=== PATIENT | female | born 1965 | race Caucasian/White ===

== ENCOUNTER 2016-12-10 11:29 | Inpatient (IN) | payer MEDICAID, MEDICARE ==
[~2016-12-10] VITALS: Ht 162.6 cm; Wt 55.3 kg
[~2016-12-10 11:29] MED LIST: BENT20TA PO; CHOL4 PO; MAGN500T4 PO; METO25 PO; POTA20IN3 PO
[2016-12-10 11:31] VITALS: BP 154/100; PULSE 112; RESP 24; TEMP 99.2; O2SAT 96
[2016-12-10] MEDS ORDERED: SODIUM CHLOR 0.9% 1000 ML INJ 1,000 ML IV ONE (11:44)
[2016-12-10] MEDS ORDERED: SODIUM CHLOR 0.9% 1000 ML INJ 800 ML IV ONE (11:44)
[2016-12-10] MEDS ORDERED: ONDANSETRON HCL 4 MG/2 ML VIAL IV ONE (11:45)
[2016-12-10] MEDS ORDERED: HYDROmorphone HCL PF 0.5 MG/0.5 ML SYRINGE IV PUSH ONE (11:45)
[2016-12-10 12:03] LABS: AUTOMATED NEUTROPHIL # 9.7 TH/MM3 (1.8-7.7); BASOPHIL # 0.1 TH/MM3 (0-0.2); BASOPHIL % 0.4 % (0.0-2.0); EOSINOPHIL % 0.3 % (0.0-4.0); HEMATOCRIT 41.5 % (35.0-46.0); HEMO FLAGS DIFF FINAL; LYMPH % 24.3 % (9.0-44.0); LYMPHOCYTE # 3.4 TH/MM3 (1.0-4.8); MEAN CELL VOLUME 99.2 FL (80.0-100.0); MEAN CORPUSCULAR HEMOGLOBIN 34.1 PG (27.0-34.0); MEAN CORPUSCULAR HGB CONC 34.4 % (32.0-36.0); MONO % 6.5 % (0.0-8.0); NEUT % 68.5 % (16.0-70.0); PLATELET COUNT 254 TH/MM3 (150-450); RED BLOOD COUNT 4.18 MIL/MM3 (4.00-5.30); RED CELL DISTRIBUTION WIDTH 15.2 % (11.6-17.2); WHITE BLOOD COUNT 14.2 TH/MM3 (4.0-11.0)
[2016-12-10 12:04] LABS: BLOOD, URINE NEG (NEG); GLUCOSE,URINE NEG (NEG); KETONE, URINE NEG (NEG); MUCUS URINE FEW /lpf (OCC); NITRITE,URINE NEG (NEG); PH, URINE 6.5 (5.0-8.5); URINE COLOR YELLOW (YELLW/STRAW)
[2016-12-10 12:05] LABS: COMMENT (UR) CATH-CULT NOT IND; CULTURE IF INDICATED CATH CULTURE NOT IND
--- NOTE | 2016-12-10 12:10 | PD ---
HPI Chief Complaint: GI Complaint Time Seen by Provider: 11:44 Travel History International Travel<30 days: No Contact w/Intl Traveler<30days: No Traveled to known affect area: No History of Present Illness HPI Patient is a 51-year-old female presenting to the emergency room evaluation of nausea, vomiting, abdominal pain. Patient symptoms have been ongoing for 5 days. She states she is unable to keep down her medications. Patient is a history of chronic diarrhea as well as bowel obstructions. Patient is on TPN due to malabsorption. Patient states she was told by her primary doctor to come into the emergency department because her potassium level was 2.6. Patient reports subjective fever and chills, she states her bowel movements have been mucousy. Patient states her abdominal pain is 9 out of 10 and reports as aching and cramping diffusely, however the left lower quadrant is tender than the rest of her abdomen. Patient's past medical history significant for hypertension, anxiety and depression, chronic diarrhea, fibromyalgia, small bowel obstruction. Patient reports taking Lortab 6 times a day for her chronic pain. PFSH Past Medical History Asthma: No Blood Disorders: No Anxiety: Yes Depression: Yes Heart Rhythm Problems: No Cancer: No Cardiovascular Problems: Yes High Cholesterol: No Chemotherapy: No Chest Pain: No Congestive Heart Failure: No COPD: No Diabetes: No Diminished Hearing: No Endocrine: No Fibromyalgia: Yes Gastrointestinal Disorders: Yes (malabsorption, small bowel obstruction, chronic diarrhea) Genitourinary: Yes Hypertension: Yes Immune Disorder: No Implanted Vascular Access Dvce: Yes (CHEST PORT, RIGHT X2 POWER PORT) Kidney Stones: Yes Musculoskeletal: No Neurologic: No Psychiatric: No Reproductive: No Respiratory: No Immunizations Current: Yes Radiation Therapy: No Seizures: No Sleep Apnea: No Thyroid Disease: No PNEUMOCCOCAL Vaccine (Year): 2 ?: Not Past Surgical History Abdominal Surgery: Yes (BOWEL RESECTION X 2 2003,AORTIC MESENTERIC BYPASS) Appendectomy: Yes Body Medical Devices: POWER PORT Cardiac Surgery: No Cholecystectomy: Yes Endocrine Surgery: No Eye Surgery: No Genitourinary Surgery: No Gynecologic Surgery: Yes (HYSTERECTOMY 2002) Hysterectomy: Yes Thoracic Surgery: No Tonsillectomy: Yes Other Surgery: Yes (MULTIPLE ABDOMINAL SURGERIES) Social History Alcohol Use: No Tobacco Use: Yes (1 ppd) Substance Use: No Allergies-Medications (Allergen,Severity, Reaction): Coded Allergies: morphine (Verified Allergy, Severe, Rash, 12/10/16) Reported Meds & Prescriptions Reported Meds & Active Scripts Active Reported [tpn ] Prozac (Fluoxetine HCl) 10 Mg Cap 10 Mg PO DAILY [place] (Hydrocodone-Acetaminophen) 10-325 Mg Tab 1 Tab PO Q4H PRN Norvasc (Amlodipine Besylate) 5 Mg Tab 5 Mg PO DAILY Phenergan (Promethazine HCl) 25 Mg Tablet 25 Mg PO ONCE Review of Systems Except as stated in HPI: all other systems reviewed are Neg General / Constitutional: Positive: Fever, Chills HENT: No: Headaches Cardiovascular: No: Chest Pain or Discomfort Respiratory: No: Shortness of Breath Gastrointestinal: Positive: Nausea, Vomiting, Diarrhea, Abdominal Pain Genitourinary: No: Dysuria Neurologic: Positive: Weakness, No: Dizziness, Syncope, Focal Abnormalities Physical Exam Narrative GENERAL: Thin, well-developed, alert female. Resting comfortably in no acute distress. SKIN: Warm and dry. HEAD: Atraumatic. Normocephalic. EYES: Pupils equal and round. No scleral icterus. No injection or drainage. ENT: No nasal bleeding or discharge. Mucous membranes pink and moist. NECK: Trachea midline. No JVD. CARDIOVASCULAR: Regular rate and rhythm. RESPIRATORY: No accessory muscle use. Clear to auscultation. Breath sounds equal bilaterally. GASTROINTESTINAL: Abdomen soft, tender to palpation diffusely, more so over the left lower quadrant, nondistended. Hepatic and splenic margins not palpable. No rebound, no guarding. Positive bowel sounds. MUSCULOSKELETAL: Extremities without clubbing, cyanosis, or edema. No obvious deformities. NEUROLOGICAL: Awake and alert. No obvious cranial nerve deficits. Motor grossly within normal limits. Five out of 5 muscle strength in the arms and legs. Normal speech. PSYCHIATRIC: Appropriate mood and affect; insight and judgment normal. Data Data Last Documented VS Vital Signs Date Time Temp Pulse Resp B/P (MAP) Pulse Ox O2 Delivery O2 Flow Rate FiO2 12/10/16 15:11 86 12 136/67 (90) 96 Room Air 12/10/16 11:31 99.2 Orders Orders Electrocardiogram (12/10/16 11:44) Complete Blood Count With Diff (12/10/16 11:44) Comprehensive Metabolic Panel (12/10/16 11:44) Prothrombin Time / Inr (Pt) (12/10/16 11:44) Act Partial Throm Time (Ptt) (12/10/16 11:44) Lactic Acid Sepsis Protocol (12/10/16 11:44) Lipase (12/10/16 11:44) Urinalysis - C+S If Indicated (12/10/16 11:44) Blood Glucose (12/10/16 11:44) Ecg Monitoring (12/10/16 11:44) Iv Access Insert/Monitor (12/10/16 11:44) Oximetry (12/10/16 11:44) Ondansetron Inj (Zofran Inj) (12/10/16 11:45) Ct Abd/Pel W Iv Contrast(Rout) (12/10/16 11:44) Sodium Chlor 0.9% 1000 Ml Inj (Ns 1000 M (12/10/16 11:44) Sodium Chlor 0.9% 1000 Ml Inj (Ns 1000 M (12/10/16 11:44) Hydromorphone Pf Inj (Dilaudid Pf Inj) (12/10/16 11:45) Hydromorphone Pf Inj (Dilaudid Pf Inj) (12/10/16 12:15) Potassium Chlor 40 Meq Premix (Kcl 40 Me (12/10/16 13:00) Magnesium (Mg) (12/10/16 12:55) Magnesium Sulfate 1 Gm Premix (Magnesium (12/10/16 14:15) Iohexol 350 Inj (Omnipaque 350 Inj) (12/10/16 14:45) Admit Order (Ed Use Only) (12/10/16 15:14) Place In Observation (12/10/16 ) Vital Signs (Adult) Q4H (12/10/16 15:13) Activity Oob With Assistance (12/10/16 15:13) Family And Divorce Legal Assistant / Telemetry .CONTINUOUS (12/10/16 15:13) Diet Npo (12/10/16 Dinner) Sodium Chloride 0.9% Flush (Ns Flush) (12/10/16 15:15) Sodium Chloride 0.9% Flush (Ns Flush) (12/10/16 21:00) Acetaminophen (Tylenol) (12/10/16 15:15) Ondansetron Inj (Zofran Inj) (12/10/16 15:15) Basic Metabolic Panel (Bmp) (12/11/16 06:00) Complete Blood Count With Diff (12/11/16 06:00) Resp Oxygen Marquis C Titrat 1-4 L (12/10/16 ) Scd Bilateral/Knee High BART.BID (12/10/16 15:13) Naloxone Inj (Narcan Inj) (12/10/16 15:15) Docusate Sodium-Senna (Laura-Colace) (12/10/16 21:00) Magnesium Hydroxide Liq (Milk Of Magnesi (12/10/16 15:15) Sennosides (Senokot) (12/10/16 15:15) Bisacodyl Supp (Dulcolax Supp) (12/10/16 15:15) Lactulose Liq (Lactulose Liq) (12/10/16 15:15) Magnesium (Mg) (12/11/16 06:00) Magnesium Sulfate 1 Gm Premix (Magnesium (12/10/16 15:15) Magnesium Sulfate 1 Gm Premix (Magnesium (12/10/16 20:00) Labs Laboratory Tests Test 12/10/16 11:50 White Blood Count 14.2 TH/MM3 Red Blood Count 4.18 MIL/MM3 Hemoglobin 14.3 GM/DL Hematocrit 41.5 % Mean Corpuscular Volume 99.2 FL Mean Corpuscular Hemoglobin 34.1 PG Mean Corpuscular Hemoglobin Concent 34.4 % Red Cell Distribution Width 15.2 % Platelet Count 254 TH/MM3 Mean Platelet Volume 8.2 FL Neutrophils (%) (Auto) 68.5 % Lymphocytes (%) (Auto) 24.3 % Monocytes (%) (Auto) 6.5 % Eosinophils (%) (Auto) 0.3 % Basophils (%) (Auto) 0.4 % Neutrophils # (Auto) 9.7 TH/MM3 Lymphocytes # (Auto) 3.4 TH/MM3 Monocytes # (Auto) 0.9 TH/MM3 Eosinophils # (Auto) 0.0 TH/MM3 Basophils # (Auto) 0.1 TH/MM3 CBC Comment DIFF FINAL Differential Comment Prothrombin Time 10.7 SEC Prothromb Time International Ratio 1.0 RATIO Activated Partial Thromboplast Time 25.3 SEC Urine Color YELLOW Urine Turbidity CLEAR Urine pH 6.5 Urine Specific [place] 1.012 Urine Protein 30 mg/dL Urine Glucose (UA) NEG mg/dL Urine Ketones NEG mg/dL Urine Occult Blood NEG Urine Nitrite NEG Urine Bilirubin NEG Urine Urobilinogen LESS THAN 2.0 MG/DL Urine Leukocyte Esterase NEG Urine RBC LESS THAN 1 /hpf Urine WBC 2 /hpf Urine Mucus FEW /lpf Microscopic Urinalysis Comment CATH-CULT NOT IND Blood Urea Nitrogen 14 MG/DL Creatinine 1.00 MG/DL Random Glucose 86 MG/DL Total Protein 8.0 GM/DL Albumin 4.0 GM/DL Calcium Level 8.6 MG/DL Alkaline Phosphatase 80 U/L Aspartate Amino Transf (AST/SGOT) 15 U/L Alanine Aminotransferase (ALT/SGPT) 24 U/L Total Bilirubin 0.3 MG/DL Sodium Level 139 MEQ/L Potassium Level 2.4 MEQ/L Chloride Level 109 MEQ/L Carbon Dioxide Level 20.2 MEQ/L Anion Gap 10 MEQ/L Estimat Glomerular Filtration Rate 59 ML/MIN Lactic Acid Level 2.0 mmol/L Magnesium Level 0.8 MG/DL Lipase 228 U/L [facility] Medical Decision Making Medical Screen Exam Complete: Yes Emergency Medical Condition: Yes Medical Record Reviewed: Yes Interpretation(s) Vital Signs Date Time Temp Pulse Resp B/P (MAP) Pulse Ox O2 Delivery O2 Flow Rate FiO2 12/10/16 11:56 (118) Room Air 12/10/16 11:37 18 12/10/16 11:31 99.2 112 24 154/100 (118) 96 Room Air Differential Diagnosis Bowel obstruction vs metabolic abnormality vs sepsis vs uti vs other Narrative Course Pt presented with 5 days of nausea, vomiting and abdominal pain. She reports diarrhea however this is chronic in nature. Pt is tachycardic on arrival EKG shows sinus tachycardia with a rate of 106. Labs and imaging ordered and pending. Pt has an implanted right chest port that she uses for TPN. CMP with K+ of 2.4, IV replacement ordered through the port. CBC with WBC of 14.2 likely reactive, no left shift Lactic acid 2.0, 2L IVF ordered UA unremarkable Pt medicated for pain. CT scan abdomen and pelvis shows no acute abnormality. Mild hepatomegaly, mild degenerative changes and scoliosis of the lumbar spine. Patient will be admitted under observation to replace electrolytes due to hypokalemia, hypomagnesemia, intractable nausea or vomiting. Discussed with Dr. Parish who agreed to admission. Admit orders placed. Diagnosis Primary Impression: Nausea and vomiting Qualified Codes: R11.2 - Nausea with vomiting, unspecified Additional Impressions: Hypokalemia Hypomagnesemia Abdominal pain Qualified Codes: R10.9 - Unspecified abdominal pain Admitting Information Admitting Physician Requests: Observation Condition: Stable Uyen Fountain Dec 10, 2016 12:10
[2016-12-10 12:12] LABS: APTT (PATIENT) 25.3 SEC (24.3-30.1); PROTHROMBIN TIME - PATIENT 10.7 SEC (9.8-11.6)
[2016-12-10] MEDS ORDERED: HYDROmorphone HCL PF 1 MG/ML VIAL IV PUSH ONE (12:15)
[2016-12-10 12:41] LABS: ALKALINE PHOSPHATASE 80 U/L (45-117); ALT (GPT) 24 U/L (10-53); ANION GAP 10 MEQ/L (5-15); AST (GOT) 15 U/L (15-37); BICARBONATE 20.2 MEQ/L (21.0-32.0); BLOOD UREA NITROGEN 14 MG/DL (7-18); CHLORIDE 109 MEQ/L (98-107); GLOMERULAR FILTRATION RATE 59 ML/MIN (>89); SODIUM (NA) 139 MEQ/L (136-145); TOTAL BILIRUBIN ADULT 0.3 MG/DL (0.2-1.0)
[2016-12-10 12:52] LABS: POTASSIUM 2.4 MEQ/L (3.5-5.1)
[2016-12-10] MEDS ORDERED: PROM25TA10 PO (13:10)
[2016-12-10] MEDS ORDERED: tpn (13:10)
[2016-12-10] MEDS ORDERED: HYDR-3366 PO (13:10)
[2016-12-10] MEDS ORDERED: AMLO5 PO (13:10)
[2016-12-10] MEDS ORDERED: FLUO-1 PO (13:10)
[2016-12-10] MEDS: POTASSIUM CHLOR 40 MEQ PREMIX 100 ML IV SCH ×2 (13:28→18:44)
[2016-12-10] MEDS ORDERED: MAGNESIUM SULFATE 1 GM PREMIX 100 ML IV ONE (14:15)
[2016-12-10] MEDS ORDERED: IOHEXOL 350 MG/ML 10 ML VIAL (for RAD DIAG) IVCONTRAST ONE (14:45)
--- NOTE | 2016-12-10 14:58 | RADRPT ---
EXAM DATE/TIME: 12/10/2016 14:39 [place] COMPARISON: CT ABDOMEN & PELVIS W CONTRAST, October 11, 2013, 15:34. INDICATIONS : Abdominal pain with nausea and vomiting. IV CONTRAST: 96 cc Omnipaque 350 (iohexol) IV ORAL CONTRAST: No oral contrast ingested. RADIATION DOSE: 4.78 CTDIvol (mGy) MEDICAL HISTORY : Hypertension. Renal calculi. SURGICAL HISTORY : Appendectomy. Cholecystectomy.Hysterectomy. ENCOUNTER: Initial ACUITY: 1 day PAIN SCALE: 5/10 LOCATION: Left abdomen TECHNIQUE: Volumetric scanning of the abdomen and pelvis was performed. Using automated exposure control and ad justment of the mA and/or kV according to patient size, radiation dose was kept as low as reasonably achievable to obtain optimal diagnostic quality images. DICOM format image data is available electro nically for review and comparison. FINDINGS: LOWER LUNGS: There is a stable calcified granuloma within the right lower lobe posterior medially. LIVER: Mild hepatomegaly is noted. Homogeneous density without lesion. There is no dilation of the biliary tree. Status post cholecystectomy. SPLEEN: Normal size without lesion. PANCREAS: Within normal limits. KIDNEYS: Normal in size and shape. There is no mass, stone or hydronephrosis. ADRENAL GLANDS: Within normal limits. VASCULAR: There is no aortic aneurysm. BOWEL/MESENTERY: The stomach, small bowel, and colon demonstrate no acute abnormality. There is no free intraperitone al air or fluid. The patient is status post extensive previous bowel surgery. ABDOMINAL WALL: Within normal limits. Ventral abdominal wall hernia repair is noted and is stable. No recurrent herni a is noted. RETROPERITONEUM: There is no lymphadenopathy. BLADDER: No wall thickening or mass. REPRODUCTIVE: Within normal limits. INGUINAL: There is no lymphadenopathy or hernia. MUSCULOSKELETAL: Mild degenerative changes and scoliosis of the lumbar spine are noted. CONCLUSION: 1. Mild hepatomegaly. 2. No acute intra-abdominal process. 3. Mild degenerative changes and scoliosis of the lumbar spine. Dung Arias MD on December 10, 2016 at 14:49 Board Certified Radiologist. This report was verified electronically.
[2016-12-10 15:11] VITALS: BP 136/67; PULSE 86; RESP 12; O2SAT 96
[2016-12-10] MEDS ORDERED: NALOXONE HCL 0.4 MG/ML AMP IV PUSH PRN (15:15)
[2016-12-10] MEDS ORDERED: LACTULOSE SYRUP 20 GM/30 ML CUP PO PRN (15:15)
[2016-12-10] MEDS ORDERED: BISACODYL 10 MG SUPP RECTAL PRN (15:15)
[2016-12-10] MEDS ORDERED: MAGNESIUM HYDROXIDE SUSP 30 ML CUP PO PRN (15:15)
[2016-12-10] MEDS ORDERED: SENNOSIDES 8.6 MG TAB PO PRN (15:15)
[2016-12-10] MEDS ORDERED: ONDANSETRON HCL 4 MG/2 ML VIAL IV PUSH ONE (15:30)
[2016-12-10] MEDS ORDERED: DICYCLOMINE HCL 20 MG/2 ML VIAL IM ONE (15:30)
[2016-12-10] MEDS: MAGNESIUM SULFATE 1 GM PREMIX 100 ML IV SCH ×4 (16:15→21:24)
--- NOTE | 2016-12-10 16:26 | HHI.PR ---
Addendum to Inpatient Note Addendum Reason: Additional Documentation Additional Information I spoke today with Dr. Baez (notes Dr. Miranda is covering in hospital for him for GI today) and to Dr. Christine regarding her ongoing issues. No great answer to her situation. You can consult them if needed. Need to make sure she doesn't have recurrant bowel obstruction. I have been trying to get her in with short gut GI specialist at [facility] but she hasn't heard from [facility]'s yet either. Trying to get that set. Ana Banuelos MD Dec 10, 2016 16:26
--- NOTE | 2016-12-10 16:50 | HHI.HP ---
HPI Service [facility] Primary Care Physician Ana Gillespie MD Admission Diagnosis hypokalemia, hypomagnesemia, nausea and vomiting Diagnoses: Chief Complaint: Worsenign nausea, vomiting, abdominal pain. Travel History International Travel<30 Days: No Contact w/Intl Traveler <30 Da: No Traveled to Known Affected Are: No Sepsis Criteria SIRS Criteria (2 or more): Heart rate over 90, RR > 20 or PaCO2 < 32, WBC > 23452, < 4000 or > 10% bands Sepsis Criteria (SIRS+source): Infect source susp/known Criteria Outcome: Meets SIRS criteria, Meets sepsis criteria History of Present Illness Ms. Mensah is a pleasant 51-year-old female with a history of multiple bowel obstructions and multiple bowel surgeries who presents to the emergency department due to nausea vomiting and abdominal pain. Although she has chronic abdominal pain, her symptoms have been mostly pronounced in the last 1 week. She reports nausea vomiting with any oral intake. She also reports crampy abdominal pain especially in the lower quadrants. She has subjective fever and chills. She also has chronic diarrhea but feels that her diarrhea has been worsening in the last few days. She is currently on TPN due to malabsorption. She was advised by her primary care physician to come to the hospital due to hypokalemia with potassium 2.6. At the time of this interview patient denies any chest pain, cough. She does report overall weakness and muscle aches. She denies any blood in the vomitus or diarrhea. Upon arrival temperature 99.2F, pulse 112, respiration 24, blood pressure 154/100. WBC 14.2 , hemoglobin 14.3, platelets 254. Sodium 139, potassium 2.4, chloride 109, CO2 20.2, anion gap 10, BUN 14, creatinine 1.0, glucose 86, lactic acid 2.0 and magnesium 0.8. Lipase 228. CT abdomen pelvis reveals mild hepatomegaly but no acute intra-abdominal process. Review of Systems Except as stated in HPI: all other systems reviewed are Neg Past Family Social History Past Medical History Bowel obstruction hypertension Depression Past Surgical History Multiple surgeries due to bowel obstruction, hysterectomy Reported Medications Prozac (Fluoxetine HCl) 10 Mg Cap 10 Mg PO DAILY [place] (Hydrocodone-Acetaminophen) 10-325 Mg Tab 1 Tab PO Q4H PRN Norvasc (Amlodipine Besylate) 5 Mg Tab 5 Mg PO DAILY Phenergan (Promethazine HCl) 25 Mg Tablet 25 Mg PO ONCE Allergies: Coded Allergies: morphine (Verified Allergy, Severe, Rash, 12/10/16) Family History No family history of Alzheimer's or Parkinson's. No family history of heart disease. Social History Patient smokes 1 pack a day, denies using alcohol or illicit drugs. Physical Exam Vital Signs Vital Signs Date Time Temp Pulse Resp B/P (MAP) Pulse Ox O2 Delivery O2 Flow Rate FiO2 12/10/16 15:11 86 12 136/67 (90) 96 Room Air 12/10/16 11:56 (118) Room Air 12/10/16 11:37 18 12/10/16 11:31 99.2 112 24 154/100 (118) 96 Room Air Physical Exam GENERAL: This is a well-nourished, well-developed patient, in no apparent distress. SKIN: No rashes, ecchymoses or lesions. Warm and dry. HEAD: Atraumatic. Normocephalic. No temporal or scalp tenderness. EYES: Pupils equal round and reactive. No injection or drainage. ENT: Nose without bleeding, purulent drainage or septal hematoma. Airway patent. NECK: Trachea midline. No lymphadenopathy. Supple, nontender, no meningeal signs. CARDIOVASCULAR: Regular rate and rhythm without murmurs, gallops, or rubs. No JVD. RESPIRATORY: Clear to auscultation. Breath sounds equal bilaterally. No wheezes , rales, or rhonchi. GASTROINTESTINAL: Abdomen soft, non-tender, nondistended. No guarding. MUSCULOSKELETAL: Extremities without clubbing, cyanosis, or edema. NEUROLOGICAL: Awake and alert. Cranial nerves II through XII intact. No focal neurological deficits. Normal speech. Laboratory Laboratory Tests Test 12/10/16 11:50 White Blood Count 14.2 Red Blood Count 4.18 Hemoglobin 14.3 Hematocrit 41.5 Mean Corpuscular Volume 99.2 Mean Corpuscular Hemoglobin 34.1 Mean Corpuscular Hemoglobin Concent 34.4 Red Cell Distribution Width 15.2 Platelet Count 254 Mean Platelet Volume 8.2 Neutrophils (%) (Auto) 68.5 Lymphocytes (%) (Auto) 24.3 Monocytes (%) (Auto) 6.5 Eosinophils (%) (Auto) 0.3 Basophils (%) (Auto) 0.4 Neutrophils # (Auto) 9.7 Lymphocytes # (Auto) 3.4 Monocytes # (Auto) 0.9 Eosinophils # (Auto) 0.0 Basophils # (Auto) 0.1 CBC Comment DIFF FINAL Differential Comment Prothrombin Time 10.7 Prothromb Time International Ratio 1.0 Activated Partial Thromboplast Time 25.3 Urine Color YELLOW Urine Turbidity CLEAR Urine pH 6.5 Urine Specific [place] 1.012 Urine Protein 30 Urine Glucose (UA) NEG Urine Ketones NEG Urine Occult Blood NEG Urine Nitrite NEG Urine Bilirubin NEG Urine Urobilinogen LESS THAN 2.0 Urine Leukocyte Esterase NEG Urine RBC LESS THAN 1 Urine WBC 2 Urine Mucus FEW Microscopic Urinalysis Comment CATH-CULT NOT IND Blood Urea Nitrogen 14 Creatinine 1.00 Random Glucose 86 Total Protein 8.0 Albumin 4.0 Calcium Level 8.6 Alkaline Phosphatase 80 Aspartate Amino Transf (AST/SGOT) 15 Alanine Aminotransferase (ALT/SGPT) 24 Total Bilirubin 0.3 Sodium Level 139 Potassium Level 2.4 Chloride Level 109 Carbon Dioxide Level 20.2 Anion Gap 10 Estimat Glomerular Filtration Rate 59 Lactic Acid Level 2.0 Magnesium Level 0.8 Lipase 228 Result Diagram: 12/10/16 1150 12/10/16 1150 Imaging Last Impressions Abdomen/Pelvis CT 12/10/16 1144 Signed Impressions: Service Date/Time: November 14:39 - CONCLUSION: 1. Mild hepatomegaly. 2. No acute intra-abdominal process. 3. Mild degenerative changes and scoliosis of the lumbar spine. Dung Arias MD Caprini VTE Risk Assessment Caprini VTE Risk Assessment: Mod/High Risk (score >= 2) Caprini Risk Assessment Model Point Value = 1 Point Value = 2 Point Value = 3 Point Value = 5 Age 41-60 Minor surgery BMI > 25 kg/m2 Swollen legs Varicose veins or History of unexplained or recurrent spontaneous Oral contraceptives or hormone replacement Sepsis (< 1 month) Serious lung disease, including pneumonia (< 1 month) Abnormal pulmonary function Acute myocardial infarction Congestive heart failure (< 1 month) History of inflammatory bowel disease Medical patient at bed rest Age 61-74 Arthroscopic surgery Major open surgery (> 45 min) Laparoscopic surgery (> 45 min) Malignancy Confined to bed (> 72 hours) Immobilizing plaster cast Central venous access Age >= 75 History of VTE Family history of VTE Factor V Leiden Prothrombin [id number] Lupus anticoagulant Anticardiolipin antibodies Elevated serum homocysteine Heparin-induced thrombocytopenia Other congenital or acquired thrombophilia Stroke (< 1 month) Elective arthroplasty Hip, pelvis, or leg fracture Acute spinal cord injury (< 1 month) Prophylaxis Regimen Total Risk Factor Score Risk Level Prophylaxis Regimen 0-1 Low Early ambulation 2 Moderate Order ONE of the following: *Sequential Compression Device (SCD) *Heparin 5000 units SQ BID 3-4 Higher Order ONE of the following medications: *Heparin 5000 units SQ TID *Enoxaparin/Lovenox 40 mg SQ daily (WT < 150 kg, CrCl > 30 mL/min) *Enoxaparin/Lovenox 30 mg SQ daily (WT < 150 kg, CrCl > 10-29 mL/min) *Enoxaparin/Lovenox 30 mg SQ BID (WT < 150 kg, CrCl > 30 mL/min) AND/OR *Sequential Compression Device (SCD) 5 or more Highest Order ONE of the following medications: *Heparin 5000 units SQ TID (Preferred with Epidurals) *Enoxaparin/Lovenox 40 mg SQ daily (WT < 150 kg, CrCl > 30 mL/min) *Enoxaparin/Lovenox 30 mg SQ daily (WT < 150 kg, CrCl > 10-29 mL/min) *Enoxaparin/Lovenox 30 mg SQ BID (WT < 150 kg, CrCl > 30 mL/min) AND *Sequential Compression Device (SCD) Assessment and Plan Problem List: (1) Hypomagnesemia ICD Code: E83.42 - Hypomagnesemia Status: Acute (2) Hypokalemia ICD Code: E87.6 - Hypokalemia Status: Acute (3) Abdominal pain ICD Code: R10.9 - Abdominal pain Status: Acute (4) Nausea and vomiting ICD Code: R11.2 - Nausea and vomiting Status: Acute Assessment and Plan Ms. Mensah is a pleasant 51-year-old female with a history of bowel obstruction and multiple surgeries who presents to the emergency department today due to hypokalemia as well as abdominal pain, nausea vomiting. - Hypomagnesemia - Hypokalemia - Likely due to nausea and vomiting. - Potassium 2.4 and magnesium 0.8 on admission. - We'll replace potassium with IV KCl and magnesium with IV magnesium sulfate. She will need multiple infusions. - Nausea/vomiting - Abdominal pain - Diarrhea - We'll check C. difficile PCR - Start Cipro and Flagyl IV. - Zofran for nausea vomiting and Dilaudid 1 mg every 4 hours when necessary for abdominal pain. - Hypertension - continue amlodipine 5 mg daily - Depression - continue fluoxetine 10 mg daily Full code. SCDs for now. If prolonged hospitalization is expected we'll start patient on pharmacological prophylaxis. Physician Certification 2 Midnight Certification Type: Admission for Inpatient Services Order for Inpatient Services The services are ordered in accordance with Medicare regulations or non- Medicare payer requirements, as applicable. In the case of services not specified as inpatient-only, they are appropriately provided as inpatient services in accordance with the 2-midnight benchmark. Estimated LOS (days): 2 days is the estimated time the patient will need to remain in the hospital, assuming treatment plan goals are met and no additional complications. Post-Hospital Plan: Home Problem Qualifiers (1) Abdominal pain: Qualified Codes: R10.9 - Unspecified abdominal pain (2) Nausea and vomiting: Qualified Codes: R11.2 - Nausea with vomiting, unspecified Sharmin Parish DO Dec 10, 2016 4:50 pm
[2016-12-10 17:30] VITALS: BP 112/69; PULSE 96; RESP 18; TEMP 97.9; O2SAT 96
[2016-12-10] MEDS: metroNIDAZOLE 500 MG INJ 100 ML IV SCH (18:44)
[2016-12-10] MEDS: HYDROmorphone HCL PF 1 MG/ML VIAL IV PUSH PRN ×2 (18:44→22:22)
[2016-12-10 20:31] VITALS: BP 107/58; PULSE 80; RESP 16; TEMP 97.5; O2SAT 94
[2016-12-10] MEDS: SODIUM CHLORIDE 0.9% FLUSH 10 ML FLUSH IV FLUSH SCH (21:00)
[2016-12-10] MEDS: DOCUSATE SODIUM 50 MG/SENNA 8.6 MG TAB PO SCH (21:14)
[2016-12-10] MEDS: CIPROFLOXACIN 400 MG PREMIX 200 ML IV SCH (21:14)
[2016-12-10] MEDS: ONDANSETRON HCL 4 MG/2 ML VIAL IVP PRN (21:14)
[2016-12-11] VITALS (9 sets, daily range): BP systolic 88–152; BP diastolic 50–71; PULSE 73–77; RESP 16–18; TEMP 96.8–98.3; O2SAT 93–97
[2016-12-11] MEDS: ONDANSETRON HCL 4 MG/2 ML VIAL IVP PRN ×3 (02:17→18:44)
[2016-12-11] MEDS: HYDROmorphone HCL PF 1 MG/ML VIAL IV PUSH PRN ×7 (02:17→22:34)
[2016-12-11] MEDS: metroNIDAZOLE 500 MG INJ 100 ML IV SCH ×3 (02:17→17:19)
[2016-12-11] MEDS: CIPROFLOXACIN 400 MG PREMIX 200 ML IV SCH ×2 (06:05→20:52)
[2016-12-11 07:31] LABS: AUTOMATED NEUTROPHIL # 4.9 TH/MM3 (1.8-7.7); BASOPHIL % 0.1 % (0.0-2.0); EOSINOPHIL # 0.1 TH/MM3 (0-0.4); EOSINOPHIL % 1.5 % (0.0-4.0); HEMATOCRIT 32.4 % (35.0-46.0); HEMO FLAGS DIFF FINAL; LYMPH % 25.1 % (9.0-44.0); LYMPHOCYTE # 1.9 TH/MM3 (1.0-4.8); MEAN CELL VOLUME 101.4 FL (80.0-100.0); MEAN CORPUSCULAR HEMOGLOBIN 33.4 PG (27.0-34.0); MEAN CORPUSCULAR HGB CONC 32.9 % (32.0-36.0); MONO % 6.9 % (0.0-8.0); NEUT % 66.4 % (16.0-70.0); PLATELET COUNT 165 TH/MM3 (150-450); RED CELL DISTRIBUTION WIDTH 15.2 % (11.6-17.2); WHITE BLOOD COUNT 7.4 TH/MM3 (4.0-11.0)
[2016-12-11 07:52] LABS: BICARBONATE 19.7 MEQ/L (21.0-32.0); MAGNESIUM 1.9 MG/DL (1.5-2.5)
[2016-12-11 08:16] LABS: POTASSIUM 2.5 MEQ/L (3.5-5.1)
[2016-12-11] MEDS: FLUoxetine HCL 10 MG CAP PO SCH (08:34)
[2016-12-11] MEDS: DOCUSATE SODIUM 50 MG/SENNA 8.6 MG TAB PO SCH ×2 (08:38→20:57)
[2016-12-11] MEDS: amLODIPine BESYLATE 5 MG TAB PO SCH (08:38)
[2016-12-11] MEDS: SODIUM CHLORIDE 0.9% FLUSH 10 ML FLUSH IV FLUSH SCH ×2 (09:00→20:57)
[2016-12-11] MEDS ORDERED: POTASSIUM CHLOR 20 MEQ PREMIX 100 ML IV SCH ×2 (09:45→14:00)
--- NOTE | 2016-12-11 09:49 | HHI.PR ---
Subjective Remarks Follow-up for hypokalemia, hypomagnesemia, nausea and vomiting. Patient is currently doing well. Denies chest pain, shortness of breath, fever or chills. She reports some nausea and vomiting earlier today. Her diarrhea is improving. Objective Vitals Vital Signs Date Time Temp Pulse Resp B/P (MAP) Pulse Ox O2 Delivery O2 Flow Rate FiO2 12/11/16 08:00 97.6 75 18 88/51 (63) 94 12/11/16 05:36 74 12/11/16 04:36 93 12/11/16 04:29 96.8 73 16 91/50 (64) 94 12/11/16 00:27 97.0 76 16 106/62 (77) 94 12/10/16 20:31 97.5 80 16 107/58 (74) 94 12/10/16 17:30 97.9 96 18 112/69 (83) 96 12/10/16 17:16 12/10/16 15:11 86 12 136/67 (90) 96 Room Air 12/10/16 11:56 (118) Room Air 12/10/16 11:37 18 12/10/16 11:31 99.2 112 24 154/100 (118) 96 Room Air I/O 12/10/16 12/10/16 12/10/16 12/11/16 12/11/16 12/11/16 07:00 15:00 23:00 07:00 15:00 23:00 Intake Total 1000 ml 700 ml 100 ml Balance 1000 ml 700 ml 100 ml Intake Oral 0 ml 0 ml IV Total 1000 ml 700 ml 100 ml # Voids 1 4 # Bowel Movements 2 4 Result Diagram: 12/11/16 0707 12/11/16 0707 Imaging Last Impressions Abdomen/Pelvis CT 12/10/16 1144 Signed Impressions: Service Date/Time: November 14:39 - CONCLUSION: 1. Mild hepatomegaly. 2. No acute intra-abdominal process. 3. Mild degenerative changes and scoliosis of the lumbar spine. Dung Arias MD Objective Remarks GENERAL: Alert, oriented 3, NAD. SKIN: Warm and dry. HEAD: Normocephalic. EYES: No scleral icterus. No injection or drainage. NECK: Supple, trachea midline. No JVD or lymphadenopathy. CARDIOVASCULAR: Regular rate and rhythm without murmurs, gallops, or rubs. RESPIRATORY: Breath sounds equal bilaterally. No accessory muscle use. GASTROINTESTINAL: Abdomen soft, non-tender, nondistended. MUSCULOSKELETAL: No cyanosis, or edema. BACK: Nontender without obvious deformity. No CVA tenderness. Procedures None A/P Problem List: (1) Hypomagnesemia ICD Code: E83.42 - Hypomagnesemia Status: Acute (2) Hypokalemia ICD Code: E87.6 - Hypokalemia Status: Acute (3) Abdominal pain ICD Code: R10.9 - Abdominal pain Status: Acute (4) Nausea and vomiting ICD Code: R11.2 - Nausea and vomiting Status: Acute Assessment and Plan Ms. Mensah is a pleasant 51-year-old female with a history of bowel obstruction and multiple surgeries who presents to the emergency department today due to hypokalemia as well as abdominal pain, nausea vomiting. - Hypomagnesemia - Hypokalemia - Likely due to nausea and vomiting. - Potassium 2.4 --> 2.5. and magnesium 0.8 --> 1.9 - Infuse 1 g of Mag sulfate today and will infuse total of 80meQ of KCL IV. - Repeat BMP in the afternoon. - Nausea/vomiting - Abdominal pain - Diarrhea - C. difficile PCR pending. If negative, we will use anti-diarrheal meds. - Cipro and Flagyl IV. - Zofran for nausea vomiting and Dilaudid 1 mg every 4 hours when necessary for abdominal pain. - Hypertension - continue amlodipine 5 mg daily - Depression - continue fluoxetine 10 mg daily Full code. Will start Lovenox for DVT prophylaxis. Problem Qualifiers (1) Abdominal pain: Qualified Codes: R10.9 - Unspecified abdominal pain (2) Nausea and vomiting: Qualified Codes: R11.2 - Nausea with vomiting, unspecified Sharmin Parish DO Dec 11, 2016 9:49 am
--- NOTE | 2016-12-11 11:33 | EKG ---
Date Performed: 12/10/2016 Time Performed: 11:45:42 PTAGE: 51 years EKG: SINUS TACHYCARDIA POSSIBLE RIGHT ATRIAL ENLARGEMENT ST DEVIATION AND MODERATE T-WAVE ABNORM ALITY, CONSIDER LATERAL ISCHEMIA ST DEVIATION AND MODERATE T-WAVE ABNORMALITY, CONSIDER INFERIOR ISCH EMIA ABNORMAL ECG NO PREVIOUS TRACING DOCTOR: Jose Monge Interpretating Date/Time 12/11/2016 11:30:08
[2016-12-11] MEDS: POTASSIUM CHLOR 40 MEQ PREMIX 100 ML IV SCH ×2 (11:41→14:03)
[2016-12-11] MEDS ORDERED: MAGNESIUM SULFATE 1 GM PREMIX 100 ML IV ONE (16:00)
[2016-12-11 19:42] LABS: C. DIFF EPI 027 PRESUMPTIVE NEGATIVE (NEGATIVE)
[2016-12-11] MEDS: ENOXAPARIN SODIUM 40 MG/0.4 ML SYRINGE SQ SCH (20:52)
[2016-12-12] VITALS (7 sets, daily range): BP systolic 99–133; BP diastolic 59–74; PULSE 65–76; RESP 16–18; TEMP 96.7–98.2; O2SAT 95–99
[2016-12-12] MEDS ORDERED: POTASSIUM CHLORIDE 20 MEQ CONTROLLED RELEASE TAB PO ONE (01:00)
[2016-12-12] MEDS: metroNIDAZOLE 500 MG INJ 100 ML IV SCH ×4 (01:24→18:47)
[2016-12-12] MEDS: ONDANSETRON HCL 4 MG/2 ML VIAL IVP PRN ×4 (01:32→21:54)
[2016-12-12] MEDS: HYDROmorphone HCL PF 1 MG/ML VIAL IV PUSH PRN ×7 (01:34→21:55)
[2016-12-12] MEDS: CIPROFLOXACIN 400 MG PREMIX 200 ML IV SCH ×3 (07:04→20:05)
[2016-12-12] MEDS ORDERED: POTASSIUM CHLOR 40 MEQ PREMIX 100 ML IV ONE (08:00)
[2016-12-12] MEDS: FLUoxetine HCL 10 MG CAP PO SCH (08:02)
[2016-12-12] MEDS: SODIUM CHLORIDE 0.9% FLUSH 10 ML FLUSH IV FLUSH SCH ×2 (08:02→20:06)
[2016-12-12] MEDS: amLODIPine BESYLATE 5 MG TAB PO SCH (08:03)
[2016-12-12] MEDS: DOCUSATE SODIUM 50 MG/SENNA 8.6 MG TAB PO SCH ×2 (08:03→20:06)
--- NOTE | 2016-12-12 08:54 | HHI.PR ---
Subjective Remarks Follow-up for hypokalemia, hypomagnesemia, nausea and vomiting. Patient is doing well. However, she complains of persistent diarrhea. No fever, chills. Objective Vitals Vital Signs Date Time Temp Pulse Resp B/P (MAP) Pulse Ox O2 Delivery O2 Flow Rate FiO2 12/12/16 03:25 97.9 74 16 103/60 (74) 96 12/12/16 00:30 96.7 74 16 99/59 (72) 97 12/11/16 20:00 98.3 77 16 152/71 (98) 97 12/11/16 16:00 97.9 75 18 107/66 (80) 95 12/11/16 12:00 98.1 73 18 105/68 (80) 96 12/11/16 09:57 95 21 I/O 12/11/16 12/11/16 12/11/16 12/12/16 12/12/16 12/12/16 06:59 14:59 22:59 06:59 14:59 22:59 Intake Total 100 ml 480 ml 720 ml 600 ml Output Total 500 ml Balance 100 ml 480 ml 720 ml 100 ml Intake Oral 0 ml 480 ml 720 ml 600 ml IV Total 100 ml Output Urine Total 500 ml # Voids 4 4 2 3 # Bowel Movements 4 4 0 Result Diagram: 12/11/16 0707 12/11/16 1900 Objective Remarks GENERAL: Alert, oriented 3, NAD. SKIN: Warm and dry. HEAD: Normocephalic. EYES: No scleral icterus. No injection or drainage. NECK: Supple, trachea midline. No JVD or lymphadenopathy. CARDIOVASCULAR: Regular rate and rhythm without murmurs, gallops, or rubs. RESPIRATORY: Breath sounds equal bilaterally. No accessory muscle use. GASTROINTESTINAL: Abdomen soft, non-tender, nondistended. MUSCULOSKELETAL: No cyanosis, or edema. BACK: Nontender without obvious deformity. No CVA tenderness. Procedures None A/P Problem List: (1) Hypomagnesemia ICD Code: E83.42 - Hypomagnesemia Status: Acute (2) Hypokalemia ICD Code: E87.6 - Hypokalemia Status: Acute (3) Abdominal pain ICD Code: R10.9 - Abdominal pain Status: Acute (4) Nausea and vomiting ICD Code: R11.2 - Nausea and vomiting Status: Acute Assessment and Plan Ms. Mensah is a pleasant 51-year-old female with a history of bowel obstruction and multiple surgeries who presents to the emergency department today due to hypokalemia as well as abdominal pain, nausea vomiting. - Hypomagnesemia - Hypokalemia - Likely due to nausea and vomiting. - Potassium 2.4 --> 2.5s --> 3.0 --> 2.9. and magnesium 0.8 --> 1.9 -- 1.6 - Will provide IV magnesium sulfate and IV KCL. - Repeat BMP in the AM. - Nausea/vomiting - Abdominal pain - Diarrhea - C. difficile PCR negative, we will start anti-diarrheal meds. - Cipro and Flagyl IV. - Zofran for nausea vomiting and Dilaudid 1 mg every 4 hours when necessary for abdominal pain. - Hypertension - continue amlodipine 5 mg daily - Depression - continue fluoxetine 10 mg daily Full code. Lovenox for DVT prophylaxis. Problem Qualifiers (1) Abdominal pain: Qualified Codes: R10.9 - Unspecified abdominal pain (2) Nausea and vomiting: Qualified Codes: R11.2 - Nausea with vomiting, unspecified Sharmin Parish DO Dec 12, 2016 08:54
[2016-12-12 09:07] LABS: BICARBONATE 19.3 MEQ/L (21.0-32.0); MAGNESIUM 1.6 MG/DL (1.5-2.5)
[2016-12-12 10:40] LABS: POTASSIUM 2.9 MEQ/L (3.5-5.1)
[2016-12-12] MEDS ORDERED: POTASSIUM CHLOR 40 MEQ PREMIX 100 ML IV SCH (11:30)
[2016-12-12] MEDS: SODIUM CHLORIDE 0.9% FLUSH 10 ML FLUSH IV FLUSH PRN ×3 (11:44→18:46)
[2016-12-12] MEDS: DICYCLOMINE HCL 20 MG TAB PO SCH ×2 (13:04→17:42)
[2016-12-12] MEDS: MAGNESIUM SULFATE 1 GM PREMIX 100 ML IV SCH ×9 (14:19→20:09)
[2016-12-12] MEDS: POTASSIUM CHLOR 20 MEQ PREMIX 100 ML IV SCH ×4 (17:39→20:08)
[2016-12-12] MEDS: ENOXAPARIN SODIUM 40 MG/0.4 ML SYRINGE SQ SCH (20:06)
[2016-12-13] VITALS (7 sets, daily range): BP systolic 94–133; BP diastolic 50–79; PULSE 61–72; RESP 17–18; TEMP 96.7–98.3; O2SAT 97–100
[2016-12-13] MEDS: HYDROmorphone HCL PF 1 MG/ML VIAL IV PUSH PRN ×8 (00:35→21:19)
[2016-12-13] MEDS: metroNIDAZOLE 500 MG INJ 100 ML IV SCH ×3 (02:18→17:20)
[2016-12-13] MEDS: ONDANSETRON HCL 4 MG/2 ML VIAL IVP PRN ×4 (03:33→21:19)
[2016-12-13] MEDS: CIPROFLOXACIN 400 MG PREMIX 200 ML IV SCH ×2 (06:22→17:20)
[2016-12-13] MEDS: SODIUM CHLORIDE 0.9% FLUSH 10 ML FLUSH IV FLUSH SCH ×2 (09:08→21:19)
[2016-12-13] MEDS: DICYCLOMINE HCL 20 MG TAB PO SCH ×3 (09:10→17:20)
[2016-12-13] MEDS: DOCUSATE SODIUM 50 MG/SENNA 8.6 MG TAB PO SCH ×2 (09:10→21:00)
[2016-12-13] MEDS: amLODIPine BESYLATE 5 MG TAB PO SCH (09:10)
[2016-12-13] MEDS: FLUoxetine HCL 10 MG CAP PO SCH (09:10)
[2016-12-13 10:31] LABS: BICARBONATE 17.1 MEQ/L (21.0-32.0); POTASSIUM 3.5 MEQ/L (3.5-5.1)
[2016-12-13] MEDS ORDERED: MAGNESIUM SULFATE 1 GM PREMIX 100 ML IV ONE (11:30)
[2016-12-13] MEDS: SODIUM CHLORIDE 0.9% FLUSH 10 ML FLUSH IV FLUSH PRN ×3 (12:20→18:39)
--- NOTE | 2016-12-13 14:57 | HHI.PR ---
Subjective Remarks Follow-up for hypokalemia, hypomagnesemia, nausea and vomiting. Patient is complaining of a lot of lower abdominal crampy pain, diarrhea. Occasional nausea , vomiting too. No fever, chills. Objective Vitals Vital Signs Date Time Temp Pulse Resp B/P (MAP) Pulse Ox O2 Delivery O2 Flow Rate FiO2 12/13/16 11:49 97.7 68 17 101/65 (77) 97 12/13/16 08:00 97.2 67 17 107/63 (78) 98 12/13/16 05:22 68 12/13/16 04:00 96.7 65 18 133/62 (85) 99 12/13/16 00:09 97.1 72 17 94/50 (65) 97 12/12/16 20:30 98.0 76 18 133/70 (91) 99 12/12/16 18:04 98 21 12/12/16 16:00 97.9 65 18 127/74 (91) 98 I/O 12/12/16 12/12/16 12/12/16 12/13/16 12/13/16 12/13/16 07:00 15:00 23:00 07:00 15:00 23:00 Intake Total 600 ml 1360 ml 740 ml 340 ml 200 ml Output Total 500 ml Balance 100 ml 1360 ml 740 ml 340 ml 200 ml Intake Oral 600 ml 960 ml 240 ml 240 ml IV Total 400 ml 500 ml 100 ml 200 ml Output Urine Total 500 ml # Voids 3 6 4 10 # Bowel Movements 0 6 4 10 Result Diagram: 12/11/16 0707 12/13/16 0857 Imaging Last Impressions Abdomen/Pelvis CT 12/10/16 1144 Signed Impressions: Service Date/Time: November 14:39 - CONCLUSION: 1. Mild hepatomegaly. 2. No acute intra-abdominal process. 3. Mild degenerative changes and scoliosis of the lumbar spine. Dung Arias MD Objective Remarks GENERAL: Alert, oriented 3, NAD. SKIN: Warm and dry. HEAD: Normocephalic. EYES: No scleral icterus. No injection or drainage. NECK: Supple, trachea midline. No JVD or lymphadenopathy. CARDIOVASCULAR: Regular rate and rhythm without murmurs, gallops, or rubs. RESPIRATORY: Breath sounds equal bilaterally. No accessory muscle use. GASTROINTESTINAL: Abdomen soft, tender to palpation over the lower quadrants of the abdomen, nondistended. MUSCULOSKELETAL: No cyanosis, or edema. BACK: Nontender without obvious deformity. No CVA tenderness. Procedures None A/P Problem List: (1) Hypomagnesemia ICD Code: E83.42 - Hypomagnesemia Status: Acute (2) Hypokalemia ICD Code: E87.6 - Hypokalemia Status: Acute (3) Abdominal pain ICD Code: R10.9 - Abdominal pain Status: Acute (4) Nausea and vomiting ICD Code: R11.2 - Nausea and vomiting Status: Acute Assessment and Plan Ms. Mensah is a pleasant 51-year-old female with a history of bowel obstruction and multiple surgeries who presents to the emergency department today due to hypokalemia as well as abdominal pain, nausea vomiting. - Hypomagnesemia - Hypokalemia - Likely due to nausea and vomiting. - Potassium 2.4 --> 2.5s --> 3.0 --> 2.9. and magnesium 0.8 --> 1.9 -- 1.6 -- > 2.0. - Patient received multiple doses of IV magnesium sulfate and IV KCL. - Nausea/vomiting - Abdominal pain - Diarrhea - C. difficile PCR negative, Will continue anti-diarrheal meds. - Cipro and Flagyl IV. - Zofran for nausea vomiting and Dilaudid 1 mg every 4 hours when necessary for abdominal pain. - We started Bentyl as well. Abdominal pain seems to be persistent. - Will consult Gastroenterology. She used to see Dr. Baez's partner and now she was going to see Dr. Baez. - Hypertension - continue amlodipine 5 mg daily - Depression - continue fluoxetine 10 mg daily Full code. Lovenox. Problem Qualifiers (1) Abdominal pain: Qualified Codes: R10.9 - Unspecified abdominal pain (2) Nausea and vomiting: Qualified Codes: R11.2 - Nausea with vomiting, unspecified Sharmin Parish DO Dec 13, 2016 2:57 pm
[2016-12-13] MEDS: ENOXAPARIN SODIUM 40 MG/0.4 ML SYRINGE SQ SCH (20:00)
[2016-12-13] MEDS: DIPHENOXYLATE/ATROPINE 2.5 MG/0.025 MG TAB PO PRN (21:19)
[2016-12-14] VITALS (8 sets, daily range): BP systolic 116–154; BP diastolic 63–83; PULSE 59–74; RESP 16–18; TEMP 97.7–98.4; O2SAT 96–100
[2016-12-14] MEDS: HYDROmorphone HCL PF 1 MG/ML VIAL IV PUSH PRN ×8 (00:03→21:23)
[2016-12-14] MEDS: metroNIDAZOLE 500 MG INJ 100 ML IV SCH ×3 (00:04→17:10)
[2016-12-14] MEDS: ONDANSETRON HCL 4 MG/2 ML VIAL IVP PRN ×4 (02:55→21:22)
[2016-12-14] MEDS: CIPROFLOXACIN 400 MG PREMIX 200 ML IV SCH ×2 (05:52→18:02)
[2016-12-14] MEDS: DICYCLOMINE HCL 20 MG TAB PO SCH ×3 (08:54→18:02)
[2016-12-14] MEDS: FLUoxetine HCL 10 MG CAP PO SCH (08:54)
[2016-12-14] MEDS: DOCUSATE SODIUM 50 MG/SENNA 8.6 MG TAB PO SCH ×2 (09:00→21:00)
[2016-12-14] MEDS: amLODIPine BESYLATE 5 MG TAB PO SCH (09:00)
[2016-12-14] MEDS: SODIUM CHLORIDE 0.9% FLUSH 10 ML FLUSH IV FLUSH SCH ×2 (09:02→21:23)
--- NOTE | 2016-12-14 12:08 | PD.CONS ---
GI Consult GI Consult Thank you for the consultation, full consult dictated ASSESSMENT/PLAN: 1. Suspect intermittent partial SBO due to adhesions 2. Diarrhea. 3. Malabsorption due to short gut syndrome 4. Nutrition - was on TPN at home for the last 3-4 wks. 5. Electrolytes abnormalities - improving PLAN: 1. May benefit from Surgical consult and recs. 2. Limit Po intake for now. 3. If persistent N/v then place NGT 4. Will start TPN for nutrition. It was a pleasure seeing Kelly Mensah . Thank you for this consult. Entered by: Jolie Mera MD Dec 14, 2016 11:30
--- NOTE | 2016-12-14 14:08 | HHI.PR ---
Subjective Remarks Follow-up for hypokalemia, hypomagnesemia, nausea and vomiting. Patient continues to have lower abd pain, jyoti left lower quadrant as well as N/V. She is not able to tolerate much food. GI evaluated patent and recommended a surgical consult. No fever, chills. Objective Vitals Vital Signs Date Time Temp Pulse Resp B/P (MAP) Pulse Ox O2 Delivery O2 Flow Rate FiO2 12/14/16 12:00 98.4 74 18 145/73 (97) 97 12/14/16 08:00 97.8 61 18 127/69 (88) 97 12/14/16 04:58 98.0 67 16 116/67 (83) 96 12/14/16 00:17 65 12/14/16 00:00 97.7 62 16 119/63 (81) 96 12/13/16 20:00 98.3 67 17 129/71 (90) 100 12/13/16 16:00 98.0 61 17 122/79 (93) 99 I/O 12/13/16 12/13/16 12/13/16 12/14/16 12/14/16 12/14/16 07:00 15:00 23:00 07:00 15:00 23:00 Intake Total 340 ml 920 ml 3922 ml 780 ml Balance 340 ml 920 ml 3922 ml 780 ml Intake Oral 240 ml 720 ml 480 ml 480 ml IV Total 100 ml 200 ml 3442 ml 300 ml # Voids 10 2 8 6 # Bowel Movements 10 0 8 6 Result Diagram: 12/11/16 0707 12/13/16 0857 Imaging Last Impressions Abdomen/Pelvis CT 12/10/16 1144 Signed Impressions: Service Date/Time: November 14:39 - CONCLUSION: 1. Mild hepatomegaly. 2. No acute intra-abdominal process. 3. Mild degenerative changes and scoliosis of the lumbar spine. Dung Arias MD Objective Remarks GENERAL: Alert, oriented 3, NAD. SKIN: Warm and dry. HEAD: Normocephalic. EYES: No scleral icterus. No injection or drainage. NECK: Supple, trachea midline. No JVD or lymphadenopathy. CARDIOVASCULAR: Regular rate and rhythm without murmurs, gallops, or rubs. RESPIRATORY: Breath sounds equal bilaterally. No accessory muscle use. GASTROINTESTINAL: Abdomen soft, tender to palpation over the lower quadrants of the abdomen, nondistended. MUSCULOSKELETAL: No cyanosis, or edema. BACK: Nontender without obvious deformity. No CVA tenderness. Procedures None A/P Problem List: (1) Hypomagnesemia ICD Code: E83.42 - Hypomagnesemia Status: Acute (2) Hypokalemia ICD Code: E87.6 - Hypokalemia Status: Acute (3) Abdominal pain ICD Code: R10.9 - Abdominal pain Status: Acute (4) Nausea and vomiting ICD Code: R11.2 - Nausea and vomiting Status: Acute Assessment and Plan Ms. Mensah is a pleasant 51-year-old female with a history of bowel obstruction and multiple surgeries who presents to the emergency department today due to hypokalemia as well as abdominal pain, nausea vomiting. - Hypomagnesemia - Hypokalemia - Likely due to nausea and vomiting. - Potassium 2.4 --> 2.5s --> 3.0 --> 2.9. and magnesium 0.8 --> 1.9 -- 1.6 -- > 2.0. - Patient received multiple doses of IV magnesium sulfate and IV KCL. - Will check BMP, Mg today again. - Nausea/vomiting - Abdominal pain - Diarrhea - C. difficile PCR negative, Will continue anti-diarrheal meds. - Cipro and Flagyl IV. - Zofran for nausea vomiting and Dilaudid 1 mg every 4 hours when necessary for abdominal pain. - We started Bentyl as well. Abdominal pain seems to be persistent. - Dr. Miranda (GI) evaluated patient. Started TPN and recommended General surgical consult. - Discussed with Dr. Gilbert who will evaluate patient today. - Hypertension - continue amlodipine 5 mg daily - Depression - continue fluoxetine 10 mg daily Full code. Lovenox. Problem Qualifiers (1) Abdominal pain: Qualified Codes: R10.9 - Unspecified abdominal pain (2) Nausea and vomiting: Qualified Codes: R11.2 - Nausea with vomiting, unspecified Sharmin Parish DO Dec 14, 2016 2:08 pm
[2016-12-14 18:00] LABS: BICARBONATE 18.7 MEQ/L (21.0-32.0); MAGNESIUM 1.5 MG/DL (1.5-2.5); POTASSIUM 3.1 MEQ/L (3.5-5.1)
[2016-12-14] MEDS: ENOXAPARIN SODIUM 40 MG/0.4 ML SYRINGE SQ SCH (20:00)
[2016-12-14] MEDS: CLINIMIX E 4.25/25 1000 mL- </= 42 mls/hr IV-CENTRAL SCH ×3 (20:00)
[2016-12-14] MEDS: FAT EMULSION 20% INJ 250 ML (Twice weekly over 8 hours) IV-CENTRAL SCH (20:00)
--- NOTE | 2016-12-14 22:53 | MB ---
cc: ROMINA KWONG DATE OF CONSULTATION 12/14/2016 DATE OF 1965 SERVICE GI. ATTENDING PHYSICIAN Dr. Romina Kwong PRIMARY PLUMBER'S ASSISTANT Dr. Luis Baez. REASON FOR CONSULTATION Abdominal pain. HISTORY OF THE PRESENT ILLNESS This is a 51-year-old female with history of multiple bowel obstructions in the past as well as multiple small bowel surgery and resection eventually leading to possible short gut syndrome. She has had issues with abdominal pain on and off multiple years. About a month ago following up with her primary care physician due to persistent diarrhea after eating and malnutrition she was started on TPN. She came into the hospital complaining of abdominal pain. She has chronic pain but it had been more pronounced over the last one week, associated with occasional nausea, vomiting with oral intake and then cramping type abdominal pain as well as sharp, shooting pain. She was brought into the hospital also for management of severe hypokalemia, hypomagnesemia. In the ER she underwent CT scan of the abdomen and pelvis which was significant for mild cardiomegaly as well as evidence of multiple abdominal surgeries and otherwise no acute abdominal process was clearly identified. PAST MEDICAL HISTORY 1. Hypertension. 2. History of depression. 3. History of bowel obstruction. PAST SURGICAL HISTORY 1. Multiple abdominal surgeries. 2. Small bowel resection. 3. Ileocolonic anastomosis. 4. History of hysterectomy. ALLERGIES MORPHINE. MEDICATIONS Home medications include: 1. Duloxetine. 2. [place]. 3. Norvasc. 4. Promethazine. FAMILY HISTORY No GI malignancies. SOCIAL HISTORY The patient smokes a pack a day. Denies any illicit drug use or any alcohol use. REVIEW OF SYSTEMS A 12 point review of systems was obtained by me shown to be negative or noncontributory except for the above-mentioned in The history of present illness. PHYSICAL EXAMINATION VITAL SIGNS: Temperature 98.0, heart rate 66, respiration 18, blood pressure was 136/72, 93% on room air. GENERAL: Alert and oriented. No acute distress. HEENT: Eyes equal, round, reactive to light. Pupils equal. No scleral icterus. Normocephalic, atraumatic. NECK: Supple, nontender. No carotid bruits noted. No JVD. CARDIOVASCULAR: Regular rate and rhythm. No murmur heard. LUNGS: Clear to auscultation bilaterally. No wheezing. Nonlabored respirations. ABDOMEN: The abdomen soft, mildly tender to palpation diffusely. No rebound appreciated. Multiple abdominal scars noted. Well-healed mild tenderness. Mild rebound. Mild fullness with mild hypoactive bowel sounds. No hepatosplenomegaly appreciated on current examination but unable to do a detailed examination due to some mild abdominal pain. No CVA angle tenderness noted. No lymphadenopathy noted. MUSCULOSKELETAL: Equal strength upper and lower extremities. NEUROLOGIC: Alert, oriented. No focal deficits. PSYCHIATRIC: Cooperative. Appropriate mood and affect. LABORATORY DATA WBC 7.4, hemoglobin 10.1, MCV 101, platelet count of 165. Sodium 142, potassium 3,5, chloride 116, BUN 3, creatinine 0.68, calcium 8.3. IMPRESSION 1. Abdominal pain, intermittent suspected secondary to intermittent partial small-bowel obstruction maybe related to adhesions given the extensive abdominal surgeries she has had. Diarrhea may be secondary to short gut syndrome, possibility of noninfectious gastroenteritis. 2. Malabsorption may be secondary to short gut syndrome. The patient was on TPN for the past one month outpatient. 3. Nutrition. Able to tolerate oral intake but she states that she gets diarrhea after eating . 4. Electrolyte abnormalities improving after appropriate replacement. RECOMMENDATIONS 1. I had a long discussion with the patient and I am not convinced that I can offer her any GI related care in regards to her symptoms. Given the possibility of intermittent partial small obstruction surgical consultation and recommendation. 2. The patient is having apparently diarrhea after eating therefore I will limit her p.o. intake for now. 3. If the patient has persistent nausea and vomiting then may consider placing an NG tube to suction. 4. We will have the patient on TPN for adequate nutrition in order to see if bowel rest might improve her overall symptoms as well as improve her nutritional status. 5. We had a long and thorough discussion in regards to further workup and treatment. It appears she has had significant care years ago at a tertiary care unit in [place]. At this time I do not believe having her undergo endoscopic procedure is necessary or would be beneficial. Thank you for allowing clinic to participate in the care of this patient. We will follow along with you and make recommendations as the patient's clinical course. MD DIVYA Carvajal/KK /5:13 PM /10:27 PM MTDD
[2016-12-15] VITALS (8 sets, daily range): BP systolic 118–155; BP diastolic 64–83; PULSE 61–90; RESP 16–18; TEMP 97.3–98.4; O2SAT 95–99
[2016-12-15] MEDS: HYDROmorphone HCL PF 1 MG/ML VIAL IV PUSH PRN ×4 (00:27→09:32)
[2016-12-15] MEDS: metroNIDAZOLE 500 MG INJ 100 ML IV SCH ×3 (02:00→18:38)
[2016-12-15] MEDS: ONDANSETRON HCL 4 MG/2 ML VIAL IVP PRN ×3 (03:17→18:40)
[2016-12-15] MEDS: CIPROFLOXACIN 400 MG PREMIX 200 ML IV SCH ×2 (07:23→18:38)
[2016-12-15] MEDS: SODIUM CHLORIDE 0.9% FLUSH 10 ML FLUSH IV FLUSH SCH ×2 (09:00→21:09)
[2016-12-15] MEDS: POTASSIUM CHLOR 40 MEQ PREMIX 100 ML IV SCH ×2 (09:38→12:35)
[2016-12-15] MEDS: DICYCLOMINE HCL 20 MG TAB PO SCH ×3 (09:44→18:39)
[2016-12-15] MEDS: amLODIPine BESYLATE 5 MG TAB PO SCH (09:44)
[2016-12-15] MEDS: MAGNESIUM SULFATE 1 GM PREMIX 100 ML IV SCH ×4 (09:44→16:00)
[2016-12-15] MEDS: DOCUSATE SODIUM 50 MG/SENNA 8.6 MG TAB PO SCH ×2 (09:44→21:00)
[2016-12-15] MEDS: FLUoxetine HCL 10 MG CAP PO SCH (09:45)
--- NOTE | 2016-12-15 12:32 | HHI.GIFU ---
GI Follow-up Note Consult Follow-up Subjective: Patient laying in bed comfortably, had diarrhea last night. slightly better using lomotil. Declined TPN yesterday Objective: PHYSICAL EXAMINATION: Vitals signs stable No fever HEENT: Pupils round and reactive to light; normocephalic; atraumatic; no jaundice. Throat is clear. NECK: Neck is supple, no JVD, no lymphadenopathy. CHEST: Chest is clear to auscultation and percussion. CARDIAC: Regular rate and rhythm with no murmur gallop or rubs. ABDOMEN: Soft, mild distended, mild tender; no hepatosplenomegaly; bowel sounds are present in all four quadrants. EXTREMITIES: No clubbing, cyanosis, or edema. SKIN: Normal; no rash; no jaundice. TOURIST GUIDE: No focal deficits; alert and oriented times three. Available Data (labs, X- Rays, Procedures) : reviewed ASSESSMENT/PLAN: 1. Abdo pain 2. suspect intermittent bowel obs 3. diarrhea 4. Short gut syndrome 5. Nutrition PLAN: 1. Discussed again TPN, she is agreeable to starting while in hospita 2. Seen by surgery work up in progress 3. Lomotil tid 4. No urgent GI procedures planned. It was a pleasure seeing Kelly Mensah. Thank you for this consult. Entered by: Jolie Mera MD Dec 15, 2016 12:32
[2016-12-15] MEDS: PROMETHAZINE INJ 25 MG/ML VIAL IM PRN ×2 (15:27→21:09)
[2016-12-15] MEDS: HYDROmorphone HCL PF 2 MG/ML VIAL IV PUSH PRN ×3 (15:28→21:07)
--- NOTE | 2016-12-15 16:49 | MB ---
cc: CLOVER ALVAREZ DATE OF CONSULTATION: 12/15/2016 REASON FOR CONSULTATION: Questionable small bowel obstruction. Chronic abdominal pain. HISTORY OF PRESENT ILLNESS: The history is an unfortunate lady who is 51 years old, who has had multiple bowel surgeries, most recently about 6-[address] Hay Scott[address] She had lysis of adhesions, repair of incisional hernia, cholecystectomy. She has been doing fairly well but has been placed on TPN for apparent long-term malabsorption syndrome from her previous surgery she had done up [place]. 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 She had an ileostomy at one point. Most recent surgery [address] Scott. She had lysis of adhesions, repair of hernia. She complains of some low abdominal pain, mainly on the left side with profuse diarrhea. She has hard time keeping things down. When she does it goes straight through her. She is on TPN at night. Surgery was consulted for an opinion. PAST MEDICAL HISTORY: Significant for this malabsorption syndrome and chronic diarrhea. She has had a couple of bowel resections, aortic mesenteric bypass in 2013, again had appendectomy, cholecystectomy, hysterectomy. OUTPATIENT MEDICATIONS: 1. Norvasc 2. Prozac. 3. [place]. 4. Phenergan. 5. TPN at night. PHYSICAL EXAMINATION: She is a pleasant lady who smiles when examined. She is a little uncomfortable moving. NECK: Supple. CHEST: Clear. HEART: Regular rate. ABDOMEN: Multiple surgical scars mainly in the midline in the right lower quadrant. She has had ileostomy. She is tender in the left flank, left lower quadrant, close to incision. I do not feel a hernia. She had some pinpoint tenderness near the pubic area, mainly on the left side. There is no rebound or guarding. I do not feel an incisional hernia. She has hyperactive bowel sounds. EXTREMITIES: She moves all extremities. No clubbing, cyanosis or edema. NEUROLOGIC: She is alert, oriented, appears to be frustrated with a medical condition. LABORATORY DATA She had a white count of 7, H&H of 10 and 32. Chemistry showed potassium 2.9, 3.0 the past few days, it got up to 3.1. Her magnesium is low at 1.5. Coags are normal. Urinalysis was clear. Imaging studies show a CT scan done when she first got admitted with no oral contrast which showed no acute process. She has had a consultation with GI which is reviewed. ASSESSMENT A 51 year-old female who has had chronic abdominal discomfort and is on TPN at night for short bowel syndrome. At this time her potassium and magnesium need to be corrected. She is having a fair amount of profuse diarrhea, 20 times a couple of days ago, 14 in 24 hours, and 11, slowly going down after starting Lomotil. This, I think excludes small bowel obstruction, even intermittent at that point. She may be having pain in her abdomen for bacterial overgrowth which apparently she has a history of. I do not feel a hernia that would be causing her any discomfort. Her pain is just off the left midline. I don't feel an incisional hernia in this area where she describes her pain. Her potassium and magnesium need to be treated which apparently they are giving her on a frequent basis. PLAN At this time, I have no surgical intervention to offer at this time. Reviewing her CT scan, I don't see any evidence of obstruction. I don't see any evidence of incisional hernia. She is tender in the left lower quadrant. I do not see any anatomical reason for the tenderness. She may be having some tenderness from bacterial overgrowth. If there is still question about the anatomy, possibly a small bowel follow-through series may be beneficial but I think it would be low yield. We will be following along during her admission and treatment. MD YURI Laurent/ANA /3:54 PM /4:23 PM
[2016-12-15] MEDS: ENOXAPARIN SODIUM 40 MG/0.4 ML SYRINGE SQ SCH (20:00)
--- NOTE | 2016-12-15 22:29 | HHI.PR ---
Subjective Remarks Follow-up for hypokalemia, hypomagnesemia, nausea and vomiting. Patient was seen in the morning. She has persistent left lower quadrant abdominal pain. No fever, chills. Not able to tolerate much food. Objective Vitals Vital Signs Date Time Temp Pulse Resp B/P (MAP) Pulse Ox O2 Delivery O2 Flow Rate FiO2 12/15/16 18:49 Room Air 12/15/16 16:46 68 12/15/16 15:38 97.9 62 18 140/83 (102) 98 12/15/16 11:47 97.3 85 18 135/80 (98) 98 12/15/16 08:00 97.6 68 18 130/76 (94) 95 12/15/16 04:28 97.6 61 16 139/64 (89) 96 12/15/16 00:41 97.3 62 16 131/64 (86) 99 I/O 12/14/16 12/14/16 12/14/16 12/15/16 12/15/16 12/15/16 07:00 15:00 23:00 07:00 15:00 23:00 Intake Total 780 ml 360 ml 480 ml 540 ml 720 ml 480 ml Balance 780 ml 360 ml 480 ml 540 ml 720 ml 480 ml Intake Oral 480 ml 360 ml 480 ml 240 ml 720 ml 480 ml IV Total 300 ml 300 ml # Voids 6 5 3 5 3 3 # Bowel Movements 6 3 3 5 3 3 Result Diagram: 12/11/16 0707 12/14/16 1718 Imaging Last Impressions Abdomen/Pelvis CT 12/10/16 1144 Signed Impressions: Service Date/Time: November 14:39 - CONCLUSION: 1. Mild hepatomegaly. 2. No acute intra-abdominal process. 3. Mild degenerative changes and scoliosis of the lumbar spine. Dung Arias MD Objective Remarks GENERAL: Alert, oriented 3, NAD. SKIN: Warm and dry. HEAD: Normocephalic. EYES: No scleral icterus. No injection or drainage. NECK: Supple, trachea midline. No JVD or lymphadenopathy. CARDIOVASCULAR: Regular rate and rhythm without murmurs, gallops, or rubs. RESPIRATORY: Breath sounds equal bilaterally. No accessory muscle use. GASTROINTESTINAL: Abdomen soft, tender to palpation over the lower quadrants of the abdomen, nondistended. MUSCULOSKELETAL: No cyanosis, or edema. BACK: Nontender without obvious deformity. No CVA tenderness. Procedures None A/P Problem List: (1) Hypomagnesemia ICD Code: E83.42 - Hypomagnesemia Status: Acute (2) Hypokalemia ICD Code: E87.6 - Hypokalemia Status: Acute (3) Abdominal pain ICD Code: R10.9 - Abdominal pain Status: Acute (4) Nausea and vomiting ICD Code: R11.2 - Nausea and vomiting Status: Acute Assessment and Plan Ms. Mensah is a pleasant 51-year-old female with a history of bowel obstruction and multiple surgeries who presents to the emergency department today due to hypokalemia as well as abdominal pain, nausea vomiting. - Hypomagnesemia - Hypokalemia - Likely due to nausea and vomiting. - Potassium 2.4 --> 2.5s --> 3.0 --> 2.9. and magnesium 0.8 --> 1.9 -- 1.6 -- > 2.0. - Patient received multiple doses of IV magnesium sulfate and IV KCL. - Potassium and Mg dropped again. We replaced with IV KCL and IV mag sulfate on 12/15/2016. - Nausea/vomiting - Abdominal pain - Diarrhea - C. difficile PCR negative, Will continue anti-diarrheal meds. - Cipro and Flagyl IV. - Zofran for nausea vomiting and Dilaudid 1 mg every 4 hours when necessary for abdominal pain. - We started Bentyl as well. Abdominal pain seems to be persistent. - Dr. Miranda (GI) evaluated patient. Started TPN and recommended General surgical consult. - Gen surgery evaluated patient - cannot find any anatomical reason for this patient's pain. - Will consider small bowel follow through if pain continues. - Hypertension - continue amlodipine 5 mg daily - Depression - continue fluoxetine 10 mg daily Full code. Lovenox. Problem Qualifiers (1) Abdominal pain: Qualified Codes: R10.9 - Unspecified abdominal pain (2) Nausea and vomiting: Qualified Codes: R11.2 - Nausea with vomiting, unspecified Sharmin Parish DO Dec 15, 2016 22:29
[2016-12-15] MEDS: CLINIMIX E 4.25/25 1000 mL- </= 42 mls/hr IV-CENTRAL SCH ×3 (22:49)
[2016-12-16] MEDS: ONDANSETRON HCL 4 MG/2 ML VIAL IVP PRN ×4 (00:14→23:27)
[2016-12-16] MEDS: HYDROmorphone HCL PF 2 MG/ML VIAL IV PUSH PRN ×8 (00:15→23:27)
[2016-12-16] MEDS: SODIUM CHLORIDE 0.9% FLUSH 10 ML FLUSH IV FLUSH PRN ×2 (00:25→20:08)
[2016-12-16] MEDS: metroNIDAZOLE 500 MG INJ 100 ML IV SCH (03:18)
[2016-12-16] MEDS: DIPHENOXYLATE/ATROPINE 2.5 MG/0.025 MG TAB PO PRN (03:19)
[2016-12-16] MEDS: PROMETHAZINE INJ 25 MG/ML VIAL IM PRN (03:19)
[2016-12-16 04:20] VITALS: BP 132/79; PULSE 73; RESP 16; TEMP 97.4; O2SAT 99
[2016-12-16] MEDS: CIPROFLOXACIN 400 MG PREMIX 200 ML IV SCH (05:00)
[2016-12-16 08:00] VITALS: BP 135/79; PULSE 64; RESP 18; TEMP 97.5; O2SAT 97
[2016-12-16 08:45] LABS: BICARBONATE 19.8 MEQ/L (21.0-32.0); MAGNESIUM 1.9 MG/DL (1.5-2.5); POTASSIUM 3.2 MEQ/L (3.5-5.1)
[2016-12-16] MEDS: DICYCLOMINE HCL 20 MG TAB PO SCH ×3 (08:49→17:11)
[2016-12-16] MEDS: amLODIPine BESYLATE 5 MG TAB PO SCH (08:49)
[2016-12-16] MEDS: SODIUM CHLORIDE 0.9% FLUSH 10 ML FLUSH IV FLUSH SCH ×2 (08:49→19:57)
[2016-12-16] MEDS: FLUoxetine HCL 10 MG CAP PO SCH (08:49)
[2016-12-16] MEDS: DOCUSATE SODIUM 50 MG/SENNA 8.6 MG TAB PO SCH ×2 (08:50→19:58)
--- NOTE | 2016-12-16 09:12 | HHI.GIFU ---
GI Follow-up Note Consult Follow-up Subjective: Patient laying in bed comfortably, no new complaints except persistent focal left lower quadrant pain. Nausea persists. Diarrhea is better with lomotil. Objective: PHYSICAL EXAMINATION: Vitals signs stable No fever HEENT:EOMI CHEST: Chest is clear to auscultation CARDIAC: Regular rate and rhythm with no murmur gallop or rubs. ABDOMEN: Multiple scars; decent bowel sounds. Moderate/marked localized LLQ tenderness, just lateral to the midline incision. GAS APPLIANCE ADJUSTER: alert and oriented times three. Available Data (labs, X- Rays, Procedues) : Labs reviewed; potassium is better. I reviewed the most recent CT scan with Dr. Kody Mendoza. There appears to be quite a bit of small intestine and colon, pointing away from classic short bowel syndrome; she could have functional short bowel syndrome. Fluid filled bowel loops are noted; she likely has a component of SIBO. She has noticed some improvement with oral antibiotics, but symptom resolution doesn't las long. We'll change IV cipro and metronidazole to po neomycin. (Alinia and Xifaxan had caused emesis, but so had other oral medications.) She did not see improvement with a course of Creon. We'll check stool for fat and we'll check a cortisol level. The focal pain/tenderness are again likely due to adhesions. ASSESSMENT/PLAN: As above. It was a pleasure seeing Kelly Mensah. Entered by: Eamon Zambrano MD Dec 16, 2016 09:12
--- NOTE | 2016-12-16 09:14 | HHI.GIFU ---
GI Follow-up Note Consult Follow-up Subjective: Patient laying in bed comfortably, no new complaints except Objective: PHYSICAL EXAMINATION: Vitals signs stable No fever HEENT: Pupils round and reactive to light; normocephalic; atraumatic; no jaundice. Throat is clear. NECK: Neck is supple, no JVD, no lymphadenopathy. CHEST: Chest is clear to auscultation and percussion. CARDIAC: Regular rate and rhythm with no murmur gallop or rubs. ABDOMEN: Soft, nondistended, nontender; no hepatosplenomegaly; bowel sounds are present in all four quadrants. EXTREMITIES: No clubbing, cyanosis, or edema. SKIN: Normal; no rash; no jaundice. INSTRUMENT TECHNICIAN: No focal deficits; alert and oriented times three. Available Data (labs, X- Rays, Procedues) : ASSESSMENT/PLAN: Addendum: with respect to possible functional short bowel syndrome, especially since she has required IVF and TPN, we may consider Gattex. It was a pleasure seeing Kelly Mensah. Entered by: Eamon Zambrano MD Dec 16, 2016 09:14
[2016-12-16] MEDS: POTASSIUM CHLOR 40 MEQ PREMIX 100 ML IV SCH ×2 (11:34→15:35)
[2016-12-16 12:00] VITALS: BP 134/69; PULSE 65; RESP 18; TEMP 97.6; O2SAT 99
--- NOTE | 2016-12-16 12:47 | HHI.PR ---
Subjective Remarks Follow-up for hypokalemia, hypomagnesemia, nausea and vomiting. Patient reports slight improvements of her diarrhea. Has persistent left lower quadrant abdominal pain. No fever, chills. Objective Vitals Vital Signs Date Time Temp Pulse Resp B/P (MAP) Pulse Ox O2 Delivery O2 Flow Rate FiO2 12/16/16 08:00 97.5 64 18 135/79 (97) 97 12/16/16 04:20 97.4 73 16 132/79 (96) 99 12/15/16 23:15 97.8 63 16 118/75 (89) 98 12/15/16 20:40 98.4 90 16 155/74 (101) 98 12/15/16 18:49 Room Air 12/15/16 16:46 68 12/15/16 15:38 97.9 62 18 140/83 (102) 98 I/O 12/15/16 12/15/16 12/15/16 12/16/16 12/16/16 12/16/16 07:00 15:00 23:00 07:00 15:00 23:00 Intake Total 540 ml 720 ml 880 ml 928 ml Balance 540 ml 720 ml 880 ml 928 ml Intake Oral 240 ml 720 ml 480 ml 440 ml IV Total 300 ml 400 ml 488 ml # Voids 5 3 3 2 # Bowel Movements 5 3 3 2 Result Diagram: 12/16/16 0725 Imaging Last Impressions Abdomen/Pelvis CT 12/10/16 1144 Signed Impressions: Service Date/Time: November 14:39 - CONCLUSION: 1. Mild hepatomegaly. 2. No acute intra-abdominal process. 3. Mild degenerative changes and scoliosis of the lumbar spine. Dung Arias MD Objective Remarks GENERAL: Alert, oriented 3, NAD. SKIN: Warm and dry. HEAD: Normocephalic. EYES: No scleral icterus. No injection or drainage. NECK: Supple, trachea midline. No JVD or lymphadenopathy. CARDIOVASCULAR: Regular rate and rhythm without murmurs, gallops, or rubs. RESPIRATORY: Breath sounds equal bilaterally. No accessory muscle use. GASTROINTESTINAL: Abdomen soft, tender to palpation over the lower quadrants of the abdomen, nondistended. MUSCULOSKELETAL: No cyanosis, or edema. BACK: Nontender without obvious deformity. No CVA tenderness. Procedures None A/P Problem List: (1) Hypomagnesemia ICD Code: E83.42 - Hypomagnesemia Status: Acute (2) Hypokalemia ICD Code: E87.6 - Hypokalemia Status: Acute (3) Abdominal pain ICD Code: R10.9 - Abdominal pain Status: Acute (4) Nausea and vomiting ICD Code: R11.2 - Nausea and vomiting Status: Acute Assessment and Plan Ms. Mensah is a pleasant 51-year-old female with a history of bowel obstruction and multiple surgeries who presents to the emergency department today due to hypokalemia as well as abdominal pain, nausea vomiting. - Hypomagnesemia - Hypokalemia - Likely due to nausea and vomiting. - Potassium 2.4 ==> 3.2 and magnesium 0.8 ==> 1.9. - Patient received multiple doses of IV magnesium sulfate and IV KCL. - Potassium and Mg dropped again. We replaced with IV KCL and IV mag sulfate on 12/15/2016. - Will replace potassium with IV KCL. - Nausea/vomiting - Abdominal pain - Diarrhea - C. difficile PCR negative, Will continue anti-diarrheal meds. - Cipro and Flagyl IV discontinued by GI. GI also ordered Fecal fat test. - Zofran for nausea vomiting and Dilaudid 1.5 mg every 4 hours when necessary for abdominal pain. - We started Bentyl as well. Abdominal pain seems to be persistent. - Dr. Miranda (GI) evaluated patient. Started TPN and recommended General surgical consult. - Gen surgery evaluated patient - cannot find any anatomical reason for this patient's pain. - Will consider small bowel follow through if pain continues. - Hypertension - continue amlodipine 5 mg daily - Depression - continue fluoxetine 10 mg daily Full code. Lovenox. Problem Qualifiers (1) Abdominal pain: Qualified Codes: R10.9 - Unspecified abdominal pain (2) Nausea and vomiting: Qualified Codes: R11.2 - Nausea with vomiting, unspecified Sharmin Parish DO Dec 16, 2016 12:47 pm
[2016-12-16] MEDS: PROMETHAZINE INJ 25 MG/ML VIAL IV-CENTRAL PRN ×2 (13:54→19:58)
[2016-12-16 15:58] VITALS: BP 121/70; PULSE 69; RESP 16; TEMP 98.5; O2SAT 100
--- NOTE | 2016-12-16 16:03 | HHI.PR ---
cc: Clover Alvarez MD Subjective Subjective Notes DAILY PROGRESS NOTE FOR SURGICAL ATTENDING, DR. CLOVER ALVAREZ Diarrhea better Low potassium today Still having some mild left lower quadrant abdominal discomfort Objective Vitals/I&O Vital Signs Date Time Temp Pulse Resp B/P (MAP) Pulse Ox O2 Delivery O2 Flow Rate FiO2 12/16/16 12:00 97.6 65 18 134/69 (90) 99 12/15/16 18:49 Room Air 12/12/16 18:04 21 Labs Laboratory Tests Test 12/10/16 11:50 12/11/16 07:07 12/11/16 16:00 12/16/16 07:25 Prothrombin Time 10.7 SEC Prothromb Time International Ratio 1.0 RATIO Activated Partial Thromboplast Time 25.3 SEC Urine Color YELLOW Urine Turbidity CLEAR Urine pH 6.5 Urine Specific [place] 1.012 Urine Protein 30 mg/dL Urine Glucose (UA) NEG mg/dL Urine Ketones NEG mg/dL Urine Occult Blood NEG Urine Nitrite NEG Urine Bilirubin NEG Urine Urobilinogen LESS THAN 2.0 MG/DL Urine Leukocyte Esterase NEG Urine RBC LESS THAN 1 /hpf Urine WBC 2 /hpf Urine Mucus FEW /lpf Microscopic Urinalysis Comment CATH-CULT NOT IND Lactic Acid Level 2.0 mmol/L Blood Urea Nitrogen 14 MG/DL 8 MG/DL 2 MG/DL Creatinine 1.00 MG/DL 0.71 MG/DL 0.85 MG/DL Random Glucose 86 MG/DL 104 MG/DL 95 MG/DL Total Protein 8.0 GM/DL 5.8 GM/DL Albumin 4.0 GM/DL Calcium Level 8.6 MG/DL 7.3 MG/DL 8.5 MG/DL Alkaline Phosphatase 80 U/L Aspartate Amino Transf (AST/SGOT) 15 U/L Alanine Aminotransferase (ALT/SGPT) 24 U/L Total Bilirubin 0.3 MG/DL Sodium Level 139 MEQ/L 142 MEQ/L 142 MEQ/L Potassium Level 2.4 MEQ/L 2.5 MEQ/L 3.2 MEQ/L Chloride Level 109 MEQ/L 114 MEQ/L 114 MEQ/L Carbon Dioxide Level 20.2 MEQ/L 19.7 MEQ/L 19.8 MEQ/L Lipase 228 U/L White Blood Count 7.4 TH/MM3 Red Blood Count 3.20 MIL/MM3 Hemoglobin 10.7 GM/DL Hematocrit 32.4 % Mean Corpuscular Volume 101.4 FL Mean Corpuscular Hemoglobin 33.4 PG Mean Corpuscular Hemoglobin Concent 32.9 % Red Cell Distribution Width 15.2 % Platelet Count 165 TH/MM3 Mean Platelet Volume 7.6 FL Neutrophils (%) (Auto) 66.4 % Lymphocytes (%) (Auto) 25.1 % Monocytes (%) (Auto) 6.9 % Eosinophils (%) (Auto) 1.5 % Basophils (%) (Auto) 0.1 % Neutrophils # (Auto) 4.9 TH/MM3 Lymphocytes # (Auto) 1.9 TH/MM3 Monocytes # (Auto) 0.5 TH/MM3 Eosinophils # (Auto) 0.1 TH/MM3 Basophils # (Auto) 0.0 TH/MM3 CBC Comment DIFF FINAL Differential Comment Protein Corrected Calcium 8.0 MG/DL Magnesium Level 1.9 MG/DL 1.9 MG/DL Stool C. difficile Toxin (PCR) NEGATIVE Stl C. difficile Toxin Epiderm 027 PRESUMPTIVE NEGATIVE Anion Gap 8 MEQ/L Estimat Glomerular Filtration Rate 71 ML/MIN Test 12/16/16 10:00 12/16/16 10:31 Random Cortisol 9.1 MCG/DL Radiology Last Impressions Abdomen/Pelvis CT 12/10/16 1144 Signed Impressions: Service Date/Time: , December 10, 2016 14:39 - CONCLUSION: 1. Mild hepatomegaly. 2. No acute intra-abdominal process. 3. Mild degenerative changes and scoliosis of the lumbar spine. Dung Arias MD Cardiovascular: Regular Lungs: Clear Abdomen: Non-distended, Other (pain llq chronic) A/P Problem List: (1) Anemia ICD Codes: D64.9 - Anemia, unspecified Status: Acute (2) Diarrhea in adult patient ICD Codes: K52.9 - Diarrhea in adult patient Status: Acute (3) Fibromyalgia ICD Codes: M79.7 - Fibromyalgia Status: Chronic (4) Anxiety and depression ICD Codes: F41.8 - Anxiety and depression Status: Chronic (5) Hypokalemia ICD Codes: E87.6 - Hypokalemia Status: Chronic (6) Hypomagnesemia ICD Codes: E83.42 - Hypomagnesemia Status: Chronic (7) Abdominal pain ICD Codes: R10.9 - Abdominal pain Status: Chronic (8) Malabsorption syndrome ICD Codes: K90.9 - Intestinal malabsorption, unspecified Status: Chronic Assessment and Plan 51-year-old female who has malabsorption syndrome on TPN questionable small gut may be functional. No anatomical reason for her pain. Discussed with Dr. Quintanilla about bacterial overgrowth. Treatment for functional short gut syndrome with medication, may consider Gattex. Reviewed this with the patient as well Treat hypo-magnesium and low potassium Noted low H&H may be from hydration recheck cbc in am Attending Statement NOTE FOR SURGICAL ATTENDING, DR. CLOVER ALVAREZ I attest that I had a [id number] encounter with the patient on the same day, and personally performed and documented my assessment and findings in the medical record. The following services were provided during this hospital visit: Chart data review, vital sign assessments/reviewing monitor data Review of consultations notes if present. Medication orders/review and/or management Ordering and/or reviewing lab tests Ordering and/or interpreting/reviewing x-rays and/or diagnostic studies Care of the patient and discussion of the patient with the care team Documentation time To help prompt me to consider important information that might be impacting today's encounter and assessment, information from prior notes written by myself or my colleagues may have been "brought forward/copy and pasted" into today's note. Problem Qualifiers (1) Anemia: (2) Abdominal pain: Qualified Codes: R10.32 - Left lower quadrant pain (3) Malabsorption syndrome: Qualified Codes: K90.89 - Other intestinal malabsorption Clover Alvarez MD Dec 16, 2016 16:03
[2016-12-16 19:42] VITALS: BP 130/71; PULSE 69; RESP 16; TEMP 98.7; O2SAT 97
[2016-12-16] MEDS: ENOXAPARIN SODIUM 40 MG/0.4 ML SYRINGE SQ SCH (19:56)
[2016-12-16] MEDS: NEOMYCIN SULFATE 500 MG TAB PO SCH (19:57)
[2016-12-16] MEDS: FAT EMULSION 20% INJ 250 ML (Twice weekly over 8 hours) IV-CENTRAL SCH (22:06)
[2016-12-16] MEDS: CLINIMIX E 4.25/25 1000 mL- </= 42 mls/hr IV-CENTRAL SCH ×3 (22:06)
[2016-12-16] MEDS ORDERED: DEXAMETHASONE 0.75 MG PO ONE (23:00)
[2016-12-16 23:25] VITALS: BP 134/82; PULSE 75; RESP 16; TEMP 97; O2SAT 96
[2016-12-17] MEDS: HYDROmorphone HCL PF 2 MG/ML VIAL IV PUSH PRN ×7 (02:25→21:09)
[2016-12-17] MEDS: PROMETHAZINE INJ 25 MG/ML VIAL IV-CENTRAL PRN ×4 (02:25→21:09)
[2016-12-17 04:10] VITALS: BP 101/70; PULSE 69; RESP 16; TEMP 97.7; O2SAT 100
[2016-12-17] MEDS: ONDANSETRON HCL 4 MG/2 ML VIAL IVP PRN ×3 (05:25→18:13)
--- NOTE | 2016-12-17 07:18 | HHI.GIFU ---
GI Follow-up Note Consult Follow-up Subjective: Patient laying in bed comfortably, no new complaints except the focal abdominal pain has kept her awake most of the night. She's received only one dose of the neomycin. The diarrhea persists with six movements overnight. Objective: PHYSICAL EXAMINATION: Vitals signs stable No fever HEENT: EOMI ABDOMEN: Soft, nondistended, still with moderate focal tenderness left of midline/LLQ. . ROLL SCALE MAN: alert and oriented times three. Available Data (labs, X- Rays, Procedues) : Cortisol level of 9.1, even though it's in the normal reference range, may be inappropriately low given this patient's overall medical condition. I discussed this with Dr. Parish yesterday ; he'll perform a corticotropin stimulation test. The stool fecal fat results are still pending. I'll have my office contact the company that produces Gattex to see if/how we can get this medication approved. She needs to ambulate a bit more. I'll speak with Dr. Scott about the focal pain and the consideration for another laparoscopy with lysis of adhesions. ASSESSMENT/PLAN:As above. It was a pleasure seeing Kelly Mensah. Entered by: Eamon Zambrano MD Dec 17, 2016 07:18
[2016-12-17 08:00] VITALS: BP 98/59; PULSE 63; RESP 18; TEMP 96.8; O2SAT 96
[2016-12-17] MEDS: DOCUSATE SODIUM 50 MG/SENNA 8.6 MG TAB PO SCH ×2 (09:00→21:00)
[2016-12-17] MEDS: amLODIPine BESYLATE 5 MG TAB PO SCH (09:09)
[2016-12-17] MEDS: NEOMYCIN SULFATE 500 MG TAB PO SCH ×2 (09:09→21:10)
[2016-12-17] MEDS: DICYCLOMINE HCL 20 MG TAB PO SCH ×3 (09:09→18:12)
[2016-12-17] MEDS: FLUoxetine HCL 10 MG CAP PO SCH (09:09)
[2016-12-17] MEDS: SODIUM CHLORIDE 0.9% FLUSH 10 ML FLUSH IV FLUSH SCH ×2 (09:11→21:10)
[2016-12-17 09:33] LABS: HEMATOCRIT 37.3 % (35.0-46.0); MEAN CELL VOLUME 100.7 FL (80.0-100.0); MEAN CORPUSCULAR HEMOGLOBIN 33.7 PG (27.0-34.0); MEAN CORPUSCULAR HGB CONC 33.5 % (32.0-36.0); PLATELET COUNT 154 TH/MM3 (150-450); RED CELL DISTRIBUTION WIDTH 14.1 % (11.6-17.2); REVIEW FLAG FINAL
--- NOTE | 2016-12-17 11:06 | HHI.PR ---
Subjective Remarks Follow-up for hypokalemia, hypomagnesemia, nausea and vomiting. Patient is currently up on the floor, has persistent abdominal pain, nausea, diarrhea. No fever, chills. Objective Vitals Vital Signs Date Time Temp Pulse Resp B/P (MAP) Pulse Ox O2 Delivery O2 Flow Rate FiO2 12/17/16 08:00 96.8 63 18 98/59 (72) 96 12/17/16 04:10 97.7 69 16 101/70 (80) 100 12/16/16 23:25 97.0 75 16 134/82 (99) 96 12/16/16 19:42 98.7 69 16 130/71 (90) 97 12/16/16 15:58 98.5 69 16 121/70 (87) 100 12/16/16 12:00 97.6 65 18 134/69 (90) 99 I/O 12/16/16 12/16/16 12/16/16 12/17/16 12/17/16 12/17/16 07:00 15:00 23:00 07:00 15:00 23:00 Intake Total 928 ml 600 ml 976 ml 440 ml Balance 928 ml 600 ml 976 ml 440 ml Intake Oral 440 ml 600 ml 440 ml 440 ml IV Total 488 ml 200 ml TPN/PPN 336 ml # Voids 2 4 6 4 # Bowel Movements 2 3 6 0 Result Diagram: 12/17/16 0915 12/16/16 0725 Imaging Last Impressions Abdomen/Pelvis CT 12/10/16 1144 Signed Impressions: Service Date/Time: November 14:39 - CONCLUSION: 1. Mild hepatomegaly. 2. No acute intra-abdominal process. 3. Mild degenerative changes and scoliosis of the lumbar spine. Dung Arias MD Objective Remarks GENERAL: Alert, oriented 3, NAD. SKIN: Warm and dry. HEAD: Normocephalic. EYES: No scleral icterus. No injection or drainage. NECK: Supple, trachea midline. No JVD or lymphadenopathy. CARDIOVASCULAR: Regular rate and rhythm without murmurs, gallops, or rubs. RESPIRATORY: Breath sounds equal bilaterally. No accessory muscle use. GASTROINTESTINAL: Abdomen soft, tender to palpation over the lower quadrants of the abdomen, nondistended. MUSCULOSKELETAL: No cyanosis, or edema. BACK: Nontender without obvious deformity. No CVA tenderness. Procedures None A/P Problem List: (1) Hypomagnesemia ICD Code: E83.42 - Hypomagnesemia Status: Chronic (2) Hypokalemia ICD Code: E87.6 - Hypokalemia Status: Chronic (3) Abdominal pain ICD Code: R10.9 - Abdominal pain Status: Chronic (4) Nausea and vomiting ICD Code: R11.2 - Nausea and vomiting Status: Acute Assessment and Plan Ms. Mensah is a pleasant 51-year-old female with a history of bowel obstruction and multiple surgeries who presents to the emergency department today due to hypokalemia as well as abdominal pain, nausea vomiting. - Hypomagnesemia - Hypokalemia - Likely due to nausea and vomiting. - Potassium 2.4 ==> 3.2 and magnesium 0.8 ==> 1.9. - Patient received multiple doses of IV magnesium sulfate and IV KCL. - Will check BMP, Mg in the AM. - Suspected adrenal insufficiency - Random cortisol yesterday was around 9. - Repeat AM cortisol on 12/17/2016 is around 18. This is appropriate level of cortisol. - We will get a cosyntropin stim test. We will give 0.25mg Cosyntropin IV and then 45-60 minutes later draw blood to check Cortisol, ACTH levels. - Discussed with RN regarding importance of timing administration of Cosyntropin and checking Cortisol, ACTH - Given AM cortisol level being 18, adrenal insufficiency is not a high possibility. 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 - C. difficile PCR negative, Will continue anti-diarrheal meds. - Cipro and Flagyl IV discontinued by GI. GI also ordered Fecal fat test. - Zofran for nausea vomiting and Dilaudid 1.5 mg every 4 hours when necessary for abdominal pain. - We started Bentyl as well. Abdominal pain seems to be persistent. - Dr. Miranda (GI) evaluated patient. Started TPN and recommended General surgical consult. - Gen surgery evaluated patient - cannot find any anatomical reason for this patient's pain. - GI is considering Gattex - Hypertension - continue amlodipine 5 mg daily - Depression - continue fluoxetine 10 mg daily Full code. Lovenox. Problem Qualifiers (1) Abdominal pain: Qualified Codes: R10.32 - Left lower quadrant pain (2) Nausea and vomiting: Qualified Codes: R11.2 - Nausea with vomiting, unspecified Sharmin Parish DO Dec 17, 2016 10:24
[2016-12-17 12:00] VITALS: BP 90/59; PULSE 76; RESP 18; TEMP 97.8; O2SAT 96
[2016-12-17 12:36] LABS: FECAL FAT % FAT 23 % fat (< 20)
[2016-12-17] MEDS ORDERED: COSYNTROPIN 0.25 MG VIAL IV PUSH ONE (13:00)
[2016-12-17 16:00] VITALS: BP 102/61; PULSE 70; RESP 18; TEMP 97.5; O2SAT 97
[2016-12-17 20:00] VITALS: BP 97/64; PULSE 76; RESP 16; TEMP 97.6; O2SAT 98
[2016-12-17] MEDS: ENOXAPARIN SODIUM 40 MG/0.4 ML SYRINGE SQ SCH (20:00)
[2016-12-17] MEDS: CLINIMIX E 4.25/25 1000 mL- </= 42 mls/hr IV-CENTRAL SCH ×3 (22:11)
[2016-12-18] VITALS: BP 110/66; PULSE 67; RESP 18; TEMP 97; O2SAT 97
[2016-12-18] MEDS: ONDANSETRON HCL 4 MG/2 ML VIAL IVP PRN ×4 (00:05→18:38)
[2016-12-18] MEDS: HYDROmorphone HCL PF 2 MG/ML VIAL IV PUSH PRN ×8 (00:05→21:25)
[2016-12-18] MEDS: PROMETHAZINE INJ 25 MG/ML VIAL IV-CENTRAL PRN ×4 (03:29→21:25)
[2016-12-18 04:00] VITALS: BP 118/67; PULSE 69; RESP 16; TEMP 96.6; O2SAT 96
[2016-12-18 08:00] VITALS: BP 106/65; PULSE 68; RESP 18; TEMP 97.1; O2SAT 98
[2016-12-18] MEDS: NEOMYCIN SULFATE 500 MG TAB PO SCH ×2 (09:00→21:26)
[2016-12-18] MEDS: FLUoxetine HCL 10 MG CAP PO SCH (09:00)
[2016-12-18] MEDS: DICYCLOMINE HCL 20 MG TAB PO SCH ×3 (09:00→18:38)
[2016-12-18] MEDS: DOCUSATE SODIUM 50 MG/SENNA 8.6 MG TAB PO SCH ×2 (09:00→21:00)
[2016-12-18] MEDS: SODIUM CHLORIDE 0.9% FLUSH 10 ML FLUSH IV FLUSH SCH ×2 (09:00→21:26)
[2016-12-18] MEDS: amLODIPine BESYLATE 5 MG TAB PO SCH (09:00)
--- NOTE | 2016-12-18 09:05 | HHI.PR ---
Subjective Remarks Follow-up for hypokalemia, hypomagnesemia, nausea and vomiting. Ms. Mensah reports less number of diarrheal episodes. However, she continues to have left upper quadrant abdominal pain. No fever, chills. Objective Vitals Vital Signs Date Time Temp Pulse Resp B/P (MAP) Pulse Ox O2 Delivery O2 Flow Rate FiO2 12/18/16 08:00 97.1 68 18 106/65 (79) 98 12/18/16 04:00 96.6 69 16 118/67 (84) 96 12/18/16 00:00 97.0 67 18 110/66 (81) 97 12/17/16 20:00 97.6 76 16 97/64 (75) 98 12/17/16 16:00 97.5 70 18 102/61 (75) 97 12/17/16 12:00 97.8 76 18 90/59 (69) 96 I/O 12/17/16 12/17/16 12/17/16 12/18/16 12/18/16 12/18/16 07:00 15:00 23:00 07:00 15:00 23:00 Intake Total 480 ml 1280 ml 277 ml Balance 480 ml 1280 ml 277 ml Intake Oral 480 ml 480 ml 0 ml IV Total 800 ml 277 ml # Voids 8 2 1 # Bowel Movements 3 5 Result Diagram: 12/17/16 0915 12/16/16 0725 Imaging Last Impressions Abdomen/Pelvis CT 12/10/16 1144 Signed Impressions: Service Date/Time: November 14:39 - CONCLUSION: 1. Mild hepatomegaly. 2. No acute intra-abdominal process. 3. Mild degenerative changes and scoliosis of the lumbar spine. Dung Arias MD Objective Remarks GENERAL: Alert, oriented 3, NAD. SKIN: Warm and dry. HEAD: Normocephalic. EYES: No scleral icterus. No injection or drainage. NECK: Supple, trachea midline. No JVD or lymphadenopathy. CARDIOVASCULAR: Regular rate and rhythm without murmurs, gallops, or rubs. RESPIRATORY: Breath sounds equal bilaterally. No accessory muscle use. GASTROINTESTINAL: Abdomen soft, tender to palpation over the lower quadrants of the abdomen, nondistended. MUSCULOSKELETAL: No cyanosis, or edema. BACK: Nontender without obvious deformity. No CVA tenderness. Procedures None A/P Problem List: (1) Hypomagnesemia ICD Code: E83.42 - Hypomagnesemia Status: Chronic (2) Hypokalemia ICD Code: E87.6 - Hypokalemia Status: Chronic (3) Abdominal pain ICD Code: R10.9 - Abdominal pain Status: Chronic (4) Nausea and vomiting ICD Code: R11.2 - Nausea and vomiting Status: Acute Assessment and Plan Ms. Mensah is a pleasant 51-year-old female with a history of bowel obstruction and multiple surgeries who presents to the emergency department today due to hypokalemia as well as abdominal pain, nausea vomiting. - Hypomagnesemia - Hypokalemia - Likely due to nausea and vomiting. - Potassium 2.4 ==> 3.2 and magnesium 0.8 ==> 1.9. - Patient received multiple doses of IV magnesium sulfate and IV KCL. - Will check BMP, Mg in the AM on 12/19/2016. - Suspected adrenal insufficiency - Random cortisol yesterday was around 9. - Repeat AM cortisol on 12/17/2016 is around 18. This is appropriate level of cortisol. 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 - C. difficile PCR negative, Will continue anti-diarrheal meds. - Cipro and Flagyl IV discontinued by GI. GI also ordered Fecal fat test. - Zofran for nausea vomiting and Dilaudid 1.5 mg every 4 hours when necessary for abdominal pain. - We started Bentyl as well. Abdominal pain seems to be persistent. - Dr. Miranda (GI) evaluated patient. Started TPN and recommended General surgical consult. - Gen surgery evaluated patient - cannot find any anatomical reason for this patient's pain. - GI is considering Gattex - Hypertension - continue amlodipine 5 mg daily - Depression - continue fluoxetine 10 mg daily Full code. Lovenox. Problem Qualifiers (1) Abdominal pain: Qualified Codes: R10.32 - Left lower quadrant pain (2) Nausea and vomiting: Qualified Codes: R11.2 - Nausea with vomiting, unspecified Sharmin Parish DO Dec 18, 2016 9:05 am
[2016-12-18] MEDS ORDERED: DO NOT ADM ANY ANTICOAGULANT DRUGS PRN (11:24)
--- NOTE | 2016-12-18 11:27 | GIPROC ---
[facility] [address] [facility]. [facility] [place], [address] EGD PROCEDURE REPORT EXAM DATE: 12/18/2016 PATIENT NAME: Kelly Mensah MR #: [id number] BIRTHDATE: 1965 ATTENDING: Eamon Quintanilla MD ORDER #: [id number] SENIOR CARE MANAGER: Burke Matt and Akil Myers STATUS: inpatient INDICATIONS: The patient is a 51 yr old female here for an EGD due to chronic diarrhea with steatorrhea; she's required/requiring TPN and IVF's. She's had electrolyte imbalances and may have a degree of adrenal insufficiency. The diarrhea has improve a little over the past 2 days, since strating neomycin to treat suspected SIBO. She had no improvement in symptoms with a trial of Creon. PROCEDURE PERFORMED: Enteroscopy with biopsies MEDICATIONS: Per Anesthesia. TOPICAL ANESTHETIC: none CONSENT: The patient understands the risks and benefits of the procedure and understands that these risks include, but are not limited to: sedation, allergic reaction, infection, perforation and/or bleeding. Alternative means of evaluation and treatment include, among others: physical exam, x-rays, and/or surgical intervention. The patient elects to proceed with this endoscopic procedure. medical equipment was checked for proper function. Hand hygiene and appropriate measures for infection prevention was taken. After the risks, benefits and alternatives of the procedure were thoroughly explained, Informed consent was verified, confirmed and timeout was successfully executed by the treatment team. The patient was anesthetized with topical anesthesia and the Pentax [id number] endoscope was introduced through the mouth and advanced to approximately 20cm beyond the ligament of Treitz. Retroflexed views revealed no abnormalities The gastroscope was then slowly withdrawn and removed. ESOPHAGUS: There was a 1cm segment of suspected Odonnell's esophagus found in the distal esophagus. Multiple biopsies were performed using cold forceps. STOMACH: The mucosa of the stomach appeared normal. DUODENUM: The duodenal mucosa appeared normal in the entire duodenum. Cold forcep biopsies were taken in the second portion. JEJUNUM: The exam showed no abnormalities in the jejunum. Multiple biopsies were performed using cold forceps. Sample sent for histology. ADVERSE EVENTS: There were no complications. IMPRESSIONS: 1. 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 The mucosa of the stomach appeared normal 3. Normal duodenal mucosa in the entire duodenum 4. The exam showed no abnormalities in the jejunum; multiple biopsies were performed 5. Retroflexed views revealed no abnormalities RECOMMENDATIONS: Await biopsy results. Biopsy results will not be ready for 7-10 days. If you don't hear from us in two weeks, call our office for biopsy results. Continue the neomycin. If the biopsies reveal a specific diagnosis, we'll treat appropriately. If normal, we'll begin Gattex. She should adhere to the anti-reflux regimen. If esophageal biopsies confirm Odonnell's esophagus, we'll discuss this in detail. PATIENT CONDITION: stable DISPOSITION: Inpatient REPEAT EXAM: Depending on the esophageal biopsy results. Eamon Quintanilla MD eSigned: Eamon Quintanilla MD 12/18/2016 11:26 AM cc: Ana Harden M.D. PATIENT NAME: Kelly Mensah MR#: [id number]
[2016-12-18] MEDS ORDERED: METOPROLOL TARTRATE 25 MG TAB PO PRN (11:45)
[2016-12-18] MEDS ORDERED: CHLORHEXIDINE GLUCONATE 2 % 1 PACK (2 CLOTHS) TOPICAL PRN (11:45)
[2016-12-18] MEDS ORDERED: INSULIN HUMAN REGULAR 1,000 UNITS/10 ML VIAL SQ PRN (11:45)
[2016-12-18] MEDS ORDERED: POVIDONE IODINE 5% (ANTISEPSIS KIT) 4 APPLICATIONS EACH NARE PRN (11:45)
[2016-12-18] MEDS ORDERED: SODIUM CHLORID 0.9% 500 ML IV PRN (11:45)
[2016-12-18] MEDS ORDERED: LACTATED RINGER'S 1000 ML IV PRN (11:45)
[2016-12-18] MEDS ORDERED: PROPOFOL 200 MG/20 ML AMP IV ONE (12:00)
[2016-12-18] MEDS ORDERED: MIDAZOLAM HCL 2 MG/2 ML VIAL IV ONE (12:00)
[2016-12-18] MEDS ORDERED: LIDOCAINE HCL 1% PF 5 ML AMPULE OTHER ONE (12:00)
[2016-12-18] MEDS: SODIUM CHLORIDE 0.9% FLUSH 10 ML FLUSH IV FLUSH PRN (12:30)
[2016-12-18 16:00] VITALS: BP 128/75; PULSE 89; RESP 18; TEMP 97.8; O2SAT 97
[2016-12-18 20:00] VITALS: BP 121/82; PULSE 78; PULSE 87; RESP 18; TEMP 98.9; O2SAT 96
[2016-12-18] MEDS: ENOXAPARIN SODIUM 40 MG/0.4 ML SYRINGE SQ SCH (20:00)
[2016-12-18] MEDS: CLINIMIX E 4.25/25 1000 mL- </= 42 mls/hr IV-CENTRAL SCH ×3 (21:26)
[2016-12-19] VITALS (7 sets, daily range): BP systolic 100–124; BP diastolic 58–80; PULSE 74–83; RESP 16–18; TEMP 96.7–98.1; O2SAT 95–99
[2016-12-19] MEDS: ONDANSETRON HCL 4 MG/2 ML VIAL IVP PRN ×4 (00:11→18:21)
[2016-12-19] MEDS: HYDROmorphone HCL PF 2 MG/ML VIAL IV PUSH PRN ×8 (00:11→21:47)
[2016-12-19] MEDS: PROMETHAZINE INJ 25 MG/ML VIAL IV-CENTRAL PRN ×4 (03:07→21:46)
[2016-12-19 07:16] LABS: BICARBONATE 22.7 MEQ/L (21.0-32.0); POTASSIUM 3.3 MEQ/L (3.5-5.1)
--- NOTE | 2016-12-19 07:37 | HHI.PR ---
Subjective Remarks Follow-up for hypokalemia, hypomagnesemia, nausea and vomiting. Ms. Mensah reports no improvement. She is having a lot of right sided abdominal pain and reports lower abdominal distension as well. No fever, chills. Still having nausea. Diarrhea has not subsided much. Objective Vitals Vital Signs Date Time Temp Pulse Resp B/P (MAP) Pulse Ox O2 Delivery O2 Flow Rate FiO2 12/19/16 04:00 97.0 79 16 124/74 (91) 95 12/19/16 00:00 98.1 74 16 124/68 (86) 97 12/18/16 20:00 98.9 87 18 121/82 (95) 96 12/18/16 16:00 97.8 89 18 128/75 (92) 97 12/18/16 11:42 72 16 102/62 (75) 97 12/18/16 11:27 97.8 71 18 93/57 (69) 96 12/18/16 08:00 97.1 68 18 106/65 (79) 98 I/O 12/18/16 12/18/16 12/18/16 12/19/16 12/19/16 12/19/16 07:00 15:00 23:00 07:00 15:00 23:00 Intake Total 277 ml 950 ml 960 ml 500 ml Balance 277 ml 950 ml 960 ml 500 ml Intake Oral 0 ml 600 ml 960 ml 500 ml IV Total 277 ml 350 ml # Voids 1 3 4 2 # Bowel Movements 3 6 1 Result Diagram: 12/17/16 0915 12/19/16 0601 Imaging Last Impressions Abdomen/Pelvis CT 12/10/16 1144 Signed Impressions: Service Date/Time: November 14:39 - CONCLUSION: 1. Mild hepatomegaly. 2. No acute intra-abdominal process. 3. Mild degenerative changes and scoliosis of the lumbar spine. Dung Arias MD Objective Remarks GENERAL: Alert, oriented 3, NAD. SKIN: Warm and dry. HEAD: Normocephalic. EYES: No scleral icterus. No injection or drainage. NECK: Supple, trachea midline. No JVD or lymphadenopathy. CARDIOVASCULAR: Regular rate and rhythm without murmurs, gallops, or rubs. RESPIRATORY: Breath sounds equal bilaterally. No accessory muscle use. GASTROINTESTINAL: Abdomen soft, tender to palpation over the lower quadrants of the abdomen, nondistended. MUSCULOSKELETAL: No cyanosis, or edema. BACK: Nontender without obvious deformity. No CVA tenderness. Procedures None A/P Problem List: (1) Hypomagnesemia ICD Code: E83.42 - Hypomagnesemia Status: Chronic (2) Hypokalemia ICD Code: E87.6 - Hypokalemia Status: Chronic (3) Abdominal pain ICD Code: R10.9 - Abdominal pain Status: Chronic (4) Nausea and vomiting ICD Code: R11.2 - Nausea and vomiting Status: Acute Assessment and Plan Ms. Mensah is a pleasant 51-year-old female with a history of bowel obstruction and multiple surgeries who presents to the emergency department today due to hypokalemia as well as abdominal pain, nausea vomiting. - Possible obstruction - Patient's abdominal feels somewhat more firm, distended today. Tender to palpation. - Will obtain abdominal KUB this morning. - Hypomagnesemia - Hypokalemia - Likely due to nausea and vomiting. - Potassium 2.4 ==> 3.3 and magnesium 0.8 ==> 1.5. - Patient received multiple doses of IV magnesium sulfate and IV KCL. - Will replace with IV KCL and IV Mag sulfate again. - Suspected adrenal insufficiency - Repeat AM cortisol on 12/17/2016 is around 18. This is appropriate level of cortisol. 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 - C. difficile PCR negative, Will continue anti-diarrheal meds. - Cipro and Flagyl IV discontinued by GI. GI also ordered Fecal fat test. - Zofran for nausea vomiting and Dilaudid 1.5 mg every 4 hours when necessary for abdominal pain. - We started Bentyl as well. Abdominal pain seems to be persistent. - On TPN. GI performed endoscopies studies with biopsy on 12/18/2016 - Gen surgery evaluated patient - cannot find any anatomical reason for this patient's pain. - GI is considering Gattex - Hypertension - continue amlodipine 5 mg daily - Depression - continue fluoxetine 10 mg daily Full code. Lovenox. Problem Qualifiers (1) Abdominal pain: Qualified Codes: R10.32 - Left lower quadrant pain (2) Nausea and vomiting: Qualified Codes: R11.2 - Nausea with vomiting, unspecified Sharmin Parish DO Dec 19, 2016 7:37 am
[2016-12-19] MEDS ORDERED: POTASSIUM CHLOR 40 MEQ PREMIX 100 ML IV ONE (08:00)
[2016-12-19] MEDS: amLODIPine BESYLATE 5 MG TAB PO SCH (09:00)
[2016-12-19] MEDS: DOCUSATE SODIUM 50 MG/SENNA 8.6 MG TAB PO SCH ×2 (09:00→20:17)
--- NOTE | 2016-12-19 09:15 | RADRPT ---
EXAM DATE/TIME: 12/19/2016 08:02 [facility] COMPARISON: CT ABDOMEN & PELVIS W CONTRAST, December 10, 2016, 14:39. INDICATIONS : Abdominal distension, left lower abdominal pain MEDICAL HISTORY : Hypertension. Renal calculi. SURGICAL HISTORY : Appendectomy. Cholecystectomy.Hysterectomy ENCOUNTER: Subsequent ACUITY: 1 week PAIN SCORE: 5/10 LOCATION: Left lower quadrant FINDINGS: Single frontal supine view of the abdomen demonstrates air within small and large bowel in a nonobstr uctive pattern. No abnormal calcifications are seen. No abnormal mass effect is appreciated. The visu alized bones demonstrates no abnormality. Clips overlie the abdomen related to prior hernia repair. T here also clips overlying the left upper quadrant near the GE junction. CONCLUSION: No acute abdominal abnormality is identified. Hong Valerio MD on December 19, 2016 at 9:12 Board Certified Radiologist. This report was verified electronically.
[2016-12-19] MEDS: NEOMYCIN SULFATE 500 MG TAB PO SCH ×2 (09:39→20:18)
[2016-12-19] MEDS: DICYCLOMINE HCL 20 MG TAB PO SCH ×3 (09:39→18:22)
[2016-12-19] MEDS: FLUoxetine HCL 10 MG CAP PO SCH (09:39)
[2016-12-19] MEDS: SODIUM CHLORIDE 0.9% FLUSH 10 ML FLUSH IV FLUSH SCH ×2 (09:39→20:18)
[2016-12-19] MEDS: POTASSIUM CHLOR 20 MEQ PREMIX 100 ML IV SCH ×2 (09:40→12:25)
[2016-12-19] MEDS: MAGNESIUM SULFATE 1 GM PREMIX 100 ML IV SCH ×3 (09:40→23:20)
[2016-12-19] MEDS: LORazepam 2 MG/ML VIAL IV PUSH PRN ×2 (09:55→23:24)
--- NOTE | 2016-12-19 10:09 | HHI.GIFU ---
GI Follow-up Note Consult Follow-up Subjective: Patient lying in bed uncomfortably; increased abdominal pain and distention which began overnight; she's still passing watery diarrheal stool. Objective: PHYSICAL EXAMINATION: Vitals signs stable No fever HEENT: EOMI ABDOMEN: Distended, mildly tympanitic; fair bowel sounds/no high-pitched bowel sounds; diffusely moderately tender with no rebound. The worse tenderness is still focally in the left lower quadrant, near the midline incision. ASSOCIATE LOAN OFFICER: alert and oriented times three. Available Data (labs, X- Rays, Procedues) : Reviewed. Path report pending. ASSESSMENT/PLAN; Diarrhea with steatorrhea and need for IVF and TPN; jejunal biopsy results are pending. Increased abdominal pain and tenderness with diffuse tenderness and persistent more severe pain/tenderness in the left lower quadrant; x-ray shows a non- specific, non-0bstructed bowel gas pattern. If there is a partial obstruction, this may be tough to detect with a plain x-ray in the patient with fluid-filled loops of intestine. I'll review the images with the radiologist and we'll consider CT scanning and discussion with Dr. Saldana. It was a pleasure seeing Kelly Mensah. Entered by: Eamon Zambrano MD Dec 19, 2016 10:09
[2016-12-19] MEDS: SODIUM CHLORIDE 0.9% FLUSH 10 ML FLUSH IV FLUSH PRN (18:22)
[2016-12-19] MEDS: ENOXAPARIN SODIUM 40 MG/0.4 ML SYRINGE SQ SCH (20:00)
[2016-12-19] MEDS: CLINIMIX E 4.25/25 1000 mL- </= 42 mls/hr IV-CENTRAL SCH ×3 (20:20)
--- NOTE | 2016-12-19 21:44 | HHI.PR ---
cc: Clover Saldana MD Subjective Subjective Notes NOTE FOR SURGICAL ATTENDING, DR. CLOVER SALDANA more pain in llq after egd I have adhesion pain pain keeps her up all night Objective Vitals/I&O Vital Signs Date Time Temp Pulse Resp B/P (MAP) Pulse Ox O2 Delivery O2 Flow Rate FiO2 12/19/16 19:23 96.7 82 18 112/75 (87) 97 12/15/16 18:49 Room Air Labs Laboratory Tests Test 12/19/16 06:01 Blood Urea Nitrogen 13 Creatinine 0.79 Random Glucose 107 Calcium Level 8.5 Sodium Level 140 Potassium Level 3.3 Chloride Level 110 Carbon Dioxide Level 22.7 Anion Gap 7 Estimat Glomerular Filtration Rate 77 Radiology Last Impressions Abdomen X-Ray 12/19/16 0000 Signed Impressions: Service Date/Time: Monday, December 19, 2016 08:02 - CONCLUSION: No acute abdominal abnormality is identified. Hong Valerio MD Abdomen/Pelvis CT 12/10/16 1144 Signed Impressions: Service Date/Time: November 14:39 - CONCLUSION: 1. Mild hepatomegaly. 2. No acute intra-abdominal process. 3. Mild degenerative changes and scoliosis of the lumbar spine. Dung Arais MD Cardiovascular: Regular Lungs: Clear Abdomen: Other Extremities: Perfused Narrative Exam severe tenderness llq slightly more distended positive flatus A/P Problem List: (1) Abdominal pain ICD Codes: R10.9 - Abdominal pain Status: Chronic (2) Anemia ICD Codes: D64.9 - Anemia, unspecified Status: Acute (3) Diarrhea in adult patient ICD Codes: K52.9 - Diarrhea in adult patient Status: Acute (4) Fibromyalgia ICD Codes: M79.7 - Fibromyalgia Status: Chronic (5) Anxiety and depression ICD Codes: F41.8 - Anxiety and depression Status: Chronic (6) Hypokalemia ICD Codes: E87.6 - Hypokalemia Status: Chronic (7) Hypomagnesemia ICD Codes: E83.42 - Hypomagnesemia Status: Chronic (8) Malabsorption syndrome ICD Codes: K90.9 - Intestinal malabsorption, unspecified Status: Chronic Assessment and Plan 51-year-old female who has malabsorption syndrome on TPN questionable small gut may be functional. No anatomical reason for her pain see on ct scan Discussed with Dr. Quintanilla about recent EGD showing no villia in the small bowel . Treatment for functional short gut syndrome with medication, may consider Gattex. Reviewed this with the patient as well she it at a point where she feels the risk of complication are worth it because the amount of pain she is experiencing. discussed surgery and the risks will see when time is available high risk for postoperative complications including fistula problems or increasing pain i reviewed recent operative note at [facility] for lysis of adhesions last year Attending Statement NOTE FOR SURGICAL ATTENDING, DR. CLOVER SALDANA I attest that I had a [id number] encounter with the patient on the same day, and personally performed and documented my assessment and findings in the medical record. The following services were provided during this hospital visit: Chart data review, vital sign assessments/reviewing monitor data Review of consultations notes if present. Medication orders/review and/or management Ordering and/or reviewing lab tests Ordering and/or interpreting/reviewing x-rays and/or diagnostic studies Care of the patient and discussion of the patient with the care team Documentation time To help prompt me to consider important information that might be impacting today's encounter and assessment, information from prior notes written by myself or my colleagues may have been "brought forward/copy and pasted" into today's note. Problem Qualifiers (1) Abdominal pain: Qualified Codes: R10.32 - Left lower quadrant pain (2) Anemia: (3) Malabsorption syndrome: Qualified Codes: K90.89 - Other intestinal malabsorption Clover Saldana MD Dec 19, 2016 21:44
[2016-12-19] MEDS ORDERED: POTASSIUM PHOSPHATE INJ 30 MMOL in SODIUM CHLOR 0.9% 250 ML INJ 250 ML IV ONE (22:00)
[2016-12-20] MEDS: MAGNESIUM SULFATE 1 GM PREMIX 100 ML IV SCH (00:09)
[2016-12-20] MEDS: HYDROmorphone HCL PF 2 MG/ML VIAL IV PUSH PRN ×7 (01:42→23:11)
[2016-12-20] MEDS: ONDANSETRON HCL 4 MG/2 ML VIAL IVP PRN ×4 (01:43→23:10)
[2016-12-20 03:05] VITALS: BP 114/69; PULSE 80; RESP 18; TEMP 97.8; O2SAT 98
[2016-12-20] MEDS: PROMETHAZINE INJ 25 MG/ML VIAL IV-CENTRAL PRN ×3 (04:49→18:21)
[2016-12-20 08:00] VITALS: BP 118/69; PULSE 68; PULSE 76; RESP 16; TEMP 97.4; O2SAT 96
[2016-12-20] MEDS: DOCUSATE SODIUM 50 MG/SENNA 8.6 MG TAB PO SCH ×2 (08:01→20:06)
[2016-12-20] MEDS: FLUoxetine HCL 10 MG CAP PO SCH (08:01)
[2016-12-20] MEDS: NEOMYCIN SULFATE 500 MG TAB PO SCH ×2 (08:01→20:05)
[2016-12-20] MEDS: amLODIPine BESYLATE 5 MG TAB PO SCH (08:01)
[2016-12-20] MEDS: DICYCLOMINE HCL 20 MG TAB PO SCH ×3 (08:01→18:22)
[2016-12-20] MEDS: SODIUM CHLORIDE 0.9% FLUSH 10 ML FLUSH IV FLUSH SCH ×2 (08:02→20:05)
[2016-12-20] MEDS: LORazepam 2 MG/ML VIAL IV PUSH PRN ×2 (08:08→18:22)
--- NOTE | 2016-12-20 09:06 | HHI.GIFU ---
GI Follow-up Note Consult Follow-up Subjective: Patient lying in bed uncomfortably, more pain and abdominal distention with emesis of bile and decreased stool passage: only one watery stool so far. Objective: PHYSICAL EXAMINATION: Vitals signs stable No fever HEENT: EOMI ABDOMEN: More distended than yesterday; high-pitched bowel sounds, tympanitic, more tender, diffusely now. CHARTER SCHOOL EXECUTIVE DIRECTOR: alert and oriented times three. Available Data (labs, X- Rays, Procedues) : No labs today; yesterday's flat plate of the abdomen revealed a nos-specific bowel gas pattern. ASSESSMENT/PLAN: 1. Worsening abdominal pain with increased distention, emesis , high-pitched bowel sounds. I suspect adhesions are now causing near-complete obstruction. Will order an upright abdominal film; she may well need surgery. 2. Diarrhea/steatorrhea; jejunal biopsy results may be available tomorrow. TPN continues. It was a pleasure seeing Kelly Mensah. Entered by: Eamon Zambrano MD Dec 20, 2016 09:06
--- NOTE | 2016-12-20 10:37 | HHI.PR ---
Subjective Remarks Follow-up for hypokalemia, hypomagnesemia, nausea and vomiting. Patient complains of persistent abdominal pain, nausea. No fever, chills. Objective Vitals Vital Signs Date Time Temp Pulse Resp B/P (MAP) Pulse Ox O2 Delivery O2 Flow Rate FiO2 12/20/16 08:00 97.4 76 16 118/69 (85) 96 12/20/16 05:20 16 12/20/16 03:05 97.8 80 18 114/69 (84) 98 12/20/16 02:26 Room Air 12/19/16 23:52 96.9 83 18 100/58 (72) 97 12/19/16 19:23 96.7 82 18 112/75 (87) 97 12/19/16 16:00 96.9 83 17 114/69 (84) 95 12/19/16 11:44 97.1 79 17 121/80 (94) 95 I/O 12/19/16 12/19/16 12/19/16 12/20/16 12/20/16 12/20/16 07:00 15:00 23:00 07:00 15:00 23:00 Intake Total 500 ml 297 ml 679 ml 920 ml 260 ml Balance 500 ml 297 ml 679 ml 920 ml 260 ml Intake Oral 500 ml 480 ml 720 ml IV Total 297 ml 199 ml 200 ml 260 ml # Voids 2 4 4 # Bowel Movements 1 4 2 Result Diagram: 12/17/16 0915 12/19/16 0601 Imaging Last Impressions Abdomen X-Ray 12/19/16 0000 Signed Impressions: Service Date/Time: Monday, December 19, 2016 08:02 - CONCLUSION: No acute abdominal abnormality is identified. Hong Valerio MD Abdomen/Pelvis CT 12/10/16 1144 Signed Impressions: Service Date/Time: November 14:39 - CONCLUSION: 1. Mild hepatomegaly. 2. No acute intra-abdominal process. 3. Mild degenerative changes and scoliosis of the lumbar spine. Dung Arias MD Objective Remarks GENERAL: Alert, oriented 3, NAD. SKIN: Warm and dry. HEAD: Normocephalic. EYES: No scleral icterus. No injection or drainage. NECK: Supple, trachea midline. No JVD or lymphadenopathy. CARDIOVASCULAR: Regular rate and rhythm without murmurs, gallops, or rubs. RESPIRATORY: Breath sounds equal bilaterally. No accessory muscle use. GASTROINTESTINAL: Abdomen soft, tender to palpation over the lower quadrants of the abdomen, nondistended. MUSCULOSKELETAL: No cyanosis, or edema. BACK: Nontender without obvious deformity. No CVA tenderness. Procedures None A/P Problem List: (1) Hypomagnesemia ICD Code: E83.42 - Hypomagnesemia Status: Chronic (2) Hypokalemia ICD Code: E87.6 - Hypokalemia Status: Chronic (3) Abdominal pain ICD Code: R10.9 - Abdominal pain Status: Chronic (4) Nausea and vomiting ICD Code: R11.2 - Nausea and vomiting Status: Acute Assessment and Plan Ms. Mensah is a pleasant 51-year-old female with a history of bowel obstruction and multiple surgeries who presents to the emergency department today due to hypokalemia as well as abdominal pain, nausea vomiting. - Possible obstruction - Patient's abdominal feels somewhat more firm, distended. Tender to palpation. - Hypomagnesemia - Hypokalemia - Likely due to nausea and vomiting. - Potassium 2.4 ==> 3.3 and magnesium 0.8 ==> 1.5. - Patient received multiple doses of IV magnesium sulfate and IV KCL. - Suspected adrenal insufficiency - Repeat AM cortisol on 12/17/2016 is around 18. This is appropriate level of cortisol. 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 - C. difficile PCR negative, Will continue anti-diarrheal meds. - Cipro and Flagyl IV discontinued by GI. GI also ordered Fecal fat test. - Zofran for nausea vomiting and Dilaudid 1.5 mg every 4 hours when necessary for abdominal pain. - We started Bentyl as well. Abdominal pain seems to be persistent. - On TPN. GI performed endoscopies studies with biopsy on 12/18/2016 - Gen surgery evaluated patient - cannot find any anatomical reason for this patient's pain. - GI is considering Gattex - Hypertension - continue amlodipine 5 mg daily - Depression - continue fluoxetine 10 mg daily Full code. Lovenox. Problem Qualifiers (1) Abdominal pain: Qualified Codes: R10.32 - Left lower quadrant pain (2) Nausea and vomiting: Qualified Codes: R11.2 - Nausea with vomiting, unspecified Sharmin Parish DO Dec 20, 2016 10:37 am
[2016-12-20 12:00] VITALS: BP 114/68; PULSE 66; RESP 16; TEMP 97.1; O2SAT 99
[2016-12-20] MEDS ORDERED: ceFAZolin 2 GM PREMIX 50 ML IV SCH (12:00)
--- NOTE | 2016-12-20 12:01 | HHI.PR ---
Subjective Subjective Notes More distended today; states she is much more uncomfortable today Objective Vitals/I&O Vital Signs Date Time Temp Pulse Resp B/P (MAP) Pulse Ox O2 Delivery O2 Flow Rate FiO2 12/20/16 08:00 97.4 76 16 118/69 (85) 96 12/20/16 02:26 Room Air Radiology Last Impressions Abdomen X-Ray 12/19/16 0000 Signed Impressions: Service Date/Time: Monday, December 19, 2016 08:02 - CONCLUSION: No acute abdominal abnormality is identified. Hong Valerio MD Abdomen/Pelvis CT 12/10/16 1144 Signed Impressions: Service Date/Time: November 14:39 - CONCLUSION: 1. Mild hepatomegaly. 2. No acute intra-abdominal process. 3. Mild degenerative changes and scoliosis of the lumbar spine. Dung Arias MD Lungs: Clear Abdomen: Other (Distended and moderately tender) A/P Problem List: (1) Abdominal pain ICD Codes: R10.9 - Abdominal pain Status: Chronic (2) Anemia ICD Codes: D64.9 - Anemia, unspecified Status: Acute (3) Diarrhea in adult patient ICD Codes: K52.9 - Diarrhea in adult patient Status: Acute (4) Fibromyalgia ICD Codes: M79.7 - Fibromyalgia Status: Chronic (5) Anxiety and depression ICD Codes: F41.8 - Anxiety and depression Status: Chronic (6) Hypokalemia ICD Codes: E87.6 - Hypokalemia Status: Chronic (7) Hypomagnesemia ICD Codes: E83.42 - Hypomagnesemia Status: Chronic (8) Malabsorption syndrome ICD Codes: K90.9 - Intestinal malabsorption, unspecified Status: Chronic Assessment and Plan Plan A/P Problem List: (1) Abdominal pain ICD Codes: R10.9 - Abdominal pain Status: Chronic (2) Anemia ICD Codes: D64.9 - Anemia, unspecified Status: Acute (3) Diarrhea in adult patient ICD Codes: K52.9 - Diarrhea in adult patient Status: Acute (4) Fibromyalgia ICD Codes: M79.7 - Fibromyalgia Status: Chronic (5) Anxiety and depression ICD Codes: F41.8 - Anxiety and depression Status: Chronic (6) Hypokalemia ICD Codes: E87.6 - Hypokalemia Status: Chronic (7) Hypomagnesemia ICD Codes: E83.42 - Hypomagnesemia Status: Chronic (8) Malabsorption syndrome ICD Codes: K90.9 - Intestinal malabsorption, unspecified Status: Chronic Assessment and Plan 51-year-old female who has malabsorption syndrome on TPN questionable small gut may be functional. No anatomical reason for her pain see on ct scan Treatment for functional short gut syndrome with medication, may consider Gattex. she is at a point where she feels the risk of complications are worth it because of the amount of pain she is experiencing. high risk for postoperative complications including fistula problems or increasing pain, recurrence of adhesions Inpatient MDM Attending Statement I attest that I had a [id number] encounter with the patient on the same day, and personally performed and documented my assessment and findings in the medical record. The following services were provided during this hospital visit: Chart data review, vital sign assessments/reviewing monitor data Review of consultations notes if present. Medication orders/review and/or management Ordering and/or reviewing lab tests Ordering and/or interpreting/reviewing x-rays and/or diagnostic studies Care of the patient and discussion of the patient with the care team Documentation time To help prompt me to consider important information that might be impacting today's encounter and assessment, information from prior notes written by myself or my colleagues may have been "brought forward/copy and pasted" into today's note. Problem Qualifiers (1) Abdominal pain: Qualified Codes: R10.32 - Left lower quadrant pain (2) Anemia: (3) Malabsorption syndrome: Qualified Codes: K90.89 - Other intestinal malabsorption Ajay Thompson MD Dec 20, 2016 12:01
--- NOTE | 2016-12-20 13:19 | RADRPT ---
EXAM DATE/TIME: 12/20/2016 11:53 [facility] COMPARISON: CT ABDOMEN & PELVIS W CONTRAST, December 10, 2016, 14:39. ABDOMEN KUB ONLY, December 19, 2016, 8:0 2. ABDOMEN UPRIGHT ONLY, October 10, 2013, 23:31. INDICATIONS : Abdominal distension, left lower abdominal pain. MEDICAL HISTORY : Hypertension. Renal calculi. SURGICAL HISTORY : Appendectomy. Cholecystectomy.Hysterectomy ENCOUNTER: [facility]ela ACUITY: 1 week PAIN SCORE: 7/10 LOCATION: Left abdomen FINDINGS: Single upright view of the abdomen demonstrates air within bowel centrally without findings to sugges t obstruction. There is a single air-fluid level in the central abdomen. This could be small bowel or colon but I believe it is most likely the transverse colon. There is no free intraperitoneal air. Cl ips overlie the abdomen. There is no organomegaly. Lung bases are clear. No acute osseous abnormaliti es seen. CONCLUSION: There are no imaging findings to indicate obstruction. There is a single air-fluid level in the centr al abdomen, most likely within the transverse colon. Hong Valerio MD on December 20, 2016 at 13:10 Board Certified Radiologist. This report was verified electronically.
[2016-12-20] MEDS: CLINIMIX E 4.25/25 1000 mL- </= 42 mls/hr IV-CENTRAL SCH ×3 (20:05)
[2016-12-20] MEDS: FAT EMULSION 20% INJ 250 ML (Twice weekly over 8 hours) IV-CENTRAL SCH (20:05)
[2016-12-20 20:11] VITALS: BP 123/72; PULSE 65; RESP 17; TEMP 97.9; O2SAT 100
[2016-12-20 20:28] VITALS: PULSE 85
[2016-12-20] MEDS ORDERED: LACTATED RINGER'S 1000 ML IV PRN (22:30)
[2016-12-20] MEDS ORDERED: INSULIN HUMAN REGULAR 1,000 UNITS/10 ML VIAL SQ PRN (22:30)
[2016-12-20] MEDS ORDERED: POVIDONE IODINE 5% (ANTISEPSIS KIT) 4 APPLICATIONS EACH NARE PRN (22:30)
[2016-12-20] MEDS ORDERED: SODIUM CHLORID 0.9% 500 ML IV PRN (22:30)
[2016-12-20] MEDS ORDERED: METOPROLOL TARTRATE 25 MG TAB PO PRN (22:30)
[2016-12-20] MEDS ORDERED: CHLORHEXIDINE GLUCONATE 2 % 1 PACK (2 CLOTHS) TOPICAL PRN (22:30)
[2016-12-20 23:15] VITALS: BP 149/84; PULSE 87; RESP 17; TEMP 97.9; O2SAT 99
[2016-12-21] MEDS: LORazepam 2 MG/ML VIAL IV PUSH PRN ×2 (00:23→17:49)
[2016-12-21] MEDS: HYDROmorphone HCL PF 2 MG/ML VIAL IV PUSH PRN ×4 (02:31→23:07)
[2016-12-21] MEDS: PROMETHAZINE INJ 25 MG/ML VIAL IV-CENTRAL PRN ×3 (02:31→23:07)
[2016-12-21 03:52] VITALS: BP 149/80; PULSE 69; RESP 18; TEMP 96.7; O2SAT 98
[2016-12-21] MEDS: ONDANSETRON HCL 4 MG/2 ML VIAL IVP PRN ×2 (05:44→16:08)
[2016-12-21 07:34] VITALS: BP 120/73; PULSE 79; RESP 16; TEMP 98; O2SAT 98
[2016-12-21 08:59] LABS: AUTOMATED NEUTROPHIL # 4.3 TH/MM3 (1.8-7.7); BASOPHIL % 0.2 % (0.0-2.0); EOSINOPHIL # 0.1 TH/MM3 (0-0.4); EOSINOPHIL % 1.1 % (0.0-4.0); HEMATOCRIT 38.5 % (35.0-46.0); HEMO FLAGS DIFF FINAL; LYMPHOCYTE # 2.2 TH/MM3 (1.0-4.8); MEAN CELL VOLUME 102.5 FL (80.0-100.0); MEAN CORPUSCULAR HEMOGLOBIN 34.1 PG (27.0-34.0); MEAN CORPUSCULAR HGB CONC 33.3 % (32.0-36.0); MONO % 10.4 % (0.0-8.0); NEUT % 58.3 % (16.0-70.0); PLATELET COUNT 113 TH/MM3 (150-450); RED BLOOD COUNT 3.76 MIL/MM3 (4.00-5.30); RED CELL DISTRIBUTION WIDTH 13.7 % (11.6-17.2); WHITE BLOOD COUNT 7.4 TH/MM3 (4.0-11.0)
[2016-12-21] MEDS: DOCUSATE SODIUM 50 MG/SENNA 8.6 MG TAB PO SCH ×2 (09:00→19:46)
[2016-12-21] MEDS: FLUoxetine HCL 10 MG CAP PO SCH (09:00)
[2016-12-21] MEDS: NEOMYCIN SULFATE 500 MG TAB PO SCH ×2 (09:00→19:46)
[2016-12-21] MEDS: DICYCLOMINE HCL 20 MG TAB PO SCH ×3 (09:00→17:49)
[2016-12-21] MEDS: amLODIPine BESYLATE 5 MG TAB PO SCH (09:00)
[2016-12-21 09:07] LABS: BICARBONATE 21.6 MEQ/L (21.0-32.0)
[2016-12-21 09:09] LABS: MAGNESIUM 1.8 MG/DL (1.5-2.5); POTASSIUM 3.9 MEQ/L (3.5-5.1)
[2016-12-21] MEDS: SODIUM CHLORIDE 0.9% FLUSH 10 ML FLUSH IV FLUSH SCH ×2 (09:53→19:46)
[2016-12-21] MEDS ORDERED: BUPIVACAINE/EPINEPHRINE 0.25% 50 ML VIAL ONE (09:57)
[2016-12-21] MEDS ORDERED: SUGAMMADEX SODIUM 200 MG/2 ML VIAL IV PUSH ONE ×2 (10:07)
[2016-12-21] MEDS ORDERED: PHENYLEPH/NS 1000 MCG/10 ML SYR ONE (10:13)
[2016-12-21] MEDS ORDERED: SUCCINYLCHOLINE CHLORIDE 100 MG/5 ML SYRINGE ONE (10:28)
[2016-12-21] MEDS ORDERED: ONDANSETRON HCL 4 MG/2 ML VIAL IV PUSH ONE (12:00)
[2016-12-21] MEDS ORDERED: DEXAMETHASONE SOD PHOS 4 MG/ML VIAL IV ONE (12:00)
[2016-12-21] MEDS ORDERED: MIDAZOLAM HCL 2 MG/2 ML VIAL IV ONE (12:00)
[2016-12-21] MEDS ORDERED: SUCCINYLCHOLINE CHLORIDE 100 MG/5 ML SYRINGE IV PUSH ONE (12:00)
[2016-12-21] MEDS ORDERED: ROCURONIUM INJ 50 MG/5 ML SYRINGE IV PUSH ONE ×2 (12:00→12:03)
[2016-12-21] MEDS ORDERED: LACTATED RINGER'S 1000 ML INJ 2,000 ML IV ONE (12:00)
[2016-12-21] MEDS ORDERED: NALOXONE HCL 4 MG/10 ML MDV ONE (12:05)
--- NOTE | 2016-12-21 13:37 | HHI.PR ---
cc: Wally Saldana MD Immediate Post Op Note Procedure Date: Dec 21, 2016 Pre Op Diagnosis: (1) Malabsorption syndrome (2) Abdominal pain (3) Intractable left lower quadrant abdominal pain Post Op Diagnosis: Surgeon: Wally Saldana Brake Tester(s): Ajay Thompson M.D. Procedure: Exploratory laparotomy lysis of massive adhesions greater than 2 hours Repair of enterotomy Findings: Massive adhesions fused abdomen Specimen(s) removed: None Anesthesia: General Drains: None IVF Patient Condition: Good Implant/Devices: SEE IMPLANT LOG (if applicable) Date/Time of Procedure: SEE SURGICAL CARE RECORD Wally Saldana MD Dec 21, 2016 13:37
--- NOTE | 2016-12-21 13:56 | MP ---
cc: CLOVER SALDANA M.D. DATE OF SURGERY: 12/21/2016 PREOPERATIVE DIAGNOSIS Adhesions with adhesion pain from multiple intra-abdominal surgeries. POSTOPERATIVE DIAGNOSIS Massive adhesions with fusion off all bowel to each other and to the left lower quadrant abdominal fascia. PROCEDURE Exploratory laparotomy, lysis of massive adhesions greater than 2 hours. repair of enterotomies x2 ANESTHESIA General. SURGEON Dr. Saldana. OXYGEN THERAPIST Dr. Ajay Thompson. INDICATION This is a pleasant unfortunate 51-year-old female who has had numerous abdominal surgeries. She has been seen by the medical team and seen by Dr. Quintanilla. The patient had persistent pain in the left lower quadrant that was keeping her up at night constantly, felt secondary to adhesion pain. At one time she was having a lot of bowel movements. But her abdomen has become more distended and more uncomfortable. Plans were made for above. We marked the patient where she was most tender and I told her I would concentrate on that area for the lysis of adhesions. When looking at operative notes done here and another institution, it is noted she has had previous difficult intraoperative dissection because of amount of adhesions. This was all discussed with the patient. PROCEDURE The patient was taken to the operating room and placed in the supine position. After anesthesia her abdomen is prepped with Betadine. We do a time-out, make an elliptical incision, removed the skin scar tissue from the umbilicus down to the pubis. The fascia is then carefully incised where we get plane in the midline low down the pelvis. With careful meticulous dissection we were able to identify some of the bowel that is completely fused to the other bowel and other structures. We get a plane posteriorly under the fascia on the left lower quadrant. We are able to get behind that slightly. The bowel is simply fused to the anterior abdominal wall and for this reason I elect to cut the fascia off other thickened tissue where she had previous biologic mesh placed. This is then dissected all the way to the pubic bone inferiorly and laterally to where all her pain was localized. We are able to get into the intra-abdominal cavity in this area and lyse some adhesions as well but a majority of the fascia is simply fused to the intestines and cannot be . We did try to separate some but made a serosal tear that was apparent and this was repaired with silk pop-offs. During the dissection an enterotomy was made to identify the anatomical structures and this enterotomy is closed with silk pop-off sutures as well. We then dissect on the right side to free up the fascia from the anterior abdominal wall. There is tethering effect in the right lower quadrant and this was freed up. There was some dilated bowel more proximal to this but it is difficult to tell because of the essentially massive adhesions of the bowel to surrounding structures and to other bowel. Once we freed up along the anterior abdominal wall on the right side and the left side and freeing up all the area where she was most tender, we then irrigate copiously and recheck the dissection site of the bowel that we had dissected. It is noted that she just simply has massive adhesions throughout the abdomen. I simply concentrated on the area that was causing the most discomfort and hopefully this will assist in her pain management. When this was done we then close the fascia and reapproximate what appears to be some of the biologic mesh back to the midline with a #1 PDS looped stitch. Skin is reapproximated with the skin stapling device. Sterile bandage was applied. The patient tolerated the procedure well and had no immediate postop complication. a Sung was placed during the procedure to decompress her bladder to visualize structures. MD YURI Laurent/MYAH /1:27 PM /1:35 PM GISSELLE
[2016-12-21] MEDS: PCA - TOTAL MG DILAUDID DELIVERED PER SHIFT OTHER SCH ×2 (14:00→19:46)
[2016-12-21] MEDS ORDERED: DO NOT ADM ANY ANTICOAGULANT DRUGS PRN (14:15)
[2016-12-21] MEDS ORDERED: *LABETALOL HCL 100 MG/20 ML VIAL PERIprocedural Use ONLY ONE (14:15)
[2016-12-21] MEDS: LACTATED RINGER'S 1000 ML INJ 1,000 ML IV SCH (14:25)
[2016-12-21] MEDS: HYDROmorphone HCL PCA 6 MG/30 ML IV SCH ×2 (14:25→18:15)
[2016-12-21] MEDS ORDERED: *HYDROmorphone PF 1 MG VIAL PERIprocedural Use ONLY ONE (14:39)
[2016-12-21 15:55] VITALS: BP 143/81; PULSE 101; RESP 16; TEMP 96.6; O2SAT 97
[2016-12-21 17:55] VITALS: O2SAT 97
[2016-12-21 20:40] VITALS: BP 93/59; PULSE 100; RESP 17; TEMP 99.3; O2SAT 98
[2016-12-21] MEDS: CLINIMIX E 4.25/25 1000 mL- </= 42 mls/hr IV-CENTRAL SCH ×3 (20:56)
[2016-12-21 21:53] VITALS: PULSE 89
[2016-12-22] VITALS (8 sets, daily range): BP systolic 98–136; BP diastolic 51–64; PULSE 76–100; RESP 16–18; TEMP 98.6–99.7; O2SAT 95–98
[2016-12-22] MEDS: HYDROmorphone HCL PF 2 MG/ML VIAL IV PUSH PRN ×7 (02:35→21:33)
[2016-12-22] MEDS: PCA - TOTAL MG DILAUDID DELIVERED PER SHIFT OTHER SCH ×3 (05:32→22:00)
[2016-12-22] MEDS: HYDROmorphone HCL PCA 6 MG/30 ML IV SCH ×4 (05:35→22:00)
[2016-12-22] MEDS: PROMETHAZINE INJ 25 MG/ML VIAL IV-CENTRAL PRN ×5 (06:07→21:35)
[2016-12-22] MEDS: amLODIPine BESYLATE 5 MG TAB PO SCH (07:55)
[2016-12-22] MEDS: FLUoxetine HCL 10 MG CAP PO SCH (07:55)
[2016-12-22] MEDS: NEOMYCIN SULFATE 500 MG TAB PO SCH ×2 (07:56→22:39)
[2016-12-22] MEDS: DICYCLOMINE HCL 20 MG TAB PO SCH ×3 (07:56→18:46)
[2016-12-22] MEDS: LORazepam 2 MG/ML VIAL IV PUSH PRN (08:01)
[2016-12-22] MEDS: DOCUSATE SODIUM 50 MG/SENNA 8.6 MG TAB PO SCH ×2 (09:00→21:00)
[2016-12-22] MEDS: SODIUM CHLORIDE 0.9% FLUSH 10 ML FLUSH IV FLUSH SCH ×2 (09:07→21:00)
--- NOTE | 2016-12-22 11:43 | HHI.PR ---
Subjective Remarks Follow-up for hypokalemia, hypomagnesemia, nausea and vomiting. Patient underwent surgical intervention yesterday. Currently doing well. Denies any chest pain, shortness of breath, fever or chills. She still has abdominal pain but she states it could be from the surgical incisions. Objective Vitals Vital Signs Date Time Temp Pulse Resp B/P (MAP) Pulse Ox O2 Delivery O2 Flow Rate FiO2 12/22/16 10:06 16 12/22/16 08:00 98.8 93 18 125/64 (84) 95 12/22/16 05:35 15 12/22/16 05:32 15 12/22/16 04:25 99.5 89 18 98/57 (71) 95 12/22/16 00:15 98.9 99 17 104/56 (72) 96 12/21/16 21:53 89 12/21/16 20:40 99.3 100 17 93/59 (70) 98 12/21/16 19:46 15 12/21/16 18:15 17 12/21/16 17:55 97 Nasal Cannula 2.00 12/21/16 15:55 96.6 101 16 143/81 (101) 97 12/21/16 15:15 95 15 148/87 (107) 97 Nasal Cannula 2 12/21/16 15:00 98.5 94 15 146/82 (103) 97 Nasal Cannula 2 12/21/16 14:55 15 12/21/16 14:45 93 15 152/89 (110) 96 Nasal Cannula 2 12/21/16 14:30 93 15 168/92 (117) 95 Nasal Cannula 2 12/21/16 14:25 15 12/21/16 14:15 93 15 181/97 (125) 95 Nasal Cannula 2 12/21/16 14:00 94 14 179/95 (123) 99 Nasal Cannula 3 12/21/16 13:45 95 13 171/89 (116) 98 Nasal Cannula 3 12/21/16 13:42 98.8 96 12 168/80 (109) 100 Nasal Cannula 4 I/O 12/21/16 12/21/16 12/21/16 12/22/16 12/22/16 12/22/16 07:00 15:00 23:00 07:00 15:00 23:00 Intake Total 0 ml 2200 ml 90 ml 0 ml Output Total 550 ml 675 ml 650 ml Balance 0 ml 1650 ml -585 ml -650 ml Intake Oral 0 ml 0 ml 0 ml 0 ml IV Total 2200 ml 90 ml Output Urine Total 450 ml 675 ml 650 ml Estimated Blood Loss 100 ml # Voids 5 2 # Bowel Movements 4 2 0 0 Result Diagram: 12/21/16 0743 12/21/16 0743 Imaging Last Impressions Abdomen X-Ray 12/20/16 0000 Signed Impressions: Service Date/Time: Tuesday, December 20, 2016 11:53 - CONCLUSION: There are no imaging findings to indicate obstruction. There is a single air-fluid level in the central abdomen, most likely within the transverse colon. Hong Valerio MD Abdomen/Pelvis CT 12/10/16 1144 Signed Impressions: Service Date/Time: November 14:39 - CONCLUSION: 1. Mild hepatomegaly. 2. No acute intra-abdominal process. 3. Mild degenerative changes and scoliosis of the lumbar spine. Dung Arias MD Objective Remarks GENERAL: Alert, oriented 3, NAD. SKIN: Warm and dry. HEAD: Normocephalic. EYES: No scleral icterus. No injection or drainage. NECK: Supple, trachea midline. No JVD or lymphadenopathy. CARDIOVASCULAR: Regular rate and rhythm without murmurs, gallops, or rubs. RESPIRATORY: Breath sounds equal bilaterally. No accessory muscle use. GASTROINTESTINAL: Abdomen soft, non-distended, s/p surgery, abdominal binder in place. MUSCULOSKELETAL: No cyanosis, or edema. BACK: Nontender without obvious deformity. No CVA tenderness. Procedures 12/21/2016 Exploratory laparotomy, lysis of massive adhesions greater than 2 hours. repair of enterotomies x2 12/18/2016 Enteroscopy with biopsies 1. 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 The mucosa of the stomach appeared normal 3. Normal duodenal mucosa in the entire duodenum 4. The exam showed no abnormalities in the jejunum; multiple biopsies were performed 5. Retroflexed views revealed no abnormalities A/P Problem List: (1) Hypomagnesemia ICD Code: E83.42 - Hypomagnesemia Status: Chronic (2) Hypokalemia ICD Code: E87.6 - Hypokalemia Status: Chronic (3) Abdominal pain ICD Code: R10.9 - Abdominal pain Status: Chronic (4) Nausea and vomiting ICD Code: R11.2 - Nausea and vomiting Status: Acute Assessment and Plan Ms. Mensah is a pleasant 51-year-old female with a history of bowel obstruction and multiple surgeries who presents to the emergency department today due to hypokalemia as well as abdominal pain, nausea vomiting. - Intra-abdominal adhesions - Patient underwent surgical intervention on 12/21/2016. 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 Will change PRN IV dilaudid to Dilaudid IV for breakthrough. - Hypomagnesemia - Hypokalemia - Likely due to nausea and vomiting. - Potassium 3.9, magnesium 1.6 on 12/22/2016. - Received multiple doses of IV Mag sulfate and IV KCL -We'll provide 2 g of IV magnesium sulfate. - Suspected adrenal insufficiency - Repeat AM cortisol on 12/17/2016 is around 18. This is appropriate level of cortisol. 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 - C. difficile PCR negative, Will continue anti-diarrheal meds. - Cipro and Flagyl IV discontinued by GI. GI also ordered Fecal fat test. - Zofran, Phenergan for nausea vomiting and Dilaudid 2 mg every 4 hours when necessary for abdominal pain. - On TPN. GI performed endoscopies studies with biopsy on 12/18/2016 - Patient underwent surgical intervention on 12/21/2016. - Hypertension - continue amlodipine 5 mg daily - Depression - continue fluoxetine 10 mg daily Full code. Lovenox (currently on hold). Problem Qualifiers (1) Abdominal pain: Qualified Codes: R10.32 - Left lower quadrant pain (2) Nausea and vomiting: Qualified Codes: R11.2 - Nausea with vomiting, unspecified Sharmin Parish DO Dec 22, 2016 11:43
[2016-12-22 12:15] LABS: HEMATOCRIT 31.1 % (35.0-46.0); MEAN CELL VOLUME 100.2 FL (80.0-100.0); MEAN CORPUSCULAR HEMOGLOBIN 33.8 PG (27.0-34.0); MEAN CORPUSCULAR HGB CONC 33.7 % (32.0-36.0); PLATELET COUNT 110 TH/MM3 (150-450); RED BLOOD COUNT 3.11 MIL/MM3 (4.00-5.30); RED CELL DISTRIBUTION WIDTH 13.2 % (11.6-17.2); WHITE BLOOD COUNT 16.6 TH/MM3 (4.0-11.0)
--- NOTE | 2016-12-22 12:46 | HHI.PR ---
Subjective Subjective Notes DAILY PROGRESS NOTE FOR SURGICAL ATTENDING, DR. CLOVER SALDANA doing ok post surgical pain feels like chronic pain better Objective Vitals/I&O Vital Signs Date Time Temp Pulse Resp B/P (MAP) Pulse Ox O2 Delivery O2 Flow Rate FiO2 12/22/16 10:06 16 12/22/16 08:00 98.8 93 125/64 (84) 95 12/21/16 17:55 Nasal Cannula 2.00 Labs Laboratory Tests Test 12/22/16 11:40 Radiology Last Impressions Abdomen X-Ray 12/19/16 0000 Signed Impressions: Service Date/Time: Monday, December 19, 2016 08:02 - CONCLUSION: No acute abdominal abnormality is identified. Hong Valerio MD Abdomen/Pelvis CT 12/10/16 1144 Signed Impressions: Service Date/Time: November 14:39 - CONCLUSION: 1. Mild hepatomegaly. 2. No acute intra-abdominal process. 3. Mild degenerative changes and scoliosis of the lumbar spine. Dung Arias MD Cardiovascular: Regular Abdomen: Post-op tenderness Extremities: SCD's on Wound Wound : Wound Location: Abdomen (anaya in place) Appearance: Clean & Dry Drainage: Clear Dressing: Dry A/P Problem List: (1) Intra-abdominal adhesions ICD Codes: K66.0 - Peritoneal adhesions (postprocedural) (postinfection) (2) Adhesion of intestine ICD Codes: K66.0 - Peritoneal adhesions (postprocedural) (postinfection) (3) Adhesion of abdominal wall ICD Codes: K66.0 - Peritoneal adhesions (postprocedural) (postinfection) (4) Adhesion of omentum ICD Codes: K66.0 - Peritoneal adhesions (postprocedural) (postinfection) (5) Lower abdominal adhesions ICD Codes: K66.0 - Peritoneal adhesions (postprocedural) (postinfection) (6) Abdominal pain ICD Codes: R10.9 - Abdominal pain Status: Chronic (7) Anemia ICD Codes: D64.9 - Anemia, unspecified Status: Acute (8) Diarrhea in adult patient ICD Codes: K52.9 - Diarrhea in adult patient Status: Chronic (9) Fibromyalgia ICD Codes: M79.7 - Fibromyalgia Status: Chronic (10) Anxiety and depression ICD Codes: F41.8 - Anxiety and depression Status: Chronic (11) Hypokalemia ICD Codes: E87.6 - Hypokalemia Status: Chronic (12) Hypomagnesemia ICD Codes: E83.42 - Hypomagnesemia Status: Chronic (13) Malabsorption syndrome ICD Codes: K90.9 - Intestinal malabsorption, unspecified Status: Chronic Assessment and Plan 51-year-old female who has malabsorption syndrome on TPN questionable small gut may be functional. Status post extensive lysis of adhesions most gone on the left lower quadrant area where she was mostly symptomatic Doing fairly well Postop pain Wound clean and dry Plan DC Anaya She would like to double up on the Phenergan for nausea Start some by mouth Ambulate incentive spirometer Pathology reviewed from recent EGD Attending Statement NOTE FOR SURGICAL ATTENDING, DR. CLOVER SALDANA I attest that I had a [id number] encounter with the patient on the same day, and personally performed and documented my assessment and findings in the medical record. The following services were provided during this hospital visit: Chart data review, vital sign assessments/reviewing monitor data Review of consultations notes if present. Medication orders/review and/or management Ordering and/or reviewing lab tests Ordering and/or interpreting/reviewing x-rays and/or diagnostic studies Care of the patient and discussion of the patient with the care team Documentation time To help prompt me to consider important information that might be impacting today's encounter and assessment, information from prior notes written by myself or my colleagues may have been "brought forward/copy and pasted" into today's note. Problem Qualifiers (1) Abdominal pain: Qualified Codes: R10.32 - Left lower quadrant pain (2) Anemia: (3) Malabsorption syndrome: Qualified Codes: K90.89 - Other intestinal malabsorption Clover Saldana MD Dec 22, 2016 12:46
[2016-12-22 12:50] LABS: BICARBONATE 25.7 MEQ/L (21.0-32.0); MAGNESIUM 1.6 MG/DL (1.5-2.5); POTASSIUM 3.9 MEQ/L (3.5-5.1)
[2016-12-22 12:52] LABS: REVIEW FLAG FINAL
--- NOTE | 2016-12-22 13:12 | HHI.GIFU ---
GI Follow-up Note Consult Follow-up Subjective: Patient lying in bed comfortably, no new complaints. There may be less abdominal pain post-op; I spoke with Dr. Saldana: lots of adhesions. No bowel movements yet. 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 Available Data (labs, X- Rays, Procedues) : Jejunal biopsies: normal. ASSESSMENT/PLAN:Diarrhea/steatorrhea. No benefit with pancreatic enzymes and no jejunal/duodenal pathology histologically. I suspect we're dealing with a degree of SIBO and functional short bowel syndrome: she has required TPN and IV fluids intermittently for quite some time. My office is still trying to approve Gattex with the patient's insurance company. She's to contact the office when she's ready to be discharged. Will see PRN. It was a pleasure seeing Kelly Mensah. Entered by: Eamon Zambrano MD Dec 22, 2016 13:12
--- NOTE | 2016-12-22 13:14 | HHI.PR ---
Subjective Remarks Late entry for 12/21/2016 Follow up for hypokalemia, hypomagnesemia, nausea and vomiting. Patient reports persistent abdominal pain. No fever, chills. Going for surgery today. Objective Vitals Vital Signs Date Time Temp Pulse Resp B/P (MAP) Pulse Ox O2 Delivery O2 Flow Rate FiO2 12/22/16 12:00 99.7 100 18 115/58 (77) 96 12/22/16 10:06 16 12/22/16 08:00 98.8 93 18 125/64 (84) 95 12/22/16 05:35 15 12/22/16 05:32 15 12/22/16 04:25 99.5 89 18 98/57 (71) 95 12/22/16 00:15 98.9 99 17 104/56 (72) 96 12/21/16 21:53 89 12/21/16 20:40 99.3 100 17 93/59 (70) 98 12/21/16 19:46 15 12/21/16 18:15 17 12/21/16 17:55 97 Nasal Cannula 2.00 12/21/16 15:55 96.6 101 16 143/81 (101) 97 12/21/16 15:15 95 15 148/87 (107) 97 Nasal Cannula 2 12/21/16 15:00 98.5 94 15 146/82 (103) 97 Nasal Cannula 2 12/21/16 14:55 15 12/21/16 14:45 93 15 152/89 (110) 96 Nasal Cannula 2 12/21/16 14:30 93 15 168/92 (117) 95 Nasal Cannula 2 12/21/16 14:25 15 12/21/16 14:15 93 15 181/97 (125) 95 Nasal Cannula 2 12/21/16 14:00 94 14 179/95 (123) 99 Nasal Cannula 3 12/21/16 13:45 95 13 171/89 (116) 98 Nasal Cannula 3 12/21/16 13:42 98.8 96 12 168/80 (109) 100 Nasal Cannula 4 I/O 12/21/16 12/21/16 12/21/16 12/22/16 12/22/16 12/22/16 07:00 15:00 23:00 07:00 15:00 23:00 Intake Total 0 ml 2200 ml 90 ml 0 ml Output Total 550 ml 675 ml 650 ml Balance 0 ml 1650 ml -585 ml -650 ml Intake Oral 0 ml 0 ml 0 ml 0 ml IV Total 2200 ml 90 ml Output Urine Total 450 ml 675 ml 650 ml Estimated Blood Loss 100 ml # Voids 5 2 # Bowel Movements 4 2 0 0 Result Diagram: 12/22/16 1140 12/22/16 1140 Objective Remarks GENERAL: Alert, oriented 3, NAD. SKIN: Warm and dry. HEAD: Normocephalic. EYES: No scleral icterus. No injection or drainage. NECK: Supple, trachea midline. No JVD or lymphadenopathy. CARDIOVASCULAR: Regular rate and rhythm without murmurs, gallops, or rubs. RESPIRATORY: Breath sounds equal bilaterally. No accessory muscle use. GASTROINTESTINAL: Abdomen soft, tender to palpation over the lower quadrants of the abdomen, nondistended. MUSCULOSKELETAL: No cyanosis, or edema. BACK: Nontender without obvious deformity. No CVA tenderness. Procedures None A/P Problem List: (1) Hypomagnesemia ICD Code: E83.42 - Hypomagnesemia Status: Chronic (2) Hypokalemia ICD Code: E87.6 - Hypokalemia Status: Chronic (3) Abdominal pain ICD Code: R10.9 - Abdominal pain Status: Chronic (4) Nausea and vomiting ICD Code: R11.2 - Nausea and vomiting Status: Acute Assessment and Plan Ms. Mensah is a pleasant 51-year-old female with a history of bowel obstruction and multiple surgeries who presents to the emergency department today due to hypokalemia as well as abdominal pain, nausea vomiting. - Possible obstruction - Patient's abdominal feels somewhat more firm, distended. Tender to palpation. - Surgery today 12/21/2016. - Hypomagnesemia - Hypokalemia - Likely due to nausea and vomiting. - Potassium 2.4 ==> 3.3 and magnesium 0.8 ==> 1.5. - Patient received multiple doses of IV magnesium sulfate and IV KCL. - Suspected adrenal insufficiency - Repeat AM cortisol on 12/17/2016 is around 18. This is appropriate level of cortisol. 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 - C. difficile PCR negative, Will continue anti-diarrheal meds. - Cipro and Flagyl IV discontinued by GI. GI also ordered Fecal fat test. - Zofran for nausea vomiting and Dilaudid 1.5 mg every 4 hours when necessary for abdominal pain. - We started Bentyl as well. Abdominal pain seems to be persistent. - On TPN. GI performed endoscopies studies with biopsy on 12/18/2016 - Gen surgery following. Surgery today 12/21/2016. - GI is considering Gattex - Hypertension - continue amlodipine 5 mg daily - Depression - continue fluoxetine 10 mg daily Full code. Lovenox. Problem Qualifiers (1) Abdominal pain: Qualified Codes: R10.32 - Left lower quadrant pain (2) Nausea and vomiting: Qualified Codes: R11.2 - Nausea with vomiting, unspecified Sharmin Parish DO Dec 22, 2016 13:14
[2016-12-22] MEDS ORDERED: ALTEPLASE RECOMBINANT 2 MG VIAL INTRACATH ONE (15:15)
[2016-12-22] MEDS: MAGNESIUM SULFATE 1 GM PREMIX 100 ML IV SCH ×2 (17:10→18:21)
[2016-12-22] MEDS: LACTATED RINGER'S 1000 ML INJ 1,000 ML IV SCH ×2 (21:38→22:40)
[2016-12-22] MEDS: CLINIMIX E 4.25/25 1000 mL- </= 42 mls/hr IV-CENTRAL SCH ×3 (21:38)
[2016-12-23] VITALS (8 sets, daily range): BP systolic 103–175; BP diastolic 60–92; PULSE 79–108; RESP 16–18; TEMP 99.4–100.6; O2SAT 94–97
[2016-12-23] MEDS: PROMETHAZINE INJ 25 MG/ML VIAL IV-CENTRAL PRN ×7 (00:40→21:27)
[2016-12-23] MEDS: HYDROmorphone HCL PF 2 MG/ML VIAL IV PUSH PRN ×7 (00:40→21:28)
[2016-12-23] MEDS: LORazepam 2 MG/ML VIAL IV PUSH PRN ×4 (01:23→21:32)
[2016-12-23] MEDS: PCA - TOTAL MG DILAUDID DELIVERED PER SHIFT OTHER SCH ×3 (06:00→22:00)
[2016-12-23] MEDS: SODIUM CHLORIDE 0.9% FLUSH 10 ML FLUSH IV FLUSH SCH ×2 (08:24→20:17)
[2016-12-23] MEDS: LACTATED RINGER'S 1000 ML INJ 1,000 ML IV SCH ×2 (08:30→16:30)
[2016-12-23] MEDS: DOCUSATE SODIUM 50 MG/SENNA 8.6 MG TAB PO SCH ×2 (09:00→20:17)
[2016-12-23] MEDS: FLUoxetine HCL 10 MG CAP PO SCH (09:08)
[2016-12-23] MEDS: amLODIPine BESYLATE 5 MG TAB PO SCH (09:08)
[2016-12-23] MEDS: NEOMYCIN SULFATE 500 MG TAB PO SCH ×2 (09:08→20:17)
[2016-12-23] MEDS: DICYCLOMINE HCL 20 MG TAB PO SCH ×3 (09:08→18:31)
--- NOTE | 2016-12-23 10:36 | HHI.PR ---
Subjective Remarks Follow-up for surgery, pain, intractable emesis Patient was very sleepy during the interview. She is on a TELEGRAPH OFFICE ROUTE AIDE pump. She stated that she feels the same. Abdominal pain is the same and nausea/ vomiting is also the same. Dealt with patient's nurse who had no concerns and asked to change in the TELEGRAPH OFFICE ROUTE AIDE pump. She also asked for consult for physical therapist. Temperature elevated than her norm but no fevers. Objective Vitals Vital Signs Date Time Temp Pulse Resp B/P (MAP) Pulse Ox O2 Delivery O2 Flow Rate FiO2 12/23/16 09:07 100.0 100 18 124/67 (86) 96 12/23/16 06:00 16 12/23/16 02:42 97 12/23/16 00:00 99.7 101 17 142/68 (92) 97 12/22/16 22:00 18 12/22/16 22:00 16 12/22/16 20:00 98.9 76 18 132/64 (86) 98 12/22/16 17:35 96 21 12/22/16 17:17 18 12/22/16 17:16 18 12/22/16 16:00 99.4 94 16 104/51 (68) 95 12/22/16 13:51 98.6 97 16 136/63 (87) 95 12/22/16 12:00 99.7 100 18 115/58 (77) 96 I/O 12/22/16 12/22/16 12/22/16 12/23/16 12/23/16 12/23/16 07:00 15:00 23:00 07:00 15:00 23:00 Intake Total 0 ml 3700 ml Output Total 650 ml 1200 ml 1400 ml Balance -650 ml -1200 ml -1400 ml 3700 ml Intake Oral 0 ml IV Total 3700 ml Output Urine Total 650 ml 1200 ml 1400 ml # Bowel Movements 0 0 Result Diagram: 12/22/16 1140 12/22/16 1140 Objective Remarks GENERAL: In NAD but looks sleepy CARDIOVASCULAR: Regular rate and rhythm without murmurs, gallops, or rubs. RESPIRATORY: Breath sounds equal bilaterally. No accessory muscle use. GASTROINTESTINAL: Abdomen soft and nondistended. Abdominal wound dressing in place. Positive tenderness to palpation diffusely more in the left lower quadrant. Negative peritoneal signs. MUSCULOSKELETAL: No cyanosis, or edema. BACK: Nontender without obvious deformity. No CVA tenderness. Procedures 12/21/2016 Exploratory laparotomy, lysis of massive adhesions greater than 2 hours. repair of enterotomies x2 12/18/2016 Enteroscopy with biopsies 1. 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 The mucosa of the stomach appeared normal 3. Normal duodenal mucosa in the entire duodenum 4. The exam showed no abnormalities in the jejunum; multiple biopsies were performed 5. Retroflexed views revealed no abnormalities Medications and IVs Current Medications Ondansetron HCl (Zofran Inj) 4 mg ONCE ONCE IV Last administered on 12/10/16 12:05; Start 12/10/16 at 11:45; Stop 12/10/16 at 11:47; Status DC Sodium Chloride 1,000 ml @ 1,000 mls/hr Q1H ONCE IV Last administered on 12:05; Start 12/10/16 at 11:44; Stop 12/10/16 at 12:43; Status DC Sodium Chloride 800 ml @ 1,000 mls/hr Q48M ONCE IV Last administered on 12:05; Start 12/10/16 at 11:44; Stop 12/10/16 at 12:31; Status DC Hydromorphone HCl (Dilaudid Pf Inj) 0.5 mg ONCE ONCE IV PUSH ; Start 12/10/16 at 11:45; Stop 12/10/16 at 12:11; Status DC Hydromorphone HCl (Dilaudid Pf Inj) 0.5 mg ONCE ONCE IV PUSH Last administered on 12/10/16 12:23; Start 12/10/16 at 12:15; Stop 12/10/16 at 12:16 ; Status DC Potassium Chloride 100 ml @ 25 mls/hr Q4H IV Last administered on 12/10/16 18 :44; Start 12/10/16 at 13:00; Stop 12/10/16 at 20:59; Status DC Magnesium Sulfate/ Dextrose 100 ml @ 100 mls/hr ONCE ONCE IV Last administered on 12/10/16 15:11; Start 12/10/16 at 14:15; Stop 12/10/16 at 15:14 ; Status DC Iohexol (Omnipaque 350 Inj) 96 ml STK-MED ONCE IVCONTRAST Last administered on 12/10/16 14:45; Start 12/10/16 at 14:45; Stop 12/10/16 at 14:46; Status DC Sodium Chloride (NS Flush) 2 ml UNSCH PRN IV FLUSH FLUSH AFTER USING IV ACCESS Last administered on 12/19/16 18:22; Start 12/10/16 at 15:15 Sodium Chloride (NS Flush) 2 ml BID IV FLUSH Last administered on 12/22/16 09: 07; Start 12/10/16 at 21:00 Acetaminophen (Tylenol) 650 mg Q4H PRN PO Headache, fever, pain 1-4; Start at 15:15 Ondansetron HCl (Zofran Inj) 4 mg Q6H PRN IVP NAUSEA OR VOMITING Last administered on 12/21/16 16:08; Start 12/10/16 at 15:15 Naloxone HCl (Narcan Inj) 0.4 mg UNSCH PRN IV PUSH SEE LABEL COMMENTS; Start at 15:15 Senna/Docusate Sodium (Laura-Colace) 1 tab BID PO Last administered on 19:46; Start 12/10/16 at 21:00 Magnesium Hydroxide (Milk Of Magnesia Liq) 30 ml Q12H PRN PO MILD - MODERATE CONSTIPATION; Start 12/10/16 at 15:15 Sennosides (Senokot) 17.2 mg Q12H PRN PO MODERATE - SEVERE CONSTIPATION; Start 12/10/16 at 15:15 Bisacodyl (Dulcolax Supp) 10 mg DAILY PRN RECTAL SEVERE CONSITIPATION; Start at 15:15 Lactulose (Lactulose Liq) 30 ml DAILY PRN PO SEVERE CONSITIPATION; Start at 15:15 Magnesium Sulfate/ Dextrose 100 ml @ 100 mls/hr Q1H IV Last administered on 17:15; Start 12/10/16 at 15:15; Stop 12/10/16 at 17:14; Status DC Magnesium Sulfate/ Dextrose 100 ml @ 100 mls/hr Q1H IV Last administered on 21:24; Start 12/10/16 at 20:00; Stop 12/10/16 at 21:59; Status DC Dicyclomine HCl (Bentyl Inj) 20 mg ONCE ONCE IM ; Start 12/10/16 at 15:30; Stop 12/10/16 at 15:31; Status DC Ondansetron HCl (Zofran Inj) 4 mg ONCE ONCE IV PUSH Last administered on 17:15; Start 12/10/16 at 15:30; Stop 12/10/16 at 15:31; Status DC Ciprofloxacin/ Dextrose 200 ml @ 200 mls/hr Q12H IV Last administered on 05:00; Start 12/10/16 at 18:00; Stop 12/16/16 at 09:05; Status DC Metronidazole 100 ml @ 100 mls/hr Q8H IV Last administered on 12/16/16 03:18 ; Start 12/10/16 at 18:00; Stop 12/16/16 at 09:05; Status DC Hydromorphone HCl (Dilaudid Pf Inj) 1 mg Q4H PRN IV PUSH PAIN SCALE 5 TO 10 Last administered on 12/11/16 09:37; Start 12/10/16 at 16:00; Stop 12/11/16 at 09:49; Status DC Amlodipine Besylate (Norvasc) 5 mg DAILY PO Last administered on 12/23/16 09: 08; Start 12/11/16 at 09:00 Fluoxetine HCl (PROzac) 10 mg DAILY PO Last administered on 12/23/16 09:08; Start 12/11/16 at 09:00 Potassium Chloride 100 ml @ 50 mls/hr Q2H IV ; Start 12/11/16 at 09:45; Stop at 09:46; Status DC Potassium Chloride 100 ml @ 50 mls/hr Q2H IV ; Start 12/11/16 at 14:00; Stop at 14:00; Status DC Hydromorphone HCl (Dilaudid Pf Inj) 1 mg Q3H PRN IV PUSH PAIN SCALE 5 TO 10 Last administered on 12/15/16 09:32; Start 12/11/16 at 10:00; Stop 12/15/16 at 12:58; Status DC Potassium Chloride 100 ml @ 25 mls/hr Q4H IV Last administered on 12/11/16 14 :03; Start 12/11/16 at 12:00; Stop 12/11/16 at 19:59; Status DC Magnesium Sulfate/ Dextrose 100 ml @ 100 mls/hr ONCE ONCE IV Last administered on 12/11/16 17:18; Start 12/11/16 at 16:00; Stop 12/11/16 at 16:59 ; Status DC Enoxaparin Sodium (Lovenox Inj) 40 mg Q24H SQ Last administered on 12/12/16 20 :06; Start 12/11/16 at 20:00; Status Future hold Potassium Chloride 100 ml @ 25 mls/hr BOLUS ONCE IV Last administered on 12/12 08:01; Start 12/12/16 at 08:00; Stop 12/12/16 at 11:59; Status DC Potassium Chloride (KCl) 20 meq ONCE ONCE PO Last administered on 12/12/16 01 :24; Start 12/12/16 at 01:00; Stop 12/12/16 at 01:01; Status DC Potassium Chloride 100 ml @ 25 mls/hr Q4H IV ; Start 12/12/16 at 11:30; Stop at 11:37; Status DC Magnesium Sulfate/ Dextrose 100 ml @ 100 mls/hr Q1H IV Last administered on 20:09; Start 12/12/16 at 11:30; Stop 12/12/16 at 18:40; Status DC Magnesium Sulfate/ Dextrose 100 ml @ 100 mls/hr Q1H IV Last administered on 17:00; Start 12/12/16 at 16:00; Stop 12/12/16 at 17:59; Status DC Dicyclomine HCl (Bentyl) 20 mg TID PO Last administered on 12/23/16 09:08; Start 12/12/16 at 13:00 Diphenoxylate HCl/ Atropine (Lomotil Tab) 1 tab Q6H PRN PO DIARRHEA Last administered on 12/16/16 03:19; Start 12/12/16 at 11:30; Stop 12/20/16 at 11:22 ; Status DC Potassium Chloride 100 ml @ 50 mls/hr Q2H IV Last administered on 12/12/16 20 :08; Start 12/12/16 at 11:45; Stop 12/12/16 at 19:44; Status DC Magnesium Sulfate/ Dextrose 100 ml @ 100 mls/hr ONCE ONCE IV Last administered on 12/13/16 11:11; Start 12/13/16 at 11:30; Stop 12/13/16 at 12:29 ; Status DC Multivitamins 10 ml/Folic Acid 1 mg/Amino Acids/ Electrolytes/ Dextrose 1,010.2 ml @ 42 mls/hr Q24H IV-CENTRAL Last administered on 12/22/16 21:38; Start at 20:00 Fat Emulsion Intravenous 250 ml @ 31.25 mls/ hr SuWe@20 IV-CENTRAL Last administered on 12/20/16 20:05; Start 12/14/16 at 20:00 Potassium Chloride 100 ml @ 25 mls/hr Q4H IV Last administered on 12/15/16 12 :35; Start 12/15/16 at 07:30; Stop 12/15/16 at 15:29; Status DC Magnesium Sulfate/ Dextrose 100 ml @ 100 mls/hr Q1H IV Last administered on 09:45; Start 12/15/16 at 07:30; Stop 12/15/16 at 09:29; Status DC Magnesium Sulfate/ Dextrose 100 ml @ 100 mls/hr Q1H IV Last administered on 16:00; Start 12/15/16 at 15:00; Stop 12/15/16 at 16:59; Status DC Hydromorphone HCl (Dilaudid Pf Inj) 1.5 mg Q3H PRN IV PUSH PAIN SCALE 5 TO 10 Last administered on 12/20/16 08:00; Start 12/15/16 at 13:00; Stop 12/20/16 at 09:31; Status DC Promethazine HCl (Phenergan Inj) 12.5 mg Q6H PRN IM NAUSEA OR VOMITING Last administered on 12/16/16 03:19; Start 12/15/16 at 13:00; Stop 12/16/16 at 08:59 ; Status DC Promethazine HCl (Phenergan Inj) 12.5 mg Q6H PRN IV-CENTRAL NAUSEA OR VOMITING Last administered on 12/22/16 11:49; Start 12/16/16 at 13:00; Stop 12/22/16 at 12:38; Status DC Potassium Chloride 100 ml @ 25 mls/hr Q4H IV Last administered on 12/16/16 15 :35; Start 12/16/16 at 11:00; Stop 12/16/16 at 18:59; Status DC Neomycin Sulfate (Mycifradin) 500 mg Q12HR PO Last administered on 12/23/16 09 :08; Start 12/16/16 at 11:00 Dexamethasone (Decadron) 1 mg ONCE ONCE PO ; Start 12/16/16 at 23:00; Stop at 23:00; Status DC Cosyntropin (Cortrosyn Inj) 0.25 mg ONCE ONCE IV PUSH Last administered on 13:36; Start 12/17/16 at 13:00; Stop 12/17/16 at 13:01; Status DC Lactated Ringer's 1,000 ml @ 30 mls/hr Q24H PRN IV SEE LABEL COMMENTS; Start at 11:45; Stop 12/20/16 at 22:22; Status DC Sodium Chloride 500 ml @ 30 mls/hr [id number] PRN IV SEE LABEL COMMENTS; Start at 11:45; Stop 12/20/16 at 22:22; Status DC Metoprolol Tartrate (Lopressor) 25 mg OUTSIDE [employer] PRN PO SEE LABEL COMMENTS; Start 12/18/16 at 11:45; Stop 12/20/16 at 22:22; Status DC Povidone Iodine (Betadine 5% Antisepsis Kit) 1 applic OUTSIDE [employer] PRN EACH NARE SEE LABEL COMMENTS; Start 12/18/16 at 11:45; Stop 12/20/16 at 22:22; Status DC Chlorhexidine Gluconate (Chlorhexidine 2% Cloth) 3 pack OUTSIDE [employer] PRN TOPICAL SEE LABEL COMMENTS; Start 12/18/16 at 11:45; Stop 12/20/16 at 22:22; Status DC Insulin Human Regular (NovoLIN R INJ) See Protocol Table ... [employer] PRN SQ SEE PROTOCOL TABLE; Start 12/18/16 at 11:45; Stop 12/20/16 at 22:22; Status DC Miscellaneous Information ALL NURSING DEPARTME... UNSCH PRN .XX SEE LABEL COMMENTS; Start 12/18/16 at 11:24; Stop 12/19/16 at 11:23; Status DC Lorazepam (Ativan Inj) 1 mg Q6H PRN IV PUSH ANXIETY Last administered on 07:32; Start 12/19/16 at 08:00 Magnesium Sulfate/ Dextrose 100 ml @ 100 mls/hr Q1H IV Last administered on 18:22; Start 12/19/16 at 08:00; Stop 12/19/16 at 09:59; Status DC Potassium Chloride 100 ml @ 25 mls/hr BOLUS ONCE IV ; Start 12/19/16 at 08:00 ; Stop 12/19/16 at 11:59; Status UNV Potassium Chloride 100 ml @ 50 mls/hr Q2H IV Last administered on 12/19/16 12 :25; Start 12/19/16 at 09:00; Stop 12/19/16 at 12:59; Status DC Magnesium Sulfate/ Dextrose 100 ml @ 100 mls/hr Q1H IV Last administered on 00:09; Start 12/19/16 at 22:15; Stop 12/20/16 at 00:14; Status DC Potassium Phosphate 30 mmol/ Sodium Chloride 260 ml @ 43.333 mls/ hr ONCE ONCE IV Last administered on 12/20/16 01:38; Start 12/19/16 at 22:00; Stop at 03:59; Status DC Hydromorphone HCl (Dilaudid Pf Inj) 2 mg Q3H PRN IV PUSH BREAKTHROUGH PAIN Last administered on 12/23/16 09:18; Start 12/20/16 at 09:45 Cefazolin Sodium/ Dextrose 50 ml @ 100 mls/hr OUTSIDE [employer] IV Last administered on 12/21/16 10:32; Start 12/20/16 at 12:00; Stop 12/24/16 at 11:59 Lactated Ringer's 1,000 ml @ 30 mls/hr Q24H PRN IV SEE LABEL COMMENTS Last administered on 12/22/16 10:03; Start 12/20/16 at 22:30; Stop 12/23/16 at 22:29 Sodium Chloride 500 ml @ 30 mls/hr [id number] PRN IV SEE LABEL COMMENTS; Start at 22:30; Stop 12/23/16 at 22:29 Metoprolol Tartrate (Lopressor) 25 mg OUTSIDE [employer] PRN PO SEE LABEL COMMENTS; Start 12/20/16 at 22:30; Stop 12/23/16 at 22:29 Povidone Iodine (Betadine 5% Antisepsis Kit) 1 applic OUTSIDE [employer] PRN EACH NARE SEE LABEL COMMENTS; Start 12/20/16 at 22:30; Stop 12/23/16 at 22:29 Chlorhexidine Gluconate (Chlorhexidine 2% Cloth) 3 pack OUTSIDE [employer] PRN TOPICAL SEE LABEL COMMENTS; Start 12/20/16 at 22:30; Stop 12/23/16 at 22:29 Insulin Human Regular (NovoLIN R INJ) See Protocol Table ... [employer] PRN SQ SEE PROTOCOL TABLE; Start 12/20/16 at 22:30; Stop 12/23/16 at 22:29 Bupivacaine HCl/ Epinephrine Bitart (Sensorcaine-Epinephrine 0.25% Inj) 50 ml STK-MED ONCE .ROUTE ; Start 12/21/16 at 09:57; Stop 12/21/16 at 09:58; Status DC Sugammadex Sodium (Bridion Inj) 200 mg STK-MED ONCE IV PUSH ; Start 12/21/16 at 10:07; Stop 12/21/16 at 10:08; Status DC Phenylephrine HCl (Neosynephrine/ NS 1000 Mcg/10ml Syr) 1,000 mcg STK-MED ONCE .ROUTE ; Start 12/21/16 at 10:13; Stop 12/21/16 at 10:14; Status DC Succinylcholine Chloride (Quelicin Inj) 100 mg STK-MED ONCE .ROUTE ; Start 12/21 at 10:28; Stop 12/21/16 at 10:29; Status DC Rocuronium [place]well (Zemuron Inj) 50 mg STK-MED ONCE IV PUSH ; Start 12/21/16 at 12:03; Stop 12/21/16 at 12:04; Status DC Naloxone HCl (Narcan Inj) 4 mg STK-MED ONCE .ROUTE ; Start 12/21/16 at 12:05; Stop 12/21/16 at 12:06; Status DC Hydromorphone HCl (Dilaudid TELEGRAPH OFFICE ROUTE AIDE Inj) 6 mg UNSCH IV Last administered on t 22:00; Start 12/21/16 at 13:45 TELEGRAPH OFFICE ROUTE AIDE Dosage Infused (Pha) 1 Q8HR OTHER Last administered on 12/23/16 06:00; Start 12/21/16 at 14:00 Miscellaneous Information ALL NURSING DEPARTME... UNSCH PRN .XX SEE LABEL COMMENTS; Start 12/21/16 at 14:15; Stop 12/22/16 at 14:14; Status DC Labetalol HCl (*TRANDATE INJ PERIprocedural Use ONLY) 100 mg STK-MED ONCE .ROUTE Last administered on 12/21/16 14:15; Start 12/21/16 at 14:15; Stop at 14:16; Status DC Lactated Ringer's 1,000 ml @ 100 mls/hr Q10H IV Last administered on 08:30; Start 12/21/16 at 14:30 Hydromorphone HCl (*DILAUDID PF INJ PERIprocedural ONLY) 1 mg STK-MED ONCE .ROUTE Last administered on 12/21/16 14:39; Start 12/21/16 at 14:39; Stop at 14:40; Status DC Lidocaine HCl (Xylocaine-Mpf 1% Inj) 10 ml STK-MED ONCE OTHER ; Start 12/18/16 at 12:00; Stop 12/21/16 at 15:56; Status DC Midazolam HCl (Versed Inj) 2 mg STK-MED ONCE IV ; Start 12/18/16 at 12:00; Stop 12/21/16 at 15:56; Status DC Fentanyl Citrate (fentaNYL INJ) 100 mcg STK-MED ONCE IV ; Start 12/18/16 at 12: 00; Stop 12/21/16 at 15:56; Status DC Propofol (Diprivan 200 Mg/20 ml Inj) 400 mg STK-MED ONCE IV ; Start 12/18/16 at 12:00; Stop 12/21/16 at 15:56; Status DC Promethazine HCl (Phenergan Inj) 25 mg Q3HR PRN IV-CENTRAL NAUSEA OR VOMITING Last administered on 12/23/16 09:17; Start 12/22/16 at 15:00 Alteplase, Recombinant (Cathflo Activase Inj) 2 mg ONCE ONCE INTRACATH Last administered on 12/22/16 15:12; Start 12/22/16 at 15:15; Stop 12/22/16 at 15:16 ; Status DC Magnesium Sulfate/ Dextrose 100 ml @ 100 mls/hr Q1H IV Last administered on t 18:21; Start 12/22/16 at 16:00; Stop 12/22/16 at 17:59; Status DC A/P Problem List: (1) Hypomagnesemia ICD Code: E83.42 - Hypomagnesemia Status: Chronic (2) Hypokalemia ICD Code: E87.6 - Hypokalemia Status: Chronic (3) Abdominal pain ICD Code: R10.9 - Abdominal pain Status: Chronic (4) Nausea and vomiting ICD Code: R11.2 - Nausea and vomiting Status: Acute Assessment and Plan Ms. Mensah is a pleasant 51-year-old female with a history of bowel obstruction and multiple surgeries who presents to the emergency department today due to hypokalemia as well as abdominal pain, nausea vomiting. Small bowel obstruction secondary to adhesions -Status post exploratory laparotomy, lysis of massive adhesions greater than 2 hours on 12/22. Diagnosis showed massive adhesions with fusion of all bowels to each other into the left lower quadrant abdominal fascia. -Patient on TPN. -Per GI performed endoscopies studies with biopsy on 12/18/2016. GI is considering Gattex but having difficulty getting approved by her insurance company. -Pain management per general surgeon in regards to the TELEGRAPH OFFICE ROUTE AIDE pump. Dealt with patient's nurse. Hypomagnesemia/hypokalemia -Due to emesis. -Replenish as other. Hypertension - continue amlodipine 5 mg daily Depression - continue fluoxetine 10 mg daily Full code. Lovenox. Problem Qualifiers (1) Abdominal pain: Qualified Codes: R10.32 - Left lower quadrant pain (2) Nausea and vomiting: Qualified Codes: R11.2 - Nausea with vomiting, unspecified Mackenzie Alexander MD Dec 23, 2016 10:36
[2016-12-23] MEDS: HYDROmorphone HCL PCA 6 MG/30 ML IV SCH (12:24)
[2016-12-23] MEDS: ACETAMINOPHEN 325 MG TAB PO PRN (12:25)
--- NOTE | 2016-12-23 15:28 | HHI.PR ---
Subjective Subjective Notes DAILY PROGRESS NOTE FOR SURGICAL ATTENDING, DR. WALLY SALDANA Pain improved Inability halls No flatus yet A little sleepy after Danilo Says she slept very well hasn't done that in a long time Objective Vitals/I&O Vital Signs Date Time Temp Pulse Resp B/P (MAP) Pulse Ox O2 Delivery O2 Flow Rate FiO2 12/23/16 12:26 18 12/23/16 12:00 100.6 108 144/74 (97) 96 12/22/16 17:35 21 12/21/16 17:55 Nasal Cannula 2.00 Labs Allergies Coded Allergies Type Severity Reaction Last Updated Verified morphine Allergy Severe Rash 12/10/16 Yes 9/25/17 9/25/17 9/26/17 9/26/17 9/27/17 9/27/17 06:00 18:00 06:00 18:00 06:00 18:00 Intake Total 1000 ml 2290 ml 0 ml 0 ml 3700 ml Output Total 675 ml 550 ml 1850 ml 1400 ml Balance 1000 ml 1615 ml -550 ml -1850 ml -1400 ml 3700 ml Intake Oral 0 ml 0 ml 0 ml 0 ml IV Total 1000 ml 2290 ml 3700 ml Output Urine Total 575 ml 550 ml 1850 ml 1400 ml Estimated Blood Loss 100 ml # Voids 9 2 # Bowel Movements 8 2 0 0 Laboratory Tests Test 12/21/16 07:43 12/22/16 11:40 White Blood Count 7.4 TH/MM3 16.6 TH/MM3 Red Blood Count 3.76 MIL/MM3 3.11 MIL/MM3 Hemoglobin 12.8 GM/DL 10.5 GM/DL Hematocrit 38.5 % 31.1 % Mean Corpuscular Volume 102.5 FL 100.2 FL Mean Corpuscular Hemoglobin 34.1 PG 33.8 PG Mean Corpuscular Hemoglobin Concent 33.3 % 33.7 % Red Cell Distribution Width 13.7 % 13.2 % Platelet Count 113 TH/MM3 110 TH/MM3 Mean Platelet Volume 9.3 FL 9.6 FL Neutrophils (%) (Auto) 58.3 % Lymphocytes (%) (Auto) 30.0 % Monocytes (%) (Auto) 10.4 % Eosinophils (%) (Auto) 1.1 % Basophils (%) (Auto) 0.2 % Neutrophils # (Auto) 4.3 TH/MM3 Lymphocytes # (Auto) 2.2 TH/MM3 Monocytes # (Auto) 0.8 TH/MM3 Eosinophils # (Auto) 0.1 TH/MM3 Basophils # (Auto) 0.0 TH/MM3 CBC Comment DIFF FINAL Differential Comment Blood Urea Nitrogen 7 MG/DL 10 MG/DL Creatinine 0.74 MG/DL 0.60 MG/DL Random Glucose 74 MG/DL 104 MG/DL Calcium Level 8.5 MG/DL 8.4 MG/DL Magnesium Level 1.8 MG/DL 1.6 MG/DL Sodium Level 140 MEQ/L 137 MEQ/L Potassium Level 3.9 MEQ/L 3.9 MEQ/L Chloride Level 110 MEQ/L 105 MEQ/L Carbon Dioxide Level 21.6 MEQ/L 25.7 MEQ/L Anion Gap 8 MEQ/L 6 MEQ/L Estimat Glomerular Filtration Rate 83 ML/MIN 106 ML/MIN Hematology Comments Orders Procedure Category Date Status Time Scd / Steven / Foot Pump BART 12/20/16 In Process 22:02 ^ Iv Setup For Or BART 12/20/16 In Process 22:02 ^ Iv Piggyback For Or BART 12/20/16 In Process 22:02 Lactated Ringer's MED 12/20/16 In Process 1000 Ml Inj (Lr 1000 M 22:30 Sodium Chlorid 0.9% MED 12/20/16 In Process 500 Ml Inj (Ns 500 M 22:30 Metoprolol Tartrate MED 12/20/16 In Process (Lopressor) 22:30 Povidone Iod 5% MED 12/20/16 In Process Antisepsis Kit 22:30 Chlorhexidine 2% MED 12/20/16 In Process Cloth (Chlorhexidine 22:30 Insulin Human Regular MED 12/20/16 In Process Inj (Novolin R Inj 22:30 Bupivacaine-Epineph MED 12/21/16 Complete 0.25% Inj (Sensorcai 09:57 Sugammadex Inj MED 12/21/16 Complete (Bridion Inj) 10:07 Phenyleph/Ns 1000 MED 12/21/16 Complete Mcg/10ml Syr (Neosynep 10:13 Succinylcholine Inj MED 12/21/16 Complete (Quelicin Inj) 10:28 Rocuronium Inj MED 12/21/16 Complete (Zemuron Inj) 12:03 Naloxone Inj (Narcan MED 12/21/16 Complete Inj) 12:05 Urinary Catheter BART 12/21/16 Complete Management 12:40 ^ Binder BART 12/21/16 In Process 13:37 ^ Monitor BART 12/21/16 In Process 13:[address]: Other BART 12/21/16 In Process 13:[address]: Blood BART 12/21/16 In Process Pressure 13:[address]: BART 12/21/16 In Process Respiratory Rate 13:37 Hydromorphone Ordnance [employer]ic Inj MED 12/21/16 In Process (Dilaudid Ordnance Mechanic Inj) 13:45 Ordnance Mechanic Total Dose - MED 12/21/16 In Process Dilaudid 14:00 [facility] MED 12/21/16 Complete Information 14:15 *Labetalol Inj MED 12/21/16 Complete (*Trandate Inj 14:15 Lactated Ringer's MED 12/21/16 In Process 1000 Ml Inj (Lr 1000 M 14:30 *Hydromorphone Pf Inj MED 12/21/16 Complete (*Dilaudid Pf Inj 14:39 Class Iv Pacu Ea 30 [facility] 12/21/16 Complete MIN General/Pacu [facility] 12/21/16 Complete Post Anesthesia Oxygen [facility] 12/21/16 Complete Lidocaine Pf 1% Inj MED 12/18/16 Complete (Xylocaine-Mpf 1% In 12:00 Midazolam Inj (Versed MED 12/18/16 Complete Inj) 12:00 Fentanyl Inj MED 12/18/16 Complete (Fentanyl Inj) 12:00 Propofol 200 Mg/20 Ml MED 12/18/16 Complete Inj (Diprivan 200 12:00 Document BART 12/21/16 In Process Anticoagulant Alert BART 12/21/16 In Process ^ Sling BART 12/21/16 In Process Resp Oxygen Marquis C RSP 12/21/16 Complete Titrat 1-4 L Vascular Access Team BART 12/21/16 Complete Consult/P 20:40 Vascular Poc IMGUS 12/21/16 Taken Ultrasound Sling Cradle Arm ORTHO 12/22/16 Complete Cbc No Diff, Includes LAB 12/22/16 Complete Plts 08:36 Basic Metabolic Panel LAB 12/22/16 Complete (Bmp) 08:36 Magnesium (Mg) LAB 12/22/16 Complete 08:36 Remove Urinary BART 12/22/16 In Process Catheter 12:35 Promethazine Inj MED 12/22/16 Complete (Phenergan Inj) 15:00 Diet Liquid DIET 12/22/16 Transmitted Lunch Cathflo Activase Inj MED 12/22/16 Complete (Cathflo Activase I 15:15 ^ Other Nursing Orders BART 12/22/16 In Process 14:08 Magnesium Sulfate 1 MED 12/22/16 Complete Gm Premix (Magnesium 16:00 Physician Name Changes ADMITTING 12/22/16 Transmitted Cbc No Diff, Includes LAB 12/24/16 Verified Plts 06:00 Basic Metabolic Panel LAB 12/24/16 Verified (Bmp) 06:00 Consult Pt Eval & PT 12/23/16 Complete Treat 10:42 Promethazine Inj MED 12/23/16 In Process (Phenergan Inj) 13:00 Vital Signs Date Time Temp Pulse Resp B/P (MAP) Pulse Ox O2 Delivery O2 Flow Rate FiO2 12/23/16 12:26 18 12/23/16 12:24 16 12/23/16 12:00 100.6 108 18 144/74 (97) 96 12/23/16 09:07 100.0 100 18 124/67 (86) 96 12/23/16 08:12 99 12/23/16 06:00 16 12/23/16 02:42 97 12/23/16 00:00 99.7 101 17 142/68 (92) 97 12/22/16 22:00 18 12/22/16 22:00 16 12/22/16 20:00 98.9 76 18 132/64 (86) 98 12/22/16 17:35 96 21 12/22/16 17:17 18 12/22/16 17:16 18 12/22/16 16:00 99.4 94 16 104/51 (68) 95 12/22/16 13:51 98.6 97 16 136/63 (87) 95 12/22/16 12:00 99.7 100 18 115/58 (77) 96 12/22/16 10:06 16 12/22/16 08:00 98.8 93 18 125/64 (84) 95 12/22/16 05:35 15 12/22/16 05:32 15 12/22/16 04:25 99.5 89 18 98/57 (71) 95 12/22/16 00:15 98.9 99 17 104/56 (72) 96 12/21/16 21:53 89 12/21/16 20:40 99.3 100 17 93/59 (70) 98 12/21/16 19:46 15 12/21/16 18:15 17 12/21/16 17:55 97 Nasal Cannula 2.00 12/21/16 15:55 96.6 101 16 143/81 (101) 97 12/21/16 15:15 95 15 148/87 (107) 97 Nasal Cannula 2 12/21/16 15:00 98.5 94 15 146/82 (103) 97 Nasal Cannula 2 12/21/16 14:55 15 12/21/16 14:45 93 15 152/89 (110) 96 Nasal Cannula 2 12/21/16 14:30 93 15 168/92 (117) 95 Nasal Cannula 2 12/21/16 14:25 15 12/21/16 14:15 93 15 181/97 (125) 95 Nasal Cannula 2 12/21/16 14:00 94 14 179/95 (123) 99 Nasal Cannula 3 12/21/16 13:45 95 13 171/89 (116) 98 Nasal Cannula 3 12/21/16 13:42 98.8 96 12 168/80 (109) 100 Nasal Cannula 4 12/21/16 07:34 98.0 79 16 120/73 (89) 98 12/21/16 06:21 18 12/21/16 03:52 96.7 69 18 149/80 (103) 98 12/21/16 00:43 Room Air 12/20/16 23:15 97.9 87 17 149/84 (105) 99 12/20/16 20:28 85 12/20/16 20:11 97.9 65 17 123/72 (89) 100 Radiology Last Impressions Abdomen X-Ray 12/20/16 0000 Signed Impressions: Service Date/Time: Tuesday, December 20, 2016 11:53 - CONCLUSION: There are no imaging findings to indicate obstruction. There is a single air-fluid level in the central abdomen, most likely within the transverse colon. Hong Valerio MD Abdomen/Pelvis CT 12/10/16 1144 Signed Impressions: Service Date/Time: November 14:39 - CONCLUSION: 1. Mild hepatomegaly. 2. No acute intra-abdominal process. 3. Mild degenerative changes and scoliosis of the lumbar spine. Dung Arias MD Cardiovascular: Regular Lungs: Clear Abdomen: Post-op tenderness Wound Wound : Wound Location: Abdomen Appearance: Clean & Dry Drainage: Clear Dressing: Dry A/P Problem List: (1) Intra-abdominal adhesions ICD Codes: K66.0 - Peritoneal adhesions (postprocedural) (postinfection) (2) Adhesion of intestine ICD Codes: K66.0 - Peritoneal adhesions (postprocedural) (postinfection) (3) Adhesion of abdominal wall ICD Codes: K66.0 - Peritoneal adhesions (postprocedural) (postinfection) (4) Adhesion of omentum ICD Codes: K66.0 - Peritoneal adhesions (postprocedural) (postinfection) (5) Lower abdominal adhesions ICD Codes: K66.0 - Peritoneal adhesions (postprocedural) (postinfection) (6) Abdominal pain ICD Codes: R10.9 - Abdominal pain Status: Chronic (7) Anemia ICD Codes: D64.9 - Anemia, unspecified Status: Acute (8) Diarrhea in adult patient ICD Codes: K52.9 - Diarrhea in adult patient Status: Chronic (9) Fibromyalgia ICD Codes: M79.7 - Fibromyalgia Status: Chronic (10) Anxiety and depression ICD Codes: F41.8 - Anxiety and depression Status: Chronic (11) Hypokalemia ICD Codes: E87.6 - Hypokalemia Status: Chronic (12) Hypomagnesemia ICD Codes: E83.42 - Hypomagnesemia Status: Chronic (13) Malabsorption syndrome ICD Codes: K90.9 - Intestinal malabsorption, unspecified Status: Chronic Assessment and Plan 51-year-old female who has malabsorption syndrome on TPN questionable small gut may be functional. Status post extensive lysis of adhesions most gone on the left lower quadrant area where she was mostly symptomatic Doing fairly well Postop pain Wound clean and dry Ambulate incentive spirometer Pathology reviewed from recent EGD Tolerating some by mouth Does not report any nausea Overall slow steady progress Attending Statement NOTE FOR SURGICAL ATTENDING, DR. WALLY SALDANA I attest that I had a [id number] encounter with the patient on the same day, and personally performed and documented my assessment and findings in the medical record. The following services were provided during this hospital visit: Chart data review, vital sign assessments/reviewing monitor data Review of consultations notes if present. Medication orders/review and/or management Ordering and/or reviewing lab tests Ordering and/or interpreting/reviewing x-rays and/or diagnostic studies Care of the patient and discussion of the patient with the care team Documentation time To help prompt me to consider important information that might be impacting today's encounter and assessment, information from prior notes written by myself or my colleagues may have been "brought forward/copy and pasted" into today's note. Problem Qualifiers (1) Abdominal pain: Qualified Codes: R10.32 - Left lower quadrant pain (2) Anemia: (3) Malabsorption syndrome: Qualified Codes: K90.89 - Other intestinal malabsorption Wally Saldana MD Dec 23, 2016 15:28
[2016-12-23] MEDS: ENOXAPARIN SODIUM 40 MG/0.4 ML SYRINGE SQ SCH (18:31)
[2016-12-23] MEDS: FAT EMULSION 20% INJ 250 ML (Twice weekly over 8 hours) IV-CENTRAL SCH (20:18)
[2016-12-23] MEDS: CLINIMIX E 4.25/25 1000 mL- </= 42 mls/hr IV-CENTRAL SCH ×3 (20:18)
[2016-12-24] VITALS (8 sets, daily range): BP systolic 116–130; BP diastolic 65–76; PULSE 92–115; RESP 18–20; TEMP 98.6–100; O2SAT 95–99
[2016-12-24] MEDS: HYDROmorphone HCL PCA 6 MG/30 ML IV SCH ×3 (00:06→20:21)
[2016-12-24] MEDS: PROMETHAZINE INJ 25 MG/ML VIAL IV-CENTRAL PRN ×8 (00:33→21:43)
[2016-12-24] MEDS: HYDROmorphone HCL PF 2 MG/ML VIAL IV PUSH PRN ×8 (00:34→21:44)
[2016-12-24] MEDS: LORazepam 2 MG/ML VIAL IV PUSH PRN ×3 (03:25→18:01)
[2016-12-24] MEDS: LACTATED RINGER'S 1000 ML INJ 1,000 ML IV SCH ×3 (03:29→22:30)
[2016-12-24] MEDS: PCA - TOTAL MG DILAUDID DELIVERED PER SHIFT OTHER SCH ×3 (06:00→23:45)
[2016-12-24 06:25] LABS: HEMATOCRIT 28.8 % (35.0-46.0); MEAN CELL VOLUME 100.4 FL (80.0-100.0); MEAN CORPUSCULAR HEMOGLOBIN 33.6 PG (27.0-34.0); MEAN CORPUSCULAR HGB CONC 33.5 % (32.0-36.0); PLATELET COUNT 120 TH/MM3 (150-450); RED BLOOD COUNT 2.87 MIL/MM3 (4.00-5.30); REVIEW FLAG FINAL; WHITE BLOOD COUNT 10.1 TH/MM3 (4.0-11.0)
[2016-12-24 06:47] LABS: BICARBONATE 29.2 MEQ/L (21.0-32.0); POTASSIUM 3.5 MEQ/L (3.5-5.1)
[2016-12-24] MEDS: amLODIPine BESYLATE 5 MG TAB PO SCH (08:36)
[2016-12-24] MEDS: DICYCLOMINE HCL 20 MG TAB PO SCH ×3 (08:36→16:10)
[2016-12-24] MEDS: SODIUM CHLORIDE 0.9% FLUSH 10 ML FLUSH IV FLUSH SCH ×2 (08:37→21:41)
[2016-12-24] MEDS: DOCUSATE SODIUM 50 MG/SENNA 8.6 MG TAB PO SCH ×2 (08:37→21:41)
[2016-12-24] MEDS: NEOMYCIN SULFATE 500 MG TAB PO SCH ×2 (08:37→21:40)
[2016-12-24] MEDS: FLUoxetine HCL 10 MG CAP PO SCH (08:37)
[2016-12-24] MEDS: ACETAMINOPHEN 325 MG TAB PO PRN (09:40)
--- NOTE | 2016-12-24 10:37 | HHI.PR ---
Subjective Remarks Follow-up for abdominal surgery Patient stated that she feels better but her abdomen. She stated that it has not worsened. Denied any nausea or vomiting. She had no other complaints. Objective Vitals Vital Signs Date Time Temp Pulse Resp B/P (MAP) Pulse Ox O2 Delivery O2 Flow Rate FiO2 12/24/16 08:00 100.0 103 19 116/66 (83) 97 12/24/16 04:06 102 12/24/16 04:00 99.5 92 18 120/65 (83) 95 12/24/16 00:30 100.0 104 130/76 (94) 96 12/24/16 00:06 16 12/23/16 22:00 16 12/23/16 20:00 99.4 108 18 175/92 (119) 96 12/23/16 20:00 96 12/23/16 17:29 79 12/23/16 16:00 99.6 94 16 103/60 (74) 94 12/23/16 12:26 18 12/23/16 12:24 16 12/23/16 12:00 100.6 108 18 144/74 (97) 96 I/O 12/23/16 12/23/16 12/23/16 12/24/16 12/24/16 12/24/16 07:00 15:00 23:00 07:00 15:00 23:00 Intake Total 3700 ml 240 ml Balance 3700 ml 240 ml Intake Oral 240 ml IV Total 3700 ml # Voids 4 1 Result Diagram: 12/24/16 0600 12/24/16 0600 Objective Remarks GENERAL: In NAD but looks sleepy CARDIOVASCULAR: Regular rate and rhythm without murmurs, gallops, or rubs. RESPIRATORY: Breath sounds equal bilaterally. No accessory muscle use. GASTROINTESTINAL: Abdomen soft and nondistended. Abdominal wound dressing in place. Positive tenderness to palpation diffusely more in the left lower quadrant. Negative peritoneal signs. MUSCULOSKELETAL: No cyanosis, or edema. BACK: Nontender without obvious deformity. No CVA tenderness. Procedures 12/21/2016 Exploratory laparotomy, lysis of massive adhesions greater than 2 hours. repair of enterotomies x2 12/18/2016 Enteroscopy with biopsies 1. 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 The mucosa of the stomach appeared normal 3. Normal duodenal mucosa in the entire duodenum 4. The exam showed no abnormalities in the jejunum; multiple biopsies were performed 5. Retroflexed views revealed no abnormalities Medications and IVs Current Medications Ondansetron HCl (Zofran Inj) 4 mg ONCE ONCE IV Last administered on 12/10/16 12:05; Start 12/10/16 at 11:45; Stop 12/10/16 at 11:47; Status DC Sodium Chloride 1,000 ml @ 1,000 mls/hr Q1H ONCE IV Last administered on 12:05; Start 12/10/16 at 11:44; Stop 12/10/16 at 12:43; Status DC Sodium Chloride 800 ml @ 1,000 mls/hr Q48M ONCE IV Last administered on 12:05; Start 12/10/16 at 11:44; Stop 12/10/16 at 12:31; Status DC Hydromorphone HCl (Dilaudid Pf Inj) 0.5 mg ONCE ONCE IV PUSH ; Start 12/10/16 at 11:45; Stop 12/10/16 at 12:11; Status DC Hydromorphone HCl (Dilaudid Pf Inj) 0.5 mg ONCE ONCE IV PUSH Last administered on 12/10/16 12:23; Start 12/10/16 at 12:15; Stop 12/10/16 at 12:16 ; Status DC Potassium Chloride 100 ml @ 25 mls/hr Q4H IV Last administered on 12/10/16 18 :44; Start 12/10/16 at 13:00; Stop 12/10/16 at 20:59; Status DC Magnesium Sulfate/ Dextrose 100 ml @ 100 mls/hr ONCE ONCE IV Last administered on 12/10/16 15:11; Start 12/10/16 at 14:15; Stop 12/10/16 at 15:14 ; Status DC Iohexol (Omnipaque 350 Inj) 96 ml STK-MED ONCE IVCONTRAST Last administered on 12/10/16 14:45; Start 12/10/16 at 14:45; Stop 12/10/16 at 14:46; Status DC Sodium Chloride (NS Flush) 2 ml UNSCH PRN IV FLUSH FLUSH AFTER USING IV ACCESS Last administered on 12/19/16 18:22; Start 12/10/16 at 15:15 Sodium Chloride (NS Flush) 2 ml BID IV FLUSH Last administered on 12/22/16 09: 07; Start 12/10/16 at 21:00 Acetaminophen (Tylenol) 650 mg Q4H PRN PO Headache, fever, pain 1-4 Last administered on 12/24/16 09:40; Start 12/10/16 at 15:15 Ondansetron HCl (Zofran Inj) 4 mg Q6H PRN IVP NAUSEA OR VOMITING Last administered on 12/21/16 16:08; Start 12/10/16 at 15:15 Naloxone HCl (Narcan Inj) 0.4 mg UNSCH PRN IV PUSH SEE LABEL COMMENTS; Start at 15:15 Senna/Docusate Sodium (Laura-Colace) 1 tab BID PO Last administered on 19:46; Start 12/10/16 at 21:00 Magnesium Hydroxide (Milk Of Magnesia Liq) 30 ml Q12H PRN PO MILD - MODERATE CONSTIPATION; Start 12/10/16 at 15:15 Sennosides (Senokot) 17.2 mg Q12H PRN PO MODERATE - SEVERE CONSTIPATION; Start 12/10/16 at 15:15 Bisacodyl (Dulcolax Supp) 10 mg DAILY PRN RECTAL SEVERE CONSITIPATION; Start at 15:15 Lactulose (Lactulose Liq) 30 ml DAILY PRN PO SEVERE CONSITIPATION; Start at 15:15 Magnesium Sulfate/ Dextrose 100 ml @ 100 mls/hr Q1H IV Last administered on 17:15; Start 12/10/16 at 15:15; Stop 12/10/16 at 17:14; Status DC Magnesium Sulfate/ Dextrose 100 ml @ 100 mls/hr Q1H IV Last administered on 21:24; Start 12/10/16 at 20:00; Stop 12/10/16 at 21:59; Status DC Dicyclomine HCl (Bentyl Inj) 20 mg ONCE ONCE IM ; Start 12/10/16 at 15:30; Stop 12/10/16 at 15:31; Status DC Ondansetron HCl (Zofran Inj) 4 mg ONCE ONCE IV PUSH Last administered on 17:15; Start 12/10/16 at 15:30; Stop 12/10/16 at 15:31; Status DC Ciprofloxacin/ Dextrose 200 ml @ 200 mls/hr Q12H IV Last administered on 05:00; Start 12/10/16 at 18:00; Stop 12/16/16 at 09:05; Status DC Metronidazole 100 ml @ 100 mls/hr Q8H IV Last administered on 12/16/16 03:18 ; Start 12/10/16 at 18:00; Stop 12/16/16 at 09:05; Status DC Hydromorphone HCl (Dilaudid Pf Inj) 1 mg Q4H PRN IV PUSH PAIN SCALE 5 TO 10 Last administered on 12/11/16 09:37; Start 12/10/16 at 16:00; Stop 12/11/16 at 09:49; Status DC Amlodipine Besylate (Norvasc) 5 mg DAILY PO Last administered on 12/24/16 08: 36; Start 12/11/16 at 09:00 Fluoxetine HCl (PROzac) 10 mg DAILY PO Last administered on 12/24/16 08:37; Start 12/11/16 at 09:00 Potassium Chloride 100 ml @ 50 mls/hr Q2H IV ; Start 12/11/16 at 09:45; Stop at 09:46; Status DC Potassium Chloride 100 ml @ 50 mls/hr Q2H IV ; Start 12/11/16 at 14:00; Stop at 14:00; Status DC Hydromorphone HCl (Dilaudid Pf Inj) 1 mg Q3H PRN IV PUSH PAIN SCALE 5 TO 10 Last administered on 12/15/16 09:32; Start 12/11/16 at 10:00; Stop 12/15/16 at 12:58; Status DC Potassium Chloride 100 ml @ 25 mls/hr Q4H IV Last administered on 12/11/16 14 :03; Start 12/11/16 at 12:00; Stop 12/11/16 at 19:59; Status DC Magnesium Sulfate/ Dextrose 100 ml @ 100 mls/hr ONCE ONCE IV Last administered on 12/11/16 17:18; Start 12/11/16 at 16:00; Stop 12/11/16 at 16:59 ; Status DC Enoxaparin Sodium (Lovenox Inj) 40 mg Q24H SQ Last administered on 12/12/16 20 :06; Start 12/11/16 at 20:00; Status Future hold Potassium Chloride 100 ml @ 25 mls/hr BOLUS ONCE IV Last administered on 12/12 08:01; Start 12/12/16 at 08:00; Stop 12/12/16 at 11:59; Status DC Potassium Chloride (KCl) 20 meq ONCE ONCE PO Last administered on 12/12/16 01 :24; Start 12/12/16 at 01:00; Stop 12/12/16 at 01:01; Status DC Potassium Chloride 100 ml @ 25 mls/hr Q4H IV ; Start 12/12/16 at 11:30; Stop at 11:37; Status DC Magnesium Sulfate/ Dextrose 100 ml @ 100 mls/hr Q1H IV Last administered on 20:09; Start 12/12/16 at 11:30; Stop 12/12/16 at 18:40; Status DC Magnesium Sulfate/ Dextrose 100 ml @ 100 mls/hr Q1H IV Last administered on 17:00; Start 12/12/16 at 16:00; Stop 12/12/16 at 17:59; Status DC Dicyclomine HCl (Bentyl) 20 mg TID PO Last administered on 12/24/16 08:36; Start 12/12/16 at 13:00 Diphenoxylate HCl/ Atropine (Lomotil Tab) 1 tab Q6H PRN PO DIARRHEA Last administered on 12/16/16 03:19; Start 12/12/16 at 11:30; Stop 12/20/16 at 11:22 ; Status DC Potassium Chloride 100 ml @ 50 mls/hr Q2H IV Last administered on 12/12/16 20 :08; Start 12/12/16 at 11:45; Stop 12/12/16 at 19:44; Status DC Magnesium Sulfate/ Dextrose 100 ml @ 100 mls/hr ONCE ONCE IV Last administered on 12/13/16 11:11; Start 12/13/16 at 11:30; Stop 12/13/16 at 12:29 ; Status DC Multivitamins 10 ml/Folic Acid 1 mg/Amino Acids/ Electrolytes/ Dextrose 1,010.2 ml @ 42 mls/hr Q24H IV-CENTRAL Last administered on 12/23/16 20:18; Start at 20:00 Fat Emulsion Intravenous 250 ml @ 31.25 mls/ hr SuWe@20 IV-CENTRAL Last administered on 12/23/16 20:18; Start 12/14/16 at 20:00 Potassium Chloride 100 ml @ 25 mls/hr Q4H IV Last administered on 12/15/16 12 :35; Start 12/15/16 at 07:30; Stop 12/15/16 at 15:29; Status DC Magnesium Sulfate/ Dextrose 100 ml @ 100 mls/hr Q1H IV Last administered on 09:45; Start 12/15/16 at 07:30; Stop 12/15/16 at 09:29; Status DC Magnesium Sulfate/ Dextrose 100 ml @ 100 mls/hr Q1H IV Last administered on 16:00; Start 12/15/16 at 15:00; Stop 12/15/16 at 16:59; Status DC Hydromorphone HCl (Dilaudid Pf Inj) 1.5 mg Q3H PRN IV PUSH PAIN SCALE 5 TO 10 Last administered on 12/20/16 08:00; Start 12/15/16 at 13:00; Stop 12/20/16 at 09:31; Status DC Promethazine HCl (Phenergan Inj) 12.5 mg Q6H PRN IM NAUSEA OR VOMITING Last administered on 12/16/16 03:19; Start 12/15/16 at 13:00; Stop 12/16/16 at 08:59 ; Status DC Promethazine HCl (Phenergan Inj) 12.5 mg Q6H PRN IV-CENTRAL NAUSEA OR VOMITING Last administered on 12/22/16 11:49; Start 12/16/16 at 13:00; Stop 12/22/16 at 12:38; Status DC Potassium Chloride 100 ml @ 25 mls/hr Q4H IV Last administered on 12/16/16 15 :35; Start 12/16/16 at 11:00; Stop 12/16/16 at 18:59; Status DC Neomycin Sulfate (Mycifradin) 500 mg Q12HR PO Last administered on 12/24/16 08 :37; Start 12/16/16 at 11:00 Dexamethasone (Decadron) 1 mg ONCE ONCE PO ; Start 12/16/16 at 23:00; Stop at 23:00; Status DC Cosyntropin (Cortrosyn Inj) 0.25 mg ONCE ONCE IV PUSH Last administered on 13:36; Start 12/17/16 at 13:00; Stop 12/17/16 at 13:01; Status DC Lactated Ringer's 1,000 ml @ 30 mls/hr Q24H PRN IV SEE LABEL COMMENTS; Start at 11:45; Stop 12/20/16 at 22:22; Status DC Sodium Chloride 500 ml @ 30 mls/hr [id number] PRN IV SEE LABEL COMMENTS; Start at 11:45; Stop 12/20/16 at 22:22; Status DC Metoprolol Tartrate (Lopressor) 25 mg SCARF AND ANNEAL OPERATOR PRN PO SEE LABEL COMMENTS; Start 12/18/16 at 11:45; Stop 12/20/16 at 22:22; Status DC Povidone Iodine (Betadine 5% Antisepsis Kit) 1 applic SCARF AND ANNEAL OPERATOR PRN EACH NARE SEE LABEL COMMENTS; Start 12/18/16 at 11:45; Stop 12/20/16 at 22:22; Status DC Chlorhexidine Gluconate (Chlorhexidine 2% Cloth) 3 pack SCARF AND ANNEAL OPERATOR PRN TOPICAL SEE LABEL COMMENTS; Start 12/18/16 at 11:45; Stop 12/20/16 at 22:22; Status DC Insulin Human Regular (NovoLIN R INJ) See Protocol Table ... SCARF AND ANNEAL OPERATOR PRN SQ SEE PROTOCOL TABLE; Start 12/18/16 at 11:45; Stop 12/20/16 at 22:22; Status DC Miscellaneous Information ALL NURSING DEPARTME... UNSCH PRN .XX SEE LABEL COMMENTS; Start 12/18/16 at 11:24; Stop 12/19/16 at 11:23; Status DC Lorazepam (Ativan Inj) 1 mg Q6H PRN IV PUSH ANXIETY Last administered on 03:25; Start 12/19/16 at 08:00 Magnesium Sulfate/ Dextrose 100 ml @ 100 mls/hr Q1H IV Last administered on 18:22; Start 12/19/16 at 08:00; Stop 12/19/16 at 09:59; Status DC Potassium Chloride 100 ml @ 25 mls/hr BOLUS ONCE IV ; Start 12/19/16 at 08:00 ; Stop 12/19/16 at 11:59; Status UNV Potassium Chloride 100 ml @ 50 mls/hr Q2H IV Last administered on 12/19/16 12 :25; Start 12/19/16 at 09:00; Stop 12/19/16 at 12:59; Status DC Magnesium Sulfate/ Dextrose 100 ml @ 100 mls/hr Q1H IV Last administered on 00:09; Start 12/19/16 at 22:15; Stop 12/20/16 at 00:14; Status DC Potassium Phosphate 30 mmol/ Sodium Chloride 260 ml @ 43.333 mls/ hr ONCE ONCE IV Last administered on 12/20/16 01:38; Start 12/19/16 at 22:00; Stop at 03:59; Status DC Hydromorphone HCl (Dilaudid Pf Inj) 2 mg Q3H PRN IV PUSH BREAKTHROUGH PAIN Last administered on 12/24/16 08:36; Start 12/20/16 at 09:45 Cefazolin Sodium/ Dextrose 50 ml @ 100 mls/hr SCARF AND ANNEAL OPERATOR IV Last administered on 12/21/16 10:32; Start 12/20/16 at 12:00; Stop 12/24/16 at 11:59 Lactated Ringer's 1,000 ml @ 30 mls/hr Q24H PRN IV SEE LABEL COMMENTS Last administered on 12/22/16 10:03; Start 12/20/16 at 22:30; Stop 12/23/16 at 22:29 ; Status DC Sodium Chloride 500 ml @ 30 mls/hr [id number] PRN IV SEE LABEL COMMENTS; Start at 22:30; Stop 12/23/16 at 22:29; Status DC Metoprolol Tartrate (Lopressor) 25 mg SCARF AND ANNEAL OPERATOR PRN PO SEE LABEL COMMENTS; Start 12/20/16 at 22:30; Stop 12/23/16 at 22:29; Status DC Povidone Iodine (Betadine 5% Antisepsis Kit) 1 applic SCARF AND ANNEAL OPERATOR PRN EACH NARE SEE LABEL COMMENTS; Start 12/20/16 at 22:30; Stop 12/23/16 at 22:29; Status DC Chlorhexidine Gluconate (Chlorhexidine 2% Cloth) 3 pack SCARF AND ANNEAL OPERATOR PRN TOPICAL SEE LABEL COMMENTS; Start 12/20/16 at 22:30; Stop 12/23/16 at 22:29; Status DC Insulin Human Regular (NovoLIN R INJ) See Protocol Table ... SCARF AND ANNEAL OPERATOR PRN SQ SEE PROTOCOL TABLE; Start 12/20/16 at 22:30; Stop 12/23/16 at 22:29; Status DC Bupivacaine HCl/ Epinephrine Bitart (Sensorcaine-Epinephrine 0.25% Inj) 50 ml STK-MED ONCE .ROUTE ; Start 12/21/16 at 09:57; Stop 12/21/16 at 09:58; Status DC Sugammadex Sodium (Bridion Inj) 200 mg STK-MED ONCE IV PUSH ; Start 12/21/16 at 10:07; Stop 12/21/16 at 10:08; Status DC Phenylephrine HCl (Neosynephrine/ NS 1000 Mcg/10ml Syr) 1,000 mcg STK-MED ONCE .ROUTE ; Start 12/21/16 at 10:13; Stop 12/21/16 at 10:14; Status DC Succinylcholine Chloride (Quelicin Inj) 100 mg STK-MED ONCE .ROUTE ; Start 12/21 at 10:28; Stop 12/21/16 at 10:29; Status DC Rocuronium Edgar (Zemuron Inj) 50 mg STK-MED ONCE IV PUSH ; Start 12/21/16 at 12:03; Stop 12/21/16 at 12:04; Status DC Naloxone HCl (Narcan Inj) 4 mg STK-MED ONCE .ROUTE ; Start 12/21/16 at 12:05; Stop 12/21/16 at 12:06; Status DC Hydromorphone HCl (Dilaudid MACHINERY REPAIR MAINTENANCE SUPERVISOR Inj) 6 mg UNSCH IV Last administered on 00:06; Start 12/21/16 at 13:45 MACHINERY REPAIR MAINTENANCE SUPERVISOR Dosage Infused (Pha) 1 Q8HR OTHER Last administered on 12/23/16t 22:00; Start 12/21/16 at 14:00 Miscellaneous Information ALL NURSING DEPARTME... UNSCH PRN .XX SEE LABEL COMMENTS; Start 12/21/16 at 14:15; Stop 12/22/16 at 14:14; Status DC Labetalol HCl (*TRANDATE INJ PERIprocedural Use ONLY) 100 mg STK-MED ONCE .ROUTE Last administered on 12/21/16 14:15; Start 12/21/16 at 14:15; Stop at 14:16; Status DC Lactated Ringer's 1,000 ml @ 100 mls/hr Q10H IV Last administered on 03:29; Start 12/21/16 at 14:30 Hydromorphone HCl (*DILAUDID PF INJ PERIprocedural ONLY) 1 mg STK-MED ONCE .ROUTE Last administered on 12/21/16 14:39; Start 12/21/16 at 14:39; Stop at 14:40; Status DC Lidocaine HCl (Xylocaine-Mpf 1% Inj) 10 ml STK-MED ONCE OTHER ; Start 12/18/16 at 12:00; Stop 12/21/16 at 15:56; Status DC Midazolam HCl (Versed Inj) 2 mg STK-MED ONCE IV ; Start 12/18/16 at 12:00; Stop 12/21/16 at 15:56; Status DC Fentanyl Citrate (fentaNYL INJ) 100 mcg STK-MED ONCE IV ; Start 12/18/16 at 12: 00; Stop 12/21/16 at 15:56; Status DC Propofol (Diprivan 200 Mg/20 ml Inj) 400 mg STK-MED ONCE IV ; Start 12/18/16 at 12:00; Stop 12/21/16 at 15:56; Status DC Promethazine HCl (Phenergan Inj) 25 mg Q3HR PRN IV-CENTRAL NAUSEA OR VOMITING Last administered on 12/23/16 12:12; Start 12/22/16 at 15:00; Stop 12/23/16 at 12:55; Status DC Alteplase, Recombinant (Cathflo Activase Inj) 2 mg ONCE ONCE INTRACATH Last administered on 12/22/16 15:12; Start 12/22/16 at 15:15; Stop 12/22/16 at 15:16 ; Status DC Magnesium Sulfate/ Dextrose 100 ml @ 100 mls/hr Q1H IV Last administered on 18:21; Start 12/22/16 at 16:00; Stop 12/22/16 at 17:59; Status DC Promethazine HCl (Phenergan Inj) 12.5 mg Q3HR PRN IV-CENTRAL NAUSEA OR VOMITING Last administered on 12/24/16 08:36; Start 12/23/16 at 13:00 A/P Problem List: (1) Hypomagnesemia ICD Code: E83.42 - Hypomagnesemia Status: Chronic (2) Hypokalemia ICD Code: E87.6 - Hypokalemia Status: Chronic (3) Abdominal pain ICD Code: R10.9 - Abdominal pain Status: Chronic (4) Nausea and vomiting ICD Code: R11.2 - Nausea and vomiting Status: Acute Assessment and Plan Ms. Mensah is a pleasant 51-year-old female with a history of bowel obstruction and multiple surgeries who presents to the emergency department today due to hypokalemia as well as abdominal pain, nausea vomiting. Small bowel obstruction secondary to adhesions -Status post exploratory laparotomy, lysis of massive adhesions greater than 2 hours on 12/22. Diagnosis showed massive adhesions with fusion of all bowels to each other into the left lower quadrant abdominal fascia. -Patient on TPN. -Per GI performed endoscopies studies with biopsy on 12/18/2016. GI is considering Gattex but having difficulty getting approved by her insurance company. -Pain management per general surgeon. -Per general surgeon expecting slow recovery due to the extent of surgery. Hypomagnesemia/hypokalemia -Due to emesis. -Replenish as other. Hypertension - continue amlodipine 5 mg daily Depression - continue fluoxetine 10 mg daily Full code. Lovenox. Problem Qualifiers (1) Abdominal pain: Qualified Codes: R10.32 - Left lower quadrant pain (2) Nausea and vomiting: Qualified Codes: R11.2 - Nausea with vomiting, unspecified Mackenzie Alexander MD Dec 24, 2016 10:37
--- NOTE | 2016-12-24 14:28 | HHI.PR ---
Subjective Subjective Notes Walking the halls No flatus A little less tenderness Objective Vitals/I&O Vital Signs Date Time Temp Pulse Resp B/P (MAP) Pulse Ox O2 Delivery O2 Flow Rate FiO2 12/24/16 13:15 14 12/24/16 12:21 98.6 96 116/67 (83) 96 12/22/16 17:35 21 12/21/16 17:55 Nasal Cannula 2.00 Labs Laboratory Tests Test 12/24/16 06:00 White Blood Count 10.1 Red Blood Count 2.87 Hemoglobin 9.7 Hematocrit 28.8 Mean Corpuscular Volume 100.4 Mean Corpuscular Hemoglobin 33.6 Mean Corpuscular Hemoglobin Concent 33.5 Red Cell Distribution Width 13.0 Platelet Count 120 Mean Platelet Volume 8.7 Blood Urea Nitrogen 4 Creatinine 0.60 Random Glucose 116 Calcium Level 8.6 Sodium Level 138 Potassium Level 3.5 Chloride Level 102 Carbon Dioxide Level 29.2 Anion Gap 7 Estimat Glomerular Filtration Rate 106 Radiology Last Impressions Abdomen X-Ray 12/20/16 0000 Signed Impressions: Service Date/Time: Tuesday, December 20, 2016 11:53 - CONCLUSION: There are no imaging findings to indicate obstruction. There is a single air-fluid level in the central abdomen, most likely within the transverse colon. Hong Valerio MD Abdomen/Pelvis CT 12/10/16 1144 Signed Impressions: Service Date/Time: November 14:39 - CONCLUSION: 1. Mild hepatomegaly. 2. No acute intra-abdominal process. 3. Mild degenerative changes and scoliosis of the lumbar spine. Dung Arias MD Cardiovascular: Regular Lungs: Other Abdomen: Other (bandage change wound clean and dry), Post-op tenderness Extremities: No edema, Perfused A/P Problem List: (1) Intra-abdominal adhesions ICD Codes: K66.0 - Peritoneal adhesions (postprocedural) (postinfection) (2) Adhesion of intestine ICD Codes: K66.0 - Peritoneal adhesions (postprocedural) (postinfection) (3) Adhesion of abdominal wall ICD Codes: K66.0 - Peritoneal adhesions (postprocedural) (postinfection) (4) Adhesion of omentum ICD Codes: K66.0 - Peritoneal adhesions (postprocedural) (postinfection) (5) Lower abdominal adhesions ICD Codes: K66.0 - Peritoneal adhesions (postprocedural) (postinfection) (6) Abdominal pain ICD Codes: R10.9 - Abdominal pain Status: Chronic (7) Anemia ICD Codes: D64.9 - Anemia, unspecified Status: Acute (8) Diarrhea in adult patient ICD Codes: K52.9 - Diarrhea in adult patient Status: Chronic (9) Fibromyalgia ICD Codes: M79.7 - Fibromyalgia Status: Chronic (10) Anxiety and depression ICD Codes: F41.8 - Anxiety and depression Status: Chronic (11) Hypokalemia ICD Codes: E87.6 - Hypokalemia Status: Chronic (12) Hypomagnesemia ICD Codes: E83.42 - Hypomagnesemia Status: Chronic (13) Malabsorption syndrome ICD Codes: K90.9 - Intestinal malabsorption, unspecified Status: Chronic Assessment and Plan 51-year-old female who has malabsorption syndrome on TPN questionable small gut may be functional. Status post extensive lysis of adhesions most gone on the left lower quadrant area where she was mostly symptomatic Doing fairly well Postop pain Wound clean and dry Ambulate incentive spirometer Tolerating some by mouth Does not report any nausea Overall slow steady progress Check electrolytes Problem Qualifiers (1) Abdominal pain: Qualified Codes: R10.32 - Left lower quadrant pain (2) Anemia: (3) Malabsorption syndrome: Qualified Codes: K90.89 - Other intestinal malabsorption Wally Saldana MD Dec 24, 2016 14:28
[2016-12-24] MEDS: CLINIMIX E 4.25/25 1000 mL- </= 42 mls/hr IV-CENTRAL SCH ×3 (21:40)
[2016-12-24] MEDS: ENOXAPARIN SODIUM 40 MG/0.4 ML SYRINGE SQ SCH (21:41)
[2016-12-25] VITALS (8 sets, daily range): BP systolic 108–134; BP diastolic 60–69; PULSE 91–102; RESP 16–20; TEMP 97–99.2; O2SAT 94–99
[2016-12-25] MEDS: LORazepam 2 MG/ML VIAL IV PUSH PRN ×4 (00:56→22:00)
[2016-12-25] MEDS: HYDROmorphone HCL PF 2 MG/ML VIAL IV PUSH PRN ×7 (00:58→22:00)
[2016-12-25] MEDS: PROMETHAZINE INJ 25 MG/ML VIAL IV-CENTRAL PRN ×7 (00:59→22:00)
[2016-12-25] MEDS: PCA - TOTAL MG DILAUDID DELIVERED PER SHIFT OTHER SCH ×3 (06:15→23:52)
[2016-12-25] MEDS: SODIUM CHLORIDE 0.9% FLUSH 10 ML FLUSH IV FLUSH SCH ×2 (07:55→22:00)
--- NOTE | 2016-12-25 09:10 | HHI.PR ---
Subjective Subjective Notes DAILY PROGRESS NOTE FOR SURGICAL ATTENDING, DR. WALLY SALDANA Patient had little bowel movement Walking [place] Still has pain but she says is improving Objective Vitals/I&O Allergies Coded Allergies Type Severity Reaction Last Updated Verified morphine Allergy Severe Rash 12/10/16 Yes 12/23/16 12/23/16 12/24/16 12/24/16 12/25/16 12/25/16 06:00 18:00 06:00 18:00 06:00 18:00 Intake Total 3940 ml 960 ml 420 ml Output Total 1400 ml 400 ml Balance -1400 ml 3940 ml 960 ml 20 ml Intake Oral 240 ml 960 ml 420 ml IV Total 3700 ml Output Urine Total 1400 ml 400 ml # Voids 4 1 2 # Bowel Movements 6 0 Laboratory Tests Test 12/22/16 11:40 12/24/16 06:00 White Blood Count 16.6 TH/MM3 10.1 TH/MM3 Red Blood Count 3.11 MIL/MM3 2.87 MIL/MM3 Hemoglobin 10.5 GM/DL 9.7 GM/DL Hematocrit 31.1 % 28.8 % Mean Corpuscular Volume 100.2 FL 100.4 FL Mean Corpuscular Hemoglobin 33.8 PG 33.6 PG Mean Corpuscular Hemoglobin Concent 33.7 % 33.5 % Red Cell Distribution Width 13.2 % 13.0 % Platelet Count 110 TH/MM3 120 TH/MM3 Mean Platelet Volume 9.6 FL 8.7 FL Hematology Comments Blood Urea Nitrogen 10 MG/DL 4 MG/DL Creatinine 0.60 MG/DL 0.60 MG/DL Random Glucose 104 MG/DL 116 MG/DL Calcium Level 8.4 MG/DL 8.6 MG/DL Magnesium Level 1.6 MG/DL Sodium Level 137 MEQ/L 138 MEQ/L Potassium Level 3.9 MEQ/L 3.5 MEQ/L Chloride Level 105 MEQ/L 102 MEQ/L Carbon Dioxide Level 25.7 MEQ/L 29.2 MEQ/L Anion Gap 6 MEQ/L 7 MEQ/L Estimat Glomerular Filtration Rate 106 ML/MIN 106 ML/MIN Orders Procedure Category Date Status Time Remove Urinary BART 12/22/16 In Process Catheter 12:35 Promethazine Inj MED 12/22/16 Complete (Phenergan Inj) 15:00 Diet Liquid DIET 12/22/16 Transmitted Lunch Cathflo Activase Inj MED 12/22/16 Complete (Cathflo Activase I 15:15 ^ Other Nursing Orders BART 12/22/16 In Process 14:08 Magnesium Sulfate 1 MED 12/22/16 Complete Gm Premix (Magnesium 16:00 Physician Name Changes ADMITTING 12/22/16 Transmitted Cbc No Diff, Includes LAB 12/24/16 Complete Plts 06:00 Basic Metabolic Panel LAB 12/24/16 Complete (Bmp) 06:00 Consult Pt Eval & PT 12/23/16 Complete Treat 10:42 Promethazine Inj MED 12/23/16 In Process (Phenergan Inj) 13:00 Resp Incentive RSP 12/24/16 Complete Spirometry Cbc No Diff, Includes LAB 12/25/16 In Process Plts 08:33 Basic Metabolic Panel LAB 12/25/16 In Process (Bmp) 08:33 Magnesium (Mg) LAB 12/25/16 Transmitted 09:07 Vital Signs Date Time Temp Pulse Resp B/P (MAP) Pulse Ox O2 Delivery O2 Flow Rate FiO2 12/25/16 06:15 18 12/25/16 04:00 94 12/25/16 04:00 97.0 95 20 118/61 (80) 94 12/25/16 00:00 98.8 91 20 108/60 (76) 94 12/25/16 00:00 91 12/24/16 23:45 16 12/24/16 20:21 17 12/24/16 20:00 115 12/24/16 20:00 98.9 93 20 130/70 (90) 95 12/24/16 16:53 99.4 95 19 122/76 (91) 99 12/24/16 15:02 100 12/24/16 13:15 14 12/24/16 12:21 98.6 96 19 116/67 (83) 96 12/24/16 11:10 16 12/24/16 08:00 100.0 103 19 116/66 (83) 97 12/24/16 08:00 100 12/24/16 04:06 102 12/24/16 04:00 99.5 92 18 120/65 (83) 95 12/24/16 00:30 100.0 104 130/76 (94) 96 12/24/16 00:06 16 12/23/16 22:00 16 12/23/16 20:00 99.4 108 18 175/92 (119) 96 12/23/16 20:00 96 12/23/16 17:29 79 12/23/16 16:00 99.6 94 16 103/60 (74) 94 12/23/16 12:26 18 12/23/16 12:24 16 12/23/16 12:00 100.6 108 18 144/74 (97) 96 12/23/16 09:07 100.0 100 18 124/67 (86) 96 12/23/16 08:12 99 12/23/16 06:00 16 12/23/16 02:42 97 12/23/16 00:00 99.7 101 17 142/68 (92) 97 12/22/16 22:00 18 12/22/16 22:00 16 12/22/16 20:00 98.9 76 18 132/64 (86) 98 12/22/16 17:35 96 21 12/22/16 17:17 18 12/22/16 17:16 18 12/22/16 16:00 99.4 94 16 104/51 (68) 95 12/22/16 13:51 98.6 97 16 136/63 (87) 95 12/22/16 12:00 99.7 100 18 115/58 (77) 96 12/22/16 10:06 16 Vital Signs Date Time Temp Pulse Resp B/P (MAP) Pulse Ox O2 Delivery O2 Flow Rate FiO2 12/25/16 06:15 18 12/25/16 04:00 94 12/25/16 04:00 97.0 118/61 (80) 94 12/22/16 17:35 21 12/21/16 17:55 Nasal Cannula 2.00 Labs Pending Radiology Last Impressions Abdomen X-Ray 12/20/16 0000 Signed Impressions: Service Date/Time: Tuesday, December 20, 2016 11:53 - CONCLUSION: There are no imaging findings to indicate obstruction. There is a single air-fluid level in the central abdomen, most likely within the transverse colon. Hong Valerio MD Abdomen/Pelvis CT 12/10/16 1144 Signed Impressions: Service Date/Time: November 14:39 - CONCLUSION: 1. Mild hepatomegaly. 2. No acute intra-abdominal process. 3. Mild degenerative changes and scoliosis of the lumbar spine. Dung Arias MD Cardiovascular: Regular Lungs: Clear Abdomen: Other (a little softer but still distended), Post-op tenderness Wound Wound : Wound Location: Abdomen Appearance: Clean & Dry Drainage: Clear Dressing: Dry A/P Problem List: (1) Intra-abdominal adhesions ICD Codes: K66.0 - Peritoneal adhesions (postprocedural) (postinfection) (2) Adhesion of intestine ICD Codes: K66.0 - Peritoneal adhesions (postprocedural) (postinfection) (3) Adhesion of abdominal wall ICD Codes: K66.0 - Peritoneal adhesions (postprocedural) (postinfection) (4) Adhesion of omentum ICD Codes: K66.0 - Peritoneal adhesions (postprocedural) (postinfection) (5) Lower abdominal adhesions ICD Codes: K66.0 - Peritoneal adhesions (postprocedural) (postinfection) (6) Abdominal pain ICD Codes: R10.9 - Abdominal pain Status: Chronic (7) Anemia ICD Codes: D64.9 - Anemia, unspecified Status: Acute (8) Diarrhea in adult patient ICD Codes: K52.9 - Diarrhea in adult patient Status: Chronic (9) Fibromyalgia ICD Codes: M79.7 - Fibromyalgia Status: Chronic (10) Anxiety and depression ICD Codes: F41.8 - Anxiety and depression Status: Chronic (11) Hypokalemia ICD Codes: E87.6 - Hypokalemia Status: Chronic (12) Hypomagnesemia ICD Codes: E83.42 - Hypomagnesemia Status: Chronic (13) Malabsorption syndrome ICD Codes: K90.9 - Intestinal malabsorption, unspecified Status: Chronic Assessment and Plan 51-year-old female who has malabsorption syndrome on TPN questionable small gut may be functional. Status post extensive lysis of adhesions most gone on the left lower quadrant area where she was mostly symptomatic Doing fairly well Postop pain Wound clean and dry Ambulate incentive spirometer Tolerating some by mouth Does not report any nausea Overall slow steady progress Check electrolytes today Attending Statement NOTE FOR SURGICAL ATTENDING, DR. WALLY SALDANA I attest that I had a [id number] encounter with the patient on the same day, and personally performed and documented my assessment and findings in the medical record. The following services were provided during this hospital visit: Chart data review, vital sign assessments/reviewing monitor data Review of consultations notes if present. Medication orders/review and/or management Ordering and/or reviewing lab tests Ordering and/or interpreting/reviewing x-rays and/or diagnostic studies Care of the patient and discussion of the patient with the care team Documentation time To help prompt me to consider important information that might be impacting today's encounter and assessment, information from prior notes written by myself or my colleagues may have been "brought forward/copy and pasted" into today's note. Problem Qualifiers (1) Abdominal pain: Qualified Codes: R10.32 - Left lower quadrant pain (2) Anemia: (3) Malabsorption syndrome: Qualified Codes: K90.89 - Other intestinal malabsorption Wally Saldana MD Dec 25, 2016 09:10
[2016-12-25] MEDS: FLUoxetine HCL 10 MG CAP PO SCH (09:24)
[2016-12-25] MEDS: amLODIPine BESYLATE 5 MG TAB PO SCH (09:24)
[2016-12-25] MEDS: DICYCLOMINE HCL 20 MG TAB PO SCH ×3 (09:24→17:36)
[2016-12-25] MEDS: DOCUSATE SODIUM 50 MG/SENNA 8.6 MG TAB PO SCH ×2 (09:24→21:59)
[2016-12-25] MEDS: LACTATED RINGER'S 1000 ML INJ 1,000 ML IV SCH ×2 (09:26→18:35)
[2016-12-25] MEDS: NEOMYCIN SULFATE 500 MG TAB PO SCH ×2 (09:48→22:01)
--- NOTE | 2016-12-25 10:27 | HHI.PR ---
Subjective Remarks Follow-up for abdominal surgery Patient stated that she has a same abdominal pain but with mild improvement. Mildly nauseous but that has been improving. Deny any emesis. She remains afebrile. Patient stated that she has been walking down the hallway. Objective Vitals Vital Signs Date Time Temp Pulse Resp B/P (MAP) Pulse Ox O2 Delivery O2 Flow Rate FiO2 12/25/16 09:50 16 12/25/16 08:00 99.2 96 16 131/66 (87) 98 12/25/16 06:15 18 12/25/16 04:00 94 12/25/16 04:00 97.0 95 20 118/61 (80) 94 12/25/16 00:00 98.8 91 20 108/60 (76) 94 12/25/16 00:00 91 12/24/16 23:45 16 12/24/16 20:21 17 12/24/16 20:00 115 12/24/16 20:00 98.9 93 20 130/70 (90) 95 12/24/16 16:53 99.4 95 19 122/76 (91) 99 12/24/16 15:02 100 12/24/16 13:15 14 12/24/16 12:21 98.6 96 19 116/67 (83) 96 12/24/16 11:10 16 I/O 12/24/16 12/24/16 12/24/16 12/25/16 12/25/16 12/25/16 07:00 15:00 23:00 07:00 15:00 23:00 Intake Total 960 ml 420 ml 1000 ml Output Total 400 ml Balance 960 ml 20 ml 1000 ml Intake Oral 960 ml 420 ml IV Total 1000 ml Output Urine Total 400 ml # Voids 1 2 # Bowel Movements 6 0 Result Diagram: 12/24/16 0600 12/24/16 0600 Objective Remarks GENERAL: In NAD but looks sleepy CARDIOVASCULAR: Regular rate and rhythm without murmurs, gallops, or rubs. RESPIRATORY: Breath sounds equal bilaterally. No accessory muscle use. GASTROINTESTINAL: Abdomen soft and nondistended. Abdominal wound dressing in place. Positive tenderness to palpation diffusely more in the left lower quadrant. Negative peritoneal signs. MUSCULOSKELETAL: No cyanosis, or edema. BACK: Nontender without obvious deformity. No CVA tenderness. Procedures 12/21/2016 Exploratory laparotomy, lysis of massive adhesions greater than 2 hours. repair of enterotomies x2 12/18/2016 Enteroscopy with biopsies 1. 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 The mucosa of the stomach appeared normal 3. Normal duodenal mucosa in the entire duodenum 4. The exam showed no abnormalities in the jejunum; multiple biopsies were performed 5. Retroflexed views revealed no abnormalities Medications and IVs Current Medications Ondansetron HCl (Zofran Inj) 4 mg ONCE ONCE IV Last administered on 12/10/16 12:05; Start 12/10/16 at 11:45; Stop 12/10/16 at 11:47; Status DC Sodium Chloride 1,000 ml @ 1,000 mls/hr Q1H ONCE IV Last administered on 12:05; Start 12/10/16 at 11:44; Stop 12/10/16 at 12:43; Status DC Sodium Chloride 800 ml @ 1,000 mls/hr Q48M ONCE IV Last administered on 12:05; Start 12/10/16 at 11:44; Stop 12/10/16 at 12:31; Status DC Hydromorphone HCl (Dilaudid Pf Inj) 0.5 mg ONCE ONCE IV PUSH ; Start 12/10/16 at 11:45; Stop 12/10/16 at 12:11; Status DC Hydromorphone HCl (Dilaudid Pf Inj) 0.5 mg ONCE ONCE IV PUSH Last administered on 12/10/16 12:23; Start 12/10/16 at 12:15; Stop 12/10/16 at 12:16 ; Status DC Potassium Chloride 100 ml @ 25 mls/hr Q4H IV Last administered on 12/10/16 18 :44; Start 12/10/16 at 13:00; Stop 12/10/16 at 20:59; Status DC Magnesium Sulfate/ Dextrose 100 ml @ 100 mls/hr ONCE ONCE IV Last administered on 12/10/16 15:11; Start 12/10/16 at 14:15; Stop 12/10/16 at 15:14 ; Status DC Iohexol (Omnipaque 350 Inj) 96 ml STK-MED ONCE IVCONTRAST Last administered on 12/10/16 14:45; Start 12/10/16 at 14:45; Stop 12/10/16 at 14:46; Status DC Sodium Chloride (NS Flush) 2 ml UNSCH PRN IV FLUSH FLUSH AFTER USING IV ACCESS Last administered on 12/19/16 18:22; Start 12/10/16 at 15:15 Sodium Chloride (NS Flush) 2 ml BID IV FLUSH Last administered on 12/22/16 09: 07; Start 12/10/16 at 21:00 Acetaminophen (Tylenol) 650 mg Q4H PRN PO Headache, fever, pain 1-4 Last administered on 12/24/16 09:40; Start 12/10/16 at 15:15 Ondansetron HCl (Zofran Inj) 4 mg Q6H PRN IVP NAUSEA OR VOMITING Last administered on 12/21/16 16:08; Start 12/10/16 at 15:15 Naloxone HCl (Narcan Inj) 0.4 mg UNSCH PRN IV PUSH SEE LABEL COMMENTS; Start at 15:15 Senna/Docusate Sodium (Laura-Colace) 1 tab BID PO Last administered on 19:46; Start 12/10/16 at 21:00 Magnesium Hydroxide (Milk Of Magnesia Liq) 30 ml Q12H PRN PO MILD - MODERATE CONSTIPATION; Start 12/10/16 at 15:15 Sennosides (Senokot) 17.2 mg Q12H PRN PO MODERATE - SEVERE CONSTIPATION; Start 12/10/16 at 15:15 Bisacodyl (Dulcolax Supp) 10 mg DAILY PRN RECTAL SEVERE CONSITIPATION; Start at 15:15 Lactulose (Lactulose Liq) 30 ml DAILY PRN PO SEVERE CONSITIPATION; Start at 15:15 Magnesium Sulfate/ Dextrose 100 ml @ 100 mls/hr Q1H IV Last administered on 17:15; Start 12/10/16 at 15:15; Stop 12/10/16 at 17:14; Status DC Magnesium Sulfate/ Dextrose 100 ml @ 100 mls/hr Q1H IV Last administered on 21:24; Start 12/10/16 at 20:00; Stop 12/10/16 at 21:59; Status DC Dicyclomine HCl (Bentyl Inj) 20 mg ONCE ONCE IM ; Start 12/10/16 at 15:30; Stop 12/10/16 at 15:31; Status DC Ondansetron HCl (Zofran Inj) 4 mg ONCE ONCE IV PUSH Last administered on 17:15; Start 12/10/16 at 15:30; Stop 12/10/16 at 15:31; Status DC Ciprofloxacin/ Dextrose 200 ml @ 200 mls/hr Q12H IV Last administered on 05:00; Start 12/10/16 at 18:00; Stop 12/16/16 at 09:05; Status DC Metronidazole 100 ml @ 100 mls/hr Q8H IV Last administered on 12/16/16 03:18 ; Start 12/10/16 at 18:00; Stop 12/16/16 at 09:05; Status DC Hydromorphone HCl (Dilaudid Pf Inj) 1 mg Q4H PRN IV PUSH PAIN SCALE 5 TO 10 Last administered on 12/11/16 09:37; Start 12/10/16 at 16:00; Stop 12/11/16 at 09:49; Status DC Amlodipine Besylate (Norvasc) 5 mg DAILY PO Last administered on 12/24/16 08: 36; Start 12/11/16 at 09:00 Fluoxetine HCl (PROzac) 10 mg DAILY PO Last administered on 12/25/16 09:24; Start 12/11/16 at 09:00 Potassium Chloride 100 ml @ 50 mls/hr Q2H IV ; Start 12/11/16 at 09:45; Stop at 09:46; Status DC Potassium Chloride 100 ml @ 50 mls/hr Q2H IV ; Start 12/11/16 at 14:00; Stop at 14:00; Status DC Hydromorphone HCl (Dilaudid Pf Inj) 1 mg Q3H PRN IV PUSH PAIN SCALE 5 TO 10 Last administered on 12/15/16 09:32; Start 12/11/16 at 10:00; Stop 12/15/16 at 12:58; Status DC Potassium Chloride 100 ml @ 25 mls/hr Q4H IV Last administered on 12/11/16 14 :03; Start 12/11/16 at 12:00; Stop 12/11/16 at 19:59; Status DC Magnesium Sulfate/ Dextrose 100 ml @ 100 mls/hr ONCE ONCE IV Last administered on 12/11/16 17:18; Start 12/11/16 at 16:00; Stop 12/11/16 at 16:59 ; Status DC Enoxaparin Sodium (Lovenox Inj) 40 mg Q24H SQ Last administered on 12/12/16 20 :06; Start 12/11/16 at 20:00; Status Future hold Potassium Chloride 100 ml @ 25 mls/hr BOLUS ONCE IV Last administered on 12/12 08:01; Start 12/12/16 at 08:00; Stop 12/12/16 at 11:59; Status DC Potassium Chloride (KCl) 20 meq ONCE ONCE PO Last administered on 12/12/16 01 :24; Start 12/12/16 at 01:00; Stop 12/12/16 at 01:01; Status DC Potassium Chloride 100 ml @ 25 mls/hr Q4H IV ; Start 12/12/16 at 11:30; Stop at 11:37; Status DC Magnesium Sulfate/ Dextrose 100 ml @ 100 mls/hr Q1H IV Last administered on 20:09; Start 12/12/16 at 11:30; Stop 12/12/16 at 18:40; Status DC Magnesium Sulfate/ Dextrose 100 ml @ 100 mls/hr Q1H IV Last administered on 17:00; Start 12/12/16 at 16:00; Stop 12/12/16 at 17:59; Status DC Dicyclomine HCl (Bentyl) 20 mg TID PO Last administered on 12/25/16 09:24; Start 12/12/16 at 13:00 Diphenoxylate HCl/ Atropine (Lomotil Tab) 1 tab Q6H PRN PO DIARRHEA Last administered on 12/16/16 03:19; Start 12/12/16 at 11:30; Stop 12/20/16 at 11:22 ; Status DC Potassium Chloride 100 ml @ 50 mls/hr Q2H IV Last administered on 12/12/16 20 :08; Start 12/12/16 at 11:45; Stop 12/12/16 at 19:44; Status DC Magnesium Sulfate/ Dextrose 100 ml @ 100 mls/hr ONCE ONCE IV Last administered on 12/13/16 11:11; Start 12/13/16 at 11:30; Stop 12/13/16 at 12:29 ; Status DC Multivitamins 10 ml/Folic Acid 1 mg/Amino Acids/ Electrolytes/ Dextrose 1,010.2 ml @ 42 mls/hr Q24H IV-CENTRAL Last administered on 12/24/16 21:40; Start at 20:00 Fat Emulsion Intravenous 250 ml @ 31.25 mls/ hr SuWe@20 IV-CENTRAL Last administered on 12/23/16 20:18; Start 12/14/16 at 20:00 Potassium Chloride 100 ml @ 25 mls/hr Q4H IV Last administered on 12/15/16 12 :35; Start 12/15/16 at 07:30; Stop 12/15/16 at 15:29; Status DC Magnesium Sulfate/ Dextrose 100 ml @ 100 mls/hr Q1H IV Last administered on 09:45; Start 12/15/16 at 07:30; Stop 12/15/16 at 09:29; Status DC Magnesium Sulfate/ Dextrose 100 ml @ 100 mls/hr Q1H IV Last administered on 16:00; Start 12/15/16 at 15:00; Stop 12/15/16 at 16:59; Status DC Hydromorphone HCl (Dilaudid Pf Inj) 1.5 mg Q3H PRN IV PUSH PAIN SCALE 5 TO 10 Last administered on 12/20/16 08:00; Start 12/15/16 at 13:00; Stop 12/20/16 at 09:31; Status DC Promethazine HCl (Phenergan Inj) 12.5 mg Q6H PRN IM NAUSEA OR VOMITING Last administered on 12/16/16 03:19; Start 12/15/16 at 13:00; Stop 12/16/16 at 08:59 ; Status DC Promethazine HCl (Phenergan Inj) 12.5 mg Q6H PRN IV-CENTRAL NAUSEA OR VOMITING Last administered on 12/22/16 11:49; Start 12/16/16 at 13:00; Stop 12/22/16 at 12:38; Status DC Potassium Chloride 100 ml @ 25 mls/hr Q4H IV Last administered on 12/16/16 15 :35; Start 12/16/16 at 11:00; Stop 12/16/16 at 18:59; Status DC Neomycin Sulfate (Mycifradin) 500 mg Q12HR PO Last administered on 12/25/16 09 :48; Start 12/16/16 at 11:00 Dexamethasone (Decadron) 1 mg ONCE ONCE PO ; Start 12/16/16 at 23:00; Stop at 23:00; Status DC Cosyntropin (Cortrosyn Inj) 0.25 mg ONCE ONCE IV PUSH Last administered on 13:36; Start 12/17/16 at 13:00; Stop 12/17/16 at 13:01; Status DC Lactated Ringer's 1,000 ml @ 30 mls/hr Q24H PRN IV SEE LABEL COMMENTS; Start at 11:45; Stop 12/20/16 at 22:22; Status DC Sodium Chloride 500 ml @ 30 mls/hr [id number] PRN IV SEE LABEL COMMENTS; Start at 11:45; Stop 12/20/16 at 22:22; Status DC Metoprolol Tartrate (Lopressor) 25 mg ANIMAL PHYSIOLOGIST PRN PO SEE LABEL COMMENTS; Start 12/18/16 at 11:45; Stop 12/20/16 at 22:22; Status DC Povidone Iodine (Betadine 5% Antisepsis Kit) 1 applic ANIMAL PHYSIOLOGIST PRN EACH NARE SEE LABEL COMMENTS; Start 12/18/16 at 11:45; Stop 12/20/16 at 22:22; Status DC Chlorhexidine Gluconate (Chlorhexidine 2% Cloth) 3 pack ANIMAL PHYSIOLOGIST PRN TOPICAL SEE LABEL COMMENTS; Start 12/18/16 at 11:45; Stop 12/20/16 at 22:22; Status DC Insulin Human Regular (NovoLIN R INJ) See Protocol Table ... ANIMAL PHYSIOLOGIST PRN SQ SEE PROTOCOL TABLE; Start 12/18/16 at 11:45; Stop 12/20/16 at 22:22; Status DC Miscellaneous Information ALL NURSING DEPARTME... UNSCH PRN .XX SEE LABEL COMMENTS; Start 12/18/16 at 11:24; Stop 12/19/16 at 11:23; Status DC Lorazepam (Ativan Inj) 1 mg Q6H PRN IV PUSH ANXIETY Last administered on 09:25; Start 12/19/16 at 08:00 Magnesium Sulfate/ Dextrose 100 ml @ 100 mls/hr Q1H IV Last administered on 18:22; Start 12/19/16 at 08:00; Stop 12/19/16 at 09:59; Status DC Potassium Chloride 100 ml @ 25 mls/hr BOLUS ONCE IV ; Start 12/19/16 at 08:00 ; Stop 12/19/16 at 11:59; Status UNV Potassium Chloride 100 ml @ 50 mls/hr Q2H IV Last administered on 12/19/16 12 :25; Start 12/19/16 at 09:00; Stop 12/19/16 at 12:59; Status DC Magnesium Sulfate/ Dextrose 100 ml @ 100 mls/hr Q1H IV Last administered on 00:09; Start 12/19/16 at 22:15; Stop 12/20/16 at 00:14; Status DC Potassium Phosphate 30 mmol/ Sodium Chloride 260 ml @ 43.333 mls/ hr ONCE ONCE IV Last administered on 12/20/16 01:38; Start 12/19/16 at 22:00; Stop at 03:59; Status DC Hydromorphone HCl (Dilaudid Pf Inj) 2 mg Q3H PRN IV PUSH BREAKTHROUGH PAIN Last administered on 12/25/16 09:25; Start 12/20/16 at 09:45 Cefazolin Sodium/ Dextrose 50 ml @ 100 mls/hr ANIMAL PHYSIOLOGIST IV Last administered on 12/21/16 10:32; Start 12/20/16 at 12:00; Stop 12/24/16 at 11:59; Status DC Lactated Ringer's 1,000 ml @ 30 mls/hr Q24H PRN IV SEE LABEL COMMENTS Last administered on 12/22/16 10:03; Start 12/20/16 at 22:30; Stop 12/23/16 at 22:29 ; Status DC Sodium Chloride 500 ml @ 30 mls/hr [id number] PRN IV SEE LABEL COMMENTS; Start at 22:30; Stop 12/23/16 at 22:29; Status DC Metoprolol Tartrate (Lopressor) 25 mg ANIMAL PHYSIOLOGIST PRN PO SEE LABEL COMMENTS; Start 12/20/16 at 22:30; Stop 12/23/16 at 22:29; Status DC Povidone Iodine (Betadine 5% Antisepsis Kit) 1 applic ANIMAL PHYSIOLOGIST PRN EACH NARE SEE LABEL COMMENTS; Start 12/20/16 at 22:30; Stop 12/23/16 at 22:29; Status DC Chlorhexidine Gluconate (Chlorhexidine 2% Cloth) 3 pack ANIMAL PHYSIOLOGIST PRN TOPICAL SEE LABEL COMMENTS; Start 12/20/16 at 22:30; Stop 12/23/16 at 22:29; Status DC Insulin Human Regular (NovoLIN R INJ) See Protocol Table ... ANIMAL PHYSIOLOGIST PRN SQ SEE PROTOCOL TABLE; Start 12/20/16 at 22:30; Stop 12/23/16 at 22:29; Status DC Bupivacaine HCl/ Epinephrine Bitart (Sensorcaine-Epinephrine 0.25% Inj) 50 ml STK-MED ONCE .ROUTE ; Start 12/21/16 at 09:57; Stop 12/21/16 at 09:58; Status DC Sugammadex Sodium (Bridion Inj) 200 mg STK-MED ONCE IV PUSH ; Start 12/21/16 at 10:07; Stop 12/21/16 at 10:08; Status DC Phenylephrine HCl (Neosynephrine/ NS 1000 Mcg/10ml Syr) 1,000 mcg STK-MED ONCE .ROUTE ; Start 12/21/16 at 10:13; Stop 12/21/16 at 10:14; Status DC Succinylcholine Chloride (Quelicin Inj) 100 mg STK-MED ONCE .ROUTE ; Start 12/21 at 10:28; Stop 12/21/16 at 10:29; Status DC Rocuronium [place] (Zemuron Inj) 50 mg STK-MED ONCE IV PUSH ; Start 12/21/16 at 12:03; Stop 12/21/16 at 12:04; Status DC Naloxone HCl (Narcan Inj) 4 mg STK-MED ONCE .ROUTE ; Start 12/21/16 at 12:05; Stop 12/21/16 at 12:06; Status DC Hydromorphone HCl (Dilaudid DIRECTOR OF OUTSIDE SALES Inj) 6 mg UNSCH IV Last administered on 20:21; Start 12/21/16 at 13:45 DIRECTOR OF OUTSIDE SALES Dosage Infused (Pha) 1 Q8HR OTHER Last administered on 12/25/16 06:15; Start 12/21/16 at 14:00 Miscellaneous Information ALL NURSING DEPARTME... UNSCH PRN .XX SEE LABEL COMMENTS; Start 12/21/16 at 14:15; Stop 12/22/16 at 14:14; Status DC Labetalol HCl (*TRANDATE INJ PERIprocedural Use ONLY) 100 mg STK-MED ONCE .ROUTE Last administered on 12/21/16 14:15; Start 12/21/16 at 14:15; Stop at 14:16; Status DC Lactated Ringer's 1,000 ml @ 100 mls/hr Q10H IV Last administered on 09:26; Start 12/21/16 at 14:30 Hydromorphone HCl (*DILAUDID PF INJ PERIprocedural ONLY) 1 mg STK-MED ONCE .ROUTE Last administered on 12/21/16 14:39; Start 12/21/16 at 14:39; Stop at 14:40; Status DC Lidocaine HCl (Xylocaine-Mpf 1% Inj) 10 ml STK-MED ONCE OTHER ; Start 12/18/16 at 12:00; Stop 12/21/16 at 15:56; Status DC Midazolam HCl (Versed Inj) 2 mg STK-MED ONCE IV ; Start 12/18/16 at 12:00; Stop 12/21/16 at 15:56; Status DC Fentanyl Citrate (fentaNYL INJ) 100 mcg STK-MED ONCE IV ; Start 12/18/16 at 12: 00; Stop 12/21/16 at 15:56; Status DC Propofol (Diprivan 200 Mg/20 ml Inj) 400 mg STK-MED ONCE IV ; Start 12/18/16 at 12:00; Stop 12/21/16 at 15:56; Status DC Promethazine HCl (Phenergan Inj) 25 mg Q3HR PRN IV-CENTRAL NAUSEA OR VOMITING Last administered on 12/23/16 12:12; Start 12/22/16 at 15:00; Stop 12/23/16 at 12:55; Status DC Alteplase, Recombinant (Cathflo Activase Inj) 2 mg ONCE ONCE INTRACATH Last administered on 12/22/16 15:12; Start 12/22/16 at 15:15; Stop 12/22/16 at 15:16 ; Status DC Magnesium Sulfate/ Dextrose 100 ml @ 100 mls/hr Q1H IV Last administered on 18:21; Start 12/22/16 at 16:00; Stop 12/22/16 at 17:59; Status DC Promethazine HCl (Phenergan Inj) 12.5 mg Q3HR PRN IV-CENTRAL NAUSEA OR VOMITING Last administered on 12/25/16 09:25; Start 12/23/16 at 13:00 A/P Problem List: (1) Hypomagnesemia ICD Code: E83.42 - Hypomagnesemia Status: Chronic (2) Hypokalemia ICD Code: E87.6 - Hypokalemia Status: Chronic (3) Abdominal pain ICD Code: R10.9 - Abdominal pain Status: Chronic (4) Nausea and vomiting ICD Code: R11.2 - Nausea and vomiting Status: Acute Assessment and Plan Ms. Mensah is a pleasant 51-year-old female with a history of bowel obstruction and multiple surgeries who presents to the emergency department today due to hypokalemia as well as abdominal pain, nausea vomiting. Small bowel obstruction secondary to adhesions -Status post exploratory laparotomy, lysis of massive adhesions greater than 2 hours on 12/22. Diagnosis showed massive adhesions with fusion of all bowels to each other into the left lower quadrant abdominal fascia. -Patient on TPN. -Per GI performed endoscopies studies with biopsy on 12/18/2016. GI is considering Gattex but having difficulty getting approved by her insurance company. -Pain management per general surgeon. -Per general surgeon expecting slow recovery due to the extent of surgery. -Continue to encourage ambulation. Hypomagnesemia/hypokalemia -Due to emesis. -Replenish as other. Hypertension - continue amlodipine 5 mg daily Depression - continue fluoxetine 10 mg daily Full code. Lovenox. Problem Qualifiers (1) Abdominal pain: Qualified Codes: R10.32 - Left lower quadrant pain (2) Nausea and vomiting: Qualified Codes: R11.2 - Nausea with vomiting, unspecified Mackenzie Alexander MD Dec 25, 2016 10:27
[2016-12-25] MEDS: HYDROmorphone HCL PCA 6 MG/30 ML IV SCH ×2 (11:17→19:53)
[2016-12-25 14:02] LABS: HEMATOCRIT 25.7 % (35.0-46.0); MEAN CELL VOLUME 100.3 FL (80.0-100.0); MEAN CORPUSCULAR HEMOGLOBIN 34.5 PG (27.0-34.0); MEAN CORPUSCULAR HGB CONC 34.4 % (32.0-36.0); PLATELET COUNT 142 TH/MM3 (150-450); RED BLOOD COUNT 2.56 MIL/MM3 (4.00-5.30); RED CELL DISTRIBUTION WIDTH 12.8 % (11.6-17.2); REVIEW FLAG FINAL; WHITE BLOOD COUNT 6.5 TH/MM3 (4.0-11.0)
[2016-12-25 14:28] LABS: POTASSIUM 3.3 MEQ/L (3.5-5.1)
[2016-12-25] MEDS: MAGNESIUM SULFATE 1 GM PREMIX 100 ML IV SCH ×2 (17:36→18:35)
[2016-12-25] MEDS ORDERED: POTASSIUM PHOSPHATE INJ 30 MMOL in SODIUM CHLOR 0.9% 250 ML INJ 250 ML IV ONE (18:00)
[2016-12-25] MEDS: ENOXAPARIN SODIUM 40 MG/0.4 ML SYRINGE SQ SCH (21:59)
[2016-12-25] MEDS: CLINIMIX E 4.25/25 1000 mL- </= 42 mls/hr IV-CENTRAL SCH ×3 (22:00)
[2016-12-26] VITALS (10 sets, daily range): BP systolic 107–154; BP diastolic 71–89; PULSE 87–105; RESP 18–21; TEMP 96.8–100.4; O2SAT 96–99
[2016-12-26] MEDS: PROMETHAZINE INJ 25 MG/ML VIAL IV-CENTRAL PRN ×5 (01:02→22:06)
[2016-12-26] MEDS: HYDROmorphone HCL PF 2 MG/ML VIAL IV PUSH PRN ×5 (01:02→22:06)
[2016-12-26] MEDS: HYDROmorphone HCL PCA 6 MG/30 ML IV SCH ×2 (03:39→13:39)
[2016-12-26] MEDS: LORazepam 2 MG/ML VIAL IV PUSH PRN ×3 (04:14→23:42)
[2016-12-26] MEDS: PCA - TOTAL MG DILAUDID DELIVERED PER SHIFT OTHER SCH ×3 (06:10→22:09)
[2016-12-26] MEDS: LACTATED RINGER'S 1000 ML INJ 1,000 ML IV SCH ×3 (06:10→23:44)
--- NOTE | 2016-12-26 08:37 | HHI.PR ---
Subjective Subjective Notes took in 2 L of po yesterday feels bloated and vomited once, no flatus Objective Vitals/I&O Vital Signs Date Time Temp Pulse Resp B/P (MAP) Pulse Ox O2 Delivery O2 Flow Rate FiO2 12/26/16 08:03 98 12/26/16 06:10 18 12/26/16 04:00 96.8 127/84 (98) 99 12/22/16 17:35 21 Labs Laboratory Tests Test 12/25/16 13:16 White Blood Count 6.5 Red Blood Count 2.56 Hemoglobin 8.9 Hematocrit 25.7 Mean Corpuscular Volume 100.3 Mean Corpuscular Hemoglobin 34.5 Mean Corpuscular Hemoglobin Concent 34.4 Red Cell Distribution Width 12.8 Platelet Count 142 Mean Platelet Volume 9.0 Blood Urea Nitrogen 5 Creatinine 0.55 Random Glucose 116 Calcium Level 8.3 Sodium Level 140 Potassium Level 3.3 Chloride Level 103 Carbon Dioxide Level 29.0 Anion Gap 8 Estimat Glomerular Filtration Rate 117 Magnesium Level 1.5 Radiology Last Impressions Abdomen X-Ray 12/20/16 0000 Signed Impressions: Service Date/Time: Tuesday, December 20, 2016 11:53 - CONCLUSION: There are no imaging findings to indicate obstruction. There is a single air-fluid level in the central abdomen, most likely within the transverse colon. Hong Valerio MD Abdomen/Pelvis CT 12/10/16 1144 Signed Impressions: Service Date/Time: November 14:39 - CONCLUSION: 1. Mild hepatomegaly. 2. No acute intra-abdominal process. 3. Mild degenerative changes and scoliosis of the lumbar spine. Dung Arias MD Abdomen: Other (soft distended incisions c/d/i) A/P Problem List: (1) Intra-abdominal adhesions ICD Codes: K66.0 - Peritoneal adhesions (postprocedural) (postinfection) (2) Adhesion of intestine ICD Codes: K66.0 - Peritoneal adhesions (postprocedural) (postinfection) (3) Adhesion of abdominal wall ICD Codes: K66.0 - Peritoneal adhesions (postprocedural) (postinfection) (4) Adhesion of omentum ICD Codes: K66.0 - Peritoneal adhesions (postprocedural) (postinfection) (5) Lower abdominal adhesions ICD Codes: K66.0 - Peritoneal adhesions (postprocedural) (postinfection) (6) Abdominal pain ICD Codes: R10.9 - Abdominal pain Status: Chronic (7) Anemia ICD Codes: D64.9 - Anemia, unspecified Status: Acute (8) Diarrhea in adult patient ICD Codes: K52.9 - Diarrhea in adult patient Status: Chronic (9) Fibromyalgia ICD Codes: M79.7 - Fibromyalgia Status: Chronic (10) Anxiety and depression ICD Codes: F41.8 - Anxiety and depression Status: Chronic (11) Hypokalemia ICD Codes: E87.6 - Hypokalemia Status: Chronic (12) Hypomagnesemia ICD Codes: E83.42 - Hypomagnesemia Status: Chronic (13) Malabsorption syndrome ICD Codes: K90.9 - Intestinal malabsorption, unspecified Status: Chronic Assessment and Plan 51-year-old female who has malabsorption syndrome on TPN questionable small gut may be functional. Status post extensive lysis of adhesions most gone on the left lower quadrant area where she was mostly symptomatic PLAN AXR check lytes npo execpt ice and meds pain control encourage oob Problem Qualifiers (1) Abdominal pain: Qualified Codes: R10.32 - Left lower quadrant pain (2) Anemia: (3) Malabsorption syndrome: Qualified Codes: K90.89 - Other intestinal malabsorption Shaquille Gunn MD Dec 26, 2016 08:37
[2016-12-26] MEDS: DICYCLOMINE HCL 20 MG TAB PO SCH ×3 (08:46→19:11)
[2016-12-26] MEDS: SODIUM CHLORIDE 0.9% FLUSH 10 ML FLUSH IV FLUSH SCH ×2 (08:46→21:00)
[2016-12-26] MEDS: NEOMYCIN SULFATE 500 MG TAB PO SCH ×2 (08:47→22:05)
[2016-12-26] MEDS: FLUoxetine HCL 10 MG CAP PO SCH (08:47)
[2016-12-26] MEDS: DOCUSATE SODIUM 50 MG/SENNA 8.6 MG TAB PO SCH ×2 (08:48→21:00)
[2016-12-26] MEDS: amLODIPine BESYLATE 5 MG TAB PO SCH (08:49)
--- NOTE | 2016-12-26 10:00 | RADRPT ---
EXAM DATE/TIME: 12/26/2016 08:56 [facility] COMPARISON: CT ABDOMEN & PELVIS W CONTRAST, December 10, 2016, 14:39. ABDOMEN KUB ONLY, December 19, 2016, 8:0 2. INDICATIONS : Abdominal pain, distension MEDICAL HISTORY : Hypertension. Renal calculi SURGICAL HISTORY : Appendectomy. Cholecystectomy.Hysterectomy ENCOUNTER: Subsequent ACUITY: 2 weeks PAIN SCORE: 10/10 LOCATION: Bilateral abdomen FINDINGS: Stable appearance of mesh hardware with interval midline surgical clips. There is progressive distent ion of the large bowel with air as compared to the prior exam. The lung bases are clear. The osseous structures are unremarkable. CONCLUSION: Interval surgery with air dilated large bowel likely reflecting ileus. Petrona Celaya MD on December 26, 2016 at 9:56 Board Certified Radiologist. This report was verified electronically.
--- NOTE | 2016-12-26 11:37 | HHI.PR ---
Subjective Remarks Follow-up for abdominal surgery Patient stated that she feels bloated. When I asked her if she had a bowel movement she stated that she had a small one that was liquid. When I told patient she may be constipated she stated that she has severe diarrhea and went all night. I then spoke to patient's nurse who stated that she has not seen any diarrhea and nothing was reported. I told patient that she must tell her nurse if she has any bowel movement and save her BM until seen by nurse. Otherwise she remains afebrile. She also seemed to be sedated throughout the interview. Objective Vitals Vital Signs Date Time Temp Pulse Resp B/P (MAP) Pulse Ox O2 Delivery O2 Flow Rate FiO2 12/26/16 08:03 98 12/26/16 08:00 98.6 101 21 124/71 (88) 96 12/26/16 06:10 18 12/26/16 04:00 103 12/26/16 04:00 96.8 97 18 127/84 (98) 99 12/26/16 03:39 19 12/26/16 00:00 93 12/26/16 00:00 98.4 87 18 107/74 (85) 96 12/25/16 23:52 17 12/25/16 20:00 98.5 98 17 134/69 (90) 96 12/25/16 20:00 99 12/25/16 19:53 18 12/25/16 16:42 16 12/25/16 16:00 98.4 102 16 132/67 (88) 99 12/25/16 15:00 100 12/25/16 14:18 16 12/25/16 12:36 98.8 95 16 118/68 (85) 95 12/25/16 11:54 16 I/O 12/25/16 12/25/16 12/25/16 12/26/16 12/26/16 12/26/16 07:00 15:00 23:00 07:00 15:00 23:00 Intake Total 420 ml 1000 ml 3154 ml 480 ml Output Total 400 ml 400 ml 450 ml Balance 20 ml 1000 ml 2754 ml 30 ml Intake Oral 420 ml 1720 ml 480 ml IV Total 1000 ml 1434 ml Output Urine Total 400 ml 400 ml 450 ml # Voids 5 # Bowel Movements 0 2 Result Diagram: 12/25/16 1316 12/25/16 1316 Objective Remarks GENERAL: In NAD and intermittently fall asleep during interview. CARDIOVASCULAR: Regular rate and rhythm without murmurs, gallops, or rubs. RESPIRATORY: Breath sounds equal bilaterally. No accessory muscle use. GASTROINTESTINAL: Abdomen soft and nondistended. Abdominal wound dressing in place. Positive tenderness to palpation diffusely more in the left lower quadrant. Negative peritoneal signs. MUSCULOSKELETAL: No cyanosis, or edema. BACK: Nontender without obvious deformity. No CVA tenderness. Procedures 12/21/2016 Exploratory laparotomy, lysis of massive adhesions greater than 2 hours. repair of enterotomies x2 12/18/2016 Enteroscopy with biopsies 1. 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 The mucosa of the stomach appeared normal 3. Normal duodenal mucosa in the entire duodenum 4. The exam showed no abnormalities in the jejunum; multiple biopsies were performed 5. Retroflexed views revealed no abnormalities Medications and IVs Current Medications Ondansetron HCl (Zofran Inj) 4 mg ONCE ONCE IV Last administered on 12/10/16 12:05; Start 12/10/16 at 11:45; Stop 12/10/16 at 11:47; Status DC Sodium Chloride 1,000 ml @ 1,000 mls/hr Q1H ONCE IV Last administered on 12:05; Start 12/10/16 at 11:44; Stop 12/10/16 at 12:43; Status DC Sodium Chloride 800 ml @ 1,000 mls/hr Q48M ONCE IV Last administered on 12:05; Start 12/10/16 at 11:44; Stop 12/10/16 at 12:31; Status DC Hydromorphone HCl (Dilaudid Pf Inj) 0.5 mg ONCE ONCE IV PUSH ; Start 12/10/16 at 11:45; Stop 12/10/16 at 12:11; Status DC Hydromorphone HCl (Dilaudid Pf Inj) 0.5 mg ONCE ONCE IV PUSH Last administered on 12/10/16 12:23; Start 12/10/16 at 12:15; Stop 12/10/16 at 12:16 ; Status DC Potassium Chloride 100 ml @ 25 mls/hr Q4H IV Last administered on 12/10/16 18 :44; Start 12/10/16 at 13:00; Stop 12/10/16 at 20:59; Status DC Magnesium Sulfate/ Dextrose 100 ml @ 100 mls/hr ONCE ONCE IV Last administered on 12/10/16 15:11; Start 12/10/16 at 14:15; Stop 12/10/16 at 15:14 ; Status DC Iohexol (Omnipaque 350 Inj) 96 ml STK-MED ONCE IVCONTRAST Last administered on 12/10/16 14:45; Start 12/10/16 at 14:45; Stop 12/10/16 at 14:46; Status DC Sodium Chloride (NS Flush) 2 ml UNSCH PRN IV FLUSH FLUSH AFTER USING IV ACCESS Last administered on 12/19/16 18:22; Start 12/10/16 at 15:15 Sodium Chloride (NS Flush) 2 ml BID IV FLUSH Last administered on 12/25/16 22: 00; Start 12/10/16 at 21:00 Acetaminophen (Tylenol) 650 mg Q4H PRN PO Headache, fever, pain 1-4 Last administered on 12/24/16 09:40; Start 12/10/16 at 15:15 Ondansetron HCl (Zofran Inj) 4 mg Q6H PRN IVP NAUSEA OR VOMITING Last administered on 12/21/16 16:08; Start 12/10/16 at 15:15 Naloxone HCl (Narcan Inj) 0.4 mg UNSCH PRN IV PUSH SEE LABEL COMMENTS; Start at 15:15 Senna/Docusate Sodium (Laura-Colace) 1 tab BID PO Last administered on 19:46; Start 12/10/16 at 21:00 Magnesium Hydroxide (Milk Of Magnesia Liq) 30 ml Q12H PRN PO MILD - MODERATE CONSTIPATION; Start 12/10/16 at 15:15 Sennosides (Senokot) 17.2 mg Q12H PRN PO MODERATE - SEVERE CONSTIPATION; Start 12/10/16 at 15:15 Bisacodyl (Dulcolax Supp) 10 mg DAILY PRN RECTAL SEVERE CONSITIPATION; Start at 15:15 Lactulose (Lactulose Liq) 30 ml DAILY PRN PO SEVERE CONSITIPATION; Start at 15:15 Magnesium Sulfate/ Dextrose 100 ml @ 100 mls/hr Q1H IV Last administered on 17:15; Start 12/10/16 at 15:15; Stop 12/10/16 at 17:14; Status DC Magnesium Sulfate/ Dextrose 100 ml @ 100 mls/hr Q1H IV Last administered on 21:24; Start 12/10/16 at 20:00; Stop 12/10/16 at 21:59; Status DC Dicyclomine HCl (Bentyl Inj) 20 mg ONCE ONCE IM ; Start 12/10/16 at 15:30; Stop 12/10/16 at 15:31; Status DC Ondansetron HCl (Zofran Inj) 4 mg ONCE ONCE IV PUSH Last administered on 17:15; Start 12/10/16 at 15:30; Stop 12/10/16 at 15:31; Status DC Ciprofloxacin/ Dextrose 200 ml @ 200 mls/hr Q12H IV Last administered on 05:00; Start 12/10/16 at 18:00; Stop 12/16/16 at 09:05; Status DC Metronidazole 100 ml @ 100 mls/hr Q8H IV Last administered on 12/16/16 03:18 ; Start 12/10/16 at 18:00; Stop 12/16/16 at 09:05; Status DC Hydromorphone HCl (Dilaudid Pf Inj) 1 mg Q4H PRN IV PUSH PAIN SCALE 5 TO 10 Last administered on 12/11/16 09:37; Start 12/10/16 at 16:00; Stop 12/11/16 at 09:49; Status DC Amlodipine Besylate (Norvasc) 5 mg DAILY PO Last administered on 12/24/16 08: 36; Start 12/11/16 at 09:00 Fluoxetine HCl (PROzac) 10 mg DAILY PO Last administered on 12/26/16 08:47; Start 12/11/16 at 09:00 Potassium Chloride 100 ml @ 50 mls/hr Q2H IV ; Start 12/11/16 at 09:45; Stop at 09:46; Status DC Potassium Chloride 100 ml @ 50 mls/hr Q2H IV ; Start 12/11/16 at 14:00; Stop at 14:00; Status DC Hydromorphone HCl (Dilaudid Pf Inj) 1 mg Q3H PRN IV PUSH PAIN SCALE 5 TO 10 Last administered on 12/15/16 09:32; Start 12/11/16 at 10:00; Stop 12/15/16 at 12:58; Status DC Potassium Chloride 100 ml @ 25 mls/hr Q4H IV Last administered on 12/11/16 14 :03; Start 12/11/16 at 12:00; Stop 12/11/16 at 19:59; Status DC Magnesium Sulfate/ Dextrose 100 ml @ 100 mls/hr ONCE ONCE IV Last administered on 12/11/16 17:18; Start 12/11/16 at 16:00; Stop 12/11/16 at 16:59 ; Status DC Enoxaparin Sodium (Lovenox Inj) 40 mg Q24H SQ Last administered on 12/12/16 20 :06; Start 12/11/16 at 20:00; Status Future hold Potassium Chloride 100 ml @ 25 mls/hr BOLUS ONCE IV Last administered on 12/12 08:01; Start 12/12/16 at 08:00; Stop 12/12/16 at 11:59; Status DC Potassium Chloride (KCl) 20 meq ONCE ONCE PO Last administered on 12/12/16 01 :24; Start 12/12/16 at 01:00; Stop 12/12/16 at 01:01; Status DC Potassium Chloride 100 ml @ 25 mls/hr Q4H IV ; Start 12/12/16 at 11:30; Stop at 11:37; Status DC Magnesium Sulfate/ Dextrose 100 ml @ 100 mls/hr Q1H IV Last administered on 20:09; Start 12/12/16 at 11:30; Stop 12/12/16 at 18:40; Status DC Magnesium Sulfate/ Dextrose 100 ml @ 100 mls/hr Q1H IV Last administered on 17:00; Start 12/12/16 at 16:00; Stop 12/12/16 at 17:59; Status DC Dicyclomine HCl (Bentyl) 20 mg TID PO Last administered on 12/26/16 08:46; Start 12/12/16 at 13:00 Diphenoxylate HCl/ Atropine (Lomotil Tab) 1 tab Q6H PRN PO DIARRHEA Last administered on 12/16/16 03:19; Start 12/12/16 at 11:30; Stop 12/20/16 at 11:22 ; Status DC Potassium Chloride 100 ml @ 50 mls/hr Q2H IV Last administered on 12/12/16 20 :08; Start 12/12/16 at 11:45; Stop 12/12/16 at 19:44; Status DC Magnesium Sulfate/ Dextrose 100 ml @ 100 mls/hr ONCE ONCE IV Last administered on 12/13/16 11:11; Start 12/13/16 at 11:30; Stop 12/13/16 at 12:29 ; Status DC Multivitamins 10 ml/Folic Acid 1 mg/Amino Acids/ Electrolytes/ Dextrose 1,010.2 ml @ 42 mls/hr Q24H IV-CENTRAL Last administered on 12/25/16 22:00; Start at 20:00 Fat Emulsion Intravenous 250 ml @ 31.25 mls/ hr SuWe@20 IV-CENTRAL Last administered on 12/23/16 20:18; Start 12/14/16 at 20:00 Potassium Chloride 100 ml @ 25 mls/hr Q4H IV Last administered on 12/15/16 12 :35; Start 12/15/16 at 07:30; Stop 12/15/16 at 15:29; Status DC Magnesium Sulfate/ Dextrose 100 ml @ 100 mls/hr Q1H IV Last administered on 09:45; Start 12/15/16 at 07:30; Stop 12/15/16 at 09:29; Status DC Magnesium Sulfate/ Dextrose 100 ml @ 100 mls/hr Q1H IV Last administered on 16:00; Start 12/15/16 at 15:00; Stop 12/15/16 at 16:59; Status DC Hydromorphone HCl (Dilaudid Pf Inj) 1.5 mg Q3H PRN IV PUSH PAIN SCALE 5 TO 10 Last administered on 12/20/16 08:00; Start 12/15/16 at 13:00; Stop 12/20/16 at 09:31; Status DC Promethazine HCl (Phenergan Inj) 12.5 mg Q6H PRN IM NAUSEA OR VOMITING Last administered on 12/16/16 03:19; Start 12/15/16 at 13:00; Stop 12/16/16 at 08:59 ; Status DC Promethazine HCl (Phenergan Inj) 12.5 mg Q6H PRN IV-CENTRAL NAUSEA OR VOMITING Last administered on 12/22/16 11:49; Start 12/16/16 at 13:00; Stop 12/22/16 at 12:38; Status DC Potassium Chloride 100 ml @ 25 mls/hr Q4H IV Last administered on 12/16/16 15 :35; Start 12/16/16 at 11:00; Stop 12/16/16 at 18:59; Status DC Neomycin Sulfate (Mycifradin) 500 mg Q12HR PO Last administered on 12/26/16 08 :47; Start 12/16/16 at 11:00 Dexamethasone (Decadron) 1 mg ONCE ONCE PO ; Start 12/16/16 at 23:00; Stop at 23:00; Status DC Cosyntropin (Cortrosyn Inj) 0.25 mg ONCE ONCE IV PUSH Last administered on 13:36; Start 12/17/16 at 13:00; Stop 12/17/16 at 13:01; Status DC Lactated Ringer's 1,000 ml @ 30 mls/hr Q24H PRN IV SEE LABEL COMMENTS; Start at 11:45; Stop 12/20/16 at 22:22; Status DC Sodium Chloride 500 ml @ 30 mls/hr [id number] PRN IV SEE LABEL COMMENTS; Start at 11:45; Stop 12/20/16 at 22:22; Status DC Metoprolol Tartrate (Lopressor) 25 mg FORECLOSURE SPECIALIST PRN PO SEE LABEL COMMENTS; Start 12/18/16 at 11:45; Stop 12/20/16 at 22:22; Status DC Povidone Iodine (Betadine 5% Antisepsis Kit) 1 applic FORECLOSURE SPECIALIST PRN EACH NARE SEE LABEL COMMENTS; Start 12/18/16 at 11:45; Stop 12/20/16 at 22:22; Status DC Chlorhexidine Gluconate (Chlorhexidine 2% Cloth) 3 pack FORECLOSURE SPECIALIST PRN TOPICAL SEE LABEL COMMENTS; Start 12/18/16 at 11:45; Stop 12/20/16 at 22:22; Status DC Insulin Human Regular (NovoLIN R INJ) See Protocol Table ... FORECLOSURE SPECIALIST PRN SQ SEE PROTOCOL TABLE; Start 12/18/16 at 11:45; Stop 12/20/16 at 22:22; Status DC Miscellaneous Information ALL NURSING DEPARTME... UNSCH PRN .XX SEE LABEL COMMENTS; Start 12/18/16 at 11:24; Stop 12/19/16 at 11:23; Status DC Lorazepam (Ativan Inj) 1 mg Q6H PRN IV PUSH ANXIETY Last administered on 04:14; Start 12/19/16 at 08:00 Magnesium Sulfate/ Dextrose 100 ml @ 100 mls/hr Q1H IV Last administered on 18:22; Start 12/19/16 at 08:00; Stop 12/19/16 at 09:59; Status DC Potassium Chloride 100 ml @ 25 mls/hr BOLUS ONCE IV ; Start 12/19/16 at 08:00 ; Stop 12/19/16 at 11:59; Status UNV Potassium Chloride 100 ml @ 50 mls/hr Q2H IV Last administered on 12/19/16 12 :25; Start 12/19/16 at 09:00; Stop 12/19/16 at 12:59; Status DC Magnesium Sulfate/ Dextrose 100 ml @ 100 mls/hr Q1H IV Last administered on 00:09; Start 12/19/16 at 22:15; Stop 12/20/16 at 00:14; Status DC Potassium Phosphate 30 mmol/ Sodium Chloride 260 ml @ 43.333 mls/ hr ONCE ONCE IV Last administered on 12/20/16 01:38; Start 12/19/16 at 22:00; Stop at 03:59; Status DC Hydromorphone HCl (Dilaudid Pf Inj) 2 mg Q3H PRN IV PUSH BREAKTHROUGH PAIN Last administered on 12/26/16 07:32; Start 12/20/16 at 09:45 Cefazolin Sodium/ Dextrose 50 ml @ 100 mls/hr FORECLOSURE SPECIALIST IV Last administered on 12/21/16 10:32; Start 12/20/16 at 12:00; Stop 12/24/16 at 11:59; Status DC Lactated Ringer's 1,000 ml @ 30 mls/hr Q24H PRN IV SEE LABEL COMMENTS Last administered on 12/22/16t 10:03; Start 12/20/16 at 22:30; Stop 12/23/16 at 22:29 ; Status DC Sodium Chloride 500 ml @ 30 mls/hr [id number] PRN IV SEE LABEL COMMENTS; Start at 22:30; Stop 12/23/16 at 22:29; Status DC Metoprolol Tartrate (Lopressor) 25 mg FORECLOSURE SPECIALIST PRN PO SEE LABEL COMMENTS; Start 12/20/16 at 22:30; Stop 12/23/16 at 22:29; Status DC Povidone Iodine (Betadine 5% Antisepsis Kit) 1 applic FORECLOSURE SPECIALIST PRN EACH NARE SEE LABEL COMMENTS; Start 12/20/16 at 22:30; Stop 12/23/16 at 22:29; Status DC Chlorhexidine Gluconate (Chlorhexidine 2% Cloth) 3 pack FORECLOSURE SPECIALIST PRN TOPICAL SEE LABEL COMMENTS; Start 12/20/16 at 22:30; Stop 12/23/16 at 22:29; Status DC Insulin Human Regular (NovoLIN R INJ) See Protocol Table ... FORECLOSURE SPECIALIST PRN SQ SEE PROTOCOL TABLE; Start 12/20/16 at 22:30; Stop 12/23/16 at 22:29; Status DC Bupivacaine HCl/ Epinephrine Bitart (Sensorcaine-Epinephrine 0.25% Inj) 50 ml STK-MED ONCE .ROUTE ; Start 12/21/16 at 09:57; Stop 12/21/16 at 09:58; Status DC Sugammadex Sodium (Bridion Inj) 200 mg STK-MED ONCE IV PUSH ; Start 12/21/16 at 10:07; Stop 12/21/16 at 10:08; Status DC Phenylephrine HCl (Neosynephrine/ NS 1000 Mcg/10ml Syr) 1,000 mcg STK-MED ONCE .ROUTE ; Start 12/21/16 at 10:13; Stop 12/21/16 at 10:14; Status DC Succinylcholine Chloride (Quelicin Inj) 100 mg STK-MED ONCE .ROUTE ; Start 12/21 at 10:28; Stop 12/21/16 at 10:29; Status DC Rocuronium [place] (Zemuron Inj) 50 mg STK-MED ONCE IV PUSH ; Start 12/21/16 at 12:03; Stop 12/21/16 at 12:04; Status DC Naloxone HCl (Narcan Inj) 4 mg STK-MED ONCE .ROUTE ; Start 12/21/16 at 12:05; Stop 12/21/16 at 12:06; Status DC Hydromorphone HCl (Dilaudid SALES SUPPORT ADVISOR Inj) 6 mg UNSCH IV Last administered on 03:39; Start 12/21/16 at 13:45 SALES SUPPORT ADVISOR Dosage Infused (Pha) 1 Q8HR OTHER Last administered on 12/26/16 06:10; Start 12/21/16 at 14:00 Miscellaneous Information ALL NURSING DEPARTME... UNSCH PRN .XX SEE LABEL COMMENTS; Start 12/21/16 at 14:15; Stop 12/22/16 at 14:14; Status DC Labetalol HCl (*TRANDATE INJ PERIprocedural Use ONLY) 100 mg STK-MED ONCE .ROUTE Last administered on 12/21/16 14:15; Start 12/21/16 at 14:15; Stop at 14:16; Status DC Lactated Ringer's 1,000 ml @ 100 mls/hr Q10H IV Last administered on 06:10; Start 12/21/16 at 14:30 Hydromorphone HCl (*DILAUDID PF INJ PERIprocedural ONLY) 1 mg STK-MED ONCE .ROUTE Last administered on 12/21/16 14:39; Start 12/21/16 at 14:39; Stop at 14:40; Status DC Lidocaine HCl (Xylocaine-Mpf 1% Inj) 10 ml STK-MED ONCE OTHER ; Start 12/18/16 at 12:00; Stop 12/21/16 at 15:56; Status DC Midazolam HCl (Versed Inj) 2 mg STK-MED ONCE IV ; Start 12/18/16 at 12:00; Stop 12/21/16 at 15:56; Status DC Fentanyl Citrate (fentaNYL INJ) 100 mcg STK-MED ONCE IV ; Start 12/18/16 at 12: 00; Stop 12/21/16 at 15:56; Status DC Propofol (Diprivan 200 Mg/20 ml Inj) 400 mg STK-MED ONCE IV ; Start 12/18/16 at 12:00; Stop 12/21/16 at 15:56; Status DC Promethazine HCl (Phenergan Inj) 25 mg Q3HR PRN IV-CENTRAL NAUSEA OR VOMITING Last administered on 12/23/16 12:12; Start 12/22/16 at 15:00; Stop 12/23/16 at 12:55; Status DC Alteplase, Recombinant (Cathflo Activase Inj) 2 mg ONCE ONCE INTRACATH Last administered on 12/22/16 15:12; Start 12/22/16 at 15:15; Stop 12/22/16 at 15:16 ; Status DC Magnesium Sulfate/ Dextrose 100 ml @ 100 mls/hr Q1H IV Last administered on 18:21; Start 12/22/16 at 16:00; Stop 12/22/16 at 17:59; Status DC Promethazine HCl (Phenergan Inj) 12.5 mg Q3HR PRN IV-CENTRAL NAUSEA OR VOMITING Last administered on 12/26/16 07:32; Start 12/23/16 at 13:00 Magnesium Sulfate/ Dextrose 100 ml @ 100 mls/hr Q1H IV Last administered on 18:35; Start 12/25/16 at 18:00; Stop 12/25/16 at 19:59; Status DC Potassium Phosphate 30 mmol/ Sodium Chloride 260 ml @ 43.333 mls/ hr ONCE ONCE IV Last administered on 12/25/16 19:55; Start 12/25/16 at 18:00; Stop at 23:59; Status DC A/P Problem List: (1) Hypomagnesemia ICD Code: E83.42 - Hypomagnesemia Status: Chronic (2) Hypokalemia ICD Code: E87.6 - Hypokalemia Status: Chronic (3) Abdominal pain ICD Code: R10.9 - Abdominal pain Status: Chronic (4) Nausea and vomiting ICD Code: R11.2 - Nausea and vomiting Status: Acute Assessment and Plan Ms. Mensah is a pleasant 51-year-old female with a history of bowel obstruction and multiple surgeries who presents to the emergency department today due to hypokalemia as well as abdominal pain, nausea vomiting. Small bowel obstruction secondary to adhesions -Status post exploratory laparotomy, lysis of massive adhesions greater than 2 hours on 12/22. Diagnosis showed massive adhesions with fusion of all bowels to each other into the left lower quadrant abdominal fascia. -Patient on TPN. -Per GI performed endoscopies studies with biopsy on 12/18/2016. GI is considering Gattex but having difficulty getting approved by her insurance company. -Pain management per general surgeon. -Per general surgeon expecting slow recovery due to the extent of surgery. -Continue to encourage ambulation. -Dealt with patient's nurse to talk with general surgery in regards to pain management since patient seems to be sedated with medication. ? diarrhea -not witness. educated nurse and patient. patient's nurse will notify me when patient has episode diarrhea. Hypomagnesemia/hypokalemia -Due to emesis. -Replenish as other. Hypertension - continue amlodipine 5 mg daily Depression - continue fluoxetine 10 mg daily Full code. Lovenox. Problem Qualifiers (1) Abdominal pain: Qualified Codes: R10.32 - Left lower quadrant pain (2) Nausea and vomiting: Qualified Codes: R11.2 - Nausea with vomiting, unspecified Mackenzie Alexander MD Dec 26, 2016 11:37
[2016-12-26 15:31] LABS: HEMATOCRIT 27.9 % (35.0-46.0); MEAN CELL VOLUME 101.1 FL (80.0-100.0); MEAN CORPUSCULAR HEMOGLOBIN 33.3 PG (27.0-34.0); PLATELET COUNT 184 TH/MM3 (150-450); RED BLOOD COUNT 2.76 MIL/MM3 (4.00-5.30); RED CELL DISTRIBUTION WIDTH 12.8 % (11.6-17.2); REVIEW FLAG FINAL
[2016-12-26 15:43] LABS: BICARBONATE 25.7 MEQ/L (21.0-32.0); POTASSIUM 3.6 MEQ/L (3.5-5.1)
[2016-12-26] MEDS: ENOXAPARIN SODIUM 40 MG/0.4 ML SYRINGE SQ SCH (22:04)
[2016-12-26] MEDS: CLINIMIX E 4.25/25 1000 mL- </= 42 mls/hr IV-CENTRAL SCH ×3 (22:05)
[2016-12-27] VITALS (11 sets, daily range): BP systolic 113–143; BP diastolic 73–78; PULSE 89–105; RESP 17–20; TEMP 98.3–98.9; O2SAT 93–98
[2016-12-27] MEDS: PROMETHAZINE INJ 25 MG/ML VIAL IV-CENTRAL PRN ×5 (02:41→16:47)
[2016-12-27] MEDS: HYDROmorphone HCL PF 2 MG/ML VIAL IV PUSH PRN ×6 (02:41→18:42)
[2016-12-27] MEDS: PCA - TOTAL MG DILAUDID DELIVERED PER SHIFT OTHER SCH ×3 (06:00→20:21)
[2016-12-27 06:04] LABS: MEAN CELL VOLUME 100.2 FL (80.0-100.0); MEAN CORPUSCULAR HEMOGLOBIN 34.2 PG (27.0-34.0); MEAN CORPUSCULAR HGB CONC 34.2 % (32.0-36.0); PLATELET COUNT 184 TH/MM3 (150-450); RED CELL DISTRIBUTION WIDTH 12.7 % (11.6-17.2); REVIEW FLAG FINAL; WHITE BLOOD COUNT 7.5 TH/MM3 (4.0-11.0)
[2016-12-27 06:35] LABS: BICARBONATE 25.1 MEQ/L (21.0-32.0); POTASSIUM 3.3 MEQ/L (3.5-5.1)
[2016-12-27] MEDS: HYDROmorphone HCL PCA 6 MG/30 ML IV SCH ×3 (07:11→20:15)
[2016-12-27] MEDS: FLUoxetine HCL 10 MG CAP PO SCH (09:02)
[2016-12-27] MEDS: DICYCLOMINE HCL 20 MG TAB PO SCH ×3 (09:02→18:42)
[2016-12-27] MEDS: NEOMYCIN SULFATE 500 MG TAB PO SCH ×2 (09:02→20:21)
[2016-12-27] MEDS: amLODIPine BESYLATE 5 MG TAB PO SCH (09:05)
[2016-12-27] MEDS: DOCUSATE SODIUM 50 MG/SENNA 8.6 MG TAB PO SCH ×2 (09:06→20:21)
[2016-12-27] MEDS: SODIUM CHLORIDE 0.9% FLUSH 10 ML FLUSH IV FLUSH SCH ×2 (09:06→20:21)
[2016-12-27] MEDS: LORazepam 2 MG/ML VIAL IV PUSH PRN ×2 (11:43→20:20)
--- NOTE | 2016-12-27 12:41 | HHI.PR ---
Subjective Subjective Notes More painful today; drank about 2 liters yesterday Passing some flatus. Objective Vitals/I&O Vital Signs Date Time Temp Pulse Resp B/P (MAP) Pulse Ox O2 Delivery O2 Flow Rate FiO2 12/27/16 11:30 98.3 93 20 143/78 (99) 97 Labs Laboratory Tests Test 12/26/16 14:20 12/27/16 05:30 White Blood Count 9.0 7.5 Red Blood Count 2.76 2.70 Hemoglobin 9.2 9.2 Hematocrit 27.9 27.0 Mean Corpuscular Volume 101.1 100.2 Mean Corpuscular Hemoglobin 33.3 34.2 Mean Corpuscular Hemoglobin Concent 33.0 34.2 Red Cell Distribution Width 12.8 12.7 Platelet Count 184 184 Mean Platelet Volume 8.3 8.2 Blood Urea Nitrogen 4 6 Creatinine 0.53 0.57 Random Glucose 145 139 Calcium Level 8.3 8.5 Sodium Level 137 137 Potassium Level 3.6 3.3 Chloride Level 105 104 Carbon Dioxide Level 25.7 25.1 Anion Gap 6 8 Estimat Glomerular Filtration Rate 123 113 Radiology Last Impressions Abdomen X-Ray 12/20/16 0000 Signed Impressions: Service Date/Time: Tuesday, December 20, 2016 11:53 - CONCLUSION: There are no imaging findings to indicate obstruction. There is a single air-fluid level in the central abdomen, most likely within the transverse colon. Hong Valerio MD Abdomen/Pelvis CT 12/10/16 1144 Signed Impressions: Service Date/Time: November 14:39 - CONCLUSION: 1. Mild hepatomegaly. 2. No acute intra-abdominal process. 3. Mild degenerative changes and scoliosis of the lumbar spine. Dung Arias MD Lungs: Clear Abdomen: Other (Moderately distended, painful to palpation with guarding) A/P Problem List: (1) Intra-abdominal adhesions ICD Codes: K66.0 - Peritoneal adhesions (postprocedural) (postinfection) (2) Adhesion of intestine ICD Codes: K66.0 - Peritoneal adhesions (postprocedural) (postinfection) (3) Adhesion of abdominal wall ICD Codes: K66.0 - Peritoneal adhesions (postprocedural) (postinfection) (4) Adhesion of omentum ICD Codes: K66.0 - Peritoneal adhesions (postprocedural) (postinfection) (5) Lower abdominal adhesions ICD Codes: K66.0 - Peritoneal adhesions (postprocedural) (postinfection) (6) Abdominal pain ICD Codes: R10.9 - Abdominal pain Status: Chronic (7) Anemia ICD Codes: D64.9 - Anemia, unspecified Status: Acute (8) Diarrhea in adult patient ICD Codes: K52.9 - Diarrhea in adult patient Status: Chronic (9) Fibromyalgia ICD Codes: M79.7 - Fibromyalgia Status: Chronic (10) Anxiety and depression ICD Codes: F41.8 - Anxiety and depression Status: Chronic (11) Hypokalemia ICD Codes: E87.6 - Hypokalemia Status: Chronic (12) Hypomagnesemia ICD Codes: E83.42 - Hypomagnesemia Status: Chronic (13) Malabsorption syndrome ICD Codes: K90.9 - Intestinal malabsorption, unspecified Status: Chronic Assessment and Plan Plan A/P Problem List: (1) Abdominal pain ICD Codes: R10.9 - Abdominal pain Status: Chronic (2) Anemia ICD Codes: D64.9 - Anemia, unspecified Status: Acute (3) Diarrhea in adult patient ICD Codes: K52.9 - Diarrhea in adult patient Status: Acute (4) Fibromyalgia ICD Codes: M79.7 - Fibromyalgia Status: Chronic (5) Anxiety and depression ICD Codes: F41.8 - Anxiety and depression Status: Chronic (6) Hypokalemia ICD Codes: E87.6 - Hypokalemia Status: Chronic (7) Hypomagnesemia ICD Codes: E83.42 - Hypomagnesemia Status: Chronic (8) Malabsorption syndrome ICD Codes: K90.9 - Intestinal malabsorption, unspecified Status: Chronic Assessment and Plan 51-year-old female who has malabsorption syndrome on TPN POD #6 ex lap/MARCO Wound clean and dry; dressing from yesterday intact. Continue TPN Instructed to only take ice chips today Supplement K+ Attending Statement I attest that I had a [id number] encounter with the patient on the same day, and personally performed and documented my assessment and findings in the medical record. The following services were provided during this hospital visit: Chart data review, vital sign assessments/reviewing monitor data Review of consultations notes if present. Medication orders/review and/or management Ordering and/or reviewing lab tests Ordering and/or interpreting/reviewing x-rays and/or diagnostic studies Care of the patient and discussion of the patient with the care team Documentation time To help prompt me to consider important information that might be impacting today's encounter and assessment, information from prior notes written by myself or my colleagues may have been "brought forward/copy and pasted" into today's note. Problem Qualifiers (1) Abdominal pain: Qualified Codes: R10.32 - Left lower quadrant pain (2) Anemia: (3) Malabsorption syndrome: Qualified Codes: K90.89 - Other intestinal malabsorption Ajay Thompson MD Dec 27, 2016 12:41
[2016-12-27] MEDS: LACTATED RINGER'S 1000 ML INJ 1,000 ML IV SCH ×2 (12:49→20:52)
--- NOTE | 2016-12-27 13:48 | HHI.PR ---
Subjective Remarks feels abdomen more distended had drink lots of fluids yesterday states passing out flatus ON TPN for nutrition patient trying- good efforts with IS Objective Vitals Vital Signs Date Time Temp Pulse Resp B/P (MAP) Pulse Ox O2 Delivery O2 Flow Rate FiO2 12/27/16 11:30 98.3 93 20 143/78 (99) 97 12/27/16 07:50 98.6 90 20 137/75 (95) 96 12/27/16 07:31 89 12/27/16 07:11 18 12/27/16 04:00 98.6 99 17 123/73 (90) 96 12/27/16 00:00 98.5 95 17 113/74 (87) 97 12/27/16 00:00 89 12/26/16 22:09 18 12/26/16 20:11 100 12/26/16 20:00 100.0 102 18 154/89 (110) 98 12/26/16 16:31 100.4 96 20 128/74 (92) 98 12/26/16 16:17 94 I/O 12/26/16 12/26/16 12/26/16 12/27/16 12/27/16 12/27/16 07:00 15:00 23:00 07:00 15:00 23:00 Intake Total 480 ml 720 ml 360 ml Output Total 450 ml 1500 ml 525 ml Balance 30 ml -780 ml -165 ml Intake Oral 480 ml 720 ml 360 ml Output Urine Total 450 ml 600 ml 525 ml Stool Total 900 ml # Voids 3 # Bowel Movements 1 1 Result Diagram: 12/27/16 0530 12/27/16 0530 Imaging Last Impressions Abdomen X-Ray 12/26/16 0000 Signed Impressions: Service Date/Time: Monday, December 26, 2016 08:56 - CONCLUSION: Interval surgery with air dilated large bowel likely reflecting ileus. Petrona Celaya MD Abdomen/Pelvis CT 12/10/16 1144 Signed Impressions: Service Date/Time: November 14:39 - CONCLUSION: 1. Mild hepatomegaly. 2. No acute intra-abdominal process. 3. Mild degenerative changes and scoliosis of the lumbar spine. Dung Arias MD Objective Remarks awake and alert,anicteric no nuchal rigidity lungs- no rales regular rhythm abdomen- distended, few bowel sounds, abdominal binder in place extremities no edema moves all extremities spontaneously Procedures 12/21/2016 Exploratory laparotomy, lysis of massive adhesions greater than 2 hours. repair of enterotomies x2 12/18/2016 Enteroscopy with biopsies 1. 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 The mucosa of the stomach appeared normal 3. Normal duodenal mucosa in the entire duodenum 4. The exam showed no abnormalities in the jejunum; multiple biopsies were performed 5. Retroflexed views revealed no abnormalities A/P Problem List: (1) Hypomagnesemia ICD Code: E83.42 - Hypomagnesemia Status: Chronic (2) Hypokalemia ICD Code: E87.6 - Hypokalemia Status: Chronic (3) Abdominal pain ICD Code: R10.9 - Abdominal pain Status: Chronic (4) Nausea and vomiting ICD Code: R11.2 - Nausea and vomiting Status: Acute Assessment and Plan Ms. Mensah is a pleasant 51-year-old female with a history of bowel obstruction and multiple surgeries who presents to the emergency department today due to hypokalemia as well as abdominal pain, nausea vomiting. Status post exploratory laparotomy, lysis of massive adhesions greater than 2 hours on 12/22. -pathology showed massive adhesions with fusion of all bowels to each other into the left lower quadrant abdominal fascia. -Patient on TPN. -Per GI performed endoscopies studies with biopsy on 12/18/2016. GI is considering Gattex but having difficulty getting approved by her insurance company. -Pain management per general surgeon. -Per general surgeon expecting slow recovery due to the extent of surgery. -Continue to encourage ambulation. - diet changed back to ice chips today- 12/27- GS ff -states some flatus today Hypomagnesemia/hypokalemia -Due to emesis. -electrolyte replacement- KCL 20 meq IV x 1 -ff BMP Hypertension - continue amlodipine 5 mg daily Depression - continue fluoxetine 10 mg daily Full code. Lovenox. Problem Qualifiers (1) Abdominal pain: Qualified Codes: R10.32 - Left lower quadrant pain (2) Nausea and vomiting: Qualified Codes: R11.2 - Nausea with vomiting, unspecified Artem Zimmerman MD Dec 27, 2016 13:48
[2016-12-27] MEDS: POTASSIUM CHLOR 20 MEQ PREMIX 100 ML IV SCH ×2 (15:00→16:47)
[2016-12-27] MEDS: ENOXAPARIN SODIUM 40 MG/0.4 ML SYRINGE SQ SCH (20:21)
[2016-12-27] MEDS: CLINIMIX E 4.25/25 1000 mL- </= 42 mls/hr IV-CENTRAL SCH ×3 (20:52)
[2016-12-27] MEDS: FAT EMULSION 20% INJ 250 ML (Twice weekly over 8 hours) IV-CENTRAL SCH (23:00)
[2016-12-28] VITALS (7 sets, daily range): BP systolic 113–138; BP diastolic 56–75; PULSE 89–105; RESP 16–20; TEMP 96.9–99.4; O2SAT 97–100
[2016-12-28] MEDS: PROMETHAZINE INJ 25 MG/ML VIAL IV-CENTRAL PRN ×8 (00:21→23:09)
[2016-12-28] MEDS: HYDROmorphone HCL PF 2 MG/ML VIAL IV PUSH PRN ×8 (00:21→22:38)
[2016-12-28] MEDS: HYDROmorphone HCL PCA 6 MG/30 ML IV SCH ×3 (03:11→19:27)
[2016-12-28] MEDS: PCA - TOTAL MG DILAUDID DELIVERED PER SHIFT OTHER SCH ×3 (06:00→22:00)
[2016-12-28 06:10] LABS: BICARBONATE 24.5 MEQ/L (21.0-32.0); POTASSIUM 3.5 MEQ/L (3.5-5.1)
--- NOTE | 2016-12-28 08:33 | HHI.PR ---
Subjective Remarks Seen in her bedroom patient not eating she is been kept NPO by General Surgery continue distended but no nausea, or vomit, passed flatus but not yet BMs Objective Vital Signs Date Time Temp Pulse Resp B/P (MAP) Pulse Ox O2 Delivery O2 Flow Rate FiO2 12/28/16 06:00 18 12/28/16 04:00 96.9 101 17 128/73 (91) 99 12/28/16 03:11 18 12/28/16 00:00 97.7 98 16 127/75 (92) 98 12/27/16 23:38 97 12/27/16 20:21 16 12/27/16 20:15 16 12/27/16 20:03 97 12/27/16 20:00 98.9 99 17 137/75 (95) 98 12/27/16 16:07 104 12/27/16 15:50 98.7 105 20 126/73 (90) 93 12/27/16 14:54 18 12/27/16 14:53 18 12/27/16 12:05 95 12/27/16 11:30 98.3 93 20 143/78 (99) 97 I/O 12/27/16 12/27/16 12/27/16 12/28/16 12/28/16 12/28/16 07:00 15:00 23:00 07:00 15:00 23:00 Intake Total 360 ml 460 ml 240 ml 420 ml Output Total 525 ml 650 ml 450 ml Balance -165 ml -190 ml -210 ml 420 ml Intake Oral 360 ml 360 ml 240 ml IV Total 100 ml 420 ml Output Urine Total 525 ml 650 ml 450 ml # Bowel Movements 1 4 Result Diagram: 12/27/16 0530 12/28/16 0440 Imaging Last Impressions Abdomen X-Ray 12/26/16 0000 Signed Impressions: Service Date/Time: Monday, December 26, 2016 08:56 - CONCLUSION: Interval surgery with air dilated large bowel likely reflecting ileus. Petrona Celaya MD Abdomen/Pelvis CT 12/10/16 1144 Signed Impressions: Service Date/Time: November 14:39 - CONCLUSION: 1. Mild hepatomegaly. 2. No acute intra-abdominal process. 3. Mild degenerative changes and scoliosis of the lumbar spine. Dung Arias MD Procedures 12/21/2016 Exploratory laparotomy, lysis of massive adhesions greater than 2 hours. repair of enterotomies x2 12/18/2016 Enteroscopy with biopsies 1. 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 The mucosa of the stomach appeared normal 3. Normal duodenal mucosa in the entire duodenum 4. The exam showed no abnormalities in the jejunum; multiple biopsies were performed 5. Retroflexed views revealed no abnormalities Other Results Laboratory Tests Test 12/10/16 11:50 12/11/16 07:07 12/11/16 16:00 12/16/16 10:00 Prothrombin Time 10.7 SEC Prothromb Time International Ratio 1.0 RATIO Activated Partial Thromboplast Time 25.3 SEC Urine Color YELLOW Urine Turbidity CLEAR Urine pH 6.5 Urine Specific [place] 1.012 Urine Protein 30 mg/dL Urine Glucose (UA) NEG mg/dL Urine Ketones NEG mg/dL Urine Occult Blood NEG Urine Nitrite NEG Urine Bilirubin NEG Urine Urobilinogen LESS THAN 2.0 MG/DL Urine Leukocyte Esterase NEG Urine RBC LESS THAN 1 /hpf Urine WBC 2 /hpf Urine Mucus FEW /lpf Microscopic Urinalysis Comment CATH-CULT NOT IND Lactic Acid Level 2.0 mmol/L Blood Urea Nitrogen 14 MG/DL 8 MG/DL Creatinine 1.00 MG/DL 0.71 MG/DL Random Glucose 86 MG/DL 104 MG/DL Total Protein 8.0 GM/DL 5.8 GM/DL Albumin 4.0 GM/DL Calcium Level 8.6 MG/DL 7.3 MG/DL Alkaline Phosphatase 80 U/L Aspartate Amino Transf (AST/SGOT) 15 U/L Alanine Aminotransferase (ALT/SGPT) 24 U/L Total Bilirubin 0.3 MG/DL Sodium Level 139 MEQ/L 142 MEQ/L Potassium Level 2.4 MEQ/L 2.5 MEQ/L Chloride Level 109 MEQ/L 114 MEQ/L Carbon Dioxide Level 20.2 MEQ/L 19.7 MEQ/L Lipase 228 U/L Protein Corrected Calcium 8.0 MG/DL Magnesium Level 1.9 MG/DL Stool C. difficile Toxin (PCR) NEGATIVE Stl C. difficile Toxin Epiderm 027 PRESUMPTIVE NEGATIVE Stool Collection Duration Random h Stool Weight 8 g Stool Percent Fat 23 % fat Stool Total Lipids, Quantitative Test 12/17/16 09:15 12/21/16 07:43 12/22/16 11:40 12/25/16 13:16 Random Cortisol 18.4 MCG/DL Adrenocorticotropic Hormone 38 pg/mL Neutrophils (%) (Auto) 58.3 % Lymphocytes (%) (Auto) 30.0 % Monocytes (%) (Auto) 10.4 % Eosinophils (%) (Auto) 1.1 % Basophils (%) (Auto) 0.2 % Neutrophils # (Auto) 4.3 TH/MM3 Lymphocytes # (Auto) 2.2 TH/MM3 Monocytes # (Auto) 0.8 TH/MM3 Eosinophils # (Auto) 0.1 TH/MM3 Basophils # (Auto) 0.0 TH/MM3 CBC Comment DIFF FINAL Differential Comment Hematology Comments Magnesium Level 1.5 MG/DL Test 12/27/16 05:30 12/28/16 04:40 White Blood Count 7.5 TH/MM3 Red Blood Count 2.70 MIL/MM3 Hemoglobin 9.2 GM/DL Hematocrit 27.0 % Mean Corpuscular Volume 100.2 FL Mean Corpuscular Hemoglobin 34.2 PG Mean Corpuscular Hemoglobin Concent 34.2 % Red Cell Distribution Width 12.7 % Platelet Count 184 TH/MM3 Mean Platelet Volume 8.2 FL Blood Urea Nitrogen 6 MG/DL Creatinine 0.53 MG/DL Random Glucose 88 MG/DL Calcium Level 8.4 MG/DL Sodium Level 138 MEQ/L Potassium Level 3.5 MEQ/L Chloride Level 105 MEQ/L Carbon Dioxide Level 24.5 MEQ/L Anion Gap 9 MEQ/L Estimat Glomerular Filtration Rate 123 ML/MIN Objective Remarks GENERAL: Alert and oriented x 3. No acute distress. SKIN: Warm and dry. HEAD: Atraumatic. Normocephalic. EYES: Pupils equal and round. No scleral icterus. No injection or drainage. ENT: No nasal bleeding or discharge. Mucous membranes pink and moist. NECK: Trachea midline. No JVD. CARDIOVASCULAR: Regular rate and rhythm. RESPIRATORY: No accessory muscle use. Clear to auscultation. Breath sounds equal bilaterally. GASTROINTESTINAL: Distended, low bowel sounds, abdominal binder in place. MUSCULOSKELETAL: Extremities without clubbing, cyanosis, or edema. No obvious deformities. NEUROLOGICAL: Awake and alert. No obvious cranial nerve deficits. Motor grossly within normal limits. Five out of 5 muscle strength in the arms and legs. Normal speech. PSYCHIATRIC: Appropriate mood and affect; insight and judgment normal. Medications and IVs Current Medications Medications (Trade) Dose Ordered Sig/Larry Route Start Time Stop Time Status Last Admin (NS Flush) 2 ml UNSCH PRN IV FLUSH 12/10/16 15:15 12/19/16 18:22 (NS Flush) 2 ml BID IV FLUSH 12/10/16 21:00 12/25/16 22:00 (Tylenol) 650 mg Q4H PRN PO 12/10/16 15:15 12/24/16 09:40 (Zofran Inj) 4 mg Q6H PRN IVP 12/10/16 15:15 12/21/16 16:08 (Narcan Inj) 0.4 mg UNSCH PRN IV PUSH 12/10/16 15:15 (Laura-Colace) 1 tab BID PO 12/10/16 21:00 12/21/16 19:46 (Milk Of Magnesia Liq) 30 ml Q12H PRN PO 12/10/16 15:15 (Senokot) 17.2 mg Q12H PRN PO 12/10/16 15:15 (Dulcolax Supp) 10 mg DAILY PRN RECTAL 12/10/16 15:15 (Lactulose Liq) 30 ml DAILY PRN PO 12/10/16 15:15 (Norvasc) 5 mg DAILY PO 12/11/16 09:00 12/24/16 08:36 (PROzac) 10 mg DAILY PO 12/11/16 09:00 12/27/16 09:02 (Lovenox Inj) 40 mg Q24H SQ 12/11/16 20:00 Future hold 12/27/16 20:21 (Bentyl) 20 mg TID PO 12/12/16 13:00 12/27/16 18:42 Multivitamins 10 ml/Folic Acid 1 mg/Amino Acids/ Electrolytes/ Dextrose 1,010.2 ml @ 42 mls/hr Q24H IV-CENTRAL 12/14/16 20:00 12/27/16 20:52 Fat Emulsion Intravenous 250 ml @ 31.25 mls/ hr SuWe@20 IV-CENTRAL 12/14/16 20:00 12/27/16 23:00 (Mycifradin) 500 mg Q12HR PO 12/16/16 11:00 12/27/16 20:21 (Ativan Inj) 1 mg Q6H PRN IV PUSH 12/19/16 08:00 12/27/16 20:20 (Dilaudid Pf Inj) 2 mg Q3H PRN IV PUSH 12/20/16 09:45 12/28/16 06:20 (Dilaudid BIOMASS TECHNICIAN Inj) 6 mg UNSCH IV 12/21/16 13:45 12/28/16 03:11 BIOMASS TECHNICIAN Dosage Infused (Pha) 1 Q8HR OTHER 12/21/16 14:00 12/28/16 06:00 Lactated Ringer's 1,000 ml @ 100 mls/hr Q10H IV 12/21/16 14:30 12/27/16 20:52 (Phenergan Inj) 12.5 mg Q3HR PRN IV-CENTRAL 12/23/16 13:00 12/28/16 06:20 A/P Assessment and Plan Ms. Mensah is a pleasant 51-year-old female with a history of bowel obstruction and multiple surgeries who presents to the emergency department today due to hypokalemia as well as abdominal pain, nausea vomiting. Status post exploratory laparotomy, lysis of massive adhesions greater than 2 hours on 12/22. -pathology showed massive adhesions with fusion of all bowels to each other into the left lower quadrant abdominal fascia. -Patient on TPN. -Per GI performed endoscopies studies with biopsy on 12/18/2016. GI is considering Gattex but having difficulty getting approved by her insurance company. -Pain management per general surgeon. -Per general surgeon expecting slow recovery due to the extent of surgery. -Continue to encourage ambulation. - diet changed back to ice chips today- 12/27- GS ff -states some flatus today Hypomagnesemia/hypokalemia -continue replacement. Hypertension - continue amlodipine 5 mg daily Depression - continue fluoxetine 10 mg daily Full code. Lovenox. Discharge Planning Once cleared by General Surgery. Aubrey Bowman MD Dec 28, 2016 08:32
[2016-12-28] MEDS: DOCUSATE SODIUM 50 MG/SENNA 8.6 MG TAB PO SCH ×2 (09:00→21:00)
[2016-12-28] MEDS: amLODIPine BESYLATE 5 MG TAB PO SCH (09:00)
[2016-12-28 09:57] LABS: MAGNESIUM 1.3 MG/DL (1.5-2.5)
[2016-12-28] MEDS: NEOMYCIN SULFATE 500 MG TAB PO SCH ×2 (10:25→22:39)
[2016-12-28] MEDS: DICYCLOMINE HCL 20 MG TAB PO SCH ×3 (10:25→16:34)
[2016-12-28] MEDS: FLUoxetine HCL 10 MG CAP PO SCH (10:25)
[2016-12-28] MEDS: LORazepam 2 MG/ML VIAL IV PUSH PRN ×3 (10:28→23:08)
[2016-12-28] MEDS: SODIUM CHLORIDE 0.9% FLUSH 10 ML FLUSH IV FLUSH SCH ×3 (10:29→23:09)
[2016-12-28] MEDS: MAGNESIUM SULFATE 1 GM PREMIX 100 ML IV SCH ×2 (13:05→16:35)
--- NOTE | 2016-12-28 16:48 | HHI.PR ---
Subjective Subjective Notes DAILY PROGRESS NOTE FOR SURGICAL ATTENDING, DR. WALLY SALDANA Sipping on liquids Resting in bed Objective Vitals/I&O Vital Signs Date Time Temp Pulse Resp B/P (MAP) Pulse Ox O2 Delivery O2 Flow Rate FiO2 12/28/16 14:00 18 12/28/16 12:16 98.8 102 118/56 (90) 97 Labs Laboratory Tests Test 12/28/16 04:40 Blood Urea Nitrogen 6 Creatinine 0.53 Random Glucose 88 Calcium Level 8.4 Sodium Level 138 Potassium Level 3.5 Chloride Level 105 Carbon Dioxide Level 24.5 Anion Gap 9 Estimat Glomerular Filtration Rate 123 Phosphorus Level 3.7 Magnesium Level 1.3 Radiology Last Impressions Abdomen X-Ray 12/20/16 0000 Signed Impressions: Service Date/Time: Tuesday, December 20, 2016 11:53 - CONCLUSION: There are no imaging findings to indicate obstruction. There is a single air-fluid level in the central abdomen, most likely within the transverse colon. Hong Valerio MD Abdomen/Pelvis CT 12/10/16 1144 Signed Impressions: Service Date/Time: November 14:39 - CONCLUSION: 1. Mild hepatomegaly. 2. No acute intra-abdominal process. 3. Mild degenerative changes and scoliosis of the lumbar spine. Dung Arias MD Cardiovascular: Regular Lungs: Clear Abdomen: Other (distended; midline incision with nahid ) Extremities: No edema A/P Problem List: (1) Intra-abdominal adhesions ICD Codes: K66.0 - Peritoneal adhesions (postprocedural) (postinfection) Status: Chronic (2) Adhesion of intestine ICD Codes: K66.0 - Peritoneal adhesions (postprocedural) (postinfection) Status: Chronic (3) Adhesion of abdominal wall ICD Codes: K66.0 - Peritoneal adhesions (postprocedural) (postinfection) Status: Chronic (4) Adhesion of omentum ICD Codes: K66.0 - Peritoneal adhesions (postprocedural) (postinfection) Status: Chronic (5) Lower abdominal adhesions ICD Codes: K66.0 - Peritoneal adhesions (postprocedural) (postinfection) Status: Chronic (6) Abdominal pain ICD Codes: R10.9 - Abdominal pain Status: Chronic (7) Anemia ICD Codes: D64.9 - Anemia, unspecified Status: Acute (8) Diarrhea in adult patient ICD Codes: K52.9 - Diarrhea in adult patient Status: Chronic (9) Fibromyalgia ICD Codes: M79.7 - Fibromyalgia Status: Chronic (10) Anxiety and depression ICD Codes: F41.8 - Anxiety and depression Status: Chronic (11) Hypokalemia ICD Codes: E87.6 - Hypokalemia Status: Chronic (12) Hypomagnesemia ICD Codes: E83.42 - Hypomagnesemia Status: Chronic (13) Malabsorption syndrome ICD Codes: K90.9 - Intestinal malabsorption, unspecified Status: Chronic Assessment and Plan 51 year old female s/p ex lap; MARCO -Continued distention -Replace electrolytes -Sips of clears -TPN -Encouraged continued mobilization Attending Statement NOTE FOR SURGICAL ATTENDING, DR. WALLY SALDANA I agree with above assessment and plan. The following services were provided during this hospital visit: Chart data review, vital sign assessments/reviewing monitor data Review of consultations notes if present. Medication orders/review and/or management Ordering and/or reviewing lab tests Ordering and/or interpreting/reviewing x-rays and/or diagnostic studies Care of the patient and discussion of the patient with the care team Documentation time To help prompt me to consider important information that might be impacting today's encounter and assessment, information from prior notes written by myself or my colleagues may have been "brought forward/copy and pasted" into today's note. Problem Qualifiers (1) Abdominal pain: Qualified Codes: R10.32 - Left lower quadrant pain (2) Anemia: (3) Malabsorption syndrome: Qualified Codes: K90.89 - Other intestinal malabsorption Lois Villalapndo Dec 28, 2016 16:48 Wally Saldana MD Dec 29, 2016 09:49
[2016-12-28] MEDS: LACTATED RINGER'S 1000 ML INJ 1,000 ML IV SCH (19:31)
[2016-12-28] MEDS: ENOXAPARIN SODIUM 40 MG/0.4 ML SYRINGE SQ SCH (20:00)
[2016-12-28] MEDS: CLINIMIX E 4.25/25 1000 mL- </= 42 mls/hr IV-CENTRAL SCH ×3 (22:38)
[2016-12-29] VITALS (8 sets, daily range): BP systolic 104–145; BP diastolic 60–75; PULSE 89–109; RESP 16–18; TEMP 98.2–99.1; O2SAT 93–100
[2016-12-29] MEDS: PROMETHAZINE INJ 25 MG/ML VIAL IV-CENTRAL PRN ×7 (01:37→21:25)
[2016-12-29] MEDS: HYDROmorphone HCL PF 2 MG/ML VIAL IV PUSH PRN ×7 (01:38→21:24)
[2016-12-29] MEDS: LACTATED RINGER'S 1000 ML INJ 1,000 ML IV SCH ×3 (02:30→22:30)
[2016-12-29] MEDS: PCA - TOTAL MG DILAUDID DELIVERED PER SHIFT OTHER SCH ×3 (05:59→21:28)
[2016-12-29 07:22] LABS: BICARBONATE 22.7 MEQ/L (21.0-32.0); MAGNESIUM 1.6 MG/DL (1.5-2.5); POTASSIUM 3.5 MEQ/L (3.5-5.1)
[2016-12-29] MEDS: amLODIPine BESYLATE 5 MG TAB PO SCH (09:00)
[2016-12-29] MEDS: DOCUSATE SODIUM 50 MG/SENNA 8.6 MG TAB PO SCH ×2 (09:00→21:00)
--- NOTE | 2016-12-29 09:49 | HHI.PR ---
Subjective Subjective Notes DAILY PROGRESS NOTE FOR SURGICAL ATTENDING, DR. CLOVER SALDANA Having a little watery diarrhea Objective Vitals/I&O Vital Signs Date Time Temp Pulse Resp B/P (MAP) Pulse Ox O2 Delivery O2 Flow Rate FiO2 12/29/16 08:59 98.2 94 16 104/62 (76) 93 12/29/16 05:59 16 12/29/16 05:34 16 12/29/16 04:00 98.5 103 16 137/75 (95) 99 12/29/16 00:00 99.1 99 17 126/60 (82) 98 12/28/16 22:00 16 12/28/16 20:10 92 12/28/16 20:00 99.4 105 17 117/61 (79) 98 12/28/16 19:27 18 12/28/16 16:00 98.7 103 20 138/69 (92) 100 12/28/16 14:00 18 12/28/16 12:59 18 12/28/16 12:16 98.8 102 20 118/56 (76) 97 Vital Signs Date Time Temp Pulse Resp B/P (MAP) Pulse Ox O2 Delivery O2 Flow Rate FiO2 12/29/16 08:59 98.2 94 16 104/62 (76) 93 Labs Laboratory Tests Test 12/29/16 06:28 Blood Urea Nitrogen 6 Creatinine 0.61 Random Glucose 97 Calcium Level 8.4 Magnesium Level 1.6 Sodium Level 138 Potassium Level 3.5 Chloride Level 105 Carbon Dioxide Level 22.7 Anion Gap 10 Estimat Glomerular Filtration Rate 104 Radiology Last Impressions Abdomen X-Ray 12/20/16 0000 Signed Impressions: Service Date/Time: Tuesday, December 20, 2016 11:53 - CONCLUSION: There are no imaging findings to indicate obstruction. There is a single air-fluid level in the central abdomen, most likely within the transverse colon. Hong Valerio MD Abdomen/Pelvis CT 12/10/16 1144 Signed Impressions: Service Date/Time: November 14:39 - CONCLUSION: 1. Mild hepatomegaly. 2. No acute intra-abdominal process. 3. Mild degenerative changes and scoliosis of the lumbar spine. Dung Arias MD Cardiovascular: Regular Abdomen: Other (abdomen slightly distended midline wound healing), Post-op tenderness Extremities: Perfused Narrative Exam Patient able to walk the halls Wound Wound : Wound Location: Abdomen Appearance: Clean & Dry Drainage: Clear Dressing: Dry A/P Problem List: (1) Hypomagnesemia ICD Codes: E83.42 - Hypomagnesemia Status: Chronic (2) Hypokalemia ICD Codes: E87.6 - Hypokalemia Status: Chronic (3) Malabsorption syndrome ICD Codes: K90.9 - Intestinal malabsorption, unspecified Status: Chronic (4) Intra-abdominal adhesions ICD Codes: K66.0 - Peritoneal adhesions (postprocedural) (postinfection) Status: Chronic (5) Adhesion of intestine ICD Codes: K66.0 - Peritoneal adhesions (postprocedural) (postinfection) Status: Chronic (6) Adhesion of abdominal wall ICD Codes: K66.0 - Peritoneal adhesions (postprocedural) (postinfection) Status: Chronic (7) Adhesion of omentum ICD Codes: K66.0 - Peritoneal adhesions (postprocedural) (postinfection) Status: Chronic (8) Lower abdominal adhesions ICD Codes: K66.0 - Peritoneal adhesions (postprocedural) (postinfection) Status: Chronic (9) Abdominal pain ICD Codes: R10.9 - Abdominal pain Status: Chronic (10) Anemia ICD Codes: D64.9 - Anemia, unspecified Status: Acute (11) Diarrhea in adult patient ICD Codes: K52.9 - Diarrhea in adult patient Status: Chronic (12) Fibromyalgia ICD Codes: M79.7 - Fibromyalgia Status: Chronic (13) Anxiety and depression ICD Codes: F41.8 - Anxiety and depression Status: Chronic Assessment and Plan 51-year-old female who has malabsorption syndrome on TPN questionable small gut may be functional. Status post extensive lysis of adhesions most gone on the left lower quadrant area where she was mostly symptomatic Doing fairly well Postop pain Wound clean and dry Ambulate incentive spirometer Replacement magnesium Okay for patient to shower Attending Statement NOTE FOR SURGICAL ATTENDING, DR. CLOVER SALDANA I attest that I had a [id number] encounter with the patient on the same day, and personally performed and documented my assessment and findings in the medical record. The following services were provided during this hospital visit: Chart data review, vital sign assessments/reviewing monitor data Review of consultations notes if present. Medication orders/review and/or management Ordering and/or reviewing lab tests Ordering and/or interpreting/reviewing x-rays and/or diagnostic studies Care of the patient and discussion of the patient with the care team Documentation time To help prompt me to consider important information that might be impacting today's encounter and assessment, information from prior notes written by myself or my colleagues may have been "brought forward/copy and pasted" into today's note. Problem Qualifiers (1) Malabsorption syndrome: Qualified Codes: K90.89 - Other intestinal malabsorption (2) Abdominal pain: Qualified Codes: R10.32 - Left lower quadrant pain (3) Anemia: Clover Saldana MD Dec 29, 2016 09:49
--- NOTE | 2016-12-29 09:51 | HHI.PR ---
Subjective Subjective Notes Resting in bed Continues to sip of water and ice chips Objective Vitals/I&O Vital Signs Date Time Temp Pulse Resp B/P (MAP) Pulse Ox O2 Delivery O2 Flow Rate FiO2 12/29/16 08:59 98.2 94 16 104/62 (76) 93 Labs Laboratory Tests Test 12/29/16 06:28 Blood Urea Nitrogen 6 Creatinine 0.61 Random Glucose 97 Calcium Level 8.4 Magnesium Level 1.6 Sodium Level 138 Potassium Level 3.5 Chloride Level 105 Carbon Dioxide Level 22.7 Anion Gap 10 Estimat Glomerular Filtration Rate 104 Radiology Last Impressions Abdomen X-Ray 12/20/16 0000 Signed Impressions: Service Date/Time: Tuesday, December 20, 2016 11:53 - CONCLUSION: There are no imaging findings to indicate obstruction. There is a single air-fluid level in the central abdomen, most likely within the transverse colon. Hong Valerio MD Abdomen/Pelvis CT 12/10/16 1144 Signed Impressions: Service Date/Time: November 14:39 - CONCLUSION: 1. Mild hepatomegaly. 2. No acute intra-abdominal process. 3. Mild degenerative changes and scoliosis of the lumbar spine. Dung Arias MD Cardiovascular: Regular Lungs: Clear Abdomen: Other (distended; midline incision with nahid--dressing changed; all over tenderness ) Extremities: No edema A/P Problem List: (1) Hypomagnesemia ICD Codes: E83.42 - Hypomagnesemia Status: Chronic (2) Hypokalemia ICD Codes: E87.6 - Hypokalemia Status: Chronic (3) Malabsorption syndrome ICD Codes: K90.9 - Intestinal malabsorption, unspecified Status: Chronic (4) Intra-abdominal adhesions ICD Codes: K66.0 - Peritoneal adhesions (postprocedural) (postinfection) Status: Chronic (5) Adhesion of intestine ICD Codes: K66.0 - Peritoneal adhesions (postprocedural) (postinfection) Status: Chronic (6) Adhesion of abdominal wall ICD Codes: K66.0 - Peritoneal adhesions (postprocedural) (postinfection) Status: Chronic (7) Adhesion of omentum ICD Codes: K66.0 - Peritoneal adhesions (postprocedural) (postinfection) Status: Chronic (8) Lower abdominal adhesions ICD Codes: K66.0 - Peritoneal adhesions (postprocedural) (postinfection) Status: Chronic (9) Abdominal pain ICD Codes: R10.9 - Abdominal pain Status: Chronic (10) Anemia ICD Codes: D64.9 - Anemia, unspecified Status: Acute (11) Diarrhea in adult patient ICD Codes: K52.9 - Diarrhea in adult patient Status: Chronic (12) Fibromyalgia ICD Codes: M79.7 - Fibromyalgia Status: Chronic (13) Anxiety and depression ICD Codes: F41.8 - Anxiety and depression Status: Chronic Assessment and Plan 51 year old female s/p ex lap; MARCO -Continued distention -Replace magnesium today -Sips of clears -Continue TPN -Encouraged continued mobilization -Okay to shower -Encouraged sipping on coffee/tea; chewing gum Problem Qualifiers (1) Malabsorption syndrome: Qualified Codes: K90.89 - Other intestinal malabsorption (2) Abdominal pain: Qualified Codes: R10.32 - Left lower quadrant pain (3) Anemia: Lois Villalpando Dec 29, 2016 09:50
[2016-12-29] MEDS: DICYCLOMINE HCL 20 MG TAB PO SCH ×3 (10:10→17:33)
[2016-12-29] MEDS: NEOMYCIN SULFATE 500 MG TAB PO SCH ×2 (10:10→21:25)
[2016-12-29] MEDS: MAGNESIUM SULFATE 1 GM PREMIX 100 ML IV SCH ×2 (10:10→12:00)
[2016-12-29] MEDS: FLUoxetine HCL 10 MG CAP PO SCH (10:10)
[2016-12-29] MEDS: LORazepam 2 MG/ML VIAL IV PUSH PRN ×2 (10:12→17:33)
[2016-12-29] MEDS: HYDROmorphone HCL PCA 6 MG/30 ML IV SCH ×2 (10:12→21:17)
[2016-12-29] MEDS: POTASSIUM CHLOR 10 MEQ PREMIX 100 ML IV SCH ×3 (13:36→21:28)
--- NOTE | 2016-12-29 14:13 | HHI.PR ---
Subjective Remarks Stable in her bedroom, discussed with nurse, no nausea, vomit but has some loose stools General Surgery following, she continue Distended, replaced electrolytes, recommended sips of clears, continue TPN, encourage ambulation. Objective Vital Signs Date Time Temp Pulse Resp B/P (MAP) Pulse Ox O2 Delivery O2 Flow Rate FiO2 12/29/16 12:00 98.9 94 16 117/70 (86) 96 12/29/16 10:12 18 12/29/16 08:59 98.2 94 16 104/62 (76) 93 12/29/16 05:59 16 12/29/16 05:34 16 12/29/16 04:00 98.5 103 16 137/75 (95) 99 12/29/16 00:00 99.1 99 17 126/60 (82) 98 12/28/16 22:00 16 12/28/16 20:10 92 12/28/16 20:00 99.4 105 17 117/61 (79) 98 12/28/16 19:27 18 12/28/16 16:00 98.7 103 20 138/69 (92) 100 I/O 12/28/16 12/28/16 12/28/16 12/29/16 12/29/16 12/29/16 07:00 15:00 23:00 07:00 15:00 23:00 Intake Total 240 ml 520 ml 240 ml 100 ml Output Total 450 ml Balance -210 ml 520 ml 240 ml 100 ml Intake Oral 240 ml 240 ml IV Total 520 ml 100 ml Output Urine Total 450 ml # Voids 2 Result Diagram: 12/27/16 0530 12/29/16 0628 Imaging Last Impressions Abdomen X-Ray 12/26/16 0000 Signed Impressions: Service Date/Time: Monday, December 26, 2016 08:56 - CONCLUSION: Interval surgery with air dilated large bowel likely reflecting ileus. Petrona Celaya MD Abdomen/Pelvis CT 12/10/16 1144 Signed Impressions: Service Date/Time: November 14:39 - CONCLUSION: 1. Mild hepatomegaly. 2. No acute intra-abdominal process. 3. Mild degenerative changes and scoliosis of the lumbar spine. Dung Arias MD Procedures 12/21/2016 Exploratory laparotomy, lysis of massive adhesions greater than 2 hours. repair of enterotomies x2 12/18/2016 Enteroscopy with biopsies 1. 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 The mucosa of the stomach appeared normal 3. Normal duodenal mucosa in the entire duodenum 4. The exam showed no abnormalities in the jejunum; multiple biopsies were performed 5. Retroflexed views revealed no abnormalities Other Results Laboratory Tests Test 12/10/16 11:50 12/11/16 07:07 12/11/16 16:00 12/16/16 10:00 Prothrombin Time 10.7 SEC Prothromb Time International Ratio 1.0 RATIO Activated Partial Thromboplast Time 25.3 SEC Urine Color YELLOW Urine Turbidity CLEAR Urine pH 6.5 Urine Specific [place] 1.012 Urine Protein 30 mg/dL Urine Glucose (UA) NEG mg/dL Urine Ketones NEG mg/dL Urine Occult Blood NEG Urine Nitrite NEG Urine Bilirubin NEG Urine Urobilinogen LESS THAN 2.0 MG/DL Urine Leukocyte Esterase NEG Urine RBC LESS THAN 1 /hpf Urine WBC 2 /hpf Urine Mucus FEW /lpf Microscopic Urinalysis Comment CATH-CULT NOT IND Lactic Acid Level 2.0 mmol/L Blood Urea Nitrogen 14 MG/DL 8 MG/DL Creatinine 1.00 MG/DL 0.71 MG/DL Random Glucose 86 MG/DL 104 MG/DL Total Protein 8.0 GM/DL 5.8 GM/DL Albumin 4.0 GM/DL Calcium Level 8.6 MG/DL 7.3 MG/DL Alkaline Phosphatase 80 U/L Aspartate Amino Transf (AST/SGOT) 15 U/L Alanine Aminotransferase (ALT/SGPT) 24 U/L Total Bilirubin 0.3 MG/DL Sodium Level 139 MEQ/L 142 MEQ/L Potassium Level 2.4 MEQ/L 2.5 MEQ/L Chloride Level 109 MEQ/L 114 MEQ/L Carbon Dioxide Level 20.2 MEQ/L 19.7 MEQ/L Lipase 228 U/L Protein Corrected Calcium 8.0 MG/DL Magnesium Level 1.9 MG/DL Stool C. difficile Toxin (PCR) NEGATIVE Stl C. difficile Toxin Epiderm 027 PRESUMPTIVE NEGATIVE Stool Collection Duration Random h Stool Weight 8 g Stool Percent Fat 23 % fat Stool Total Lipids, Quantitative Test 12/17/16 09:15 12/21/16 07:43 12/22/16 11:40 12/27/16 05:30 Random Cortisol 18.4 MCG/DL Adrenocorticotropic Hormone 38 pg/mL Neutrophils (%) (Auto) 58.3 % Lymphocytes (%) (Auto) 30.0 % Monocytes (%) (Auto) 10.4 % Eosinophils (%) (Auto) 1.1 % Basophils (%) (Auto) 0.2 % Neutrophils # (Auto) 4.3 TH/MM3 Lymphocytes # (Auto) 2.2 TH/MM3 Monocytes # (Auto) 0.8 TH/MM3 Eosinophils # (Auto) 0.1 TH/MM3 Basophils # (Auto) 0.0 TH/MM3 CBC Comment DIFF FINAL Differential Comment Hematology Comments White Blood Count 7.5 TH/MM3 Red Blood Count 2.70 MIL/MM3 Hemoglobin 9.2 GM/DL Hematocrit 27.0 % Mean Corpuscular Volume 100.2 FL Mean Corpuscular Hemoglobin 34.2 PG Mean Corpuscular Hemoglobin Concent 34.2 % Red Cell Distribution Width 12.7 % Platelet Count 184 TH/MM3 Mean Platelet Volume 8.2 FL Test 12/28/16 04:40 12/29/16 06:28 Phosphorus Level 3.7 MG/DL Blood Urea Nitrogen 6 MG/DL Creatinine 0.61 MG/DL Random Glucose 97 MG/DL Calcium Level 8.4 MG/DL Magnesium Level 1.6 MG/DL Sodium Level 138 MEQ/L Potassium Level 3.5 MEQ/L Chloride Level 105 MEQ/L Carbon Dioxide Level 22.7 MEQ/L Anion Gap 10 MEQ/L Estimat Glomerular Filtration Rate 104 ML/MIN Objective Remarks GENERAL: Alert and oriented x 3. No acute distress. SKIN: Warm and dry. HEAD: Atraumatic. Normocephalic. EYES: Pupils equal and round. No scleral icterus. No injection or drainage. ENT: No nasal bleeding or discharge. Mucous membranes pink and moist. NECK: Trachea midline. No JVD. CARDIOVASCULAR: Regular rate and rhythm. RESPIRATORY: No accessory muscle use. Clear to auscultation. Breath sounds equal bilaterally. GASTROINTESTINAL: Distended, low bowel sounds, abdominal binder in place. MUSCULOSKELETAL: Extremities without clubbing, cyanosis, or edema. No obvious deformities. NEUROLOGICAL: Awake and alert. No obvious cranial nerve deficits. Motor grossly within normal limits. Five out of 5 muscle strength in the arms and legs. Normal speech. PSYCHIATRIC: Appropriate mood and affect; insight and judgment normal. Medications and IVs Current Medications Medications (Trade) Dose Ordered Sig/Larry Route Start Time Stop Time Status Last Admin (NS Flush) 2 ml UNSCH PRN IV FLUSH 12/10/16 15:15 12/19/16 18:22 (NS Flush) 2 ml BID IV FLUSH 12/10/16 21:00 12/28/16 23:09 (Tylenol) 650 mg Q4H PRN PO 12/10/16 15:15 12/24/16 09:40 (Zofran Inj) 4 mg Q6H PRN IVP 12/10/16 15:15 12/21/16 16:08 (Narcan Inj) 0.4 mg UNSCH PRN IV PUSH 12/10/16 15:15 (Laura-Colace) 1 tab BID PO 12/10/16 21:00 12/21/16 19:46 (Milk Of Magnesia Liq) 30 ml Q12H PRN PO 12/10/16 15:15 (Senokot) 17.2 mg Q12H PRN PO 12/10/16 15:15 (Dulcolax Supp) 10 mg DAILY PRN RECTAL 12/10/16 15:15 (Lactulose Liq) 30 ml DAILY PRN PO 12/10/16 15:15 (Norvasc) 5 mg DAILY PO 12/11/16 09:00 12/24/16 08:36 (PROzac) 10 mg DAILY PO 12/11/16 09:00 12/29/16 10:10 (Lovenox Inj) 40 mg Q24H SQ 12/11/16 20:00 Future hold 12/27/16 20:21 (Bentyl) 20 mg TID PO 12/12/16 13:00 12/29/16 12:00 Multivitamins 10 ml/Folic Acid 1 mg/Amino Acids/ Electrolytes/ Dextrose 1,010.2 ml @ 42 mls/hr Q24H IV-CENTRAL 12/14/16 20:00 12/28/16 22:38 Fat Emulsion Intravenous 250 ml @ 31.25 mls/ hr SuWe@20 IV-CENTRAL 12/14/16 20:00 12/27/16 23:00 (Mycifradin) 500 mg Q12HR PO 12/16/16 11:00 12/29/16 10:10 (Ativan Inj) 1 mg Q6H PRN IV PUSH 12/19/16 08:00 12/29/16 10:12 (Dilaudid Pf Inj) 2 mg Q3H PRN IV PUSH 12/20/16 09:45 12/29/16 13:29 (Dilaudid E[employer]ER Inj) 6 mg UNSCH IV 12/21/16 13:45 12/29/16 10:12 ELECT[employer] SERVICE ENGINEER Dosage Infused (Pha) 1 Q8HR OTHER 12/21/16 14:00 12/29/16 05:59 Lactated Ringer's 1,000 ml @ 100 mls/hr Q10H IV 12/21/16 14:30 12/29/16 10:13 (Phenergan Inj) 12.5 mg Q3HR PRN IV-CENTRAL 12/23/16 13:00 12/29/16 13:28 Potassium Chloride 100 ml @ 100 mls/hr Q1H IV 12/29/16 12:00 12/29/16 14:59 12/29/16 13:36 A/P Assessment and Plan Ms. Mensah is a pleasant 51-year-old female with a history of bowel obstruction and multiple surgeries who presents to the emergency department today due to hypokalemia as well as abdominal pain, nausea vomiting. Status post exploratory laparotomy, lysis of massive adhesions greater than 2 hours on 12/22. -pathology showed massive adhesions with fusion of all bowels to each other into the left lower quadrant abdominal fascia. -Patient on TPN. -Per GI performed endoscopies studies with biopsy on 12/18/2016. GI is considering Gattex but having difficulty getting approved by her insurance company. -Continue having some loose stools General Surgery following, she continue Distended, replaced electrolytes, recommended sips of clears, continue TPN, encourage ambulation. Hypomagnesemia/hypokalemia -continue replacement. Hypertension - continue amlodipine 5 mg daily Depression - continue fluoxetine 10 mg daily Full code. Lovenox. Discharge Planning Once cleared by General Surgery. Aubrey Bowman MD Dec 29, 2016 14:13
[2016-12-29] MEDS: ENOXAPARIN SODIUM 40 MG/0.4 ML SYRINGE SQ SCH (21:25)
[2016-12-29] MEDS: SODIUM CHLORIDE 0.9% FLUSH 10 ML FLUSH IV FLUSH SCH (21:25)
[2016-12-29] MEDS: CLINIMIX E 4.25/25 1000 mL- </= 42 mls/hr IV-CENTRAL SCH ×3 (21:26)
[2016-12-30] VITALS (11 sets, daily range): BP systolic 107–134; BP diastolic 61–71; PULSE 82–99; RESP 16–20; TEMP 98–99.6; O2SAT 94–99
[2016-12-30] MEDS: PROMETHAZINE INJ 25 MG/ML VIAL IV-CENTRAL PRN ×5 (02:34→21:44)
[2016-12-30] MEDS: LORazepam 2 MG/ML VIAL IV PUSH PRN ×3 (02:34→20:48)
[2016-12-30] MEDS: HYDROmorphone HCL PF 2 MG/ML VIAL IV PUSH PRN ×7 (02:35→22:42)
[2016-12-30] MEDS: PCA - TOTAL MG DILAUDID DELIVERED PER SHIFT OTHER SCH ×2 (05:49→14:00)
[2016-12-30] MEDS: amLODIPine BESYLATE 5 MG TAB PO SCH (09:00)
[2016-12-30] MEDS: NEOMYCIN SULFATE 500 MG TAB PO SCH ×2 (09:24→20:48)
[2016-12-30] MEDS: DICYCLOMINE HCL 20 MG TAB PO SCH ×3 (09:24→17:11)
[2016-12-30] MEDS: DOCUSATE SODIUM 50 MG/SENNA 8.6 MG TAB PO SCH ×2 (09:26→20:54)
[2016-12-30] MEDS: SODIUM CHLORIDE 0.9% FLUSH 10 ML FLUSH IV FLUSH SCH ×2 (09:26→20:50)
--- NOTE | 2016-12-30 12:10 | HHI.PR ---
Subjective Remarks Stable in her bedroom seen in the presence of her Mother Mrs Jaqueline Delgadoetler no complaint discussed with nurse she was found smoking in her bathroom, also connected the SMASH FIXER pump to her Port, no nausea, vomit but continue with loose stools. Objective Vital Signs Date Time Temp Pulse Resp B/P (MAP) Pulse Ox O2 Delivery O2 Flow Rate FiO2 12/30/16 08:00 82 12/30/16 07:50 98.0 94 20 126/62 (83) 99 12/30/16 07:35 16 12/30/16 04:26 86 12/30/16 04:00 98.7 93 17 107/66 (80) 94 12/30/16 00:00 98.2 99 16 118/66 (83) 98 12/29/16 21:28 16 12/29/16 21:17 16 12/29/16 20:41 100 12/29/16 20:00 99.0 109 18 145/71 (95) 100 12/29/16 18:00 18 12/29/16 17:59 18 12/29/16 16:00 99.0 97 16 122/74 (90) 99 I/O 12/29/16 12/29/16 12/29/16 12/30/16 12/30/16 12/30/16 07:00 15:00 23:00 07:00 15:00 23:00 Intake Total 300 ml 2195 ml Balance 300 ml 2195 ml Intake Oral 630 ml IV Total 300 ml 1565 ml # Voids 4 2 # Bowel Movements 1 Result Diagram: 12/27/16 0530 12/29/16 0628 Imaging Last Impressions Abdomen X-Ray 12/26/16 0000 Signed Impressions: Service Date/Time: Monday, December 26, 2016 08:56 - CONCLUSION: Interval surgery with air dilated large bowel likely reflecting ileus. Petrona Celaya MD Abdomen/Pelvis CT 12/10/16 1144 Signed Impressions: Service Date/Time: November 14:39 - CONCLUSION: 1. Mild hepatomegaly. 2. No acute intra-abdominal process. 3. Mild degenerative changes and scoliosis of the lumbar spine. Dung Arias MD Procedures 12/21/2016 Exploratory laparotomy, lysis of massive adhesions greater than 2 hours. repair of enterotomies x2 12/18/2016 Enteroscopy with biopsies 1. 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 The mucosa of the stomach appeared normal 3. Normal duodenal mucosa in the entire duodenum 4. The exam showed no abnormalities in the jejunum; multiple biopsies were performed 5. Retroflexed views revealed no abnormalities Other Results Laboratory Tests Test 12/10/16 11:50 12/11/16 07:07 12/11/16 16:00 12/16/16 10:00 Prothrombin Time 10.7 SEC Prothromb Time International Ratio 1.0 RATIO Activated Partial Thromboplast Time 25.3 SEC Urine Color YELLOW Urine Turbidity CLEAR Urine pH 6.5 Urine Specific [place] 1.012 Urine Protein 30 mg/dL Urine Glucose (UA) NEG mg/dL Urine Ketones NEG mg/dL Urine Occult Blood NEG Urine Nitrite NEG Urine Bilirubin NEG Urine Urobilinogen LESS THAN 2.0 MG/DL Urine Leukocyte Esterase NEG Urine RBC LESS THAN 1 /hpf Urine WBC 2 /hpf Urine Mucus FEW /lpf Microscopic Urinalysis Comment CATH-CULT NOT IND Lactic Acid Level 2.0 mmol/L Blood Urea Nitrogen 14 MG/DL 8 MG/DL Creatinine 1.00 MG/DL 0.71 MG/DL Random Glucose 86 MG/DL 104 MG/DL Total Protein 8.0 GM/DL 5.8 GM/DL Albumin 4.0 GM/DL Calcium Level 8.6 MG/DL 7.3 MG/DL Alkaline Phosphatase 80 U/L Aspartate Amino Transf (AST/SGOT) 15 U/L Alanine Aminotransferase (ALT/SGPT) 24 U/L Total Bilirubin 0.3 MG/DL Sodium Level 139 MEQ/L 142 MEQ/L Potassium Level 2.4 MEQ/L 2.5 MEQ/L Chloride Level 109 MEQ/L 114 MEQ/L Carbon Dioxide Level 20.2 MEQ/L 19.7 MEQ/L Lipase 228 U/L Protein Corrected Calcium 8.0 MG/DL Magnesium Level 1.9 MG/DL Stool C. difficile Toxin (PCR) NEGATIVE Stl C. difficile Toxin Epiderm 027 PRESUMPTIVE NEGATIVE Stool Collection Duration Random h Stool Weight 8 g Stool Percent Fat 23 % fat Stool Total Lipids, Quantitative Test 12/17/16 09:15 12/21/16 07:43 12/22/16 11:40 12/27/16 05:30 Random Cortisol 18.4 MCG/DL Adrenocorticotropic Hormone 38 pg/mL Neutrophils (%) (Auto) 58.3 % Lymphocytes (%) (Auto) 30.0 % Monocytes (%) (Auto) 10.4 % Eosinophils (%) (Auto) 1.1 % Basophils (%) (Auto) 0.2 % Neutrophils # (Auto) 4.3 TH/MM3 Lymphocytes # (Auto) 2.2 TH/MM3 Monocytes # (Auto) 0.8 TH/MM3 Eosinophils # (Auto) 0.1 TH/MM3 Basophils # (Auto) 0.0 TH/MM3 CBC Comment DIFF FINAL Differential Comment Hematology Comments White Blood Count 7.5 TH/MM3 Red Blood Count 2.70 MIL/MM3 Hemoglobin 9.2 GM/DL Hematocrit 27.0 % Mean Corpuscular Volume 100.2 FL Mean Corpuscular Hemoglobin 34.2 PG Mean Corpuscular Hemoglobin Concent 34.2 % Red Cell Distribution Width 12.7 % Platelet Count 184 TH/MM3 Mean Platelet Volume 8.2 FL Test 12/28/16 04:40 12/29/16 06:28 Phosphorus Level 3.7 MG/DL Blood Urea Nitrogen 6 MG/DL Creatinine 0.61 MG/DL Random Glucose 97 MG/DL Calcium Level 8.4 MG/DL Magnesium Level 1.6 MG/DL Sodium Level 138 MEQ/L Potassium Level 3.5 MEQ/L Chloride Level 105 MEQ/L Carbon Dioxide Level 22.7 MEQ/L Anion Gap 10 MEQ/L Estimat Glomerular Filtration Rate 104 ML/MIN Objective Remarks GENERAL: Alert and oriented x 3. No acute distress. SKIN: Warm and dry. HEAD: Atraumatic. Normocephalic. EYES: Pupils equal and round. No scleral icterus. No injection or drainage. ENT: No nasal bleeding or discharge. Mucous membranes pink and moist. NECK: Trachea midline. No JVD. CARDIOVASCULAR: Regular rate and rhythm. RESPIRATORY: No accessory muscle use. Clear to auscultation. Breath sounds equal bilaterally. GASTROINTESTINAL: Distended, low bowel sounds, abdominal binder in place. MUSCULOSKELETAL: Extremities without clubbing, cyanosis, or edema. No obvious deformities. NEUROLOGICAL: Awake and alert. No obvious cranial nerve deficits. Motor grossly within normal limits. Five out of 5 muscle strength in the arms and legs. Normal speech. PSYCHIATRIC: Appropriate mood and affect; insight and judgment normal. Medications and IVs Current Medications Medications (Trade) Dose Ordered Sig/Larry Route Start Time Stop Time Status Last Admin (NS Flush) 2 ml UNSCH PRN IV FLUSH 12/10/16 15:15 12/19/16 18:22 (NS Flush) 2 ml BID IV FLUSH 12/10/16 21:00 12/30/16 09:26 (Tylenol) 650 mg Q4H PRN PO 12/10/16 15:15 12/24/16 09:40 (Zofran Inj) 4 mg Q6H PRN IVP 12/10/16 15:15 12/21/16 16:08 (Narcan Inj) 0.4 mg UNSCH PRN IV PUSH 12/10/16 15:15 (Laura-Colace) 1 tab BID PO 12/10/16 21:00 12/21/16 19:46 (Milk Of Magnesia Liq) 30 ml Q12H PRN PO 12/10/16 15:15 (Senokot) 17.2 mg Q12H PRN PO 12/10/16 15:15 (Dulcolax Supp) 10 mg DAILY PRN RECTAL 12/10/16 15:15 (Lactulose Liq) 30 ml DAILY PRN PO 12/10/16 15:15 (Norvasc) 5 mg DAILY PO 12/11/16 09:00 12/24/16 08:36 (PROzac) 10 mg DAILY PO 12/11/16 09:00 12/29/16 10:10 (Lovenox Inj) 40 mg Q24H SQ 12/11/16 20:00 Future hold 12/29/16 21:25 (Bentyl) 20 mg TID PO 12/12/16 13:00 12/30/16 09:24 Multivitamins 10 ml/Folic Acid 1 mg/Amino Acids/ Electrolytes/ Dextrose 1,010.2 ml @ 42 mls/hr Q24H IV-CENTRAL 12/14/16 20:00 12/29/16 21:26 Fat Emulsion Intravenous 250 ml @ 31.25 mls/ hr SuWe@20 IV-CENTRAL 12/14/16 20:00 12/27/16 23:00 (Mycifradin) 500 mg Q12HR PO 12/16/16 11:00 12/30/16 09:24 (Ativan Inj) 1 mg Q6H PRN IV PUSH 12/19/16 08:00 12/30/16 11:04 (Dilaudid Pf Inj) 2 mg Q3H PRN IV PUSH 12/20/16 09:45 12/30/16 09:25 (Dilaudid SMASH FIXER Inj) 6 mg UNSCH IV 12/21/16 13:45 12/29/16 21:17 SMASH FIXER Dosage Infused (Pha) 1 Q8HR OTHER 12/21/16 14:00 12/29/16 21:28 Lactated Ringer's 1,000 ml @ 100 mls/hr Q10H IV 12/21/16 14:30 12/29/16 10:13 (Phenergan Inj) 12.5 mg Q3HR PRN IV-CENTRAL 12/23/16 13:00 12/30/16 09:25 A/P Assessment and Plan Ms. Mensah is a pleasant 51-year-old female with a history of bowel obstruction and multiple surgeries who presents to the emergency department today due to hypokalemia as well as abdominal pain, nausea vomiting. Status post exploratory laparotomy, lysis of massive adhesions greater than 2 hours on 12/22. -pathology showed massive adhesions with fusion of all bowels to each other into the left lower quadrant abdominal fascia. -Patient on TPN. -Per GI performed endoscopies studies with biopsy on 12/18/2016. GI is considering Gattex but having difficulty getting approved by her insurance company. -Continue having some loose stools General Surgery following, she continue Distended, replaced electrolytes, is expected to have loose stools after his procedure but asked for C Diff Hypomagnesemia/hypokalemia -continue replacement. Hypertension - continue amlodipine 5 mg daily Depression - continue fluoxetine 10 mg daily Full code. Lovenox. Discharge Planning Once cleared by General Surgery. Aubrey Bowman MD Dec 30, 2016 12:10
[2016-12-30] MEDS: FLUoxetine HCL 10 MG CAP PO SCH (12:56)
[2016-12-30] MEDS: ONDANSETRON HCL 4 MG/2 ML VIAL IVP PRN ×2 (13:01→19:50)
--- NOTE | 2016-12-30 16:01 | HHI.PR ---
Subjective Subjective Notes DAILY PROGRESS NOTE FOR SURGICAL ATTENDING, DR. WALLY SALDANA Resting in bed Family at bedside Patient was caught smoking her e-cigarette in the bathroom overnight Also the patient disconnected her MUFFLER HAND pump and connected to her port as reported by the RN to sc Objective Vitals/I&O Vital Signs Date Time Temp Pulse Resp B/P (MAP) Pulse Ox O2 Delivery O2 Flow Rate FiO2 12/30/16 15:58 88 12/30/16 15:46 99.4 20 114/61 (15) 98 Radiology Last Impressions Abdomen X-Ray 12/20/16 0000 Signed Impressions: Service Date/Time: Tuesday, December 20, 2016 11:53 - CONCLUSION: There are no imaging findings to indicate obstruction. There is a single air-fluid level in the central abdomen, most likely within the transverse colon. Hong Valerio MD Abdomen/Pelvis CT 12/10/16 1144 Signed Impressions: Service Date/Time: November 14:39 - CONCLUSION: 1. Mild hepatomegaly. 2. No acute intra-abdominal process. 3. Mild degenerative changes and scoliosis of the lumbar spine. Dung Arias MD Cardiovascular: Regular Lungs: Clear Abdomen: Other (distended; midline incision with nahid ) Extremities: No edema A/P Problem List: (1) Hypomagnesemia ICD Codes: E83.42 - Hypomagnesemia Status: Chronic (2) Hypokalemia ICD Codes: E87.6 - Hypokalemia Status: Chronic (3) Malabsorption syndrome ICD Codes: K90.9 - Intestinal malabsorption, unspecified Status: Chronic (4) Intra-abdominal adhesions ICD Codes: K66.0 - Peritoneal adhesions (postprocedural) (postinfection) Status: Chronic (5) Adhesion of intestine ICD Codes: K66.0 - Peritoneal adhesions (postprocedural) (postinfection) Status: Chronic (6) Adhesion of abdominal wall ICD Codes: K66.0 - Peritoneal adhesions (postprocedural) (postinfection) Status: Chronic (7) Adhesion of omentum ICD Codes: K66.0 - Peritoneal adhesions (postprocedural) (postinfection) Status: Chronic (8) Lower abdominal adhesions ICD Codes: K66.0 - Peritoneal adhesions (postprocedural) (postinfection) Status: Chronic (9) Abdominal pain ICD Codes: R10.9 - Abdominal pain Status: Chronic (10) Anemia ICD Codes: D64.9 - Anemia, unspecified Status: Acute (11) Diarrhea in adult patient ICD Codes: K52.9 - Diarrhea in adult patient Status: Chronic (12) Fibromyalgia ICD Codes: M79.7 - Fibromyalgia Status: Chronic (13) Anxiety and depression ICD Codes: F41.8 - Anxiety and depression Status: Chronic Assessment and Plan 51 year old female s/p ex lap; MARCO -Continued distention -Will add PO pain meds -DC MUFFLER HAND -Continue sips of clears -Continue TPN -Encouraged continued mobilization -Okay to shower -Encouraged sipping on coffee/tea; chewing gum Attending Statement NOTE FOR SURGICAL ATTENDING, DR. WALLY SALDANA I agree with above assessment and plan. The following services were provided during this hospital visit: Chart data review, vital sign assessments/reviewing monitor data Review of consultations notes if present. Medication orders/review and/or management Ordering and/or reviewing lab tests Ordering and/or interpreting/reviewing x-rays and/or diagnostic studies Care of the patient and discussion of the patient with the care team Documentation time To help prompt me to consider important information that might be impacting today's encounter and assessment, information from prior notes written by myself or my colleagues may have been "brought forward/copy and pasted" into today's note. Problem Qualifiers (1) Malabsorption syndrome: Qualified Codes: K90.89 - Other intestinal malabsorption (2) Abdominal pain: Qualified Codes: R10.32 - Left lower quadrant pain (3) Anemia: Lois Villalpando Dec 30, 2016 16:01 Wally Saldana MD Dec 30, 2016 16:43
[2016-12-30] MEDS: LACTATED RINGER'S 1000 ML INJ 1,000 ML IV SCH ×2 (16:52→20:59)
[2016-12-30] MEDS: ENOXAPARIN SODIUM 40 MG/0.4 ML SYRINGE SQ SCH (20:48)
[2016-12-30] MEDS: FAT EMULSION 20% INJ 250 ML (Twice weekly over 8 hours) IV-CENTRAL SCH (20:49)
[2016-12-30] MEDS: CLINIMIX E 4.25/25 1000 mL- </= 42 mls/hr IV-CENTRAL SCH ×3 (20:49)
[2016-12-31] VITALS (12 sets, daily range): BP systolic 108–154; BP diastolic 58–69; PULSE 83–103; RESP 17–20; TEMP 98–100; O2SAT 96–100
[2016-12-31] MEDS: PROMETHAZINE INJ 25 MG/ML VIAL IV-CENTRAL PRN ×5 (00:30→20:05)
[2016-12-31] MEDS: HYDROmorphone HCL PF 2 MG/ML VIAL IV PUSH PRN ×6 (01:27→21:24)
[2016-12-31] MEDS: ONDANSETRON HCL 4 MG/2 ML VIAL IVP PRN ×4 (01:27→18:24)
[2016-12-31] MEDS: LORazepam 2 MG/ML VIAL IV PUSH PRN ×2 (02:33→21:23)
[2016-12-31] MEDS: LACTATED RINGER'S 1000 ML INJ 1,000 ML IV SCH ×2 (03:53→15:14)
[2016-12-31 05:14] LABS: C. DIFF EPI 027 PRESUMPTIVE NEGATIVE (NEGATIVE)
[2016-12-31] MEDS: NEOMYCIN SULFATE 500 MG TAB PO SCH ×2 (09:16→20:18)
[2016-12-31] MEDS: FLUoxetine HCL 10 MG CAP PO SCH (09:16)
[2016-12-31] MEDS: DICYCLOMINE HCL 20 MG TAB PO SCH ×3 (09:17→18:24)
[2016-12-31] MEDS: amLODIPine BESYLATE 5 MG TAB PO SCH (09:18)
[2016-12-31] MEDS: SODIUM CHLORIDE 0.9% FLUSH 10 ML FLUSH IV FLUSH SCH ×2 (09:18→20:19)
[2016-12-31] MEDS: DOCUSATE SODIUM 50 MG/SENNA 8.6 MG TAB PO SCH ×2 (09:18→20:21)
[2016-12-31 14:27] LABS: BICARBONATE 25.6 MEQ/L (21.0-32.0); POTASSIUM 3.7 MEQ/L (3.5-5.1)
--- NOTE | 2016-12-31 15:36 | HHI.PR ---
Subjective Subjective Notes Sipping on clear liquids No BM yet Objective Vitals/I&O Vital Signs Date Time Temp Pulse Resp B/P (MAP) Pulse Ox O2 Delivery O2 Flow Rate FiO2 12/31/16 11:30 99.0 83 20 110/60 (77) 96 Labs Laboratory Tests Test 12/31/16 03:40 12/31/16 13:12 Stool C. difficile Toxin (PCR) NEGATIVE Stl C. difficile Toxin Epiderm 027 PRESUMPTIVE NEGATIVE Blood Urea Nitrogen 7 Creatinine 0.64 Random Glucose 120 Calcium Level 8.4 Sodium Level 138 Potassium Level 3.7 Chloride Level 105 Carbon Dioxide Level 25.6 Anion Gap 7 Estimat Glomerular Filtration Rate 99 Radiology Last Impressions Abdomen X-Ray 12/20/16 0000 Signed Impressions: Service Date/Time: Tuesday, December 20, 2016 11:53 - CONCLUSION: There are no imaging findings to indicate obstruction. There is a single air-fluid level in the central abdomen, most likely within the transverse colon. Hong Valerio MD Abdomen/Pelvis CT 12/10/16 1144 Signed Impressions: Service Date/Time: November 14:39 - CONCLUSION: 1. Mild hepatomegaly. 2. No acute intra-abdominal process. 3. Mild degenerative changes and scoliosis of the lumbar spine. Dung Arias MD Cardiovascular: Regular Lungs: Clear Abdomen: Other (midline incision; stapled; distended; moderatly tender ) Extremities: No edema A/P Problem List: (1) Hypomagnesemia ICD Codes: E83.42 - Hypomagnesemia Status: Chronic (2) Hypokalemia ICD Codes: E87.6 - Hypokalemia Status: Chronic (3) Malabsorption syndrome ICD Codes: K90.9 - Intestinal malabsorption, unspecified Status: Chronic (4) Intra-abdominal adhesions ICD Codes: K66.0 - Peritoneal adhesions (postprocedural) (postinfection) Status: Chronic (5) Adhesion of intestine ICD Codes: K66.0 - Peritoneal adhesions (postprocedural) (postinfection) Status: Chronic (6) Adhesion of abdominal wall ICD Codes: K66.0 - Peritoneal adhesions (postprocedural) (postinfection) Status: Chronic (7) Adhesion of omentum ICD Codes: K66.0 - Peritoneal adhesions (postprocedural) (postinfection) Status: Chronic (8) Lower abdominal adhesions ICD Codes: K66.0 - Peritoneal adhesions (postprocedural) (postinfection) Status: Chronic (9) Abdominal pain ICD Codes: R10.9 - Abdominal pain Status: Chronic (10) Anemia ICD Codes: D64.9 - Anemia, unspecified Status: Acute (11) Diarrhea in adult patient ICD Codes: K52.9 - Diarrhea in adult patient Status: Chronic (12) Fibromyalgia ICD Codes: M79.7 - Fibromyalgia Status: Chronic (13) Anxiety and depression ICD Codes: F41.8 - Anxiety and depression Status: Chronic Assessment and Plan 51 year old female s/p ex lap; MARCO -Continued distention -Labs okay today -Continue sips of clears -Continue TPN -Encouraged continued mobilization -Okay to shower -Encouraged sipping on coffee/tea; chewing gum Problem Qualifiers (1) Malabsorption syndrome: Qualified Codes: K90.89 - Other intestinal malabsorption (2) Abdominal pain: Qualified Codes: R10.32 - Left lower quadrant pain (3) Anemia: Lois Villalpando Dec 31, 2016 15:36
--- NOTE | 2016-12-31 15:36 | HHI.PR ---
Subjective Remarks Overall control. No other concerns. Objective Vitals Vital Signs Date Time Temp Pulse Resp B/P (MAP) Pulse Ox O2 Delivery O2 Flow Rate FiO2 12/31/16 11:30 99.0 83 20 110/60 (77) 96 12/31/16 07:58 91 12/31/16 07:30 100.0 93 20 108/62 (77) 97 12/31/16 04:00 92 12/31/16 04:00 99.4 100 17 129/63 (85) 97 12/31/16 00:56 98.0 103 18 154/69 (97) 100 12/31/16 00:00 100 12/30/16 21:00 97 12/30/16 20:00 98.4 98 17 132/71 (91) 95 12/30/16 15:58 88 12/30/16 15:46 99.4 94 20 114/61 (78) 98 I/O 12/30/16 12/30/16 12/30/16 12/31/16 12/31/16 12/31/16 07:00 15:00 23:00 07:00 15:00 23:00 Intake Total 722 ml 0 ml Balance 722 ml 0 ml Intake Oral 0 ml IV Total 722 ml # Voids 2 7 1 # Bowel Movements 4 Result Diagram: 12/27/16 0530 12/31/16 1312 Objective Remarks GENERAL: This is a well-nourished, well-developed patient, in no apparent distress. CARDIOVASCULAR: Regular rate and rhythm RESPIRATORY: Clear to auscultation. Breath sounds equal bilaterally. No wheezes , rales, or rhonchi. GASTROINTESTINAL: Abdomen soft, non-tender, nondistended. Positive bowel sounds , bandage clean dry intact MUSCULOSKELETAL: Extremities without clubbing, cyanosis, or edema. NEURO: Alert & Oriented x4 to person, place, time, situation. Moves all ext x4 Procedures 12/21/2016 Exploratory laparotomy, lysis of massive adhesions greater than 2 hours. repair of enterotomies x2 12/18/2016 Enteroscopy with biopsies 1. 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 The mucosa of the stomach appeared normal 3. Normal duodenal mucosa in the entire duodenum 4. The exam showed no abnormalities in the jejunum; multiple biopsies were performed 5. Retroflexed views revealed no abnormalities A/P Problem List: (1) Hypomagnesemia ICD Code: E83.42 - Hypomagnesemia Status: Resolved (2) Hypokalemia ICD Code: E87.6 - Hypokalemia Status: Resolved (3) Abdominal pain ICD Code: R10.9 - Abdominal pain Status: Chronic (4) Nausea and vomiting ICD Code: R11.2 - Nausea and vomiting Status: Acute Assessment and Plan 51-year-old female with a history of bowel obstruction and multiple surgeries Status post exploratory laparotomy, lysis of massive adhesions on 12/22. -pathology showed massive adhesions with fusion of all bowels to each other into the left lower quadrant abdominal fascia. -Patient currently on TPN. Management per general surgery -Per GI performed endoscopies studies with biopsy on 12/18/2016. Encourage activity Hypertension, essential - overall controlled, continue amlodipine 5 mg daily Depression - continue fluoxetine 10 mg daily Full code. Lovenox. Discharge Planning per Gen. surgery Problem Qualifiers (1) Abdominal pain: Qualified Codes: R10.32 - Left lower quadrant pain (2) Nausea and vomiting: Qualified Codes: R11.2 - Nausea with vomiting, unspecified Barbara Urbina MD Dec 31, 2016 15:36
[2016-12-31] MEDS: CLINIMIX E 4.25/25 1000 mL- </= 42 mls/hr IV-CENTRAL SCH ×3 (20:17)
[2016-12-31] MEDS: ENOXAPARIN SODIUM 40 MG/0.4 ML SYRINGE SQ SCH (20:18)
[2017-01-01] VITALS (9 sets, daily range): BP systolic 102–127; BP diastolic 55–68; PULSE 79–91; RESP 16–22; TEMP 98.4–99.4; O2SAT 95–100
[2017-01-01] MEDS: ONDANSETRON HCL 4 MG/2 ML VIAL IVP PRN ×5 (01:06→17:15)
[2017-01-01] MEDS: HYDROmorphone HCL PF 2 MG/ML VIAL IV PUSH PRN ×8 (01:07→23:59)
[2017-01-01] MEDS: LACTATED RINGER'S 1000 ML INJ 1,000 ML IV SCH ×3 (02:00→21:19)
[2017-01-01] MEDS: PROMETHAZINE INJ 25 MG/ML VIAL IV-CENTRAL PRN ×4 (04:16→23:59)
[2017-01-01] MEDS: FLUoxetine HCL 10 MG CAP PO SCH (07:38)
[2017-01-01] MEDS: NEOMYCIN SULFATE 500 MG TAB PO SCH ×2 (07:38→20:45)
[2017-01-01] MEDS: DICYCLOMINE HCL 20 MG TAB PO SCH ×3 (07:39→17:15)
[2017-01-01] MEDS: amLODIPine BESYLATE 5 MG TAB PO SCH (07:45)
[2017-01-01] MEDS: SODIUM CHLORIDE 0.9% FLUSH 10 ML FLUSH IV FLUSH SCH ×2 (07:45→20:50)
[2017-01-01] MEDS: DOCUSATE SODIUM 50 MG/SENNA 8.6 MG TAB PO SCH ×2 (07:46→20:50)
--- NOTE | 2017-01-01 09:07 | HHI.PR ---
Subjective Subjective Notes DAILY PROGRESS NOTE FOR SURGICAL ATTENDING, DR. CLOVER SALDANA Passing flatus Small bowel movement Still abdominal pain Objective Vitals/I&O Vital Signs Date Time Temp Pulse Resp B/P (MAP) Pulse Ox O2 Delivery O2 Flow Rate FiO2 01/01/17 05:13 20 01/01/17 04:00 98.6 91 120/68 (85) 98 Labs Laboratory Tests Test 12/31/16 13:12 Blood Urea Nitrogen 7 Creatinine 0.64 Random Glucose 120 Calcium Level 8.4 Sodium Level 138 Potassium Level 3.7 Chloride Level 105 Carbon Dioxide Level 25.6 Anion Gap 7 Estimat Glomerular Filtration Rate 99 Radiology Last Impressions Abdomen X-Ray 12/20/16 0000 Signed Impressions: Service Date/Time: Tuesday, December 20, 2016 11:53 - CONCLUSION: There are no imaging findings to indicate obstruction. There is a single air-fluid level in the central abdomen, most likely within the transverse colon. Hong Valerio MD Abdomen/Pelvis CT 12/10/16 1144 Signed Impressions: Service Date/Time: November 14:39 - CONCLUSION: 1. Mild hepatomegaly. 2. No acute intra-abdominal process. 3. Mild degenerative changes and scoliosis of the lumbar spine. Dung Arias MD Cardiovascular: Regular Abdomen: Post-op tenderness Extremities: Perfused Narrative Exam Patient able to walk the halls Midline wound healing dressing changed Wound Wound : Wound Location: Abdomen Appearance: Clean & Dry Dressing: Dry A/P Problem List: (1) Intra-abdominal adhesions ICD Codes: K66.0 - Peritoneal adhesions (postprocedural) (postinfection) Status: Chronic (2) Malabsorption syndrome ICD Codes: K90.9 - Intestinal malabsorption, unspecified Status: Chronic (3) Hypomagnesemia ICD Codes: E83.42 - Hypomagnesemia Status: Resolved (4) Hypokalemia ICD Codes: E87.6 - Hypokalemia Status: Resolved (5) Adhesion of intestine ICD Codes: K66.0 - Peritoneal adhesions (postprocedural) (postinfection) Status: Chronic (6) Adhesion of abdominal wall ICD Codes: K66.0 - Peritoneal adhesions (postprocedural) (postinfection) Status: Chronic (7) Adhesion of omentum ICD Codes: K66.0 - Peritoneal adhesions (postprocedural) (postinfection) Status: Chronic (8) Lower abdominal adhesions ICD Codes: K66.0 - Peritoneal adhesions (postprocedural) (postinfection) Status: Chronic (9) Abdominal pain ICD Codes: R10.9 - Abdominal pain Status: Chronic (10) Anemia ICD Codes: D64.9 - Anemia, unspecified Status: Acute (11) Diarrhea in adult patient ICD Codes: K52.9 - Diarrhea in adult patient Status: Chronic (12) Fibromyalgia ICD Codes: M79.7 - Fibromyalgia Status: Chronic (13) Anxiety and depression ICD Codes: F41.8 - Anxiety and depression Status: Chronic Assessment and Plan 51-year-old female who has malabsorption syndrome on TPN questionable small gut may be functional. Status post extensive lysis of adhesions Doing fairly well Postop pain Wound clean and dry Ambulate incentive spirometer Okay for patient to shower Restart diet Started clear liquids Attending Statement NOTE FOR SURGICAL ATTENDING, DR. CLOVER SALDANA I attest that I had a [id number] encounter with the patient on the same day, and personally performed and documented my assessment and findings in the medical record. The following services were provided during this hospital visit: Chart data review, vital sign assessments/reviewing monitor data Review of consultations notes if present. Medication orders/review and/or management Ordering and/or reviewing lab tests Ordering and/or interpreting/reviewing x-rays and/or diagnostic studies Care of the patient and discussion of the patient with the care team Documentation time To help prompt me to consider important information that might be impacting today's encounter and assessment, information from prior notes written by myself or my colleagues may have been "brought forward/copy and pasted" into today's note. Problem Qualifiers (1) Malabsorption syndrome: Qualified Codes: K90.89 - Other intestinal malabsorption (2) Abdominal pain: Qualified Codes: R10.32 - Left lower quadrant pain (3) Anemia: Clover Saldana MD Jan 01, 2017 09:07
[2017-01-01] MEDS: LORazepam 2 MG/ML VIAL IV PUSH PRN ×2 (13:09→21:17)
--- NOTE | 2017-01-01 15:04 | HHI.PR ---
Subjective Remarks Complaining of abdominal discomfort and more distention. Had some diarrhea. Did not try any oral intake today. Objective Vitals Vital Signs Date Time Temp Pulse Resp B/P (MAP) Pulse Ox O2 Delivery O2 Flow Rate FiO2 01/01/17 12:00 98.4 82 16 106/55 (72) 96 01/01/17 08:02 86 01/01/17 08:00 98.4 83 22 102/57 (72) 95 01/01/17 05:13 20 01/01/17 04:00 98.6 91 18 120/68 (85) 98 12/31/16 21:00 92 12/31/16 20:00 98.5 89 17 127/58 (81) 97 12/31/16 16:08 84 12/31/16 15:50 99.3 86 20 112/ 96 12/31/16 15:30 99.3 86 20 112/62 (79) 96 I/O 12/31/16 12/31/16 12/31/16 01/01/17 01/01/17 01/01/17 07:00 15:00 23:00 07:00 15:00 23:00 Intake Total 0 ml Balance 0 ml Intake Oral 0 ml # Voids 1 3 2 # Bowel Movements 1 1 Result Diagram: 12/31/16 1312 Objective Remarks GENERAL: This is a well-nourished, well-developed patient, in no apparent distress. CARDIOVASCULAR: Regular rate and rhythm RESPIRATORY: Clear to auscultation. Breath sounds equal bilaterally. No wheezes , rales, or rhonchi. GASTROINTESTINAL: Abdomen soft, mild distention, lower abdominal tenderness Positive bowel sounds, bandage clean dry intact MUSCULOSKELETAL: Extremities without clubbing, cyanosis, or edema. NEURO: Alert & Oriented x4 to person, place, time, situation. Moves all ext x4 Procedures 12/21/2016 Exploratory laparotomy, lysis of massive adhesions greater than 2 hours. repair of enterotomies x2 12/18/2016 Enteroscopy with biopsies 1. 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 The mucosa of the stomach appeared normal 3. Normal duodenal mucosa in the entire duodenum 4. The exam showed no abnormalities in the jejunum; multiple biopsies were performed 5. Retroflexed views revealed no abnormalities A/P Problem List: (1) Hypomagnesemia ICD Code: E83.42 - Hypomagnesemia Status: Resolved (2) Hypokalemia ICD Code: E87.6 - Hypokalemia Status: Resolved (3) Abdominal pain ICD Code: R10.9 - Abdominal pain Status: Chronic (4) Nausea and vomiting ICD Code: R11.2 - Nausea and vomiting Status: Acute Assessment and Plan 51-year-old female with a history of bowel obstruction and multiple surgeries Status post exploratory laparotomy, lysis of massive adhesions on 12/22. -pathology showed massive adhesions with fusion of all bowels to each other into the left lower quadrant abdominal fascia. -Patient currently on TPN. Management per general surgery -Per GI performed endoscopies studies with biopsy on 12/18/2016. Encourage activity, currently on clear liquids and surgery had attempted to advance to full liquids however with slight increase in distention, patient would prefer bowel rest for next 24 hours Hypertension, essential - overall controlled, continue amlodipine 5 mg daily Depression - continue fluoxetine 10 mg daily Full code. Lovenox. Discharge Planning per Gen. surgery Problem Qualifiers (1) Abdominal pain: Qualified Codes: R10.32 - Left lower quadrant pain (2) Nausea and vomiting: Qualified Codes: R11.2 - Nausea with vomiting, unspecified Barbara Urbina MD Jan 01, 2017 15:04
[2017-01-01] MEDS: CLINIMIX E 4.25/25 1000 mL- </= 42 mls/hr IV-CENTRAL SCH ×3 (20:41)
[2017-01-01] MEDS: ENOXAPARIN SODIUM 40 MG/0.4 ML SYRINGE SQ SCH (20:45)
[2017-01-01 23:36] LABS: BLOOD, URINE NEG (NEG); COMMENT (UR) CULT NOT INDICATED; CULTURE IF INDICATED CULT NOT INDICATED; GLUCOSE,URINE NEG (NEG); KETONE, URINE NEG (NEG); NITRITE,URINE NEG (NEG); PH, URINE 5.5 (5.0-8.5); URINE COLOR LIGHT-YELLOW (YELLW/STRAW)
[2017-01-02] VITALS (7 sets, daily range): BP systolic 92–118; BP diastolic 59–72; PULSE 77–99; RESP 16–18; TEMP 97.7–99.3; O2SAT 94–98
[2017-01-02] MEDS: PROMETHAZINE INJ 25 MG/ML VIAL IV-CENTRAL PRN ×6 (03:57→23:55)
[2017-01-02] MEDS: HYDROmorphone HCL PF 2 MG/ML VIAL IV PUSH PRN ×6 (03:57→23:55)
[2017-01-02] MEDS: LACTATED RINGER'S 1000 ML INJ 1,000 ML IV SCH ×2 (07:14→18:04)
[2017-01-02] MEDS: SODIUM CHLORIDE 0.9% FLUSH 10 ML FLUSH IV FLUSH SCH ×2 (09:00→21:12)
[2017-01-02] MEDS: amLODIPine BESYLATE 5 MG TAB PO SCH (09:00)
[2017-01-02] MEDS: DOCUSATE SODIUM 50 MG/SENNA 8.6 MG TAB PO SCH ×2 (09:00→21:00)
[2017-01-02] MEDS: FLUoxetine HCL 10 MG CAP PO SCH (09:22)
[2017-01-02] MEDS: NEOMYCIN SULFATE 500 MG TAB PO SCH ×2 (09:22→21:04)
[2017-01-02] MEDS: DICYCLOMINE HCL 20 MG TAB PO SCH ×3 (09:22→18:01)
[2017-01-02] MEDS: LORazepam 2 MG/ML VIAL IV PUSH PRN (12:23)
--- NOTE | 2017-01-02 14:29 | HHI.PR ---
Subjective Remarks Patient resting in bed, reported pain in the left sided abdomen, she think her left half abdomen is more swelling than the right No fever or chills, surgery following Objective Vitals Vital Signs Date Time Temp Pulse Resp B/P (MAP) Pulse Ox O2 Delivery O2 Flow Rate FiO2 01/02/17 12:00 97.7 80 18 117/60 (79) 97 01/02/17 08:00 98.1 77 18 92/59 (70) 97 01/02/17 07:41 20 01/02/17 04:00 98.5 84 16 97/63 (74) 98 01/02/17 00:00 99.3 94 16 114/72 (86) 97 01/01/17 21:00 91 01/01/17 20:00 99.4 88 16 113/67 (82) 100 01/01/17 16:04 89 01/01/17 16:00 98.4 88 18 127/58 (81) 97 I/O 01/01/17 01/01/17 01/01/17 01/02/17 01/02/17 01/02/17 07:00 15:00 23:00 07:00 15:00 23:00 Intake Total 702 ml 360 ml 5985 ml Output Total 200 ml 585 ml Balance 502 ml -225 ml 5985 ml Intake Oral 702 ml 360 ml IV Total 5985 ml Output Urine Total 200 ml 585 ml # Voids 2 4 # Bowel Movements 1 4 2 Result Diagram: 12/31/16 1312 Objective Remarks GENERAL: This is a well-nourished, well-developed patient, in no apparent distress. SKIN: No rashes, warm and dry HEAD: Atraumatic. Normocephalic. EYES: Pupils equal round and reactive. Extraocular motions intact. No scleral icterus. ENT: Nose without bleeding, or drainage, Airway patent. NECK: Trachea midline. Supple CARDIOVASCULAR: Regular rate and rhythm without murmurs, gallops, or rubs. RESPIRATORY: Fair air entry bilaterally. No wheezes, rales, or rhonchi. GASTROINTESTINAL: Abdomen soft, non-tender, nondistended. Positive bowel sounds , bandage on the abdomen clean MUSCULOSKELETAL: Extremities without clubbing, cyanosis, or edema. Pedal pulses appreciated NEUROLOGICAL: Awake and alert. Moves all extremity. Normal speech.no focal neurological deficit Procedures 12/21/2016 Exploratory laparotomy, lysis of massive adhesions greater than 2 hours. repair of enterotomies x2 12/18/2016 Enteroscopy with biopsies 1. 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 The mucosa of the stomach appeared normal 3. Normal duodenal mucosa in the entire duodenum 4. The exam showed no abnormalities in the jejunum; multiple biopsies were performed 5. Retroflexed views revealed no abnormalities A/P Problem List: (1) Hypomagnesemia ICD Code: E83.42 - Hypomagnesemia Status: Resolved (2) Hypokalemia ICD Code: E87.6 - Hypokalemia Status: Resolved (3) Abdominal pain ICD Code: R10.9 - Abdominal pain Status: Chronic (4) Nausea and vomiting ICD Code: R11.2 - Nausea and vomiting Status: Acute Assessment and Plan 01/02: Continue current care, blood pressure on the lower side 92/59, I will hold Norvasc monitor vitals, continue antibiotic, will follow with surgery A/P: 51-year-old female with a history of bowel obstruction and multiple surgeries Status post exploratory laparotomy, lysis of massive adhesions on 12/22. -pathology showed massive adhesions with fusion of all bowels to each other into the left lower quadrant abdominal fascia. -Patient currently on TPN. Management per general surgery -Per GI performed endoscopies studies with biopsy on 12/18/2016. Encourage activity, currently on clear liquids and surgery had attempted to advance to full liquids however with slight increase in distention, patient would prefer bowel rest for next 24 hours Hypertension, essential -hold amlodipine due to low blood pressure Depression - continue fluoxetine 10 mg daily Full code. Lovenox. Problem Qualifiers (1) Abdominal pain: Qualified Codes: R10.32 - Left lower quadrant pain (2) Nausea and vomiting: Qualified Codes: R11.2 - Nausea with vomiting, unspecified Adeline Rubalcava MD Jan 02, 2017 14:29
--- NOTE | 2017-01-02 16:42 | HHI.PR ---
Subjective Subjective Notes Still painful and distended. Tolerating small amounts clear liquids Objective Vitals/I&O Vital Signs Date Time Temp Pulse Resp B/P (MAP) Pulse Ox O2 Delivery O2 Flow Rate FiO2 01/02/17 16:00 98.5 89 16 118/69 (85) 94 Labs Laboratory Tests Test 01/01/17 23:00 Urine Color LIGHT-YELLOW Urine Turbidity CLEAR Urine pH 5.5 Urine Specific [place] 1.005 Urine Protein NEG Urine Glucose (UA) NEG Urine Ketones NEG Urine Occult Blood NEG Urine Nitrite NEG Urine Bilirubin NEG Urine Urobilinogen LESS THAN 2.0 Urine Leukocyte Esterase NEG Urine WBC 2 Microscopic Urinalysis Comment CULT NOT INDICATED Radiology Last Impressions Abdomen X-Ray 12/20/16 0000 Signed Impressions: Service Date/Time: Tuesday, December 20, 2016 11:53 - CONCLUSION: There are no imaging findings to indicate obstruction. There is a single air-fluid level in the central abdomen, most likely within the transverse colon. Hong Valerio MD Abdomen/Pelvis CT 12/10/16 1144 Signed Impressions: Service Date/Time: November 14:39 - CONCLUSION: 1. Mild hepatomegaly. 2. No acute intra-abdominal process. 3. Mild degenerative changes and scoliosis of the lumbar spine. Dung Arias MD Abdomen: Other (distended), Post-op tenderness Narrative Exam Wound clean and dry without erythema A/P Problem List: (1) Intra-abdominal adhesions ICD Codes: K66.0 - Peritoneal adhesions (postprocedural) (postinfection) Status: Chronic (2) Malabsorption syndrome ICD Codes: K90.9 - Intestinal malabsorption, unspecified Status: Chronic (3) Hypomagnesemia ICD Codes: E83.42 - Hypomagnesemia Status: Resolved (4) Hypokalemia ICD Codes: E87.6 - Hypokalemia Status: Resolved (5) Adhesion of intestine ICD Codes: K66.0 - Peritoneal adhesions (postprocedural) (postinfection) Status: Chronic (6) Adhesion of abdominal wall ICD Codes: K66.0 - Peritoneal adhesions (postprocedural) (postinfection) Status: Chronic (7) Adhesion of omentum ICD Codes: K66.0 - Peritoneal adhesions (postprocedural) (postinfection) Status: Chronic (8) Lower abdominal adhesions ICD Codes: K66.0 - Peritoneal adhesions (postprocedural) (postinfection) Status: Chronic (9) Abdominal pain ICD Codes: R10.9 - Abdominal pain Status: Chronic (10) Anemia ICD Codes: D64.9 - Anemia, unspecified Status: Acute (11) Diarrhea in adult patient ICD Codes: K52.9 - Diarrhea in adult patient Status: Chronic (12) Fibromyalgia ICD Codes: M79.7 - Fibromyalgia Status: Chronic (13) Anxiety and depression ICD Codes: F41.8 - Anxiety and depression Status: Chronic Assessment and Plan Plan A/P Problem List: (1) Abdominal pain ICD Codes: R10.9 - Abdominal pain Status: Chronic (2) Anemia ICD Codes: D64.9 - Anemia, unspecified Status: Acute (3) Diarrhea in adult patient ICD Codes: K52.9 - Diarrhea in adult patient Status: Acute (4) Fibromyalgia ICD Codes: M79.7 - Fibromyalgia Status: Chronic (5) Anxiety and depression ICD Codes: F41.8 - Anxiety and depression Status: Chronic (6) Hypokalemia ICD Codes: E87.6 - Hypokalemia Status: Chronic (7) Hypomagnesemia ICD Codes: E83.42 - Hypomagnesemia Status: Chronic (8) Malabsorption syndrome ICD Codes: K90.9 - Intestinal malabsorption, unspecified Status: Chronic Assessment and Plan 51-year-old female who has malabsorption syndrome on TPN POD #12 ex lap/MARCO Wound clean and dry; dressing intact. Continue TPN Attending Statement I attest that I had a [id number] encounter with the patient on the same day, and personally performed and documented my assessment and findings in the medical record. The following services were provided during this hospital visit: Chart data review, vital sign assessments/reviewing monitor data Review of consultations notes if present. Medication orders/review and/or management Ordering and/or reviewing lab tests Ordering and/or interpreting/reviewing x-rays and/or diagnostic studies Care of the patient and discussion of the patient with the care team Documentation time To help prompt me to consider important information that might be impacting today's encounter and assessment, information from prior notes written by myself or my colleagues may have been "brought forward/copy and pasted" into today's note. Problem Qualifiers (1) Malabsorption syndrome: Qualified Codes: K90.89 - Other intestinal malabsorption (2) Abdominal pain: Qualified Codes: R10.32 - Left lower quadrant pain (3) Anemia: Ajay Thompson MD Jan 02, 2017 16:42
[2017-01-02] MEDS: ENOXAPARIN SODIUM 40 MG/0.4 ML SYRINGE SQ SCH (21:00)
[2017-01-02] MEDS: CLINIMIX E 4.25/25 1000 mL- </= 42 mls/hr IV-CENTRAL SCH ×3 (21:10)
[2017-01-03] VITALS (10 sets, daily range): BP systolic 99–142; BP diastolic 57–70; PULSE 74–94; RESP 16–20; TEMP 97.4–98.5; O2SAT 95–100
[2017-01-03] MEDS: LORazepam 2 MG/ML VIAL IV PUSH PRN ×4 (00:27→21:11)
[2017-01-03] MEDS: PROMETHAZINE INJ 25 MG/ML VIAL IV-CENTRAL PRN ×7 (01:10→21:26)
[2017-01-03] MEDS: LACTATED RINGER'S 1000 ML INJ 1,000 ML IV SCH ×3 (01:10→15:46)
[2017-01-03] MEDS: HYDROmorphone HCL PF 2 MG/ML VIAL IV PUSH PRN ×7 (01:10→21:26)
[2017-01-03] MEDS ORDERED: ALTEPLASE RECOMBINANT 2 MG VIAL INTRACATH ONE (06:45)
[2017-01-03] MEDS: NEOMYCIN SULFATE 500 MG TAB PO SCH ×2 (08:50→21:23)
[2017-01-03] MEDS: SODIUM CHLORIDE 0.9% FLUSH 10 ML FLUSH IV FLUSH SCH ×2 (08:50→21:11)
[2017-01-03] MEDS: FLUoxetine HCL 10 MG CAP PO SCH (08:50)
[2017-01-03] MEDS: DICYCLOMINE HCL 20 MG TAB PO SCH ×3 (08:50→18:03)
[2017-01-03] MEDS: DOCUSATE SODIUM 50 MG/SENNA 8.6 MG TAB PO SCH ×2 (09:00→21:31)
--- NOTE | 2017-01-03 13:15 | HHI.PR ---
Subjective Remarks Patient met with a surgeon today earlier, she was told it may take a little bit longer for recovery since it was a complicated surgery She's complaining of nausea she requested to increase Phenergan to 25 mg every 3 hours, she didn't thing Zofran helped her Passing stool and flatus Objective Vitals Vital Signs Date Time Temp Pulse Resp B/P (MAP) Pulse Ox O2 Delivery O2 Flow Rate FiO2 01/03/17 12:00 98.2 80 16 100/57 (71) 97 01/03/17 08:00 98.1 75 16 99/58 (72) 98 01/03/17 06:38 20 01/03/17 03:51 98.1 94 20 105/61 (76) 95 01/03/17 00:00 98.3 82 16 112/65 (81) 98 01/02/17 21:00 86 01/02/17 20:00 98.3 82 16 106/63 (77) 97 01/02/17 16:00 98.5 89 16 118/69 (85) 94 01/02/17 16:00 99 I/O 01/02/17 01/02/17 01/02/17 01/03/17 01/03/17 01/03/17 07:00 15:00 23:00 07:00 15:00 23:00 Intake Total 360 ml 5985 ml 840 ml 3413 ml Output Total 585 ml 550 ml 600 ml Balance -225 ml 5985 ml 290 ml 2813 ml Intake Oral 360 ml 840 ml 240 ml IV Total 5985 ml 3173 ml Output Urine Total 585 ml 550 ml 600 ml # Voids 2 # Bowel Movements 2 5 6 Result Diagram: 12/31/16 1312 Objective Remarks GENERAL: This is a well-nourished, well-developed patient, in no apparent distress. SKIN: No rashes, warm and dry HEAD: Atraumatic. Normocephalic. EYES: Pupils equal round and reactive. Extraocular motions intact. No scleral icterus. ENT: Nose without bleeding, or drainage, Airway patent. NECK: Trachea midline. Supple CARDIOVASCULAR: Regular rate and rhythm without murmurs, gallops, or rubs. RESPIRATORY: Fair air entry bilaterally. No wheezes, rales, or rhonchi. GASTROINTESTINAL: Abdomen soft, non-tender, nondistended. Positive bowel sounds , bandage on the abdomen clean MUSCULOSKELETAL: Extremities without clubbing, cyanosis, or edema. Pedal pulses appreciated NEUROLOGICAL: Awake and alert. Moves all extremity. Normal speech.no focal neurological deficit Procedures 12/21/2016 Exploratory laparotomy, lysis of massive adhesions greater than 2 hours. repair of enterotomies x2 12/18/2016 Enteroscopy with biopsies 1. 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 The mucosa of the stomach appeared normal 3. Normal duodenal mucosa in the entire duodenum 4. The exam showed no abnormalities in the jejunum; multiple biopsies were performed 5. Retroflexed views revealed no abnormalities A/P Problem List: (1) Hypomagnesemia ICD Code: E83.42 - Hypomagnesemia Status: Resolved (2) Hypokalemia ICD Code: E87.6 - Hypokalemia Status: Resolved (3) Abdominal pain ICD Code: R10.9 - Abdominal pain Status: Chronic (4) Nausea and vomiting ICD Code: R11.2 - Nausea and vomiting Status: Acute Assessment and Plan 01/02: Continue current care, blood pressure on the lower side 92/59, I will hold Norvasc monitor vitals, continue antibiotic, will follow with surgery 01/03: Appreciate surgery follow up, continue TPN, continue current care, blood pressure improved after holding Norvasc A/P: 51-year-old female with a history of bowel obstruction and multiple surgeries Status post exploratory laparotomy, lysis of massive adhesions on 12/22. -pathology showed massive adhesions with fusion of all bowels to each other into the left lower quadrant abdominal fascia. -Patient currently on TPN. Management per general surgery -Per GI performed endoscopies studies with biopsy on 12/18/2016. Encourage activity, currently on clear liquids and surgery had attempted to advance to full liquids however with slight increase in distention, patient would prefer bowel rest for next 24 hours Hypertension, essential -hold amlodipine due to low blood pressure Depression - continue fluoxetine 10 mg daily Full code. Lovenox. Problem Qualifiers (1) Abdominal pain: Qualified Codes: R10.32 - Left lower quadrant pain (2) Nausea and vomiting: Qualified Codes: R11.2 - Nausea with vomiting, unspecified Adeline Rubalcava MD Jan 03, 2017 13:15
--- NOTE | 2017-01-03 15:21 | HHI.PR ---
Subjective Subjective Notes Feels LLQ pain and distention. watery/ bile diarrhea. Objective Vitals/I&O Vital Signs Date Time Temp Pulse Resp B/P (MAP) Pulse Ox O2 Delivery O2 Flow Rate FiO2 01/03/17 12:00 98.2 80 16 100/57 (71) 97 Radiology Last Impressions Abdomen X-Ray 12/20/16 0000 Signed Impressions: Service Date/Time: Tuesday, December 20, 2016 11:53 - CONCLUSION: There are no imaging findings to indicate obstruction. There is a single air-fluid level in the central abdomen, most likely within the transverse colon. Hong Valerio MD Abdomen/Pelvis CT 12/10/16 1144 Signed Impressions: Service Date/Time: November 14:39 - CONCLUSION: 1. Mild hepatomegaly. 2. No acute intra-abdominal process. 3. Mild degenerative changes and scoliosis of the lumbar spine. Dung Arias MD Abdomen: Other (distended. Incision with faint erythema and yellow thin drainage inferiorly, Few BS ) A/P Problem List: (1) Intra-abdominal adhesions ICD Codes: K66.0 - Peritoneal adhesions (postprocedural) (postinfection) Status: Chronic (2) Malabsorption syndrome ICD Codes: K90.9 - Intestinal malabsorption, unspecified Status: Chronic (3) Hypomagnesemia ICD Codes: E83.42 - Hypomagnesemia Status: Resolved (4) Hypokalemia ICD Codes: E87.6 - Hypokalemia Status: Resolved (5) Adhesion of intestine ICD Codes: K66.0 - Peritoneal adhesions (postprocedural) (postinfection) Status: Chronic (6) Adhesion of abdominal wall ICD Codes: K66.0 - Peritoneal adhesions (postprocedural) (postinfection) Status: Chronic (7) Adhesion of omentum ICD Codes: K66.0 - Peritoneal adhesions (postprocedural) (postinfection) Status: Chronic (8) Lower abdominal adhesions ICD Codes: K66.0 - Peritoneal adhesions (postprocedural) (postinfection) Status: Chronic (9) Abdominal pain ICD Codes: R10.9 - Abdominal pain Status: Chronic (10) Anemia ICD Codes: D64.9 - Anemia, unspecified Status: Acute (11) Diarrhea in adult patient ICD Codes: K52.9 - Diarrhea in adult patient Status: Chronic (12) Fibromyalgia ICD Codes: M79.7 - Fibromyalgia Status: Chronic (13) Anxiety and depression ICD Codes: F41.8 - Anxiety and depression Status: Chronic Assessment and Plan postop lysis of adhesions, concrete abdomen. Short gut. Mild erythema wound. Follow closely. Problem Qualifiers (1) Malabsorption syndrome: Qualified Codes: K90.89 - Other intestinal malabsorption (2) Abdominal pain: Qualified Codes: R10.32 - Left lower quadrant pain (3) Anemia: Liam Christine MD Jan 03, 2017 15:21
[2017-01-03] MEDS: FAT EMULSION 20% INJ 250 ML (Twice weekly over 8 hours) IV-CENTRAL SCH (21:13)
[2017-01-03] MEDS: CLINIMIX E 4.25/25 1000 mL- </= 42 mls/hr IV-CENTRAL SCH ×3 (21:14)
[2017-01-03] MEDS: ENOXAPARIN SODIUM 40 MG/0.4 ML SYRINGE SQ SCH (21:22)
[2017-01-04] VITALS (13 sets, daily range): BP systolic 106–140; BP diastolic 56–66; PULSE 77–94; RESP 17–19; TEMP 96.9–98.3; O2SAT 96–100
[2017-01-04] MEDS: HYDROmorphone HCL PF 2 MG/ML VIAL IV PUSH PRN ×7 (00:30→22:51)
[2017-01-04] MEDS: PROMETHAZINE INJ 25 MG/ML VIAL IV-CENTRAL PRN ×6 (00:30→22:50)
[2017-01-04] MEDS: LACTATED RINGER'S 1000 ML INJ 1,000 ML IV SCH ×2 (00:50→14:43)
[2017-01-04 06:03] LABS: AUTOMATED NEUTROPHIL # 7.4 TH/MM3 (1.8-7.7); BASOPHIL % 0.2 % (0.0-2.0); EOSINOPHIL # 0.1 TH/MM3 (0-0.4); EOSINOPHIL % 0.9 % (0.0-4.0); HEMATOCRIT 26.3 % (35.0-46.0); HEMO FLAGS DIFF FINAL; LYMPH % 15.8 % (9.0-44.0); LYMPHOCYTE # 1.5 TH/MM3 (1.0-4.8); MEAN CELL VOLUME 97.2 FL (80.0-100.0); MEAN CORPUSCULAR HEMOGLOBIN 31.9 PG (27.0-34.0); MEAN CORPUSCULAR HGB CONC 32.8 % (32.0-36.0); MONO % 6.4 % (0.0-8.0); NEUT % 76.7 % (16.0-70.0); PLATELET COUNT 338 TH/MM3 (150-450); WHITE BLOOD COUNT 9.6 TH/MM3 (4.0-11.0)
[2017-01-04 06:23] LABS: BICARBONATE 22.6 MEQ/L (21.0-32.0); POTASSIUM 3.4 MEQ/L (3.5-5.1)
[2017-01-04] MEDS: DICYCLOMINE HCL 20 MG TAB PO SCH ×3 (08:46→17:06)
[2017-01-04] MEDS: NEOMYCIN SULFATE 500 MG TAB PO SCH ×2 (08:46→20:41)
[2017-01-04] MEDS: SODIUM CHLORIDE 0.9% FLUSH 10 ML FLUSH IV FLUSH SCH ×2 (08:47→19:51)
[2017-01-04] MEDS: FLUoxetine HCL 10 MG CAP PO SCH (08:47)
[2017-01-04] MEDS: DOCUSATE SODIUM 50 MG/SENNA 8.6 MG TAB PO SCH ×2 (08:47→20:41)
[2017-01-04] MEDS ORDERED: POTASSIUM CHLORIDE 20 MEQ CONTROLLED RELEASE TAB PO ONE (10:45)
[2017-01-04] MEDS: LORazepam 2 MG/ML VIAL IV PUSH PRN ×2 (10:58→17:06)
--- NOTE | 2017-01-04 12:09 | HHI.PR ---
Subjective Subjective Notes DAILY PROGRESS NOTE FOR SURGICAL ATTENDING, DR. CLOVER SALDAAN I have a hard time voiding Have a burning pain when I void Objective Vitals/I&O Vital Signs Date Time Temp Pulse Resp B/P (MAP) Pulse Ox O2 Delivery O2 Flow Rate FiO2 01/04/17 08:00 96.9 89 19 135/66 (89) 98 Labs Laboratory Tests Test 01/04/17 05:45 White Blood Count 9.6 Red Blood Count 2.70 Hemoglobin 8.6 Hematocrit 26.3 Mean Corpuscular Volume 97.2 Mean Corpuscular Hemoglobin 31.9 Mean Corpuscular Hemoglobin Concent 32.8 Red Cell Distribution Width 14.0 Platelet Count 338 Mean Platelet Volume 7.7 Neutrophils (%) (Auto) 76.7 Lymphocytes (%) (Auto) 15.8 Monocytes (%) (Auto) 6.4 Eosinophils (%) (Auto) 0.9 Basophils (%) (Auto) 0.2 Neutrophils # (Auto) 7.4 Lymphocytes # (Auto) 1.5 Monocytes # (Auto) 0.6 Eosinophils # (Auto) 0.1 Basophils # (Auto) 0.0 CBC Comment DIFF FINAL Differential Comment Blood Urea Nitrogen 5 Creatinine 0.63 Random Glucose 101 Calcium Level 8.5 Sodium Level 139 Potassium Level 3.4 Chloride Level 108 Carbon Dioxide Level 22.6 Anion Gap 8 Estimat Glomerular Filtration Rate 100 Radiology Last Impressions Abdomen X-Ray 12/20/16 0000 Signed Impressions: Service Date/Time: Tuesday, December 20, 2016 11:53 - CONCLUSION: There are no imaging findings to indicate obstruction. There is a single air-fluid level in the central abdomen, most likely within the transverse colon. Hong Valerio MD Abdomen/Pelvis CT 12/10/16 1144 Signed Impressions: Service Date/Time: November 14:39 - CONCLUSION: 1. Mild hepatomegaly. 2. No acute intra-abdominal process. 3. Mild degenerative changes and scoliosis of the lumbar spine. Dung Arias MD Abdomen: Post-op tenderness Extremities: Perfused Narrative Exam Midline wound healing dressing changed A little clear drainage on the bandage Mildly distended left side of abdomen A/P Problem List: (1) Dysuria ICD Codes: R30.0 - Dysuria (2) Intra-abdominal adhesions ICD Codes: K66.0 - Peritoneal adhesions (postprocedural) (postinfection) Status: Chronic (3) Malabsorption syndrome ICD Codes: K90.9 - Intestinal malabsorption, unspecified Status: Chronic (4) Hypomagnesemia ICD Codes: E83.42 - Hypomagnesemia Status: Chronic (5) Hypokalemia ICD Codes: E87.6 - Hypokalemia Status: Chronic (6) Adhesion of intestine ICD Codes: K66.0 - Peritoneal adhesions (postprocedural) (postinfection) Status: Chronic (7) Adhesion of abdominal wall ICD Codes: K66.0 - Peritoneal adhesions (postprocedural) (postinfection) Status: Chronic (8) Adhesion of omentum ICD Codes: K66.0 - Peritoneal adhesions (postprocedural) (postinfection) Status: Chronic (9) Lower abdominal adhesions ICD Codes: K66.0 - Peritoneal adhesions (postprocedural) (postinfection) Status: Chronic (10) Abdominal pain ICD Codes: R10.9 - Abdominal pain Status: Chronic (11) Anemia ICD Codes: D64.9 - Anemia, unspecified Status: Acute (12) Diarrhea in adult patient ICD Codes: K52.9 - Diarrhea in adult patient Status: Chronic (13) Fibromyalgia ICD Codes: M79.7 - Fibromyalgia Status: Chronic (14) Anxiety and depression ICD Codes: F41.8 - Anxiety and depression Status: Chronic Assessment and Plan 51-year-old female who has malabsorption syndrome on TPN questionable small gut may be functional. Status post extensive lysis of adhesions Doing fairly well Postop pain Wound clean clear drainage and inferior portion of wound Ambulate incentive spirometer Okay for patient to shower Restart diet Started clear liquids Check bladder scan Recheck magnesium and potassium Urinalysis Modify Phenergan dose per patient request Attending Statement NOTE FOR SURGICAL ATTENDING, DR. CLOVER SALDANA I attest that I had a [id number] encounter with the patient on the same day, and personally performed and documented my assessment and findings in the medical record. The following services were provided during this hospital visit: Chart data review, vital sign assessments/reviewing monitor data Review of consultations notes if present. Medication orders/review and/or management Ordering and/or reviewing lab tests Ordering and/or interpreting/reviewing x-rays and/or diagnostic studies Care of the patient and discussion of the patient with the care team Documentation time To help prompt me to consider important information that might be impacting today's encounter and assessment, information from prior notes written by myself or my colleagues may have been "brought forward/copy and pasted" into today's note. Problem Qualifiers (1) Malabsorption syndrome: Qualified Codes: K90.89 - Other intestinal malabsorption (2) Abdominal pain: Qualified Codes: R10.32 - Left lower quadrant pain (3) Anemia: Clover Saldana MD Jan 04, 2017 12:09
--- NOTE | 2017-01-04 12:20 | HHI.PR ---
Subjective Remarks Still have Some abdominal discomfort No fever or chills, patient stated she had nausea and vomited once yesterday after trying to eat Objective Vitals Vital Signs Date Time Temp Pulse Resp B/P (MAP) Pulse Ox O2 Delivery O2 Flow Rate FiO2 01/04/17 08:00 96.9 89 19 135/66 (89) 98 01/04/17 04:06 82 01/04/17 04:00 97.4 82 18 128/65 (86) 99 01/04/17 01:00 16 01/04/17 00:07 85 01/04/17 00:00 97.8 94 18 140/61 (87) 100 01/03/17 20:08 94 01/03/17 20:00 98.5 84 17 142/70 (94) 100 01/03/17 16:10 77 01/03/17 16:00 97.4 77 18 101/60 (74) 98 01/03/17 12:27 79 I/O 01/03/17 01/03/17 01/03/17 01/04/17 01/04/17 01/04/17 07:00 15:00 23:00 07:00 15:00 23:00 Intake Total 3413 ml 1000 ml 1119 ml Output Total 600 ml 1200 ml 950 ml Balance 2813 ml 1000 ml -81 ml -950 ml Intake Oral 240 ml 840 ml IV Total 3173 ml 1000 ml TPN/PPN 279 ml Output Urine Total 600 ml 1200 ml 950 ml # Voids 4 # Bowel Movements 6 3 3 Result Diagram: 01/04/17 0545 01/04/17 0545 Objective Remarks GENERAL: This is a well-nourished, well-developed patient, in no apparent distress. SKIN: No rashes, warm and dry HEAD: Atraumatic. Normocephalic. EYES: Pupils equal round and reactive. Extraocular motions intact. No scleral icterus. ENT: Nose without bleeding, or drainage, Airway patent. NECK: Trachea midline. Supple CARDIOVASCULAR: Regular rate and rhythm without murmurs, gallops, or rubs. RESPIRATORY: Fair air entry bilaterally. No wheezes, rales, or rhonchi. GASTROINTESTINAL: Abdomen soft, non-tender, nondistended. Positive bowel sounds , bandage on the abdomen clean MUSCULOSKELETAL: Extremities without clubbing, cyanosis, or edema. Pedal pulses appreciated NEUROLOGICAL: Awake and alert. Moves all extremity. Normal speech.no focal neurological deficit Procedures 12/21/2016 Exploratory laparotomy, lysis of massive adhesions greater than 2 hours. repair of enterotomies x2 12/18/2016 Enteroscopy with biopsies 1. 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 The mucosa of the stomach appeared normal 3. Normal duodenal mucosa in the entire duodenum 4. The exam showed no abnormalities in the jejunum; multiple biopsies were performed 5. Retroflexed views revealed no abnormalities A/P Problem List: (1) Hypomagnesemia ICD Code: E83.42 - Hypomagnesemia Status: Chronic (2) Hypokalemia ICD Code: E87.6 - Hypokalemia Status: Chronic (3) Abdominal pain ICD Code: R10.9 - Abdominal pain Status: Chronic (4) Nausea and vomiting ICD Code: R11.2 - Nausea and vomiting Status: Acute Assessment and Plan 01/04: Continue current care, blood pressure stable surgery following for further recommendation Mild hypokalemia> patient refusedpo potassium A/P: 51-year-old female with a history of bowel obstruction and multiple surgeries Status post exploratory laparotomy, lysis of massive adhesions on 12/22. -pathology showed massive adhesions with fusion of all bowels to each other into the left lower quadrant abdominal fascia. -Patient currently on TPN. Management per general surgery -Per GI performed endoscopies studies with biopsy on 12/18/2016. Encourage activity, currently on clear liquids and surgery had attempted to advance to full liquids however with slight increase in distention, patient would prefer bowel rest for next 24 hours Hypertension, essential -hold amlodipine due to low blood pressure Depression - continue fluoxetine 10 mg daily Full code. Lovenox. Problem Qualifiers (1) Abdominal pain: Qualified Codes: R10.32 - Left lower quadrant pain (2) Nausea and vomiting: Qualified Codes: R11.2 - Nausea with vomiting, unspecified Adeline Rubalcava MD Jan 04, 2017 12:20
[2017-01-04 15:00] LABS: BLOOD, URINE NEG (NEG); GLUCOSE,URINE NEG (NEG); KETONE, URINE NEG (NEG); NITRITE,URINE NEG (NEG); URINE COLOR LIGHT-YELLOW (YELLW/STRAW)
[2017-01-04 15:01] LABS: COMMENT (UR) CULT NOT INDICATED; CULTURE IF INDICATED CULT NOT INDICATED
[2017-01-04] MEDS: CLINIMIX E 4.25/25 1000 mL- </= 42 mls/hr IV-CENTRAL SCH ×3 (20:34)
[2017-01-04] MEDS: ENOXAPARIN SODIUM 40 MG/0.4 ML SYRINGE SQ SCH (20:41)
[2017-01-04] MEDS: SODIUM CHLORIDE 0.9% FLUSH 10 ML FLUSH IV FLUSH PRN (22:58)
[2017-01-05] VITALS (9 sets, daily range): BP systolic 97–138; BP diastolic 55–76; PULSE 64–96; RESP 16–18; TEMP 96.9–97.9; O2SAT 97–99
[2017-01-05] MEDS: LACTATED RINGER'S 1000 ML INJ 1,000 ML IV SCH ×2 (00:26→14:40)
[2017-01-05] MEDS: SODIUM CHLORIDE 0.9% FLUSH 10 ML FLUSH IV FLUSH PRN ×2 (04:33→05:49)
[2017-01-05 05:17] LABS: POTASSIUM 3.3 MEQ/L (3.5-5.1)
[2017-01-05 05:19] LABS: MAGNESIUM 1.2 MG/DL (1.5-2.5)
[2017-01-05] MEDS: PROMETHAZINE INJ 25 MG/ML VIAL IV-CENTRAL PRN ×4 (05:42→22:47)
[2017-01-05] MEDS: HYDROmorphone HCL PF 2 MG/ML VIAL IV PUSH PRN ×6 (05:47→22:51)
[2017-01-05] MEDS ORDERED: MAGNESIUM SULFATE 1 GM PREMIX 100 ML IV SCH (08:45)
[2017-01-05] MEDS ORDERED: POTASSIUM CHLOR 40 MEQ PREMIX 100 ML IV ONE (08:45)
[2017-01-05] MEDS: DOCUSATE SODIUM 50 MG/SENNA 8.6 MG TAB PO SCH ×2 (09:00→21:16)
[2017-01-05] MEDS: SODIUM CHLORIDE 0.9% FLUSH 10 ML FLUSH IV FLUSH SCH ×2 (09:00→21:15)
[2017-01-05] MEDS: DICYCLOMINE HCL 20 MG TAB PO SCH ×3 (10:00→16:47)
[2017-01-05] MEDS: FLUoxetine HCL 10 MG CAP PO SCH (10:00)
[2017-01-05] MEDS: NEOMYCIN SULFATE 500 MG TAB PO SCH ×2 (10:20→21:15)
--- NOTE | 2017-01-05 11:34 | HHI.PR ---
Subjective Subjective Notes DAILY PROGRESS NOTE FOR SURGICAL ATTENDING, DR. WALLY SALDANA Resting in bed Still with LLQ pain Wants to try some mashed potatoes Objective Vitals/I&O Vital Signs Date Time Temp Pulse Resp B/P (MAP) Pulse Ox O2 Delivery O2 Flow Rate FiO2 01/05/17 08:00 97.5 64 18 104/56 (25) 99 Labs Laboratory Tests Test 12/10/16 11:50 12/11/16 07:07 12/16/16 10:00 12/17/16 09:15 Prothrombin Time 10.7 SEC Prothromb Time International Ratio 1.0 RATIO Activated Partial Thromboplast Time 25.3 SEC Urine RBC LESS THAN 1 /hpf Urine Mucus FEW /lpf Lactic Acid Level 2.0 mmol/L Blood Urea Nitrogen 14 MG/DL 8 MG/DL Creatinine 1.00 MG/DL 0.71 MG/DL Random Glucose 86 MG/DL 104 MG/DL Total Protein 8.0 GM/DL 5.8 GM/DL Albumin 4.0 GM/DL Calcium Level 8.6 MG/DL 7.3 MG/DL Alkaline Phosphatase 80 U/L Aspartate Amino Transf (AST/SGOT) 15 U/L Alanine Aminotransferase (ALT/SGPT) 24 U/L Total Bilirubin 0.3 MG/DL Sodium Level 139 MEQ/L 142 MEQ/L Potassium Level 2.4 MEQ/L 2.5 MEQ/L Chloride Level 109 MEQ/L 114 MEQ/L Carbon Dioxide Level 20.2 MEQ/L 19.7 MEQ/L Lipase 228 U/L Protein Corrected Calcium 8.0 MG/DL Magnesium Level 1.9 MG/DL Stool Collection Duration Random h Stool Weight 8 g Stool Percent Fat 23 % fat Stool Total Lipids, Quantitative Random Cortisol 18.4 MCG/DL Adrenocorticotropic Hormone 38 pg/mL Test 12/22/16 11:40 12/28/16 04:40 12/31/16 03:40 01/04/17 05:45 Hematology Comments Phosphorus Level 3.7 MG/DL Stool C. difficile Toxin (PCR) NEGATIVE Stl C. difficile Toxin Epiderm 027 PRESUMPTIVE NEGATIVE White Blood Count 9.6 TH/MM3 Red Blood Count 2.70 MIL/MM3 Hemoglobin 8.6 GM/DL Hematocrit 26.3 % Mean Corpuscular Volume 97.2 FL Mean Corpuscular Hemoglobin 31.9 PG Mean Corpuscular Hemoglobin Concent 32.8 % Red Cell Distribution Width 14.0 % Platelet Count 338 TH/MM3 Mean Platelet Volume 7.7 FL Neutrophils (%) (Auto) 76.7 % Lymphocytes (%) (Auto) 15.8 % Monocytes (%) (Auto) 6.4 % Eosinophils (%) (Auto) 0.9 % Basophils (%) (Auto) 0.2 % Neutrophils # (Auto) 7.4 TH/MM3 Lymphocytes # (Auto) 1.5 TH/MM3 Monocytes # (Auto) 0.6 TH/MM3 Eosinophils # (Auto) 0.1 TH/MM3 Basophils # (Auto) 0.0 TH/MM3 CBC Comment DIFF FINAL Differential Comment Blood Urea Nitrogen 5 MG/DL Creatinine 0.63 MG/DL Random Glucose 101 MG/DL Calcium Level 8.5 MG/DL Sodium Level 139 MEQ/L Potassium Level 3.4 MEQ/L Chloride Level 108 MEQ/L Carbon Dioxide Level 22.6 MEQ/L Anion Gap 8 MEQ/L Estimat Glomerular Filtration Rate 100 ML/MIN Test 01/04/17 13:40 01/05/17 04:30 Urine Color LIGHT-YELLOW Urine Turbidity CLEAR Urine pH 6.0 Urine Specific Corbett 1.005 Urine Protein NEG mg/dL Urine Glucose (UA) NEG mg/dL Urine Ketones NEG mg/dL Urine Occult Blood NEG Urine Nitrite NEG Urine Bilirubin NEG Urine Urobilinogen LESS THAN 2.0 MG/DL Urine Leukocyte Esterase NEG Urine WBC LESS THAN 1 /hpf Microscopic Urinalysis Comment CULT NOT INDICATED Potassium Level 3.3 MEQ/L Magnesium Level 1.2 MG/DL Laboratory Tests Test 01/04/17 13:40 01/05/17 04:30 Urine Color LIGHT-YELLOW Urine Turbidity CLEAR Urine pH 6.0 Urine Specific Corbett 1.005 Urine Protein NEG Urine Glucose (UA) NEG Urine Ketones NEG Urine Occult Blood NEG Urine Nitrite NEG Urine Bilirubin NEG Urine Urobilinogen LESS THAN 2.0 Urine Leukocyte Esterase NEG Urine WBC LESS THAN 1 Microscopic Urinalysis Comment CULT NOT INDICATED Potassium Level 3.3 Magnesium Level 1.2 Radiology Last Impressions Abdomen X-Ray 12/20/16 0000 Signed Impressions: Service Date/Time: Tuesday, December 20, 2016 11:53 - CONCLUSION: There are no imaging findings to indicate obstruction. There is a single air-fluid level in the central abdomen, most likely within the transverse colon. Hong Valerio MD Abdomen/Pelvis CT 12/10/16 1144 Signed Impressions: Service Date/Time: November 14:39 - CONCLUSION: 1. Mild hepatomegaly. 2. No acute intra-abdominal process. 3. Mild degenerative changes and scoliosis of the lumbar spine. Dung Arias MD Cardiovascular: Regular Lungs: Clear Abdomen: Other (distended; midline incison with nahid; minimal drainage ) Extremities: No edema A/P Problem List: (1) Dysuria ICD Codes: R30.0 - Dysuria (2) Intra-abdominal adhesions ICD Codes: K66.0 - Peritoneal adhesions (postprocedural) (postinfection) Status: Chronic (3) Malabsorption syndrome ICD Codes: K90.9 - Intestinal malabsorption, unspecified Status: Chronic (4) Hypomagnesemia ICD Codes: E83.42 - Hypomagnesemia Status: Chronic (5) Hypokalemia ICD Codes: E87.6 - Hypokalemia Status: Chronic (6) Adhesion of intestine ICD Codes: K66.0 - Peritoneal adhesions (postprocedural) (postinfection) Status: Chronic (7) Adhesion of abdominal wall ICD Codes: K66.0 - Peritoneal adhesions (postprocedural) (postinfection) Status: Chronic (8) Adhesion of omentum ICD Codes: K66.0 - Peritoneal adhesions (postprocedural) (postinfection) Status: Chronic (9) Lower abdominal adhesions ICD Codes: K66.0 - Peritoneal adhesions (postprocedural) (postinfection) Status: Chronic (10) Abdominal pain ICD Codes: R10.9 - Abdominal pain Status: Chronic (11) Anemia ICD Codes: D64.9 - Anemia, unspecified Status: Acute (12) Diarrhea in adult patient ICD Codes: K52.9 - Diarrhea in adult patient Status: Chronic (13) Fibromyalgia ICD Codes: M79.7 - Fibromyalgia Status: Chronic (14) Anxiety and depression ICD Codes: F41.8 - Anxiety and depression Status: Chronic Assessment and Plan 51 year old female s/p ex lap; MARCO -Continued distention -Replace electrolytes -Full liquids as tolerated -Okay for family to bring food from home although I did encourage her to stick with bland type foods -Continue TPN -Encouraged continued mobilization -Okay to shower Attending Statement NOTE FOR SURGICAL ATTENDING, DR. WALLY SALDANA I agree with above assessment and plan. The exam, history, and the medical decision-making described in the above note were completed with the assistance of the mid-level provider. I reviewed and agree with the findings presented. Replacement potassium and magnesium The following services were provided during this hospital visit: Chart data review, vital sign assessments/reviewing monitor data Review of consultations notes if present. Medication orders/review and/or management Ordering and/or reviewing lab tests Ordering and/or interpreting/reviewing x-rays and/or diagnostic studies Care of the patient and discussion of the patient with the care team Documentation time To help prompt me to consider important information that might be impacting today's encounter and assessment, information from prior notes written by myself or my colleagues may have been "brought forward/copy and pasted" into today's note. Problem Qualifiers (1) Malabsorption syndrome: Qualified Codes: K90.89 - Other intestinal malabsorption (2) Abdominal pain: Qualified Codes: R10.32 - Left lower quadrant pain (3) Anemia: Lois Villalpando Jan 05, 2017 11:34 Wally Saldana MD Jan 05, 2017 20:17
[2017-01-05] MEDS: ONDANSETRON HCL 4 MG/2 ML VIAL IVP PRN ×2 (13:22→19:52)
--- NOTE | 2017-01-05 14:23 | HHI.PR ---
Subjective Remarks still having abd pain 5-10/05 no n/v , she still not being able to eat saw the sx team today , was told it will take time for sx to improve Objective Vitals Vital Signs Date Time Temp Pulse Resp B/P (MAP) Pulse Ox O2 Delivery O2 Flow Rate FiO2 01/05/17 12:00 97.9 87 18 138/76 (96) 98 01/05/17 10:40 15 01/05/17 08:00 97.5 64 18 104/56 (72) 99 01/05/17 04:30 96.9 80 16 116/76 (89) 98 01/05/17 04:04 73 01/05/17 00:01 73 01/05/17 00:00 97.5 77 17 105/58 (74) 97 01/04/17 20:12 82 01/04/17 20:00 98.2 77 17 113/56 (75) 96 01/04/17 17:38 98.3 01/04/17 16:14 85 01/04/17 16:00 86 112/62 (79) 100 I/O 01/04/17 01/04/17 01/04/17 01/05/17 01/05/17 01/05/17 07:00 15:00 23:00 07:00 15:00 23:00 Intake Total 1000 ml 1140 ml 1150 ml Output Total 950 ml 1500 ml Balance -950 ml 1000 ml -360 ml 1150 ml Intake Oral 120 ml 150 ml IV Total 1000 ml 1020 ml 1000 ml Output Urine Total 950 ml 1500 ml # Bowel Movements 3 4 Result Diagram: 01/04/17 0545 01/05/17 0430 Objective Remarks GENERAL: This is a well-nourished, well-developed patient, in no apparent distress. SKIN: No rashes, warm and dry HEAD: Atraumatic. Normocephalic. EYES: Pupils equal round and reactive. Extraocular motions intact. No scleral icterus. ENT: Nose without bleeding, or drainage, Airway patent. NECK: Trachea midline. Supple CARDIOVASCULAR: Regular rate and rhythm without murmurs, gallops, or rubs. RESPIRATORY: Fair air entry bilaterally. No wheezes, rales, or rhonchi. GASTROINTESTINAL: Abdomen soft, non-tender, nondistended. Positive bowel sounds , bandage on the abdomen clean MUSCULOSKELETAL: Extremities without clubbing, cyanosis, or edema. Pedal pulses appreciated NEUROLOGICAL: Awake and alert. Moves all extremity. Normal speech.no focal neurological deficit Procedures 12/21/2016 Exploratory laparotomy, lysis of massive adhesions greater than 2 hours. repair of enterotomies x2 12/18/2016 Enteroscopy with biopsies 1. 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 The mucosa of the stomach appeared normal 3. Normal duodenal mucosa in the entire duodenum 4. The exam showed no abnormalities in the jejunum; multiple biopsies were performed 5. Retroflexed views revealed no abnormalities A/P Problem List: (1) Hypomagnesemia ICD Code: E83.42 - Hypomagnesemia Status: Chronic (2) Hypokalemia ICD Code: E87.6 - Hypokalemia Status: Chronic (3) Abdominal pain ICD Code: R10.9 - Abdominal pain Status: Chronic (4) Nausea and vomiting ICD Code: R11.2 - Nausea and vomiting Status: Acute Assessment and Plan 01/04: Continue current care, blood pressure stable surgery following for further recommendation Mild hypokalemia> patient refusedpo potassium 01/05: continue current mangmt, follow closely with sx A/P: 51-year-old female with a history of bowel obstruction and multiple surgeries Status post exploratory laparotomy, lysis of massive adhesions on 12/22. -pathology showed massive adhesions with fusion of all bowels to each other into the left lower quadrant abdominal fascia. -Patient currently on TPN. Management per general surgery -Per GI performed endoscopies studies with biopsy on 12/18/2016. Encourage activity, currently on clear liquids and surgery had attempted to advance to full liquids however with slight increase in distention, patient would prefer bowel rest for next 24 hours Hypertension, essential -hold amlodipine due to low blood pressure Depression - continue fluoxetine 10 mg daily Full code. Lovenox. Problem Qualifiers (1) Abdominal pain: Qualified Codes: R10.32 - Left lower quadrant pain (2) Nausea and vomiting: Qualified Codes: R11.2 - Nausea with vomiting, unspecified Adeline Rubalcava MD Jan 05, 2017 14:23
[2017-01-05] MEDS: LORazepam 2 MG/ML VIAL IV PUSH PRN (14:41)
[2017-01-05] MEDS: [UNRECOGNIZED DRUG - OTHER] IV SCH ×5 (17:06→21:13)
[2017-01-05] MEDS: CLINIMIX E 4.25/25 1000 mL- </= 42 mls/hr IV-CENTRAL SCH ×3 (21:13)
[2017-01-05] MEDS: ENOXAPARIN SODIUM 40 MG/0.4 ML SYRINGE SQ SCH (21:15)
[2017-01-06] VITALS (8 sets, daily range): BP systolic 97–133; BP diastolic 55–64; PULSE 70–88; RESP 16–20; TEMP 96.9–99.9; O2SAT 96–100
[2017-01-06] MEDS: LACTATED RINGER'S 1000 ML INJ 1,000 ML IV SCH ×4 (00:30→23:55)
[2017-01-06] MEDS: ONDANSETRON HCL 4 MG/2 ML VIAL IVP PRN ×4 (01:49→20:59)
[2017-01-06] MEDS: HYDROmorphone HCL PF 2 MG/ML VIAL IV PUSH PRN ×8 (01:53→23:57)
[2017-01-06] MEDS: LORazepam 2 MG/ML VIAL IV PUSH PRN ×3 (03:01→22:57)
[2017-01-06] MEDS: PROMETHAZINE INJ 25 MG/ML VIAL IV-CENTRAL PRN ×4 (04:58→23:55)
[2017-01-06] MEDS: FLUoxetine HCL 10 MG CAP PO SCH (07:57)
[2017-01-06] MEDS: NEOMYCIN SULFATE 500 MG TAB PO SCH ×2 (07:57→21:04)
[2017-01-06] MEDS: DICYCLOMINE HCL 20 MG TAB PO SCH ×3 (07:57→17:49)
[2017-01-06] MEDS: SODIUM CHLORIDE 0.9% FLUSH 10 ML FLUSH IV FLUSH SCH ×2 (07:58→21:00)
[2017-01-06] MEDS: DOCUSATE SODIUM 50 MG/SENNA 8.6 MG TAB PO SCH ×2 (07:58→21:00)
--- NOTE | 2017-01-06 09:54 | HHI.PR ---
Subjective Subjective Notes DAILY PROGRESS NOTE FOR SURGICAL ATTENDING, DR. WALLY SALDANA Feeling the same as yesterday Mother going to bring some chicken soup later for her to try Objective Vitals/I&O Vital Signs Date Time Temp Pulse Resp B/P (MAP) Pulse Ox O2 Delivery O2 Flow Rate FiO2 01/06/17 07:50 97.1 75 20 120/62 (39) 100 Radiology Last Impressions Abdomen X-Ray 12/20/16 0000 Signed Impressions: Service Date/Time: Tuesday, December 20, 2016 11:53 - CONCLUSION: There are no imaging findings to indicate obstruction. There is a single air-fluid level in the central abdomen, most likely within the transverse colon. Hong Valerio MD Abdomen/Pelvis CT 12/10/16 1144 Signed Impressions: Service Date/Time: November 14:39 - CONCLUSION: 1. Mild hepatomegaly. 2. No acute intra-abdominal process. 3. Mild degenerative changes and scoliosis of the lumbar spine. Dung Arias MD Cardiovascular: Regular Lungs: Clear Abdomen: Other (midline incision with nahid; bandage changed; distended--- LLQ > RLQ ) Extremities: No edema A/P Problem List: (1) Dysuria ICD Codes: R30.0 - Dysuria (2) Intra-abdominal adhesions ICD Codes: K66.0 - Peritoneal adhesions (postprocedural) (postinfection) Status: Chronic (3) Malabsorption syndrome ICD Codes: K90.9 - Intestinal malabsorption, unspecified Status: Chronic (4) Hypomagnesemia ICD Codes: E83.42 - Hypomagnesemia Status: Chronic (5) Hypokalemia ICD Codes: E87.6 - Hypokalemia Status: Chronic (6) Adhesion of intestine ICD Codes: K66.0 - Peritoneal adhesions (postprocedural) (postinfection) Status: Chronic (7) Adhesion of abdominal wall ICD Codes: K66.0 - Peritoneal adhesions (postprocedural) (postinfection) Status: Chronic (8) Adhesion of omentum ICD Codes: K66.0 - Peritoneal adhesions (postprocedural) (postinfection) Status: Chronic (9) Lower abdominal adhesions ICD Codes: K66.0 - Peritoneal adhesions (postprocedural) (postinfection) Status: Chronic (10) Abdominal pain ICD Codes: R10.9 - Abdominal pain Status: Chronic (11) Anemia ICD Codes: D64.9 - Anemia, unspecified Status: Acute (12) Diarrhea in adult patient ICD Codes: K52.9 - Diarrhea in adult patient Status: Chronic (13) Fibromyalgia ICD Codes: M79.7 - Fibromyalgia Status: Chronic (14) Anxiety and depression ICD Codes: F41.8 - Anxiety and depression Status: Chronic Assessment and Plan 51 year old female s/p ex lap; MARCO -Continued distention -Full liquids as tolerated -Okay for family to bring food from home although I did encourage her to stick with bland type foods -Continue TPN -Encouraged continued mobilization -Okay to shower Attending Statement NOTE FOR SURGICAL ATTENDING, DR. WALLY SALDANA I agree with above assessment and plan. The exam, history, and the medical decision-making described in the above note were completed with the assistance of the mid-level provider. I reviewed and agree with the findings presented. I attest that I had a [id number] encounter with the patient on the same day, and personally performed and documented my assessment and findings in the medical record. The following services were provided during this hospital visit: Chart data review, vital sign assessments/reviewing monitor data Review of consultations notes if present. Medication orders/review and/or management Ordering and/or reviewing lab tests Ordering and/or interpreting/reviewing x-rays and/or diagnostic studies Care of the patient and discussion of the patient with the care team Documentation time To help prompt me to consider important information that might be impacting today's encounter and assessment, information from prior notes written by myself or my colleagues may have been "brought forward/copy and pasted" into today's note. Problem Qualifiers (1) Malabsorption syndrome: Qualified Codes: K90.89 - Other intestinal malabsorption (2) Abdominal pain: Qualified Codes: R10.32 - Left lower quadrant pain (3) Anemia: Lois Villalpando Jan 06, 2017 09:54 Wally Saldana MD Jan 07, 2017 16:40
--- NOTE | 2017-01-06 11:51 | HHI.PR ---
Subjective Remarks Resting comfortably in bed No event overnight Denied chest and or short of breath No fever or chills Objective Vitals Vital Signs Date Time Temp Pulse Resp B/P (MAP) Pulse Ox O2 Delivery O2 Flow Rate FiO2 01/06/17 07:50 97.1 75 20 120/62 (81) 100 01/06/17 05:28 16 01/06/17 04:10 73 01/06/17 04:00 96.9 70 17 97/55 (69) 96 01/06/17 00:03 75 01/06/17 00:00 97.0 88 16 110/57 (74) 96 01/05/17 20:04 85 01/05/17 20:00 97.8 84 17 97/55 (69) 98 01/05/17 16:00 97.2 96 18 125/62 (83) 97 01/05/17 12:00 97.9 87 18 138/76 (96) 98 I/O 01/05/17 01/05/17 01/05/17 01/06/17 01/06/17 01/06/17 07:00 15:00 23:00 07:00 15:00 23:00 Intake Total 1150 ml 600 ml 240 ml Balance 1150 ml 600 ml 240 ml Intake Oral 150 ml 600 ml 240 ml IV Total 1000 ml # Voids 4 2 # Bowel Movements 3 Result Diagram: 01/04/17 0545 01/05/17 0430 Objective Remarks GENERAL: This is a well-nourished, well-developed patient, in no apparent distress. SKIN: No rashes, warm and dry HEAD: Atraumatic. Normocephalic. EYES: Pupils equal round and reactive. Extraocular motions intact. No scleral icterus. ENT: Nose without bleeding, or drainage, Airway patent. NECK: Trachea midline. Supple CARDIOVASCULAR: Regular rate and rhythm without murmurs, gallops, or rubs. RESPIRATORY: Fair air entry bilaterally. No wheezes, rales, or rhonchi. GASTROINTESTINAL: Abdomen soft, non-tender, nondistended. Positive bowel sounds , bandage on the abdomen clean MUSCULOSKELETAL: Extremities without clubbing, cyanosis, or edema. Pedal pulses appreciated NEUROLOGICAL: Awake and alert. Moves all extremity. Normal speech.no focal neurological deficit Procedures 12/21/2016 Exploratory laparotomy, lysis of massive adhesions greater than 2 hours. repair of enterotomies x2 12/18/2016 Enteroscopy with biopsies 1. 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 The mucosa of the stomach appeared normal 3. Normal duodenal mucosa in the entire duodenum 4. The exam showed no abnormalities in the jejunum; multiple biopsies were performed 5. Retroflexed views revealed no abnormalities A/P Problem List: (1) Hypomagnesemia ICD Code: E83.42 - Hypomagnesemia Status: Chronic (2) Hypokalemia ICD Code: E87.6 - Hypokalemia Status: Chronic (3) Abdominal pain ICD Code: R10.9 - Abdominal pain Status: Chronic (4) Nausea and vomiting ICD Code: R11.2 - Nausea and vomiting Status: Acute Assessment and Plan 01/04: Continue current care, blood pressure stable surgery following for further recommendation Mild hypokalemia> patient refusedpo potassium 01/05: continue current mangmt, follow closely with sx 01/06: Continue current management and follow with surgery A/P: 51-year-old female with a history of bowel obstruction and multiple surgeries Status post exploratory laparotomy, lysis of massive adhesions on 12/22. -pathology showed massive adhesions with fusion of all bowels to each other into the left lower quadrant abdominal fascia. -Patient currently on TPN. Management per general surgery -Per GI performed endoscopies studies with biopsy on 12/18/2016. Encourage activity, currently on clear liquids and surgery had attempted to advance to full liquids however with slight increase in distention, patient would prefer bowel rest for next 24 hours Hypertension, essential -hold amlodipine due to low blood pressure Depression - continue fluoxetine 10 mg daily Full code. Lovenox. Problem Qualifiers (1) Abdominal pain: Qualified Codes: R10.32 - Left lower quadrant pain (2) Nausea and vomiting: Qualified Codes: R11.2 - Nausea with vomiting, unspecified Adeline Rubalcava MD Jan 06, 2017 11:51
[2017-01-06 12:55] LABS: BICARBONATE 24.4 MEQ/L (21.0-32.0); POTASSIUM 3.8 MEQ/L (3.5-5.1)
[2017-01-06] MEDS: ENOXAPARIN SODIUM 40 MG/0.4 ML SYRINGE SQ SCH (21:04)
[2017-01-06] MEDS: FAT EMULSION 20% INJ 250 ML (Twice weekly over 8 hours) IV-CENTRAL SCH (21:31)
[2017-01-06] MEDS: CLINIMIX E 4.25/25 1000 mL- </= 42 mls/hr IV-CENTRAL SCH ×3 (21:31)
[2017-01-07] VITALS: BP 126/70; PULSE 84; PULSE 88; RESP 16; TEMP 98.8; O2SAT 99
[2017-01-07] MEDS: HYDROmorphone HCL PF 2 MG/ML VIAL IV PUSH PRN ×8 (03:01→23:03)
[2017-01-07] MEDS: ONDANSETRON HCL 4 MG/2 ML VIAL IVP PRN ×4 (03:01→19:59)
[2017-01-07 04:00] VITALS: BP 120/67; PULSE 74; PULSE 78; RESP 17; TEMP 98.4; O2SAT 100
[2017-01-07] MEDS: LORazepam 2 MG/ML VIAL IV PUSH PRN ×3 (04:56→23:02)
[2017-01-07] MEDS: PROMETHAZINE INJ 25 MG/ML VIAL IV-CENTRAL PRN ×4 (05:57→23:02)
[2017-01-07 08:09] VITALS: BP_SYST 83; BP_SYST 90; BP_DIAS 50; BP_DIAS 57; PULSE 82; RESP 16; TEMP 97.1; O2SAT 97
[2017-01-07] MEDS: SODIUM CHLORIDE 0.9% FLUSH 10 ML FLUSH IV FLUSH SCH ×2 (09:00→20:00)
[2017-01-07] MEDS: DOCUSATE SODIUM 50 MG/SENNA 8.6 MG TAB PO SCH ×2 (09:00→20:00)
[2017-01-07] MEDS: DICYCLOMINE HCL 20 MG TAB PO SCH ×3 (09:03→17:29)
[2017-01-07] MEDS: FLUoxetine HCL 10 MG CAP PO SCH (09:03)
[2017-01-07] MEDS: NEOMYCIN SULFATE 500 MG TAB PO SCH ×2 (09:03→21:37)
[2017-01-07] MEDS: LACTATED RINGER'S 1000 ML INJ 1,000 ML IV SCH ×2 (09:55→19:51)
[2017-01-07 11:55] VITALS: BP 108/60; PULSE 78; RESP 18; TEMP 98.8; O2SAT 96
--- NOTE | 2017-01-07 12:01 | HHI.PR ---
Subjective Remarks pt still couldn't tolerate creamy chiken soup she tried to eat still having abd discomfort on the left side Objective Vitals Vital Signs Date Time Temp Pulse Resp B/P (MAP) Pulse Ox O2 Delivery O2 Flow Rate FiO2 01/07/17 08:09 97.1 82 16 83/50 (61) 97 90/57 (68) 01/07/17 04:00 98.4 78 17 120/67 (84) 100 01/07/17 04:00 74 01/07/17 00:00 98.8 88 16 126/70 (88) 99 01/07/17 00:00 84 01/06/17 20:00 86 01/06/17 20:00 99.9 83 17 133/62 (85) 100 01/06/17 15:50 98.6 79 20 119/60 (79) 99 01/06/17 15:30 17 I/O 01/06/17 01/06/17 01/06/17 01/07/17 01/07/17 01/07/17 06:59 14:59 22:59 06:59 14:59 22:59 Intake Total 240 ml 947 ml 360 ml 955 ml Balance 240 ml 947 ml 360 ml 955 ml Intake Oral 240 ml 360 ml IV Total 947 ml 955 ml # Voids 2 3 4 # Bowel Movements 3 1 Result Diagram: 01/04/17 0545 01/06/17 1200 Objective Remarks GENERAL: This is a well-nourished, well-developed patient, in no apparent distress. SKIN: No rashes, warm and dry HEAD: Atraumatic. Normocephalic. EYES: Pupils equal round and reactive. Extraocular motions intact. No scleral icterus. ENT: Nose without bleeding, or drainage, Airway patent. NECK: Trachea midline. Supple CARDIOVASCULAR: Regular rate and rhythm without murmurs, gallops, or rubs. RESPIRATORY: Fair air entry bilaterally. No wheezes, rales, or rhonchi. GASTROINTESTINAL: Abdomen soft, non-tender, nondistended. Positive bowel sounds , bandage on the abdomen clean MUSCULOSKELETAL: Extremities without clubbing, cyanosis, or edema. Pedal pulses appreciated NEUROLOGICAL: Awake and alert. Moves all extremity. Normal speech.no focal neurological deficit Procedures 12/21/2016 Exploratory laparotomy, lysis of massive adhesions greater than 2 hours. repair of enterotomies x2 12/18/2016 Enteroscopy with biopsies 1. 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 The mucosa of the stomach appeared normal 3. Normal duodenal mucosa in the entire duodenum 4. The exam showed no abnormalities in the jejunum; multiple biopsies were performed 5. Retroflexed views revealed no abnormalities A/P Problem List: (1) Hypomagnesemia ICD Code: E83.42 - Hypomagnesemia Status: Chronic (2) Hypokalemia ICD Code: E87.6 - Hypokalemia Status: Chronic (3) Abdominal pain ICD Code: R10.9 - Abdominal pain Status: Chronic (4) Nausea and vomiting ICD Code: R11.2 - Nausea and vomiting Status: Acute Assessment and Plan A/P: 51-year-old female with a history of bowel obstruction and multiple surgeries Status post exploratory laparotomy, lysis of massive adhesions on 12/22. -pathology showed massive adhesions with fusion of all bowels to each other into the left lower quadrant abdominal fascia. -Patient currently on TPN. Management per general surgery(monitor for now , Next[facility] mobility ) -Per GI performed endoscopies studies with biopsy on 12/18/2016. Encourage activity, currently on clear liquids and surgery had attempted to advance to full liquids however with slight increase in distention, patient would prefer bowel rest for next 24 hours Hypertension, essential -hold amlodipine due to low blood pressure Depression - continue fluoxetine 10 mg daily Full code. Lovenox. Problem Qualifiers (1) Abdominal pain: Qualified Codes: R10.32 - Left lower quadrant pain (2) Nausea and vomiting: Qualified Codes: R11.2 - Nausea with vomiting, unspecified Adeline Rubalcava MD Jan 07, 2017 12:01
--- NOTE | 2017-01-07 13:46 | HHI.PR ---
Subjective Subjective Notes DAILY PROGRESS NOTE FOR SURGICAL ATTENDING, DR. WALLY SALDANA Still with liquid BMs Tolerated some chicken soup that her Mother brought in last night Objective Vitals/I&O Vital Signs Date Time Temp Pulse Resp B/P (MAP) Pulse Ox O2 Delivery O2 Flow Rate FiO2 01/07/17 11:55 98.8 78 18 108/60 (78) 08 Radiology Last Impressions Abdomen X-Ray 12/20/16 0000 Signed Impressions: Service Date/Time: Tuesday, December 20, 2016 11:53 - CONCLUSION: There are no imaging findings to indicate obstruction. There is a single air-fluid level in the central abdomen, most likely within the transverse colon. Hong Valerio MD Abdomen/Pelvis CT 12/10/16 1144 Signed Impressions: Service Date/Time: November 14:39 - CONCLUSION: 1. Mild hepatomegaly. 2. No acute intra-abdominal process. 3. Mild degenerative changes and scoliosis of the lumbar spine. Dung Arias MD Cardiovascular: Regular Lungs: Clear Abdomen: Other (still with conitnued distention; midline incision---minimal drainage on bandage ) Extremities: No edema A/P Problem List: (1) Dysuria ICD Codes: R30.0 - Dysuria (2) Intra-abdominal adhesions ICD Codes: K66.0 - Peritoneal adhesions (postprocedural) (postinfection) Status: Chronic (3) Malabsorption syndrome ICD Codes: K90.9 - Intestinal malabsorption, unspecified Status: Chronic (4) Hypomagnesemia ICD Codes: E83.42 - Hypomagnesemia Status: Chronic (5) Hypokalemia ICD Codes: E87.6 - Hypokalemia Status: Chronic (6) Adhesion of intestine ICD Codes: K66.0 - Peritoneal adhesions (postprocedural) (postinfection) Status: Chronic (7) Adhesion of abdominal wall ICD Codes: K66.0 - Peritoneal adhesions (postprocedural) (postinfection) Status: Chronic (8) Adhesion of omentum ICD Codes: K66.0 - Peritoneal adhesions (postprocedural) (postinfection) Status: Chronic (9) Lower abdominal adhesions ICD Codes: K66.0 - Peritoneal adhesions (postprocedural) (postinfection) Status: Chronic (10) Abdominal pain ICD Codes: R10.9 - Abdominal pain Status: Chronic (11) Anemia ICD Codes: D64.9 - Anemia, unspecified Status: Acute (12) Diarrhea in adult patient ICD Codes: K52.9 - Diarrhea in adult patient Status: Chronic (13) Fibromyalgia ICD Codes: M79.7 - Fibromyalgia Status: Chronic (14) Anxiety and depression ICD Codes: F41.8 - Anxiety and depression Status: Chronic Assessment and Plan 51 year old female s/p ex lap; MARCO -Continued distention -Full liquids as tolerated -Okay for family to bring food from home although I did encourage her to stick with bland type foods -Continue TPN -Labs in AM -Encouraged continued mobilization -Okay to shower -Plan to move to N Attending Statement NOTE FOR SURGICAL ATTENDING, DR. WALLY SALDANA Doing okay still having some abdominal discomfort left side Liquid bowel movements Adjust pain medication I agree with above assessment and plan. The exam, history, and the medical decision-making described in the above note were completed with the assistance of the mid-level provider. I reviewed and agree with the findings presented. I attest that I had a [id number] encounter with the patient on the same day, and personally performed and documented my assessment and findings in the medical record. The following services were provided during this hospital visit: Chart data review, vital sign assessments/reviewing monitor data Review of consultations notes if present. Medication orders/review and/or management Ordering and/or reviewing lab tests Ordering and/or interpreting/reviewing x-rays and/or diagnostic studies Care of the patient and discussion of the patient with the care team Documentation time To help prompt me to consider important information that might be impacting today's encounter and assessment, information from prior notes written by myself or my colleagues may have been "brought forward/copy and pasted" into today's note. Problem Qualifiers (1) Malabsorption syndrome: Qualified Codes: K90.89 - Other intestinal malabsorption (2) Abdominal pain: Qualified Codes: R10.32 - Left lower quadrant pain (3) Anemia: Lois Villalpando Jan 07, 2017 13:46 Wally Saldana MD Jan 07, 2017 16:46
[2017-01-07 16:00] VITALS: BP 113/72; PULSE 92; RESP 18; TEMP 98; O2SAT 92
[2017-01-07 20:00] VITALS: BP 105/56; PULSE 76; RESP 17; TEMP 98.3; O2SAT 98
[2017-01-07] MEDS: ENOXAPARIN SODIUM 40 MG/0.4 ML SYRINGE SQ SCH (20:00)
[2017-01-07] MEDS: CLINIMIX E 4.25/25 1000 mL- </= 42 mls/hr IV-CENTRAL SCH ×3 (21:57)
[2017-01-08] VITALS (7 sets, daily range): BP systolic 89–123; BP diastolic 55–73; PULSE 73–91; RESP 16–17; TEMP 97.4–99; O2SAT 97–100
[2017-01-08] MEDS: ONDANSETRON HCL 4 MG/2 ML VIAL IVP PRN ×4 (02:00→21:25)
[2017-01-08] MEDS: HYDROmorphone HCL PF 2 MG/ML VIAL IV PUSH PRN ×8 (02:01→23:52)
[2017-01-08] MEDS: PROMETHAZINE INJ 25 MG/ML VIAL IV-CENTRAL PRN ×4 (05:17→23:18)
[2017-01-08] MEDS: DOCUSATE SODIUM 50 MG/SENNA 8.6 MG TAB PO SCH ×2 (08:28→20:12)
[2017-01-08] MEDS: NEOMYCIN SULFATE 500 MG TAB PO SCH ×2 (08:28→20:12)
[2017-01-08] MEDS: DICYCLOMINE HCL 20 MG TAB PO SCH ×3 (08:29→17:57)
[2017-01-08] MEDS: SODIUM CHLORIDE 0.9% FLUSH 10 ML FLUSH IV FLUSH SCH ×2 (08:29→21:20)
[2017-01-08] MEDS: FLUoxetine HCL 10 MG CAP PO SCH (08:34)
[2017-01-08] MEDS: LACTATED RINGER'S 1000 ML INJ 1,000 ML IV SCH ×3 (11:34→23:18)
[2017-01-08] MEDS: LORazepam 2 MG/ML VIAL IV PUSH PRN ×3 (12:01→23:58)
--- NOTE | 2017-01-08 12:29 | HHI.PR ---
Subjective Remarks Patient with persistent abdominal distention. She reports persistent pain mostly on the left lower quadrant. No nausea or vomiting. Has been doing some sips of water. Objective Vitals Vital Signs Date Time Temp Pulse Resp B/P (MAP) Pulse Ox O2 Delivery O2 Flow Rate FiO2 01/08/17 08:00 97.8 73 16 114/66 (82) 99 01/08/17 05:47 20 01/08/17 04:00 98.3 87 17 123/70 (87) 100 01/08/17 01:30 79 119/65 (83) 01/08/17 00:00 97.8 80 17 89/55 (66) 97 01/07/17 20:00 98.3 76 17 105/56 (72) 98 01/07/17 16:00 98.0 92 18 113/72 (86) 92 I/O 01/07/17 01/07/17 01/07/17 01/08/17 01/08/17 01/08/17 07:00 15:00 23:00 07:00 15:00 23:00 Intake Total 955 ml 3093 ml 504 ml Output Total 1000 ml Balance 955 ml 2093 ml 504 ml Intake Oral 480 ml IV Total 955 ml 2113 ml 504 ml TPN/PPN 500 ml Output Urine Total 1000 ml # Voids 4 8 # Bowel Movements 1 8 Result Diagram: 01/04/17 0545 01/06/17 1200 Imaging Last Impressions Abdomen X-Ray 12/26/16 0000 Signed Impressions: Service Date/Time: Monday, December 26, 2016 08:56 - CONCLUSION: Interval surgery with air dilated large bowel likely reflecting ileus. Petrona Celaya MD Abdomen/Pelvis CT 12/10/16 1144 Signed Impressions: Service Date/Time: November 14:39 - CONCLUSION: 1. Mild hepatomegaly. 2. No acute intra-abdominal process. 3. Mild degenerative changes and scoliosis of the lumbar spine. Dung Arias MD Objective Remarks GENERAL: Patient appearing older than stated age. CARDIOVASCULAR: Normal rate and regular rhythm without murmurs, gallops, or rubs. RESPIRATORY: Good respiratory efforts. Breath sounds equal and clear to auscultation bilaterally. GASTROINTESTINAL: Abdomen is distended, tender to palpation, worse on the left quadrant. Dressings appear intact. MUSCULOSKELETAL: Extremities without cyanosis, or edema. NEURO: Alert & Oriented x4 to person, place, time, situation. Moves all ext x4 PSYCH: Appropriate mood and affect. Procedures 12/21/2016 Exploratory laparotomy, lysis of massive adhesions greater than 2 hours. repair of enterotomies x2 12/18/2016 Enteroscopy with biopsies 1. 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 The mucosa of the stomach appeared normal 3. Normal duodenal mucosa in the entire duodenum 4. The exam showed no abnormalities in the jejunum; multiple biopsies were performed 5. Retroflexed views revealed no abnormalities A/P Problem List: (1) Hypomagnesemia ICD Code: E83.42 - Hypomagnesemia Status: Chronic (2) Hypokalemia ICD Code: E87.6 - Hypokalemia Status: Chronic (3) Abdominal pain ICD Code: R10.9 - Abdominal pain Status: Chronic (4) Nausea and vomiting ICD Code: R11.2 - Nausea and vomiting Status: Acute Assessment and Plan 51-year-old female with a history of bowel obstruction and multiple surgeries Status post exploratory laparotomy, lysis of massive adhesions on 12/22. -pathology showed massive adhesions with fusion of all bowels to each other into the left lower quadrant abdominal fascia. -Patient currently on TPN. Attempting to slowly advance diet as tolerated. Further management per general surgery. -Per GI performed endoscopies studies with biopsy on 12/18/2016. Encourage activity, currently on clear liquids but not tolerating it well. Hypertension, essential -hold amlodipine due to low blood pressure Depression - continue fluoxetine 10 mg daily Full code. Lovenox. Problem Qualifiers (1) Abdominal pain: Qualified Codes: R10.32 - Left lower quadrant pain (2) Nausea and vomiting: Qualified Codes: R11.2 - Nausea with vomiting, unspecified Sybil Campbell MD Jan 08, 2017 12:29
--- NOTE | 2017-01-08 13:05 | HHI.PR ---
Subjective Subjective Notes Resting in bed Uneventful night Objective Vitals/I&O Vital Signs Date Time Temp Pulse Resp B/P (MAP) Pulse Ox O2 Delivery O2 Flow Rate FiO2 01/08/17 12:00 97.4 90 16 116/73 (87) 99 Radiology Last Impressions Abdomen X-Ray 12/20/16 0000 Signed Impressions: Service Date/Time: Tuesday, December 20, 2016 11:53 - CONCLUSION: There are no imaging findings to indicate obstruction. There is a single air-fluid level in the central abdomen, most likely within the transverse colon. Hong Valerio MD Abdomen/Pelvis CT 12/10/16 1144 Signed Impressions: Service Date/Time: November 14:39 - CONCLUSION: 1. Mild hepatomegaly. 2. No acute intra-abdominal process. 3. Mild degenerative changes and scoliosis of the lumbar spine. Dung Arias MD Cardiovascular: Regular Lungs: Clear Abdomen: Other (midline incision---drainage from inferior portion continues to just be serous; distended ) Extremities: No edema A/P Problem List: (1) Dysuria ICD Codes: R30.0 - Dysuria (2) Intra-abdominal adhesions ICD Codes: K66.0 - Peritoneal adhesions (postprocedural) (postinfection) Status: Chronic (3) Malabsorption syndrome ICD Codes: K90.9 - Intestinal malabsorption, unspecified Status: Chronic (4) Hypomagnesemia ICD Codes: E83.42 - Hypomagnesemia Status: Chronic (5) Hypokalemia ICD Codes: E87.6 - Hypokalemia Status: Chronic (6) Adhesion of intestine ICD Codes: K66.0 - Peritoneal adhesions (postprocedural) (postinfection) Status: Chronic (7) Adhesion of abdominal wall ICD Codes: K66.0 - Peritoneal adhesions (postprocedural) (postinfection) Status: Chronic (8) Adhesion of omentum ICD Codes: K66.0 - Peritoneal adhesions (postprocedural) (postinfection) Status: Chronic (9) Lower abdominal adhesions ICD Codes: K66.0 - Peritoneal adhesions (postprocedural) (postinfection) Status: Chronic (10) Abdominal pain ICD Codes: R10.9 - Abdominal pain Status: Chronic (11) Anemia ICD Codes: D64.9 - Anemia, unspecified Status: Acute (12) Diarrhea in adult patient ICD Codes: K52.9 - Diarrhea in adult patient Status: Chronic (13) Fibromyalgia ICD Codes: M79.7 - Fibromyalgia Status: Chronic (14) Anxiety and depression ICD Codes: F41.8 - Anxiety and depression Status: Chronic Assessment and Plan 51 year old female s/p ex lap; MARCO -Continued distention -Full liquids as tolerated -Okay for family to bring food from home although I did encourage her to stick with bland type foods -Continue TPN -Pain control -Encouraged continued mobilization -Okay to shower Attending Statement The exam, history, and the medical decision-making described in the above note were completed with the assistance of the mid-level provider. I reviewed and agree with the findings presented. I attest that I had a [id number] encounter with the patient on the same day, and personally performed and documented my assessment and findings in the medical record. Physical Exam: Abdomen soft, no rebound tenderness or guarding pain controlled, no N/V Problem Qualifiers (1) Malabsorption syndrome: Qualified Codes: K90.89 - Other intestinal malabsorption (2) Abdominal pain: Qualified Codes: R10.32 - Left lower quadrant pain (3) Anemia: Lois Villalpando Jan 08, 2017 13:05 Hugo Sandoval MD Jan 15, 2017 16:45
[2017-01-08] MEDS: CLINIMIX E 4.25/25 1000 mL- </= 42 mls/hr IV-CENTRAL SCH ×3 (20:10)
[2017-01-08] MEDS: ENOXAPARIN SODIUM 40 MG/0.4 ML SYRINGE SQ SCH (20:11)
[2017-01-08] MEDS: ACETAMINOPHEN 325 MG TAB PO PRN (23:17)
[2017-01-09] VITALS: BP 120/59; PULSE 114; RESP 17; TEMP 101.6; O2SAT 99
[2017-01-09] MEDS: HYDROmorphone HCL PF 2 MG/ML VIAL IV PUSH PRN ×7 (04:43→23:41)
[2017-01-09] MEDS: PROMETHAZINE INJ 25 MG/ML VIAL IV-CENTRAL PRN ×4 (04:46→20:34)
[2017-01-09] MEDS: SODIUM CHLORIDE 0.9% FLUSH 10 ML FLUSH IV FLUSH PRN (04:47)
[2017-01-09 07:58] LABS: HEMATOCRIT 25.7 % (35.0-46.0); MEAN CELL VOLUME 93.7 FL (80.0-100.0); MEAN CORPUSCULAR HEMOGLOBIN 31.6 PG (27.0-34.0); MEAN CORPUSCULAR HGB CONC 33.7 % (32.0-36.0); PLATELET COUNT 209 TH/MM3 (150-450); RED BLOOD COUNT 2.74 MIL/MM3 (4.00-5.30); RED CELL DISTRIBUTION WIDTH 14.5 % (11.6-17.2); REVIEW FLAG FINAL
[2017-01-09 08:00] VITALS: BP 111/65; PULSE 89; RESP 16; TEMP 100.2; O2SAT 98
[2017-01-09 08:21] LABS: BICARBONATE 21.1 MEQ/L (21.0-32.0); POTASSIUM 3.8 MEQ/L (3.5-5.1)
[2017-01-09] MEDS: DOCUSATE SODIUM 50 MG/SENNA 8.6 MG TAB PO SCH ×2 (08:59→20:46)
[2017-01-09] MEDS: FLUoxetine HCL 10 MG CAP PO SCH (09:00)
[2017-01-09] MEDS: NEOMYCIN SULFATE 500 MG TAB PO SCH ×2 (09:00→20:34)
[2017-01-09] MEDS: DICYCLOMINE HCL 20 MG TAB PO SCH ×3 (09:00→17:44)
[2017-01-09] MEDS: SODIUM CHLORIDE 0.9% FLUSH 10 ML FLUSH IV FLUSH SCH ×2 (09:01→20:40)
--- NOTE | 2017-01-09 09:44 | HHI.PR ---
Subjective Remarks Patient reports she is feeling slightly better today but still experiences significant pain with anything that she tries to drink. Objective Vitals Vital Signs Date Time Temp Pulse Resp B/P (MAP) Pulse Ox O2 Delivery O2 Flow Rate FiO2 01/09/17 08:00 100.2 89 16 111/65 (80) 98 01/09/17 00:00 101.6 114 17 120/59 (79) 99 01/08/17 20:00 99.0 91 17 112/57 (75) 98 01/08/17 16:00 98.4 77 16 95/64 (74) 97 01/08/17 12:00 97.4 90 16 116/73 (87) 99 I/O 01/08/17 01/08/17 01/08/17 01/09/17 01/09/17 01/09/17 07:00 15:00 23:00 07:00 15:00 23:00 Intake Total 3093 ml 504 ml 480 ml 3168 ml Output Total 1000 ml 1200 ml 600 ml Balance 2093 ml 504 ml -720 ml 2568 ml Intake Oral 480 ml 480 ml 240 ml IV Total 2113 ml 504 ml 2053 ml TPN/PPN 500 ml 875 ml Output Urine Total 1000 ml 1200 ml 600 ml # Bowel Movements 3 Result Diagram: 01/09/1772901/09/17729 Objective Remarks GENERAL: Patient appearing older than stated age. CARDIOVASCULAR: Normal rate and regular rhythm without murmurs, gallops, or rubs. RESPIRATORY: Good respiratory efforts. Breath sounds equal and clear to auscultation bilaterally. GASTROINTESTINAL: Abdomen is distended, tender to palpation, worse on the left quadrant. Dressings appear intact. MUSCULOSKELETAL: Extremities without cyanosis, or edema. NEURO: Alert & Oriented x4 to person, place, time, situation. Moves all ext x4 PSYCH: Appropriate mood and affect. Procedures 12/21/2016 Exploratory laparotomy, lysis of massive adhesions greater than 2 hours. repair of enterotomies x2 12/18/2016 Enteroscopy with biopsies 1. 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 The mucosa of the stomach appeared normal 3. Normal duodenal mucosa in the entire duodenum 4. The exam showed no abnormalities in the jejunum; multiple biopsies were performed 5. Retroflexed views revealed no abnormalities A/P Problem List: (1) Hypomagnesemia ICD Code: E83.42 - Hypomagnesemia Status: Chronic (2) Hypokalemia ICD Code: E87.6 - Hypokalemia Status: Chronic (3) Abdominal pain ICD Code: R10.9 - Abdominal pain Status: Chronic (4) Nausea and vomiting ICD Code: R11.2 - Nausea and vomiting Status: Acute Assessment and Plan 51-year-old female with a history of bowel obstruction and multiple surgeries Status post exploratory laparotomy, lysis of massive adhesions on 12/22. -pathology showed massive adhesions with fusion of all bowels to each other into the left lower quadrant abdominal fascia. -Patient currently on TPN. Attempting to slowly advance diet as tolerated. Further management per general surgery. -Per GI performed endoscopies studies with biopsy on 12/18/2016. - Encouraged the patient today to increase activity, at least attempt to walk around the unit. Liquid diet as tolerated. Hypertension, essential -hold amlodipine due to low blood pressure Depression - continue fluoxetine 10 mg daily Full code. Lovenox. Problem Qualifiers (1) Abdominal pain: Qualified Codes: R10.32 - Left lower quadrant pain (2) Nausea and vomiting: Qualified Codes: R11.2 - Nausea with vomiting, unspecified Sybil Campbell MD Jan 09, 2017 09:43
[2017-01-09] MEDS: ONDANSETRON HCL 4 MG/2 ML VIAL IVP PRN ×3 (11:51→23:42)
[2017-01-09 12:00] VITALS: BP 104/58; PULSE 96; RESP 17; TEMP 100.3; O2SAT 95
[2017-01-09] MEDS: ACETAMINOPHEN 325 MG TAB PO PRN (15:11)
[2017-01-09] MEDS: LACTATED RINGER'S 1000 ML INJ 1,000 ML IV SCH ×2 (15:12→17:50)
[2017-01-09 17:27] VITALS: BP 89/53; PULSE 85; RESP 17; TEMP 96.6; O2SAT 97
[2017-01-09 18:39] VITALS: BP 84/52; PULSE 74
[2017-01-09 20:00] VITALS: BP 98/57; PULSE 75; RESP 18; TEMP 97.4; O2SAT 98
[2017-01-09] MEDS: ENOXAPARIN SODIUM 40 MG/0.4 ML SYRINGE SQ SCH (20:34)
[2017-01-09] MEDS: CLINIMIX E 4.25/25 1000 mL- </= 42 mls/hr IV-CENTRAL SCH ×3 (20:46)
[2017-01-10] VITALS: BP 112/65; PULSE 84; RESP 18; TEMP 97.3; O2SAT 98
[2017-01-10] MEDS: LORazepam 2 MG/ML VIAL IV PUSH PRN ×2 (00:59→22:10)
[2017-01-10] MEDS: LACTATED RINGER'S 1000 ML INJ 1,000 ML IV SCH ×3 (01:02→20:31)
--- NOTE | 2017-01-10 01:29 | HHI.PR ---
Subjective Subjective Notes late entry 01/09/17 patient c/o worsening pain, subjective fevers Objective Vitals/I&O Vital Signs Date Time Temp Pulse Resp B/P (MAP) Pulse Ox O2 Delivery O2 Flow Rate FiO2 01/10/17 00:00 97.3 84 18 112/65 (81) 98 Labs Laboratory Tests Test 01/09/17 07:30 White Blood Count 14.0 Red Blood Count 2.74 Hemoglobin 8.7 Hematocrit 25.7 Mean Corpuscular Volume 93.7 Mean Corpuscular Hemoglobin 31.6 Mean Corpuscular Hemoglobin Concent 33.7 Red Cell Distribution Width 14.5 Platelet Count 209 Mean Platelet Volume 8.1 Blood Urea Nitrogen 8 Creatinine 0.74 Random Glucose 120 Calcium Level 8.5 Sodium Level 136 Potassium Level 3.8 Chloride Level 105 Carbon Dioxide Level 21.1 Anion Gap 10 Estimat Glomerular Filtration Rate 83 Radiology Last Impressions Abdomen X-Ray 12/20/16 0000 Signed Impressions: Service Date/Time: Tuesday, December 20, 2016 11:53 - CONCLUSION: There are no imaging findings to indicate obstruction. There is a single air-fluid level in the central abdomen, most likely within the transverse colon. Hong Valerio MD Abdomen/Pelvis CT 12/10/16 1144 Signed Impressions: Service Date/Time: November 14:39 - CONCLUSION: 1. Mild hepatomegaly. 2. No acute intra-abdominal process. 3. Mild degenerative changes and scoliosis of the lumbar spine. Dung Arias MD Abdomen: Non-distended, Post-op tenderness Wound Wound : Wound Location: Abdomen Appearance: Granulating Drainage: Clear Dressing: NS - Wet to Dry A/P Problem List: (1) Dysuria ICD Codes: R30.0 - Dysuria (2) Intra-abdominal adhesions ICD Codes: K66.0 - Peritoneal adhesions (postprocedural) (postinfection) Status: Chronic (3) Malabsorption syndrome ICD Codes: K90.9 - Intestinal malabsorption, unspecified Status: Chronic (4) Hypomagnesemia ICD Codes: E83.42 - Hypomagnesemia Status: Chronic (5) Hypokalemia ICD Codes: E87.6 - Hypokalemia Status: Chronic (6) Adhesion of intestine ICD Codes: K66.0 - Peritoneal adhesions (postprocedural) (postinfection) Status: Chronic (7) Adhesion of abdominal wall ICD Codes: K66.0 - Peritoneal adhesions (postprocedural) (postinfection) Status: Chronic (8) Adhesion of omentum ICD Codes: K66.0 - Peritoneal adhesions (postprocedural) (postinfection) Status: Chronic (9) Lower abdominal adhesions ICD Codes: K66.0 - Peritoneal adhesions (postprocedural) (postinfection) Status: Chronic (10) Abdominal pain ICD Codes: R10.9 - Abdominal pain Status: Chronic (11) Anemia ICD Codes: D64.9 - Anemia, unspecified Status: Acute (12) Diarrhea in adult patient ICD Codes: K52.9 - Diarrhea in adult patient Status: Chronic (13) Fibromyalgia ICD Codes: M79.7 - Fibromyalgia Status: Chronic (14) Anxiety and depression ICD Codes: F41.8 - Anxiety and depression Status: Chronic Assessment and Plan 51 year old female s/p ex lap; MARCO, stable. -Pain worse, increased WBC, abdomen very tender on PE, will check CT scan tonight -Continued distention -Full liquids as tolerated -Okay for family to bring food from home although I did encourage her to stick with bland type foods -Continue TPN -Encouraged continued mobilization -Okay to shower Problem Qualifiers (1) Malabsorption syndrome: Qualified Codes: K90.89 - Other intestinal malabsorption (2) Abdominal pain: Qualified Codes: R10.32 - Left lower quadrant pain (3) Anemia: Hugo Sandoval MD Jan 10, 2017 01:29
[2017-01-10] MEDS ORDERED: SODIUM CHLORID 0.9% 500 ML INJ 500 ML IV ONE (01:45)
[2017-01-10 04:00] VITALS: BP 114/67; PULSE 88; RESP 18; TEMP 99.4; O2SAT 96
[2017-01-10] MEDS: ONDANSETRON HCL 4 MG/2 ML VIAL IVP PRN ×3 (05:45→23:27)
[2017-01-10] MEDS: HYDROmorphone HCL PF 2 MG/ML VIAL IV PUSH PRN ×7 (05:45→23:28)
[2017-01-10] MEDS ORDERED: DIATRIZOATE MEGLUM/DIATRIZOATE SOD 9 ML CUP PO ONE (07:15)
[2017-01-10] MEDS: PROMETHAZINE INJ 25 MG/ML VIAL IV-CENTRAL PRN ×4 (07:43→20:22)
[2017-01-10 08:00] VITALS: BP 92/52; PULSE 84; RESP 16; TEMP 99; O2SAT 97
[2017-01-10] MEDS: DICYCLOMINE HCL 20 MG TAB PO SCH ×3 (08:47→18:05)
[2017-01-10] MEDS: NEOMYCIN SULFATE 500 MG TAB PO SCH ×2 (08:47→20:20)
[2017-01-10] MEDS: FLUoxetine HCL 10 MG CAP PO SCH (08:47)
[2017-01-10] MEDS: DOCUSATE SODIUM 50 MG/SENNA 8.6 MG TAB PO SCH ×2 (08:48→20:31)
[2017-01-10] MEDS: SODIUM CHLORIDE 0.9% FLUSH 10 ML FLUSH IV FLUSH SCH ×2 (08:48→20:22)
--- NOTE | 2017-01-10 09:50 | HHI.PR ---
Subjective Remarks Patient reported feeling the same. Still having significant abdominal pain. Slowly drinking contrast for abdominal CT today. Objective Vitals Vital Signs Date Time Temp Pulse Resp B/P (MAP) Pulse Ox O2 Delivery O2 Flow Rate FiO2 01/10/17 08:00 99.0 84 16 92/52 (65) 97 01/10/17 04:00 99.4 88 18 114/67 (83) 96 01/10/17 00:00 97.3 84 18 112/65 (81) 98 01/09/17 20:00 97.4 75 18 98/57 (71) 98 01/09/17 18:39 74 84/52 (63) 01/09/17 17:27 96.6 85 17 89/53 (65) 97 01/09/17 15:40 16 01/09/17 12:00 100.3 96 17 104/58 (73) 95 I/O 01/09/17 01/09/17 01/09/17 01/10/17 01/10/17 01/10/17 06:59 14:59 22:59 06:59 14:59 22:59 Intake Total 3168 ml 3627.2 ml 1620 ml Output Total 600 ml 500 ml 1350 ml Balance 2568 ml 3127.2 ml 270 ml Intake Oral 240 ml 240 ml 120 ml IV Total 2053 ml 2992.2 ml 1500 ml TPN/PPN 875 ml 395 ml Output Urine Total 600 ml 500 ml 1350 ml # Bowel Movements 0 0 Result Diagram: 01/09/17 0730 01/09/1730 Objective Remarks GENERAL: Patient appearing older than stated age. CARDIOVASCULAR: Normal rate and regular rhythm without murmurs, gallops, or rubs. RESPIRATORY: Good respiratory efforts. Breath sounds equal and clear to auscultation bilaterally. GASTROINTESTINAL: Abdomen is distended, tender to palpation, worse on the left quadrant. Vertical incision with nahid. On the inferior portion, there appeared to be some opening of the wound. MUSCULOSKELETAL: Extremities without cyanosis, or edema. NEURO: Alert & Oriented x4 to person, place, time, situation. Moves all ext x4 PSYCH: Appropriate mood and affect. Procedures 12/21/2016 Exploratory laparotomy, lysis of massive adhesions greater than 2 hours. repair of enterotomies x2 12/18/2016 Enteroscopy with biopsies 1. 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 The mucosa of the stomach appeared normal 3. Normal duodenal mucosa in the entire duodenum 4. The exam showed no abnormalities in the jejunum; multiple biopsies were performed 5. Retroflexed views revealed no abnormalities A/P Problem List: (1) Hypomagnesemia ICD Code: E83.42 - Hypomagnesemia Status: Chronic (2) Hypokalemia ICD Code: E87.6 - Hypokalemia Status: Chronic (3) Abdominal pain ICD Code: R10.9 - Abdominal pain Status: Chronic (4) Nausea and vomiting ICD Code: R11.2 - Nausea and vomiting Status: Acute Assessment and Plan 51-year-old female with a history of bowel obstruction and multiple surgeries Status post exploratory laparotomy, lysis of massive adhesions on 12/22. -pathology showed massive adhesions with fusion of all bowels to each other into the left lower quadrant abdominal fascia. -Patient currently on TPN. Not tolerating diet, persistent ileus. Abdominal CT pending today. Further management per general surgery. -Per GI performed endoscopies studies with biopsy on 12/18/2016. - Encouraged the patient today to increase activity, at least attempt to walk around the unit. Liquid diet as tolerated. Hypertension, essential -hold amlodipine due to low blood pressure Depression - continue fluoxetine 10 mg daily Full code. Lovenox. Problem Qualifiers (1) Abdominal pain: Qualified Codes: R10.32 - Left lower quadrant pain (2) Nausea and vomiting: Qualified Codes: R11.2 - Nausea with vomiting, unspecified Sybil Campbell MD Jan 10, 2017 09:50
--- NOTE | 2017-01-10 10:19 | HHI.PR ---
Subjective Subjective Notes feels the same, same pain, nausea, denies any fever/chills Objective Vitals/I&O Vital Signs Date Time Temp Pulse Resp B/P (MAP) Pulse Ox O2 Delivery O2 Flow Rate FiO2 01/10/17 09:15 18 01/10/17 08:00 99.0 84 92/52 (65) 97 Radiology Last Impressions Abdomen X-Ray 12/20/16 0000 Signed Impressions: Service Date/Time: Tuesday, December 20, 2016 11:53 - CONCLUSION: There are no imaging findings to indicate obstruction. There is a single air-fluid level in the central abdomen, most likely within the transverse colon. Hong Valerio MD Abdomen/Pelvis CT 12/10/16 1144 Signed Impressions: Service Date/Time: November 14:39 - CONCLUSION: 1. Mild hepatomegaly. 2. No acute intra-abdominal process. 3. Mild degenerative changes and scoliosis of the lumbar spine. Dung Arias MD Abdomen: Non-distended, Post-op tenderness, BS normal A/P Problem List: (1) Dysuria ICD Codes: R30.0 - Dysuria (2) Intra-abdominal adhesions ICD Codes: K66.0 - Peritoneal adhesions (postprocedural) (postinfection) Status: Chronic (3) Malabsorption syndrome ICD Codes: K90.9 - Intestinal malabsorption, unspecified Status: Chronic (4) Hypomagnesemia ICD Codes: E83.42 - Hypomagnesemia Status: Chronic (5) Hypokalemia ICD Codes: E87.6 - Hypokalemia Status: Chronic (6) Adhesion of intestine ICD Codes: K66.0 - Peritoneal adhesions (postprocedural) (postinfection) Status: Chronic (7) Adhesion of abdominal wall ICD Codes: K66.0 - Peritoneal adhesions (postprocedural) (postinfection) Status: Chronic (8) Adhesion of omentum ICD Codes: K66.0 - Peritoneal adhesions (postprocedural) (postinfection) Status: Chronic (9) Lower abdominal adhesions ICD Codes: K66.0 - Peritoneal adhesions (postprocedural) (postinfection) Status: Chronic (10) Abdominal pain ICD Codes: R10.9 - Abdominal pain Status: Chronic (11) Anemia ICD Codes: D64.9 - Anemia, unspecified Status: Acute (12) Diarrhea in adult patient ICD Codes: K52.9 - Diarrhea in adult patient Status: Chronic (13) Fibromyalgia ICD Codes: M79.7 - Fibromyalgia Status: Chronic (14) Anxiety and depression ICD Codes: F41.8 - Anxiety and depression Status: Chronic Assessment and Plan s/p exp lap, leia, malabsorbtion syndrome CT scan pending, will FU continue current care. Problem Qualifiers (1) Malabsorption syndrome: Qualified Codes: K90.89 - Other intestinal malabsorption (2) Abdominal pain: Qualified Codes: R10.32 - Left lower quadrant pain (3) Anemia: Hay Scott MD Jan 10, 2017 10:19
[2017-01-10] MEDS ORDERED: IOHEXOL 350 MG/ML 10 ML VIAL (for RAD DIAG) IVCONTRAST ONE (11:28)
[2017-01-10 11:33] LABS: AUTOMATED NEUTROPHIL # 7.7 TH/MM3 (1.8-7.7); BASOPHIL % 0.2 % (0.0-2.0); EOSINOPHIL % 0.4 % (0.0-4.0); HEMATOCRIT 24.2 % (35.0-46.0); HEMO FLAGS DIFF FINAL; LYMPH % 11.1 % (9.0-44.0); LYMPHOCYTE # 1.1 TH/MM3 (1.0-4.8); MEAN CELL VOLUME 92.7 FL (80.0-100.0); MEAN CORPUSCULAR HEMOGLOBIN 31.8 PG (27.0-34.0); MEAN CORPUSCULAR HGB CONC 34.3 % (32.0-36.0); MONO % 6.8 % (0.0-8.0); NEUT % 81.5 % (16.0-70.0); PLATELET COUNT 181 TH/MM3 (150-450); RED BLOOD COUNT 2.61 MIL/MM3 (4.00-5.30); WHITE BLOOD COUNT 9.5 TH/MM3 (4.0-11.0)
--- NOTE | 2017-01-10 11:56 | RADRPT ---
EXAM DATE/TIME: 01/10/2017 11:33 [place] COMPARISON: CT ABDOMEN & PELVIS W CONTRAST, December 10, 2016, 14:39. INDICATIONS : Abdomen pain. IV CONTRAST: 100 cc Omnipaque 350 (iohexol) IV ORAL CONTRAST: Prescribed oral contrast ingested. RADIATION DOSE: 4.62 CTDIvol (mGy) MEDICAL HISTORY : Cardiovascular disease. SURGICAL HISTORY : Appendectomy. Cholecystectomy.Hysterectomy.Bowel resection x 2. ENCOUNTER: Initial ACUITY: 1 day PAIN SCALE: 6/10 LOCATION: Bilateral abdomen TECHNIQUE: Volumetric scanning of the abdomen and pelvis was performed. Using automated exposure control and ad justment of the mA and/or kV according to patient size, radiation dose was kept as low as reasonably achievable to obtain optimal diagnostic quality images. DICOM format image data is available electro nically for review and comparison. FINDINGS: LOWER LUNGS: The visualized lower lungs are clear. LIVER: Homogeneous density without lesion. Liver is mildly enlarged. There is no dilation of the biliary tr ee. . No significant changes compared to the prior study. SPLEEN: Normal size without lesion. PANCREAS: Within normal limits. KIDNEYS: Normal in size and shape. There is no mass, stone or hydronephrosis. ADRENAL GLANDS: Within normal limits. VASCULAR: There is no aortic aneurysm. BOWEL/MESENTERY: There continues to be some diffuse dilatation of small and large bowel loops down to the rectum sugge stive of a diffuse adynamic ileus.. There appears to be some new nonspecific inflammatory type tissue in the deep anterior right lower quadrant just above the urinary bladder. I suspect patient has had recent abdominal surgery since the prior examination. No free fluid is seen in the abdomen.. ABDOMINAL WALL: Post surgical changes involving the anterior abdominal wall are demonstrated indicating recent abdomi nal surgery.. RETROPERITONEUM: There is no lymphadenopathy. BLADDER: No wall thickening or mass. REPRODUCTIVE: Within normal limits. INGUINAL: There is no lymphadenopathy or hernia. MUSCULOSKELETAL: Within normal limits for patient age. CONCLUSION: 1. It appears patient has had recent abdominal surgery. 2. There is diffuse dilatation of multiple small and large bowel loops down to the rectum. This sugge sts most likely a postoperative ileus. 3. There is focal nonspecific inflammatory type changes deep in the anterior right lower quadrant mos t likely related to postsurgical changes. Tyson Sanchez MD on January 10, 2017 at 11:42 Board Certified Radiologist. This report was verified electronically.
[2017-01-10 12:00] VITALS: BP 105/60; PULSE 88; RESP 17; TEMP 99.4; O2SAT 96
[2017-01-10 12:09] LABS: BICARBONATE 26.9 MEQ/L (21.0-32.0); POTASSIUM 3.9 MEQ/L (3.5-5.1)
[2017-01-10 16:00] VITALS: BP 112/63; PULSE 88; RESP 15; TEMP 98.9; O2SAT 98
[2017-01-10 20:00] VITALS: BP 123/57; PULSE 96; RESP 16; TEMP 100; O2SAT 97
[2017-01-10] MEDS: ENOXAPARIN SODIUM 40 MG/0.4 ML SYRINGE SQ SCH (20:21)
[2017-01-10] MEDS: CLINIMIX E 4.25/25 1000 mL- </= 42 mls/hr IV-CENTRAL SCH ×3 (20:31)
[2017-01-10] MEDS: FAT EMULSION 20% INJ 250 ML (Twice weekly over 8 hours) IV-CENTRAL SCH (20:31)
[2017-01-11 01:08] VITALS: BP 104/58; PULSE 83; RESP 16; TEMP 99.4; O2SAT 97
[2017-01-11] MEDS: HYDROmorphone HCL PF 2 MG/ML VIAL IV PUSH PRN ×8 (02:28→23:33)
[2017-01-11] MEDS: PROMETHAZINE INJ 25 MG/ML VIAL IV-CENTRAL PRN ×5 (02:28→23:33)
[2017-01-11 04:43] VITALS: BP 105/55; PULSE 89; RESP 16; TEMP 98.8; O2SAT 96
[2017-01-11] MEDS: LACTATED RINGER'S 1000 ML INJ 1,000 ML IV SCH ×2 (05:02→20:04)
[2017-01-11] MEDS: ONDANSETRON HCL 4 MG/2 ML VIAL IVP PRN ×3 (05:12→16:47)
[2017-01-11 05:32] LABS: HEMATOCRIT 24.8 % (35.0-46.0); MEAN CELL VOLUME 92.8 FL (80.0-100.0); MEAN CORPUSCULAR HGB CONC 34.5 % (32.0-36.0); PLATELET COUNT 158 TH/MM3 (150-450); RED BLOOD COUNT 2.67 MIL/MM3 (4.00-5.30); RED CELL DISTRIBUTION WIDTH 14.9 % (11.6-17.2); REVIEW FLAG FINAL; WHITE BLOOD COUNT 9.5 TH/MM3 (4.0-11.0)
[2017-01-11 05:53] LABS: BICARBONATE 22.8 MEQ/L (21.0-32.0); POTASSIUM 3.3 MEQ/L (3.5-5.1)
[2017-01-11] MEDS: DICYCLOMINE HCL 20 MG TAB PO SCH ×3 (07:56→18:11)
[2017-01-11] MEDS: NEOMYCIN SULFATE 500 MG TAB PO SCH ×2 (07:56→20:01)
[2017-01-11] MEDS: SODIUM CHLORIDE 0.9% FLUSH 10 ML FLUSH IV FLUSH SCH ×2 (07:56→20:02)
[2017-01-11] MEDS: DOCUSATE SODIUM 50 MG/SENNA 8.6 MG TAB PO SCH ×2 (07:56→20:03)
[2017-01-11] MEDS: POTASSIUM CHLOR 20 MEQ PREMIX 100 ML IV SCH ×2 (07:56→10:57)
[2017-01-11] MEDS: FLUoxetine HCL 10 MG CAP PO SCH (07:57)
[2017-01-11 08:00] VITALS: BP 108/55; PULSE 75; RESP 20; TEMP 98.8; O2SAT 97
[2017-01-11] MEDS: LORazepam 2 MG/ML VIAL IV PUSH PRN ×2 (10:56→16:47)
[2017-01-11 12:00] VITALS: BP 106/57; PULSE 84; RESP 19; TEMP 98.4; O2SAT 98
[2017-01-11 16:00] VITALS: BP 112/67; PULSE 88; RESP 19; TEMP 98.8; O2SAT 96
--- NOTE | 2017-01-11 16:48 | HHI.PR ---
Subjective Subjective Notes DAILY PROGRESS NOTE FOR SURGICAL ATTENDING, DR. WALLY SALDANA Resting in bed Still with LLQ tenderness and distention Objective Vitals/I&O Vital Signs Date Time Temp Pulse Resp B/P (MAP) Pulse Ox O2 Delivery O2 Flow Rate FiO2 01/11/17 16:00 98.8 88 19 112/67 (82) 96 Labs Laboratory Tests Test 01/11/17 05:17 White Blood Count 9.5 Red Blood Count 2.67 Hemoglobin 8.5 Hematocrit 24.8 Mean Corpuscular Volume 92.8 Mean Corpuscular Hemoglobin 32.0 Mean Corpuscular Hemoglobin Concent 34.5 Red Cell Distribution Width 14.9 Platelet Count 158 Mean Platelet Volume 7.9 Blood Urea Nitrogen 5 Creatinine 0.76 Random Glucose 113 Calcium Level 8.3 Sodium Level 139 Potassium Level 3.3 Chloride Level 107 Carbon Dioxide Level 22.8 Anion Gap 9 Estimat Glomerular Filtration Rate 81 Radiology Last 72 hours Impressions Abdomen/Pelvis CT 01/10/17 0000 Signed Impressions: Service Date/Time: Tuesday, January 10, 2017 11:33 - CONCLUSION: 1. It appears patient has had recent abdominal surgery. 2. There is diffuse dilatation of multiple small and large bowel loops down to the rectum. This suggests most likely a postoperative ileus. 3. There is focal nonspecific inflammatory type changes deep in the anterior right lower quadrant most likely related to postsurgical changes. Tyson Sanchez MD Cardiovascular: Regular Lungs: Clear Abdomen: Other (midline incision with nahid ) Extremities: No edema A/P Problem List: (1) Malabsorption syndrome ICD Codes: K90.9 - Intestinal malabsorption, unspecified Status: Chronic (2) Intra-abdominal adhesions ICD Codes: K66.0 - Peritoneal adhesions (postprocedural) (postinfection) Status: Chronic (3) Hypomagnesemia ICD Codes: E83.42 - Hypomagnesemia Status: Chronic (4) Hypokalemia ICD Codes: E87.6 - Hypokalemia Status: Chronic (5) Adhesion of intestine ICD Codes: K66.0 - Peritoneal adhesions (postprocedural) (postinfection) Status: Chronic (6) Adhesion of abdominal wall ICD Codes: K66.0 - Peritoneal adhesions (postprocedural) (postinfection) Status: Chronic (7) Adhesion of omentum ICD Codes: K66.0 - Peritoneal adhesions (postprocedural) (postinfection) Status: Chronic (8) Lower abdominal adhesions ICD Codes: K66.0 - Peritoneal adhesions (postprocedural) (postinfection) Status: Chronic (9) Abdominal pain ICD Codes: R10.9 - Abdominal pain Status: Chronic (10) Fibromyalgia ICD Codes: M79.7 - Fibromyalgia Status: Chronic (11) Anxiety and depression ICD Codes: F41.8 - Anxiety and depression Status: Chronic Assessment and Plan 51 year old female s/p ex lap; MARCO -Repeat CT abd/pelvis negative -Continued distention -Full liquids as tolerated -Okay for family to bring food from home although I did encourage her to stick with bland type foods -Continue TPN -Pain control -Encouraged continued mobilization -Okay to shower Attending Statement NOTE FOR SURGICAL ATTENDING, DR. WALLY SALDANA I agree with above assessment and plan. The following services were provided during this hospital visit: Chart data review, vital sign assessments/reviewing monitor data Review of consultations notes if present. Medication orders/review and/or management Ordering and/or reviewing lab tests Ordering and/or interpreting/reviewing x-rays and/or diagnostic studies Care of the patient and discussion of the patient with the care team Documentation time To help prompt me to consider important information that might be impacting today's encounter and assessment, information from prior notes written by myself or my colleagues may have been "brought forward/copy and pasted" into today's note. Problem Qualifiers (1) Malabsorption syndrome: Qualified Codes: K90.89 - Other intestinal malabsorption (2) Abdominal pain: Qualified Codes: R10.32 - Left lower quadrant pain Lois Villalpando Jan 11, 2017 16:47 Wally Saldana MD Jan 12, 2017 07:22
--- NOTE | 2017-01-11 17:31 | HHI.PR ---
Subjective Remarks Patient in bed appears in nad. Says she is still nauseated and not able to keep anything down. No vomiting. No fever or chills. Has abd pain, says is worsened today. She was ambulating today but not much 2/[address] reviewed, advance diet full liquid. Objective Vitals Vital Signs Date Time Temp Pulse Resp B/P (MAP) Pulse Ox O2 Delivery O2 Flow Rate FiO2 01/11/17 16:00 98.8 88 19 112/67 (82) 96 01/11/17 14:34 18 01/11/17 12:00 98.4 84 19 106/57 (73) 98 01/11/17 08:00 98.8 75 20 108/55 (72) 97 01/11/17 04:43 98.8 89 16 105/55 (72) 96 01/11/17 01:08 99.4 83 16 104/58 (73) 97 01/10/17 20:00 100.0 96 16 123/57 (79) 97 I/O 01/10/17 01/10/17 01/10/17 01/11/17 01/11/17 01/11/17 07:00 15:00 23:00 07:00 15:00 23:00 Intake Total 1620 ml 2009.2 ml 1250 ml 0 ml Output Total 1350 ml 1500 ml Balance 270 ml 2009.2 ml -250 ml 0 ml Intake Oral 120 ml 0 ml 0 ml IV Total 1500 ml 2009.2 ml 1250 ml Output Urine Total 1350 ml 1500 ml # Voids 3 # Bowel Movements 0 0 1 Result Diagram: 01/11/1751601/11/17 0517 Imaging Last Impressions Abdomen/Pelvis CT 01/10/17 0000 Signed Impressions: Service Date/Time: Tuesday, January 10, 2017 11:33 - CONCLUSION: 1. It appears patient has had recent abdominal surgery. 2. There is diffuse dilatation of multiple small and large bowel loops down to the rectum. This suggests most likely a postoperative ileus. 3. There is focal nonspecific inflammatory type changes deep in the anterior right lower quadrant most likely related to postsurgical changes. Tyson Sanchez MD Abdomen X-Ray 12/26/16 0000 Signed Impressions: Service Date/Time: Monday, December 26, 2016 08:56 - CONCLUSION: Interval surgery with air dilated large bowel likely reflecting ileus. Petrona Celaya MD Objective Remarks GENERAL: Pleasant 60 yo F, appearing older than stated age in nad. CARDIOVASCULAR: Normal rate and regular rhythm without murmurs, gallops, or rubs. RESPIRATORY: Good respiratory efforts. Breath sounds equal and clear to auscultation bilaterally. GASTROINTESTINAL: Abdomen is distended, tender to palpation, worse on the left quadrant. Vertical incision with nahid. On the inferior portion, there appeared to be some opening of the wound. MUSCULOSKELETAL: Extremities without cyanosis, or edema. NEURO: Alert & Oriented x4 to person, place, time, situation. Moves all ext x4 PSYCH: Appropriate mood and affect. Procedures 12/21/2016 Exploratory laparotomy, lysis of massive adhesions greater than 2 hours. repair of enterotomies x2 12/18/2016 Enteroscopy with biopsies 1. 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 The mucosa of the stomach appeared normal 3. Normal duodenal mucosa in the entire duodenum 4. The exam showed no abnormalities in the jejunum; multiple biopsies were performed 5. Retroflexed views revealed no abnormalities A/P Problem List: (1) Hypomagnesemia ICD Code: E83.42 - Hypomagnesemia Status: Chronic (2) Hypokalemia ICD Code: E87.6 - Hypokalemia Status: Chronic (3) Abdominal pain ICD Code: R10.9 - Abdominal pain Status: Chronic (4) Nausea and vomiting ICD Code: R11.2 - Nausea and vomiting Status: Acute Assessment and Plan 51-year-old female with a history of bowel obstruction and multiple surgeries Status post exploratory laparotomy, lysis of massive adhesions on 12/22. -pathology showed massive adhesions with fusion of all bowels to each other into the left lower quadrant abdominal fascia. -Patient currently on TPN. Not tolerating diet, persistent ileus. Abdominal CT reviewed no acute pathology. post op changes. Further management per general surgery. -Per GI performed endoscopies studies with biopsy on 12/18/2016. - Encourage increase activity, at least attempt to walk around the unit. Liquid diet as tolerated. Hypertension, essential -hold amlodipine due to low blood pressure. Monitor BP and adjust meds as need. Depression - continue fluoxetine 10 mg daily Full code. Lovenox. DC plan: DC when cleared by Gen surg poss 1-2 days Problem Qualifiers (1) Abdominal pain: Qualified Codes: R10.32 - Left lower quadrant pain (2) Nausea and vomiting: Qualified Codes: R11.2 - Nausea with vomiting, unspecified Rebekah Ricketts MD Jan 11, 2017 17:31
[2017-01-11 20:00] VITALS: BP 113/60; PULSE 94; RESP 16; TEMP 100.6; O2SAT 98
[2017-01-11] MEDS: ENOXAPARIN SODIUM 40 MG/0.4 ML SYRINGE SQ SCH (20:01)
[2017-01-11] MEDS: CLINIMIX E 4.25/25 1000 mL- </= 42 mls/hr IV-CENTRAL SCH ×3 (20:04)
[2017-01-12] VITALS: BP 97/53; PULSE 84; RESP 16; TEMP 99.9; O2SAT 96
[2017-01-12] MEDS: HYDROmorphone HCL PF 2 MG/ML VIAL IV PUSH PRN ×8 (02:47→22:50)
[2017-01-12] MEDS: ONDANSETRON HCL 4 MG/2 ML VIAL IVP PRN ×4 (02:48→22:50)
[2017-01-12] MEDS: PROMETHAZINE INJ 25 MG/ML VIAL IV-CENTRAL PRN ×4 (05:42→19:56)
[2017-01-12] MEDS: LACTATED RINGER'S 1000 ML INJ 1,000 ML IV SCH ×3 (05:50→19:58)
[2017-01-12 08:00] VITALS: BP 94/54; PULSE 76; RESP 18; TEMP 98.5; O2SAT 96
[2017-01-12] MEDS: NEOMYCIN SULFATE 500 MG TAB PO SCH ×2 (08:35→19:58)
[2017-01-12] MEDS: DICYCLOMINE HCL 20 MG TAB PO SCH ×3 (08:35→17:20)
[2017-01-12] MEDS: FLUoxetine HCL 10 MG CAP PO SCH (08:35)
[2017-01-12] MEDS: DOCUSATE SODIUM 50 MG/SENNA 8.6 MG TAB PO SCH ×2 (08:36→19:58)
[2017-01-12] MEDS: SODIUM CHLORIDE 0.9% FLUSH 10 ML FLUSH IV FLUSH SCH ×2 (08:36→19:58)
--- NOTE | 2017-01-12 11:16 | HHI.PR ---
cc: Wally Alvarez MD Subjective Subjective Notes PROGRESS NOTE FOR SURGICAL ATTENDING, DR. WALLY ALVARZE Resting in bed Still with continued LLQ pain Objective Vitals/I&O Vital Signs Date Time Temp Pulse Resp B/P (MAP) Pulse Ox O2 Delivery O2 Flow Rate FiO2 01/12/17 09:17 18 01/12/17 08:00 98.5 76 94/54 (65) 96 Labs Laboratory Tests Test 12/10/16 11:50 12/11/16 07:07 12/16/16 10:00 12/17/16 09:15 Prothrombin Time 10.7 SEC Prothromb Time International Ratio 1.0 RATIO Activated Partial Thromboplast Time 25.3 SEC Urine RBC LESS THAN 1 /hpf Urine Mucus FEW /lpf Lactic Acid Level 2.0 mmol/L Blood Urea Nitrogen 14 MG/DL 8 MG/DL Creatinine 1.00 MG/DL 0.71 MG/DL Random Glucose 86 MG/DL 104 MG/DL Total Protein 8.0 GM/DL 5.8 GM/DL Albumin 4.0 GM/DL Calcium Level 8.6 MG/DL 7.3 MG/DL Alkaline Phosphatase 80 U/L Aspartate Amino Transf (AST/SGOT) 15 U/L Alanine Aminotransferase (ALT/SGPT) 24 U/L Total Bilirubin 0.3 MG/DL Sodium Level 139 MEQ/L 142 MEQ/L Potassium Level 2.4 MEQ/L 2.5 MEQ/L Chloride Level 109 MEQ/L 114 MEQ/L Carbon Dioxide Level 20.2 MEQ/L 19.7 MEQ/L Lipase 228 U/L Protein Corrected Calcium 8.0 MG/DL Magnesium Level 1.9 MG/DL Stool Collection Duration Random h Stool Weight 8 g Stool Percent Fat 23 % fat Stool Total Lipids, Quantitative Random Cortisol 18.4 MCG/DL Adrenocorticotropic Hormone 38 pg/mL Test 12/22/16 11:40 12/31/16 03:40 01/04/17 13:40 01/06/17 12:00 Hematology Comments Stool C. difficile Toxin (PCR) NEGATIVE Stl C. difficile Toxin Epiderm 027 PRESUMPTIVE NEGATIVE Urine Color LIGHT-YELLOW Urine Turbidity CLEAR Urine pH 6.0 Urine Specific [place] 1.005 Urine Protein NEG mg/dL Urine Glucose (UA) NEG mg/dL Urine Ketones NEG mg/dL Urine Occult Blood NEG Urine Nitrite NEG Urine Bilirubin NEG Urine Urobilinogen LESS THAN 2.0 MG/DL Urine Leukocyte Esterase NEG Urine WBC LESS THAN 1 /hpf Microscopic Urinalysis Comment CULT NOT INDICATED Blood Urea Nitrogen 6 MG/DL Creatinine 0.69 MG/DL Random Glucose 91 MG/DL Calcium Level 8.1 MG/DL Phosphorus Level 3.8 MG/DL Magnesium Level 2.0 MG/DL Sodium Level 141 MEQ/L Potassium Level 3.8 MEQ/L Chloride Level 109 MEQ/L Carbon Dioxide Level 24.4 MEQ/L Test 01/10/17 11:15 01/11/17 05:17 Neutrophils (%) (Auto) 81.5 % Lymphocytes (%) (Auto) 11.1 % Monocytes (%) (Auto) 6.8 % Eosinophils (%) (Auto) 0.4 % Basophils (%) (Auto) 0.2 % Neutrophils # (Auto) 7.7 TH/MM3 Lymphocytes # (Auto) 1.1 TH/MM3 Monocytes # (Auto) 0.6 TH/MM3 Eosinophils # (Auto) 0.0 TH/MM3 Basophils # (Auto) 0.0 TH/MM3 CBC Comment DIFF FINAL Differential Comment White Blood Count 9.5 TH/MM3 Red Blood Count 2.67 MIL/MM3 Hemoglobin 8.5 GM/DL Hematocrit 24.8 % Mean Corpuscular Volume 92.8 FL Mean Corpuscular Hemoglobin 32.0 PG Mean Corpuscular Hemoglobin Concent 34.5 % Red Cell Distribution Width 14.9 % Platelet Count 158 TH/MM3 Mean Platelet Volume 7.9 FL Blood Urea Nitrogen 5 MG/DL Creatinine 0.76 MG/DL Random Glucose 113 MG/DL Calcium Level 8.3 MG/DL Sodium Level 139 MEQ/L Potassium Level 3.3 MEQ/L Chloride Level 107 MEQ/L Carbon Dioxide Level 22.8 MEQ/L Anion Gap 9 MEQ/L Estimat Glomerular Filtration Rate 81 ML/MIN Radiology Last 72 hours Impressions Abdomen/Pelvis CT 01/10/17 0000 Signed Impressions: Service Date/Time: Tuesday, January 10, 2017 11:33 - CONCLUSION: 1. It appears patient has had recent abdominal surgery. 2. There is diffuse dilatation of multiple small and large bowel loops down to the rectum. This suggests most likely a postoperative ileus. 3. There is focal nonspecific inflammatory type changes deep in the anterior right lower quadrant most likely related to postsurgical changes. Tyson Sanchez MD Cardiovascular: Regular Lungs: Clear Abdomen: Other (midline incision with nahid; continued distention ) Extremities: No edema A/P Problem List: (1) Malabsorption syndrome ICD Codes: K90.9 - Intestinal malabsorption, unspecified Status: Chronic (2) Intra-abdominal adhesions ICD Codes: K66.0 - Peritoneal adhesions (postprocedural) (postinfection) Status: Chronic (3) Hypomagnesemia ICD Codes: E83.42 - Hypomagnesemia Status: Chronic (4) Hypokalemia ICD Codes: E87.6 - Hypokalemia Status: Chronic (5) Adhesion of intestine ICD Codes: K66.0 - Peritoneal adhesions (postprocedural) (postinfection) Status: Chronic (6) Adhesion of abdominal wall ICD Codes: K66.0 - Peritoneal adhesions (postprocedural) (postinfection) Status: Chronic (7) Adhesion of omentum ICD Codes: K66.0 - Peritoneal adhesions (postprocedural) (postinfection) Status: Chronic (8) Lower abdominal adhesions ICD Codes: K66.0 - Peritoneal adhesions (postprocedural) (postinfection) Status: Chronic (9) Abdominal pain ICD Codes: R10.9 - Abdominal pain Status: Chronic (10) Fibromyalgia ICD Codes: M79.7 - Fibromyalgia Status: Chronic (11) Anxiety and depression ICD Codes: F41.8 - Anxiety and depression Status: Chronic Assessment and Plan 51 year old female s/p ex lap; MARCO -Repeat CT abd/pelvis only shows ileus -DC nahid -Continued distention -Full liquids as tolerated -Okay for family to bring food from home although I did encourage her to stick with bland type foods -Continue TPN -Pain control -Encouraged continued mobilization -Okay to shower Attending Statement PROGRESS NOTE FOR SURGICAL ATTENDING, DR. WALLY ALVAREZ I agree with above assessment and plan. The exam, history, and the medical decision-making described in the above note were completed with the assistance of the mid-level provider. I reviewed and agree with the findings presented. I attest that I had a [id number] encounter with the patient on the same day, and personally performed and documented my assessment and findings in the medical record. The following services were provided during this hospital visit: Chart data review, vital sign assessments/reviewing monitor data Review of consultations notes if present. Medication orders/review and/or management Ordering and/or reviewing lab tests Ordering and/or interpreting/reviewing x-rays and/or diagnostic studies Care of the patient and discussion of the patient with the care team Documentation time To help prompt me to consider important information that might be impacting today's encounter and assessment, information from prior notes written by myself or my colleagues may have been "brought forward/copy and pasted" into today's note. Problem Qualifiers (1) Malabsorption syndrome: Qualified Codes: K90.89 - Other intestinal malabsorption (2) Abdominal pain: Qualified Codes: R10.32 - Left lower quadrant pain Lois Villalpando Jan 12, 2017 11:16 Wally Alvarez MD Jan 13, 2017 07:57
[2017-01-12] MEDS: LORazepam 2 MG/ML VIAL IV PUSH PRN ×3 (11:17→22:58)
[2017-01-12 12:00] VITALS: BP 99/55; PULSE 73; RESP 16; TEMP 98.2; O2SAT 95
[2017-01-12 16:00] VITALS: BP 95/56; PULSE 81; RESP 16; TEMP 98.4; O2SAT 95
--- NOTE | 2017-01-12 17:41 | HHI.PR ---
Subjective Remarks Patient in nad. Denies any chest pain or sob. She is still nauseated. Did not vomit. Says she still has abdominal pain mainly in the LLQ. No fever or chills. No n/v/d/c. Objective Vitals Vital Signs Date Time Temp Pulse Resp B/P (MAP) Pulse Ox O2 Delivery O2 Flow Rate FiO2 01/12/17 16:00 98.4 81 16 95/56 (69) 95 01/12/17 15:40 16 01/12/17 12:00 98.2 73 16 99/55 (70) 95 01/12/17 08:00 98.5 76 18 94/54 (67) 96 01/12/17 00:00 99.9 84 16 97/53 (68) 96 01/11/17 20:00 100.6 94 16 113/60 (77) 98 I/O 01/11/17 01/11/17 01/11/17 01/12/17 01/12/17 01/12/17 07:00 15:00 23:00 07:00 15:00 23:00 Intake Total 1250 ml 0 ml 750 ml 1278 ml Output Total 1500 ml 800 ml Balance -250 ml 0 ml -50 ml 1278 ml Intake Oral 0 ml 750 ml IV Total 1250 ml 1278 ml Output Urine Total 1500 ml 800 ml # Bowel Movements 1 0 Result Diagram: 01/11/1751601/11/17516 Objective Remarks GENERAL: Pleasant 60 yo F, appearing older than stated age in nad. CARDIOVASCULAR: Normal rate and regular rhythm without murmurs, gallops, or rubs. RESPIRATORY: Good respiratory efforts. Breath sounds equal and clear to auscultation bilaterally. GASTROINTESTINAL: Abdomen is distended, tender to palpation, worse on the left quadrant. Vertical incision nahid removed. On the inferior portion, there appeared to be some opening of the wound, steristrips applied. MUSCULOSKELETAL: Extremities without cyanosis, or edema. NEURO: Alert & Oriented x4 to person, place, time, situation. Moves all ext x4 PSYCH: Appropriate mood and affect. Procedures 12/21/2016 Exploratory laparotomy, lysis of massive adhesions greater than 2 hours. repair of enterotomies x2 12/18/2016 Enteroscopy with biopsies 1. 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 The mucosa of the stomach appeared normal 3. Normal duodenal mucosa in the entire duodenum 4. The exam showed no abnormalities in the jejunum; multiple biopsies were performed 5. Retroflexed views revealed no abnormalities A/P Problem List: (1) Hypomagnesemia ICD Code: E83.42 - Hypomagnesemia Status: Chronic (2) Hypokalemia ICD Code: E87.6 - Hypokalemia Status: Chronic (3) Abdominal pain ICD Code: R10.9 - Abdominal pain Status: Chronic (4) Nausea and vomiting ICD Code: R11.2 - Nausea and vomiting Status: Acute Assessment and Plan 51-year-old female with a history of bowel obstruction and multiple surgeries Status post exploratory laparotomy, lysis of massive adhesions on 12/22. -pathology showed massive adhesions with fusion of all bowels to each other into the left lower quadrant abdominal fascia. -Patient currently on TPN. Not tolerating diet, persistent ileus. Abdominal CT reviewed no acute pathology. post op changes. Further management per general surgery. -Per GI performed endoscopies studies with biopsy on 12/18/2016. - Encourage increase activity, at least attempt to walk around the unit. Liquid diet as tolerated. Hypertension, essential -hold amlodipine due to low blood pressure. Monitor BP and adjust meds as need. Depression - continue fluoxetine 10 mg daily Full code. Lovenox. DC plan: DC when cleared by Gen surg poss 1-2 days. Discussed with gen surg patient still with persistent pain persistent ileus and not ready for DC. PT doesn't recommend SNF however due to patient slow progression and being on TPN, I think patient might benefit from Dc to SNF Problem Qualifiers (1) Abdominal pain: Qualified Codes: R10.32 - Left lower quadrant pain (2) Nausea and vomiting: Qualified Codes: R11.2 - Nausea with vomiting, unspecified Rebekah Ricketts MD Jan 12, 2017 17:40
[2017-01-12] MEDS: CLINIMIX E 4.25/25 1000 mL- </= 42 mls/hr IV-CENTRAL SCH ×3 (19:54)
[2017-01-12] MEDS: ENOXAPARIN SODIUM 40 MG/0.4 ML SYRINGE SQ SCH (19:58)
[2017-01-12 20:48] VITALS: BP 103/58; PULSE 87; RESP 18; TEMP 98.8; O2SAT 97
[2017-01-12] MEDS: SODIUM CHLORIDE 0.9% FLUSH 10 ML FLUSH IV FLUSH PRN (22:51)
[2017-01-13] MEDS: PROMETHAZINE INJ 25 MG/ML VIAL IV-CENTRAL PRN ×6 (00:11→21:47)
[2017-01-13 00:41] VITALS: BP 106/64; PULSE 94; RESP 18; TEMP 99.3; O2SAT 97
[2017-01-13] MEDS: HYDROmorphone HCL PF 2 MG/ML VIAL IV PUSH PRN ×6 (02:23→21:47)
[2017-01-13] MEDS: LORazepam 2 MG/ML VIAL IV PUSH PRN ×4 (04:48→21:46)
[2017-01-13] MEDS: SODIUM CHLORIDE 0.9% FLUSH 10 ML FLUSH IV FLUSH SCH ×2 (07:11→20:37)
[2017-01-13] MEDS: ONDANSETRON HCL 4 MG/2 ML VIAL IVP PRN ×3 (07:11→18:54)
[2017-01-13] MEDS: SODIUM CHLORIDE 0.9% FLUSH 10 ML FLUSH IV FLUSH PRN ×3 (07:13→17:53)
[2017-01-13 07:51] VITALS: BP 111/61; PULSE 82; RESP 19; TEMP 99.1; O2SAT 97
[2017-01-13] MEDS: FLUoxetine HCL 10 MG CAP PO SCH (08:53)
[2017-01-13] MEDS: DICYCLOMINE HCL 20 MG TAB PO SCH ×3 (08:53→17:52)
[2017-01-13] MEDS: NEOMYCIN SULFATE 500 MG TAB PO SCH ×2 (08:53→20:37)
[2017-01-13] MEDS: DOCUSATE SODIUM 50 MG/SENNA 8.6 MG TAB PO SCH ×2 (08:55→20:38)
--- NOTE | 2017-01-13 11:16 | HHI.PR ---
Subjective Remarks In bed appears sick, says she doesn't feels good, she was nauseated, no vomiting. Took a shower. No fever or chills. No chest pain. Has sore throat. Says she was able to ambulate last night a little. encouraged ambulation No fever or chills. Objective Vitals Vital Signs Date Time Temp Pulse Resp B/P (MAP) Pulse Ox O2 Delivery O2 Flow Rate FiO2 01/13/17 07:51 99.1 82 19 111/61 (78) 97 01/13/17 07:43 18 01/13/17 00:41 99.3 94 18 106/64 (78) 97 01/12/17 20:48 98.8 87 18 103/58 (73) 97 01/12/17 16:00 98.4 81 16 95/56 (69) 95 01/12/17 12:00 98.2 73 16 99/55 (70) 95 I/O 01/12/17 01/12/17 01/12/17 01/13/17 01/13/17 01/13/17 07:00 15:00 23:00 07:00 15:00 23:00 Intake Total 1278 ml 620 ml 120 ml Balance 1278 ml 620 ml 120 ml Intake Oral 620 ml 120 ml IV Total 1278 ml # Voids 3 # Bowel Movements 3 Result Diagram: 01/11/1751601/11/17 05 Imaging Last Impressions Abdomen/Pelvis CT 01/10/17 0000 Signed Impressions: Service Date/Time: Tuesday, January 10, 2017 11:33 - CONCLUSION: 1. It appears patient has had recent abdominal surgery. 2. There is diffuse dilatation of multiple small and large bowel loops down to the rectum. This suggests most likely a postoperative ileus. 3. There is focal nonspecific inflammatory type changes deep in the anterior right lower quadrant most likely related to postsurgical changes. Tyson Sanchez MD Abdomen X-Ray 12/26/16 0000 Signed Impressions: Service Date/Time: Monday, December 26, 2016 08:56 - CONCLUSION: Interval surgery with air dilated large bowel likely reflecting ileus. Petrona Celaya MD Objective Remarks GENERAL: Pleasant 60 yo F, appearing older than stated age in nad. CARDIOVASCULAR: Normal rate and regular rhythm without murmurs, gallops, or rubs. RESPIRATORY: Good respiratory efforts. Breath sounds equal and clear to auscultation bilaterally. GASTROINTESTINAL: Abdomen is distended, tender to palpation, worse on the left quadrant. Vertical incision nahid removed. On the inferior portion, there appeared to be some opening of the wound, steristrips applied. MUSCULOSKELETAL: Extremities without cyanosis, or edema. NEURO: Alert & Oriented x4 to person, place, time, situation. Moves all ext x4 PSYCH: Appropriate mood and affect. Procedures 12/21/2016 Exploratory laparotomy, lysis of massive adhesions greater than 2 hours. repair of enterotomies x2 12/18/2016 Enteroscopy with biopsies 1. 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 The mucosa of the stomach appeared normal 3. Normal duodenal mucosa in the entire duodenum 4. The exam showed no abnormalities in the jejunum; multiple biopsies were performed 5. Retroflexed views revealed no abnormalities A/P Problem List: (1) Hypomagnesemia ICD Code: E83.42 - Hypomagnesemia Status: Chronic (2) Hypokalemia ICD Code: E87.6 - Hypokalemia Status: Chronic (3) Abdominal pain ICD Code: R10.9 - Abdominal pain Status: Chronic (4) Nausea and vomiting ICD Code: R11.2 - Nausea and vomiting Status: Acute Assessment and Plan 51-year-old female with a history of bowel obstruction and multiple surgeries Status post exploratory laparotomy, lysis of massive adhesions on 12/22. -pathology showed massive adhesions with fusion of all bowels to each other into the left lower quadrant abdominal fascia. -Patient currently on TPN. Not tolerating diet, persistent ileus. Abdominal CT reviewed no acute pathology. post op changes. Further management per general surgery. -Per GI performed endoscopies studies with biopsy on 12/18/2016. - Encourage increase activity, at least attempt to walk around the unit. Liquid diet as tolerated. Hypertension, essential -hold amlodipine due to low blood pressure. Monitor BP and adjust meds as need. Depression - continue fluoxetine 10 mg daily Full code. Lovenox. DC plan: DC when cleared by Gen surg poss 1-2 days. Discussed with gen surg patient still with persistent pain persistent ileus and not ready for DC. decreased dialudid to 1 mg q4 hrs prn. GI recommends gattex however not available. Problem Qualifiers (1) Abdominal pain: Qualified Codes: R10.32 - Left lower quadrant pain (2) Nausea and vomiting: Qualified Codes: R11.2 - Nausea with vomiting, unspecified Rebekah Ricketts MD Jan 13, 2017 11:16
[2017-01-13 12:00] VITALS: BP 119/63; PULSE 105; RESP 19; TEMP 97.7; O2SAT 97
[2017-01-13] MEDS: LACTATED RINGER'S 1000 ML INJ 1,000 ML IV SCH ×2 (12:27→22:58)
--- NOTE | 2017-01-13 13:58 | HHI.PR ---
cc: Wally Alvarez MD Subjective Subjective Notes DAILY PROGRESS NOTE FOR SURGICAL ATTENDING, DR. WALLY ALVAREZ Continues with distention On TPN Objective Vitals/I&O Vital Signs Date Time Temp Pulse Resp B/P (MAP) Pulse Ox O2 Delivery O2 Flow Rate FiO2 01/13/17 12:00 97.7 105 19 119/63 (56) 97 Radiology Last 72 hours Impressions Abdomen/Pelvis CT 01/10/17 0000 Signed Impressions: Service Date/Time: Tuesday, January 10, 2017 11:33 - CONCLUSION: 1. It appears patient has had recent abdominal surgery. 2. There is diffuse dilatation of multiple small and large bowel loops down to the rectum. This suggests most likely a postoperative ileus. 3. There is focal nonspecific inflammatory type changes deep in the anterior right lower quadrant most likely related to postsurgical changes. Tyson Sanchez MD Cardiovascular: Regular Lungs: Clear Abdomen: Other (LLQ tenderness; midline incision nahid removed ) Extremities: No edema A/P Problem List: (1) Malabsorption syndrome ICD Codes: K90.9 - Intestinal malabsorption, unspecified Status: Chronic (2) Intra-abdominal adhesions ICD Codes: K66.0 - Peritoneal adhesions (postprocedural) (postinfection) Status: Chronic (3) Hypomagnesemia ICD Codes: E83.42 - Hypomagnesemia Status: Chronic (4) Hypokalemia ICD Codes: E87.6 - Hypokalemia Status: Chronic (5) Adhesion of intestine ICD Codes: K66.0 - Peritoneal adhesions (postprocedural) (postinfection) Status: Chronic (6) Adhesion of abdominal wall ICD Codes: K66.0 - Peritoneal adhesions (postprocedural) (postinfection) Status: Chronic (7) Adhesion of omentum ICD Codes: K66.0 - Peritoneal adhesions (postprocedural) (postinfection) Status: Chronic (8) Lower abdominal adhesions ICD Codes: K66.0 - Peritoneal adhesions (postprocedural) (postinfection) Status: Chronic (9) Abdominal pain ICD Codes: R10.9 - Abdominal pain Status: Chronic (10) Fibromyalgia ICD Codes: M79.7 - Fibromyalgia Status: Chronic (11) Anxiety and depression ICD Codes: F41.8 - Anxiety and depression Status: Chronic Assessment and Plan 51 year old female s/p ex lap; MARCO -Continued distention -Full liquids as tolerated -Okay for family to bring food from home although I did encourage her to stick with bland type foods -Continue TPN -Pain control -Encouraged continued mobilization -Okay to shower Attending Statement NOTE FOR SURGICAL ATTENDING, DR. WALLY ALVAREZ I agree with above assessment and plan. The following services were provided during this hospital visit: Chart data review, vital sign assessments/reviewing monitor data Review of consultations notes if present. Medication orders/review and/or management Ordering and/or reviewing lab tests Ordering and/or interpreting/reviewing x-rays and/or diagnostic studies Care of the patient and discussion of the patient with the care team Documentation time To help prompt me to consider important information that might be impacting today's encounter and assessment, information from prior notes written by myself or my colleagues may have been "brought forward/copy and pasted" into today's note. Problem Qualifiers (1) Malabsorption syndrome: Qualified Codes: K90.89 - Other intestinal malabsorption (2) Abdominal pain: Qualified Codes: R10.32 - Left lower quadrant pain Lois Villalpando Jan 13, 2017 13:58 Wally Alvarez MD Jan 13, 2017 21:07
[2017-01-13] MEDS: METOCLOPRAMIDE HCL 10 MG/2 ML VIAL IV PUSH SCH ×2 (15:44→21:46)
[2017-01-13 16:00] VITALS: BP 105/66; PULSE 80; RESP 19; TEMP 98.9; O2SAT 96
[2017-01-13 20:00] VITALS: BP 106/69; PULSE 85; RESP 16; TEMP 99; O2SAT 98
[2017-01-13] MEDS ORDERED: SIMETHICONE 125 MG CHEWABLE TAB PO ONE (20:00)
[2017-01-13] MEDS: FAT EMULSION 20% INJ 250 ML (Twice weekly over 8 hours) IV-CENTRAL SCH (20:36)
[2017-01-13] MEDS: ENOXAPARIN SODIUM 40 MG/0.4 ML SYRINGE SQ SCH (20:37)
[2017-01-13] MEDS: CLINIMIX E 4.25/25 1000 mL- </= 42 mls/hr IV-CENTRAL SCH ×3 (20:37)
[2017-01-14] VITALS: BP 129/64; PULSE 96; RESP 17; TEMP 99.3; O2SAT 98
[2017-01-14] MEDS: ONDANSETRON HCL 4 MG/2 ML VIAL IVP PRN ×3 (00:55→21:42)
[2017-01-14] MEDS: HYDROmorphone HCL PF 2 MG/ML VIAL IV PUSH PRN ×5 (01:43→21:43)
[2017-01-14] MEDS: PROMETHAZINE INJ 25 MG/ML VIAL IV-CENTRAL PRN ×6 (01:46→23:32)
[2017-01-14 04:00] VITALS: BP 113/61; PULSE 84; RESP 16; TEMP 98.4; O2SAT 98
[2017-01-14] MEDS: METOCLOPRAMIDE HCL 10 MG/2 ML VIAL IV PUSH SCH ×3 (05:28→22:00)
[2017-01-14 05:54] LABS: AUTOMATED NEUTROPHIL # 7.4 TH/MM3 (1.8-7.7); BASOPHIL % 0.5 % (0.0-2.0); EOSINOPHIL # 0.1 TH/MM3 (0-0.4); EOSINOPHIL % 0.9 % (0.0-4.0); HEMO FLAGS DIFF FINAL; LYMPHOCYTE # 1.3 TH/MM3 (1.0-4.8); MEAN CELL VOLUME 91.3 FL (80.0-100.0); MONO % 7.4 % (0.0-8.0); NEUT % 77.2 % (16.0-70.0); PLATELET COUNT 182 TH/MM3 (150-450); RED BLOOD COUNT 2.85 MIL/MM3 (4.00-5.30); WHITE BLOOD COUNT 9.5 TH/MM3 (4.0-11.0)
[2017-01-14 06:23] LABS: BICARBONATE 21.9 MEQ/L (21.0-32.0); POTASSIUM 3.6 MEQ/L (3.5-5.1)
[2017-01-14 07:00] VITALS: BP 109/55; PULSE 78; RESP 20; TEMP 97.6; O2SAT 97
--- NOTE | 2017-01-14 08:38 | HHI.PR ---
Subjective Remarks In bed appears in nad. However says she wants more pain meds. I explained to the patient will have titrated pain meds . Abd cramps. + nausea nd vomited x1 time in the morning. However she is able to keep some food down. Ambulating more.Had multiple BM yesterday No fever or chills Objective Vitals Vital Signs Date Time Temp Pulse Resp B/P (MAP) Pulse Ox O2 Delivery O2 Flow Rate FiO2 01/14/17 07:00 97.6 78 20 109/55 (73) 97 01/14/17 04:00 98.4 84 16 113/61 (78) 98 01/14/17 00:00 99.3 96 17 129/64 (85) 98 01/13/17 22:17 16 01/13/17 20:00 99.0 85 16 106/69 (81) 98 01/13/17 16:00 98.9 80 19 105/66 (79) 96 01/13/17 12:00 97.7 105 19 119/63 (81) 97 I/O 01/13/17 01/13/17 01/13/17 01/14/17 01/14/17 01/14/17 07:00 15:00 23:00 07:00 15:00 23:00 Intake Total 120 ml 2382.2 ml 1550 ml 462 ml Output Total 900 ml 4 ml Balance 120 ml 1482.2 ml 1546 ml 462 ml Intake Oral 120 ml 750 ml 500 ml IV Total 1632.2 ml 1050 ml 462 ml Output Urine Total 900 ml 4 ml # Bowel Movements 0 Result Diagram: 01/14/1725 01/14/17524 Objective Remarks GENERAL: Pleasant 60 yo F, appearing older than stated age in nad. CARDIOVASCULAR: Normal rate and regular rhythm without murmurs, gallops, or rubs. RESPIRATORY: Good respiratory efforts. Breath sounds equal and clear to auscultation bilaterally. GASTROINTESTINAL: Abdomen is distended, tender to palpation, worse on the left quadrant. Vertical incision nahid removed. On the inferior portion, there appeared to be some opening of the wound, steristrips applied. MUSCULOSKELETAL: Extremities without cyanosis, or edema. NEURO: Alert & Oriented x4 to person, place, time, situation. Moves all ext x4 PSYCH: Appropriate mood and affect. Procedures 12/21/2016 Exploratory laparotomy, lysis of massive adhesions greater than 2 hours. repair of enterotomies x2 12/18/2016 Enteroscopy with biopsies 1. 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 The mucosa of the stomach appeared normal 3. Normal duodenal mucosa in the entire duodenum 4. The exam showed no abnormalities in the jejunum; multiple biopsies were performed 5. Retroflexed views revealed no abnormalities A/P Problem List: (1) Hypomagnesemia ICD Code: E83.42 - Hypomagnesemia Status: Chronic (2) Hypokalemia ICD Code: E87.6 - Hypokalemia Status: Chronic (3) Abdominal pain ICD Code: R10.9 - Abdominal pain Status: Chronic (4) Nausea and vomiting ICD Code: R11.2 - Nausea and vomiting Status: Acute Assessment and Plan 51-year-old female with a history of bowel obstruction and multiple surgeries Status post exploratory laparotomy, lysis of massive adhesions on 12/22. -pathology showed massive adhesions with fusion of all bowels to each other into the left lower quadrant abdominal fascia. -Patient currently on TPN. Not tolerating diet, persistent ileus. Abdominal CT reviewed no acute pathology. post op changes. Further management per general surgery. -Per GI performed endoscopies studies with biopsy on 12/18/2016. - Encourage increase activity, at least attempt to walk around the unit. Liquid diet as tolerated. Hypertension, essential -hold amlodipine due to low blood pressure. Monitor BP and adjust meds as need. Depression - continue fluoxetine 10 mg daily Full code. Lovenox. DC plan: DC when cleared by Gen surg poss 1-2 days. Discussed with gen surg patient still with persistent pain persistent ileus and not ready for DC. decreased dialudid to 1 mg q6 hrs breakthrough pain and also florentin add PO barcotic norco as need per pain scale . GI recommends gattex however not available. Pos DC in 1-2 days if cleared by surgeon Problem Qualifiers (1) Abdominal pain: Qualified Codes: R10.32 - Left lower quadrant pain (2) Nausea and vomiting: Qualified Codes: R11.2 - Nausea with vomiting, unspecified Rebekah Ricketts MD Jan 14, 2017 08:38
[2017-01-14] MEDS ORDERED: ACETAMINOPHEN/HYDROcodone 325 MG/5 MG TAB PO PRN (08:45)
[2017-01-14] MEDS: FLUoxetine HCL 10 MG CAP PO SCH (09:00)
[2017-01-14] MEDS: SODIUM CHLORIDE 0.9% FLUSH 10 ML FLUSH IV FLUSH SCH ×2 (09:00→19:31)
[2017-01-14] MEDS: NEOMYCIN SULFATE 500 MG TAB PO SCH ×2 (09:35→19:31)
[2017-01-14] MEDS: DICYCLOMINE HCL 20 MG TAB PO SCH ×3 (09:35→18:24)
[2017-01-14] MEDS: DOCUSATE SODIUM 50 MG/SENNA 8.6 MG TAB PO SCH ×2 (09:35→19:44)
[2017-01-14] MEDS: LORazepam 2 MG/ML VIAL IV PUSH PRN ×3 (09:44→21:42)
[2017-01-14 12:06] VITALS: BP 106/62; PULSE 81; RESP 16; O2SAT 98
[2017-01-14] MEDS: ACETAMINOPHEN/HYDROcodone 325 MG/10 MG TAB PO PRN ×2 (14:22→20:18)
[2017-01-14 15:02] VITALS: TEMP 99.7
[2017-01-14] MEDS ORDERED: SENN1TAB PO (18:24)
[2017-01-14] MEDS ORDERED: LORA1TAB12 PO (18:24)
[2017-01-14] MEDS ORDERED: HYDR-3366 PO (18:24)
[2017-01-14] MEDS ORDERED: DICY20TA10 PO (18:24)
[2017-01-14] MEDS ORDERED: NEOM500 PO (18:26)
[2017-01-14] MEDS ORDERED: PROM25TA10 PO (18:26)
[2017-01-14] MEDS ORDERED: ZOFR8TAB PO (18:26)
--- NOTE | 2017-01-14 18:28 | HHI.FF ---
Face to Face Verification Diagnosis: (1) Ileus (2) Fibromyalgia (3) Adhesion of abdominal wall (4) Adhesion of intestine (5) Adhesion of omentum (6) Malabsorption syndrome (7) Diarrhea in adult patient (8) Lower abdominal adhesions (9) Intractable left lower quadrant abdominal pain (10) Nausea and vomiting (11) Hypomagnesemia (12) Hypokalemia Home Health Nursing Order: Medical education Signs/symptoms of disease process Medication education-adverse effect Nursing assessment with vital signs I have seen patient Kelly Mensah on 01/14/17. My clinical findings support the need for the requested home health care services because: Ltd mobility - disease progression I certify that my clinical findings support that this patient is homebound because: Post-op weakness Rebekah Ricketts MD Jan 14, 2017 18:28
--- NOTE | 2017-01-14 18:28 | HHI.DS ---
Discharge Summary Admission Date Dec 10, 2016 at 15:30 Discharge Date: Jan 16, 2017 Admitting Diagnosis hypokalemia, hypomagnesemia, nausea and vomiting (1) Hypomagnesemia ICD Code: E83.42 - Hypomagnesemia Status: Chronic (2) Hypokalemia ICD Code: E87.6 - Hypokalemia Status: Chronic (3) Abdominal pain ICD Code: R10.9 - Abdominal pain Status: Chronic (4) Nausea and vomiting ICD Code: R11.2 - Nausea and vomiting Status: Acute Procedures 12/21/2016 Exploratory laparotomy, lysis of massive adhesions greater than 2 hours. repair of enterotomies x2 12/18/2016 Enteroscopy with biopsies 1. 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 The mucosa of the stomach appeared normal 3. Normal duodenal mucosa in the entire duodenum 4. The exam showed no abnormalities in the jejunum; multiple biopsies were performed 5. Retroflexed views revealed no abnormalities Brief History - From Admission Ms. Mensah is a pleasant 51-year-old female with a history of multiple bowel obstructions and multiple bowel surgeries who presents to the emergency department due to nausea vomiting and abdominal pain. Although she has chronic abdominal pain, her symptoms have been mostly pronounced in the last 1 week. She reports nausea vomiting with any oral intake. She also reports crampy abdominal pain especially in the lower quadrants. She has subjective fever and chills. She also has chronic diarrhea but feels that her diarrhea has been worsening in the last few days. She is currently on TPN due to malabsorption. She was advised by her primary care physician to come to the hospital due to hypokalemia with potassium 2.6. At the time of this interview patient denies any chest pain, cough. She does report overall weakness and muscle aches. She denies any blood in the vomitus or diarrhea. Upon arrival temperature 99.2F, pulse 112, respiration 24, blood pressure 154/100. WBC 14.2 , hemoglobin 14.3, platelets 254. Sodium 139, potassium 2.4, chloride 109, CO2 20.2, anion gap 10, BUN 14, creatinine 1.0, glucose 86, lactic acid 2.0 and magnesium 0.8. Lipase 228. CT abdomen pelvis reveals mild hepatomegaly but no acute intra-abdominal process. CBC/BMP: 01/14/17 0525 01/14/17 0525 Significant Findings Laboratory Tests Test 01/14/17 05:25 Red Blood Count 2.85 MIL/MM3 (4.00-5.30) Hemoglobin 8.8 GM/DL (11.6-15.3) Hematocrit 26.0 % (35.0-46.0) Neutrophils (%) (Auto) 77.2 % (16.0-70.0) Blood Urea Nitrogen 4 MG/DL (7-18) Chloride Level 108 MEQ/L (98-107) Imaging Last Impressions Abdomen/Pelvis CT 01/10/17 0000 Signed Impressions: Service Date/Time: Tuesday, January 10, 2017 11:33 - CONCLUSION: 1. It appears patient has had recent abdominal surgery. 2. There is diffuse dilatation of multiple small and large bowel loops down to the rectum. This suggests most likely a postoperative ileus. 3. There is focal nonspecific inflammatory type changes deep in the anterior right lower quadrant most likely related to postsurgical changes. Tyson Sanchez MD Abdomen X-Ray 12/26/16 0000 Signed Impressions: Service Date/Time: Monday, December 26, 2016 08:56 - CONCLUSION: Interval surgery with air dilated large bowel likely reflecting ileus. Petrona Celaya MD PE at Discharge GENERAL: Pleasant 60 yo F, appearing older than stated age in nad. CARDIOVASCULAR: Normal rate and regular rhythm without murmurs, gallops, or rubs. RESPIRATORY: Good respiratory efforts. Breath sounds equal and clear to auscultation bilaterally. GASTROINTESTINAL: Abdomen is distended, tender to palpation, worse on the left quadrant. Vertical incision nahid removed. On the inferior portion, there appeared to be some opening of the wound, steristrips applied. MUSCULOSKELETAL: Extremities without cyanosis, or edema. NEURO: Alert & Oriented x4 to person, place, time, situation. Moves all ext x4 PSYCH: Appropriate mood and affect. Hospital Course 51-year-old female with a history of bowel obstruction and multiple surgeries. patient status post exploratory laparotomy, lysis of massive adhesions on 12/22/[address] Saldana gen surg. Pathology showed massive adhesions with fusion of all bowels to each other into the left lower quadrant abdominal fascia. Patient currently on TPN. Not tolerating diet, persistent ileus. Abdominal CT reviewed no acute pathology, post op changes, persistent ileus. Per GI performed endoscopies studies with biopsy on 12/18/2016. Encourage increase activity, at least attempt to walk around the unit. Liquid diet as tolerated. Continue TPN as OP. GI recommends Gattex however not available. Discussed with Dr Nestor RICE, says working with insurance to get gattex, recommends continuing TPN as OP and to f/ u as OP with him. Patient was discharged in stable condition to f/u as OP with PCP and consultants. Status post exploratory laparotomy, lysis of massive adhesions on 12/22. -pathology showed massive adhesions with fusion of all bowels to each other into the left lower quadrant abdominal fascia. -Patient currently on TPN. Not tolerating diet, persistent ileus. Abdominal CT reviewed no acute pathology. post op changes. Further management per general surgery. -Per GI performed endoscopies studies with biopsy on 12/18/2016. - Encourage increase activity, at least attempt to walk around the unit. Liquid diet as tolerated. Hypertension, essential -hold amlodipine due to low blood pressure. Monitor BP and adjust meds as need. Depression - continue fluoxetine 10 mg daily Full code. Lovenox. DC plan: DC when cleared by Gen surg poss 1-2 days. Discussed with gen surg patient still with persistent pain persistent ileus and not ready for DC. decreased dialudid to 1 mg q6 hrs breakthrough pain and also florentin add PO narcotic norco as need per pain scale . GI recommends gattex however not available. Discussed with Dr Nestor RICE, says working with insurance to get gattex, recommends continuing TPN as OP and to f/ u as OP with him. Pt Condition on Discharge: Stable Discharge Disposition: Disch w/ Home Health Serv Discharge Time: > 30 minutes Discharge Instructions DIET: Follow Instructions for: As Tolerated, No Restrictions Activities you can perform: Regular-No Restrictions Follow up Referrals: Gastroenterology - 2-3 Days with Eamon Quintanilla MD PCP Follow-up - 2-3 Days Surgical - 1 Week with Wally Saldana MD New Medications: Lorazepam (Lorazepam) 1 Mg Tab 1 MG PO Q8H PRN for ANXIETY, #10 TAB 0 Refills Ondansetron (Zofran) 8 Mg Tab 8 MG PO TID for Nausea/Vomiting, #30 TAB 0 Refills Promethazine (Phenergan) 25 Mg Tablet 25 MG PO Q6H PRN for NAUSEA OR VOMITING, #30 TAB 0 Refills Dicyclomine (Dicyclomine) 20 Mg Tab 20 MG PO TID for abd cramps , #90 TAB Neomycin (Neomycin) 500 Mg Tab 500 MG PO Q12HR for infection for 7 Days, TAB Sennosides-Docusate Sodium (Senna Plus 8.6-50 mg) 8.6 Mg-50 Mg Tab 1 TAB PO BID for Constipation, #60 TAB Changed Medications: Hydrocodone-Acetaminophen ([place]) 10-325 Mg Tab 1 TAB PO Q6HR PRN for PAIN, #30 TAB 0 Refills (Changed from: Q4H) Continued Medications: Amlodipine (Norvasc) 5 Mg Tab 5 MG PO DAILY for Blood Pressure Management, #30 TAB 0 Refills Fluoxetine (Prozac) 10 Mg Cap 10 MG PO DAILY, #30 CAP 0 Refills Promethazine (Phenergan) 25 Mg Tablet 25 MG PO ONCE for Nausea/Vomiting, #1 TAB 0 Refills Rebekah Ricketts MD Jan 14, 2017 18:28
[2017-01-14] MEDS: ENOXAPARIN SODIUM 40 MG/0.4 ML SYRINGE SQ SCH (19:31)
[2017-01-14] MEDS: CLINIMIX E 4.25/25 1000 mL- </= 42 mls/hr IV-CENTRAL SCH ×3 (19:31)
[2017-01-14] MEDS: LACTATED RINGER'S 1000 ML INJ 1,000 ML IV SCH (19:44)
[2017-01-14 20:56] VITALS: BP 121/60; PULSE 87; RESP 22; TEMP 97.7; O2SAT 98
[2017-01-15 00:09] VITALS: BP 104/68; PULSE 70; RESP 22; TEMP 98.5; O2SAT 99
[2017-01-15] MEDS: ACETAMINOPHEN/HYDROcodone 325 MG/10 MG TAB PO PRN ×4 (00:19→18:11)
[2017-01-15] MEDS: LORazepam 2 MG/ML VIAL IV PUSH PRN ×4 (03:32→22:14)
[2017-01-15] MEDS: PROMETHAZINE INJ 25 MG/ML VIAL IV-CENTRAL PRN ×4 (03:32→22:17)
[2017-01-15] MEDS: HYDROmorphone HCL PF 2 MG/ML VIAL IV PUSH PRN ×4 (03:33→22:14)
[2017-01-15] MEDS: LACTATED RINGER'S 1000 ML INJ 1,000 ML IV SCH ×2 (04:30→15:45)
[2017-01-15] MEDS: METOCLOPRAMIDE HCL 10 MG/2 ML VIAL IV PUSH SCH ×3 (04:32→21:10)
[2017-01-15] MEDS: ONDANSETRON HCL 4 MG/2 ML VIAL IVP PRN ×3 (05:51→18:11)
[2017-01-15 07:30] VITALS: BP 104/59; PULSE 71; RESP 12; TEMP 96.3; O2SAT 99
[2017-01-15] MEDS: FLUoxetine HCL 10 MG CAP PO SCH (09:00)
[2017-01-15] MEDS: DOCUSATE SODIUM 50 MG/SENNA 8.6 MG TAB PO SCH ×2 (09:00→21:00)
[2017-01-15] MEDS: SODIUM CHLORIDE 0.9% FLUSH 10 ML FLUSH IV FLUSH SCH ×2 (09:00→21:00)
[2017-01-15] MEDS: DICYCLOMINE HCL 20 MG TAB PO SCH ×3 (09:37→18:11)
[2017-01-15] MEDS: NEOMYCIN SULFATE 500 MG TAB PO SCH ×2 (09:37→21:09)
[2017-01-15 11:32] VITALS: BP 112/58; PULSE 73; RESP 14; TEMP 96.6; O2SAT 99
--- NOTE | 2017-01-15 14:21 | HHI.PR ---
Subjective Remarks Patient in bed, says she had some loose BMs. Patient say she is still nauseated. Says she is ambulating. Per nurse she is noted eating fairly well. Objective Vitals Vital Signs Date Time Temp Pulse Resp B/P (MAP) Pulse Ox O2 Delivery O2 Flow Rate FiO2 01/15/17 11:32 96.6 73 14 112/58 (76) 99 01/15/17 07:30 96.3 71 12 104/59 (74) 99 01/15/17 04:00 18 01/15/17 01:19 18 01/15/17 00:09 98.5 70 22 104/68 (80) 99 01/14/17 20:56 97.7 87 22 121/60 (80) 98 01/14/17 15:02 99.7 I/O 01/14/17 01/14/17 01/14/17 01/15/17 01/15/17 01/15/17 07:00 15:00 23:00 07:00 15:00 23:00 Intake Total 1550 ml 462 ml 668.2 ml 1240 ml Output Total 4 ml 550 ml 400 ml Balance 1546 ml -88 ml 268.2 ml 1240 ml Intake Oral 500 ml 120 ml 240 ml IV Total 1050 ml 462 ml 548.2 ml 1000 ml Output Urine Total 4 ml 550 ml 400 ml # Voids 4 # Bowel Movements 5 1 Result Diagram: 01/14/17 0525 01/14/17 0525 Imaging Last Impressions Abdomen/Pelvis CT 01/10/17 0000 Signed Impressions: Service Date/Time: Tuesday, January 10, 2017 11:33 - CONCLUSION: 1. It appears patient has had recent abdominal surgery. 2. There is diffuse dilatation of multiple small and large bowel loops down to the rectum. This suggests most likely a postoperative ileus. 3. There is focal nonspecific inflammatory type changes deep in the anterior right lower quadrant most likely related to postsurgical changes. Tyson Sanchez MD Abdomen X-Ray 12/26/16 0000 Signed Impressions: Service Date/Time: Monday, December 26, 2016 08:56 - CONCLUSION: Interval surgery with air dilated large bowel likely reflecting ileus. Petrona Celaya MD Objective Remarks GENERAL: Pleasant 60 yo F, appearing older than stated age in nad. CARDIOVASCULAR: Normal rate and regular rhythm without murmurs, gallops, or rubs. RESPIRATORY: Good respiratory efforts. Breath sounds equal and clear to auscultation bilaterally. GASTROINTESTINAL: Abdomen is distended, tender to palpation, worse on the left quadrant. Vertical incision nahid removed. On the inferior portion, there appeared to be some opening of the wound, steristrips applied. MUSCULOSKELETAL: Extremities without cyanosis, or edema. NEURO: Alert & Oriented x4 to person, place, time, situation. Moves all ext x4 PSYCH: Appropriate mood and affect. Procedures 12/21/2016 Exploratory laparotomy, lysis of massive adhesions greater than 2 hours. repair of enterotomies x2 12/18/2016 Enteroscopy with biopsies 1. 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 The mucosa of the stomach appeared normal 3. Normal duodenal mucosa in the entire duodenum 4. The exam showed no abnormalities in the jejunum; multiple biopsies were performed 5. Retroflexed views revealed no abnormalities A/P Problem List: (1) Hypomagnesemia ICD Code: E83.42 - Hypomagnesemia Status: Chronic (2) Hypokalemia ICD Code: E87.6 - Hypokalemia Status: Chronic (3) Abdominal pain ICD Code: R10.9 - Abdominal pain Status: Chronic (4) Nausea and vomiting ICD Code: R11.2 - Nausea and vomiting Status: Acute Assessment and Plan 51-year-old female with a history of bowel obstruction and multiple surgeries Status post exploratory laparotomy, lysis of massive adhesions on 12/22. -pathology showed massive adhesions with fusion of all bowels to each other into the left lower quadrant abdominal fascia. -Patient currently on TPN. Not tolerating diet, persistent ileus. Abdominal CT reviewed no acute pathology. post op changes. Further management per general surgery. -Per GI performed endoscopies studies with biopsy on 12/18/2016. - Encourage increase activity, at least attempt to walk around the unit. Liquid diet as tolerated. Hypertension, essential -hold amlodipine due to low blood pressure. Monitor BP and adjust meds as need. Depression - continue fluoxetine 10 mg daily Full code. Lovenox. DC plan: DC when cleared by Gen surg poss 1-2 days. Discussed with gen surg patient still with persistent pain persistent ileus and not ready for DC. decreased dialudid to 1 mg q6 hrs breakthrough pain and also florentin add PO narcotic norco as need per pain scale . GI recommends gattex however not available. Pos DC later today or tomorrow if cleared by surgeon Problem Qualifiers (1) Abdominal pain: Qualified Codes: R10.32 - Left lower quadrant pain (2) Nausea and vomiting: Qualified Codes: R11.2 - Nausea with vomiting, unspecified Rebekah Ricketts MD Jan 15, 2017 14:21
[2017-01-15 16:00] VITALS: BP 117/76; PULSE 77; RESP 15; TEMP 97.1; O2SAT 99
[2017-01-15 20:00] VITALS: BP 92/53; PULSE 82; RESP 18; TEMP 96.1; O2SAT 98
[2017-01-15] MEDS: CLINIMIX E 4.25/25 1000 mL- </= 42 mls/hr IV-CENTRAL SCH ×3 (20:34)
[2017-01-15] MEDS: ENOXAPARIN SODIUM 40 MG/0.4 ML SYRINGE SQ SCH (21:08)
[2017-01-16] VITALS: BP 113/59; PULSE 73; RESP 18; TEMP 97; O2SAT 96
[2017-01-16] MEDS: LACTATED RINGER'S 1000 ML INJ 1,000 ML IV SCH ×3 (00:30→21:55)
[2017-01-16] MEDS: PROMETHAZINE INJ 25 MG/ML VIAL IV-CENTRAL PRN ×6 (02:00→23:43)
[2017-01-16] MEDS: ACETAMINOPHEN/HYDROcodone 325 MG/10 MG TAB PO PRN ×4 (02:02→20:37)
[2017-01-16] MEDS: METOCLOPRAMIDE HCL 10 MG/2 ML VIAL IV PUSH SCH ×3 (03:58→21:38)
[2017-01-16] MEDS: LORazepam 2 MG/ML VIAL IV PUSH PRN ×4 (04:08→21:48)
[2017-01-16] MEDS: HYDROmorphone HCL PF 2 MG/ML VIAL IV PUSH PRN ×4 (04:11→21:50)
[2017-01-16 08:00] VITALS: BP 96/55; PULSE 75; RESP 18; TEMP 97.3; O2SAT 97
--- NOTE | 2017-01-16 08:28 | HHI.PR ---
Subjective Remarks Patien tin bed, feels the same. No n/v. Had multiple BM s. Passing gas. No fever or chills. Discussed with Dr Nestor RICE, says working with insurance to get gattex, recommends continuing TPN as OP and to f/u as OP with him. Objective Vitals Vital Signs Date Time Temp Pulse Resp B/P (MAP) Pulse Ox O2 Delivery O2 Flow Rate FiO2 01/16/17 08:00 97.3 75 18 96/55 (69) 97 01/16/17 00:00 97.0 73 18 113/59 (77) 96 01/15/17 20:00 96.1 82 18 92/53 (66) 98 01/15/17 16:00 97.1 77 15 117/76 (90) 99 01/15/17 11:32 96.6 73 14 112/58 (76) 99 I/O 01/15/17 01/15/17 01/15/17 01/16/17 01/16/17 01/16/17 07:00 15:00 23:00 07:00 15:00 23:00 Intake Total 1240 ml 240 ml 2600 ml Balance 1240 ml 240 ml 2600 ml Intake Oral 240 ml 240 ml IV Total 1000 ml 2600 ml # Voids 4 6 3 # Bowel Movements 1 0 Result Diagram: 01/14/17 0525 01/14/17 0525 Imaging Last Impressions Abdomen/Pelvis CT 01/10/17 0000 Signed Impressions: Service Date/Time: Tuesday, January 10, 2017 11:33 - CONCLUSION: 1. It appears patient has had recent abdominal surgery. 2. There is diffuse dilatation of multiple small and large bowel loops down to the rectum. This suggests most likely a postoperative ileus. 3. There is focal nonspecific inflammatory type changes deep in the anterior right lower quadrant most likely related to postsurgical changes. Tyson Sanchez MD Abdomen X-Ray 12/26/16 0000 Signed Impressions: Service Date/Time: Monday, December 26, 2016 08:56 - CONCLUSION: Interval surgery with air dilated large bowel likely reflecting ileus. Petrona Celaya MD Objective Remarks GENERAL: Pleasant 60 yo F, appearing older than stated age in nad. CARDIOVASCULAR: Normal rate and regular rhythm without murmurs, gallops, or rubs. RESPIRATORY: Good respiratory efforts. Breath sounds equal and clear to auscultation bilaterally. GASTROINTESTINAL: Abdomen is distended, tender to palpation, worse on the left quadrant. Vertical incision nahid removed. On the inferior portion, there appeared to be some opening of the wound, steristrips applied. MUSCULOSKELETAL: Extremities without cyanosis, or edema. NEURO: Alert & Oriented x4 to person, place, time, situation. Moves all ext x4 PSYCH: Appropriate mood and affect. Procedures 12/21/2016 Exploratory laparotomy, lysis of massive adhesions greater than 2 hours. repair of enterotomies x2 12/18/2016 Enteroscopy with biopsies 1. 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 The mucosa of the stomach appeared normal 3. Normal duodenal mucosa in the entire duodenum 4. The exam showed no abnormalities in the jejunum; multiple biopsies were performed 5. Retroflexed views revealed no abnormalities A/P Problem List: (1) Hypomagnesemia ICD Code: E83.42 - Hypomagnesemia Status: Chronic (2) Hypokalemia ICD Code: E87.6 - Hypokalemia Status: Chronic (3) Abdominal pain ICD Code: R10.9 - Abdominal pain Status: Chronic (4) Nausea and vomiting ICD Code: R11.2 - Nausea and vomiting Status: Acute Assessment and Plan 51-year-old female with a history of bowel obstruction and multiple surgeries Status post exploratory laparotomy, lysis of massive adhesions on 12/22. -pathology showed massive adhesions with fusion of all bowels to each other into the left lower quadrant abdominal fascia. -Patient currently on TPN. Not tolerating diet, persistent ileus. Abdominal CT reviewed no acute pathology. post op changes. Further management per general surgery. -Per GI performed endoscopies studies with biopsy on 12/18/2016. - Encourage increase activity, at least attempt to walk around the unit. Liquid diet as tolerated. Hypertension, essential -hold amlodipine due to low blood pressure. Monitor BP and adjust meds as need. Depression - continue fluoxetine 10 mg daily Full code. Lovenox. DC plan: DC when cleared by Gen surg poss 1-2 days. Discussed with gen surg patient still with persistent pain persistent ileus and not ready for DC. decreased dialudid to 1 mg q6 hrs breakthrough pain and also florentin add PO narcotic norco as need per pain scale . GI recommends gattex however not available. Discussed with Dr Nestor RICE, says working with insurance to get gattex, recommends continuing TPN as OP and to f/ u as OP with him. DC today. Problem Qualifiers (1) Abdominal pain: Qualified Codes: R10.32 - Left lower quadrant pain (2) Nausea and vomiting: Qualified Codes: R11.2 - Nausea with vomiting, unspecified Rebekah Ricketts MD Jan 16, 2017 08:28
[2017-01-16 08:34] VITALS: BP 130/68
[2017-01-16] MEDS: NEOMYCIN SULFATE 500 MG TAB PO SCH ×2 (08:35→19:34)
[2017-01-16] MEDS: DICYCLOMINE HCL 20 MG TAB PO SCH ×3 (08:35→16:19)
[2017-01-16] MEDS: FLUoxetine HCL 10 MG CAP PO SCH (08:35)
[2017-01-16] MEDS: SODIUM CHLORIDE 0.9% FLUSH 10 ML FLUSH IV FLUSH SCH ×2 (08:36→21:05)
[2017-01-16] MEDS: DOCUSATE SODIUM 50 MG/SENNA 8.6 MG TAB PO SCH ×2 (08:36→21:00)
[2017-01-16 12:00] VITALS: BP 113/65; PULSE 82; RESP 16; TEMP 98.1; O2SAT 97
[2017-01-16] MEDS: ONDANSETRON HCL 4 MG/2 ML VIAL IVP PRN ×2 (12:13→19:34)
--- NOTE | 2017-01-16 13:10 | HHI.PR ---
Subjective Subjective Notes states she still have LLQ pain, nausea. says she had emesis but nursing staff states they have seen no emesis at all. Objective Vitals/I&O Vital Signs Date Time Temp Pulse Resp B/P (MAP) Pulse Ox O2 Delivery O2 Flow Rate FiO2 01/16/17 08:34 130/68 (88) 01/16/17 08:00 97.3 75 18 97 Radiology Last 72 hours Impressions Abdomen/Pelvis CT 01/10/17 0000 Signed Impressions: Service Date/Time: Tuesday, January 10, 2017 11:33 - CONCLUSION: 1. It appears patient has had recent abdominal surgery. 2. There is diffuse dilatation of multiple small and large bowel loops down to the rectum. This suggests most likely a postoperative ileus. 3. There is focal nonspecific inflammatory type changes deep in the anterior right lower quadrant most likely related to postsurgical changes. Tyson Sanchez MD Abdomen: Non-distended, Post-op tenderness, BS normal A/P Problem List: (1) Dysuria ICD Codes: R30.0 - Dysuria (2) Intra-abdominal adhesions ICD Codes: K66.0 - Peritoneal adhesions (postprocedural) (postinfection) Status: Chronic (3) Malabsorption syndrome ICD Codes: K90.9 - Intestinal malabsorption, unspecified Status: Chronic (4) Hypomagnesemia ICD Codes: E83.42 - Hypomagnesemia Status: Chronic (5) Hypokalemia ICD Codes: E87.6 - Hypokalemia Status: Chronic (6) Adhesion of intestine ICD Codes: K66.0 - Peritoneal adhesions (postprocedural) (postinfection) Status: Chronic (7) Adhesion of abdominal wall ICD Codes: K66.0 - Peritoneal adhesions (postprocedural) (postinfection) Status: Chronic (8) Adhesion of omentum ICD Codes: K66.0 - Peritoneal adhesions (postprocedural) (postinfection) Status: Chronic (9) Lower abdominal adhesions ICD Codes: K66.0 - Peritoneal adhesions (postprocedural) (postinfection) Status: Chronic (10) Abdominal pain ICD Codes: R10.9 - Abdominal pain Status: Chronic (11) Anemia ICD Codes: D64.9 - Anemia, unspecified Status: Acute (12) Diarrhea in adult patient ICD Codes: K52.9 - Diarrhea in adult patient Status: Chronic (13) Fibromyalgia ICD Codes: M79.7 - Fibromyalgia Status: Chronic (14) Anxiety and depression ICD Codes: F41.8 - Anxiety and depression Status: Chronic Assessment and Plan s/p exp lap, leia, malabsorbtion syndrome i explained to her that there is no further surgical options. she need pain management, we have nothing more to offer. continue current care. ok to DC, follow up dr perea in office Problem Qualifiers (1) Malabsorption syndrome: Qualified Codes: K90.89 - Other intestinal malabsorption (2) Abdominal pain: Qualified Codes: R10.32 - Left lower quadrant pain (3) Anemia: Hay Scott MD Jan 16, 2017 13:10
[2017-01-16 16:00] VITALS: BP 127/66; PULSE 87; RESP 16; TEMP 98.8; O2SAT 99
[2017-01-16] MEDS: SIMETHICONE 125 MG CHEWABLE TAB PO PRN (16:19)
[2017-01-16] MEDS: ENOXAPARIN SODIUM 40 MG/0.4 ML SYRINGE SQ SCH ×2 (19:34→19:50)
[2017-01-16] MEDS: CLINIMIX E 4.25/25 1000 mL- </= 42 mls/hr IV-CENTRAL SCH ×3 (19:40)
[2017-01-16 20:00] VITALS: BP 114/61; PULSE 90; RESP 17; TEMP 99.6; O2SAT 98
[2017-01-17] VITALS: BP 100/57; PULSE 80; RESP 17; TEMP 97.8; O2SAT 100
[2017-01-17] MEDS: ONDANSETRON HCL 4 MG/2 ML VIAL IVP PRN ×4 (02:30→20:59)
[2017-01-17] MEDS: ACETAMINOPHEN/HYDROcodone 325 MG/10 MG TAB PO PRN ×4 (02:30→20:59)
[2017-01-17] MEDS: METOCLOPRAMIDE HCL 10 MG/2 ML VIAL IV PUSH SCH ×3 (04:16→21:11)
[2017-01-17] MEDS: PROMETHAZINE INJ 25 MG/ML VIAL IV-CENTRAL PRN ×4 (05:32→23:55)
[2017-01-17] MEDS: HYDROmorphone HCL PF 2 MG/ML VIAL IV PUSH PRN ×4 (05:32→23:56)
[2017-01-17] MEDS: LORazepam 2 MG/ML VIAL IV PUSH PRN ×3 (05:32→17:44)
[2017-01-17] MEDS: LACTATED RINGER'S 1000 ML INJ 1,000 ML IV SCH ×2 (07:08→16:30)
[2017-01-17 08:00] VITALS: BP 108/56; PULSE 79; RESP 16; TEMP 97.3; O2SAT 97
[2017-01-17] MEDS: NEOMYCIN SULFATE 500 MG TAB PO SCH ×2 (08:39→21:11)
[2017-01-17] MEDS: DICYCLOMINE HCL 20 MG TAB PO SCH ×3 (08:39→17:44)
[2017-01-17] MEDS: SODIUM CHLORIDE 0.9% FLUSH 10 ML FLUSH IV FLUSH SCH ×2 (08:39→21:12)
[2017-01-17] MEDS: DOCUSATE SODIUM 50 MG/SENNA 8.6 MG TAB PO SCH ×2 (08:39→21:00)
[2017-01-17] MEDS: FLUoxetine HCL LIQUID 20 MG/5 ML CUP PO SCH (10:30)
--- NOTE | 2017-01-17 11:04 | HHI.PR ---
Subjective Remarks In bed, sleepy. Some nausea, no vomiting. Per nurse she is noted eating candies. Still with abd pain and some distension. Objective Vitals Vital Signs Date Time Temp Pulse Resp B/P (MAP) Pulse Ox O2 Delivery O2 Flow Rate FiO2 01/17/17 08:00 97.3 79 16 108/56 (73) 97 01/17/17 00:00 97.8 80 17 100/57 (71) 100 01/16/17 20:00 99.6 90 17 114/61 (78) 98 01/16/17 16:00 98.8 87 16 127/66 (86) 99 01/16/17 12:00 98.1 82 16 113/65 (81) 97 I/O 01/16/17 01/16/17 01/16/17 01/17/17 01/17/17 01/17/17 07:00 15:00 23:00 07:00 15:00 23:00 Intake Total 2600 ml 740 ml 1590 ml Output Total 600 ml Balance 2600 ml 740 ml 990 ml Intake Oral 240 ml 240 ml IV Total 2600 ml 500 ml 1350 ml Output Urine Total 600 ml # Voids 3 6 # Bowel Movements 6 Result Diagram: 01/14/17 0525 01/14/17 0525 Imaging Last Impressions Abdomen/Pelvis CT 01/10/17 0000 Signed Impressions: Service Date/Time: Tuesday, January 10, 2017 11:33 - CONCLUSION: 1. It appears patient has had recent abdominal surgery. 2. There is diffuse dilatation of multiple small and large bowel loops down to the rectum. This suggests most likely a postoperative ileus. 3. There is focal nonspecific inflammatory type changes deep in the anterior right lower quadrant most likely related to postsurgical changes. Tyson Sanchez MD Abdomen X-Ray 12/26/16 0000 Signed Impressions: Service Date/Time: Monday, December 26, 2016 08:56 - CONCLUSION: Interval surgery with air dilated large bowel likely reflecting ileus. Petrona Celaya MD Objective Remarks GENERAL: Pleasant 60 yo F, appearing older than stated age in nad. CARDIOVASCULAR: Normal rate and regular rhythm without murmurs, gallops, or rubs. RESPIRATORY: Good respiratory efforts. Breath sounds equal and clear to auscultation bilaterally. GASTROINTESTINAL: Abdomen is distended, tender to palpation, worse on the left quadrant. Vertical incision nahid removed. On the inferior portion, there appeared to be some opening of the wound, steristrips applied. MUSCULOSKELETAL: Extremities without cyanosis, or edema. NEURO: Alert & Oriented x4 to person, place, time, situation. Moves all ext x4 PSYCH: Appropriate mood and affect. Procedures 12/21/2016 Exploratory laparotomy, lysis of massive adhesions greater than 2 hours. repair of enterotomies x2 12/18/2016 Enteroscopy with biopsies 1. 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 The mucosa of the stomach appeared normal 3. Normal duodenal mucosa in the entire duodenum 4. The exam showed no abnormalities in the jejunum; multiple biopsies were performed 5. Retroflexed views revealed no abnormalities A/P Problem List: (1) Hypomagnesemia ICD Code: E83.42 - Hypomagnesemia Status: Chronic (2) Hypokalemia ICD Code: E87.6 - Hypokalemia Status: Chronic (3) Abdominal pain ICD Code: R10.9 - Abdominal pain Status: Chronic (4) Nausea and vomiting ICD Code: R11.2 - Nausea and vomiting Status: Acute Assessment and Plan 51-year-old female with a history of bowel obstruction and multiple surgeries Status post exploratory laparotomy, lysis of massive adhesions on 12/22. -pathology showed massive adhesions with fusion of all bowels to each other into the left lower quadrant abdominal fascia. -Patient currently on TPN. Not tolerating diet, persistent ileus. Abdominal CT reviewed no acute pathology. post op changes. Further management per general surgery. -Per GI performed endoscopies studies with biopsy on 12/18/2016. - Encourage increase activity, at least attempt to walk around the unit. Liquid diet as tolerated. Hypertension, essential -hold amlodipine due to low blood pressure. Monitor BP and adjust meds as need. Depression - continue fluoxetine 10 mg daily Full code. Lovenox. DC plan: DC when cleared by Gen surg poss 1-2 days. Discussed with gen surg patient still with persistent pain persistent ileus and not ready for DC. decreased dialudid to 1 mg q6 hrs breakthrough pain and also florentin add PO narcotic norco as need per pain scale . GI recommends gattex however not available. Discussed with Dr Nestor RICE, says working with insurance to get gattex, recommends continuing TPN as OP and to f/ u as OP with him. Plan to Discharge 01/21/17, however TPN was not able to be arranged, per CM TPN will be arranged on Wednesday. Problem Qualifiers (1) Abdominal pain: Qualified Codes: R10.32 - Left lower quadrant pain (2) Nausea and vomiting: Qualified Codes: R11.2 - Nausea with vomiting, unspecified Rebekah Ricketts MD Jan 17, 2017 11:04
[2017-01-17 12:00] VITALS: BP 119/65; PULSE 90; RESP 18; TEMP 98.2; O2SAT 98
[2017-01-17] MEDS: SIMETHICONE 125 MG CHEWABLE TAB PO PRN (12:03)
--- NOTE | 2017-01-17 13:07 | HHI.PR ---
Subjective Subjective Notes Still painful LLQ, but no emesis. Tolerating some clears Objective Vitals/I&O Vital Signs Date Time Temp Pulse Resp B/P (MAP) Pulse Ox O2 Delivery O2 Flow Rate FiO2 01/17/17 12:00 98.2 90 18 119/65 (83) 98 Radiology Last 72 hours Impressions Abdomen/Pelvis CT 01/10/17 0000 Signed Impressions: Service Date/Time: Tuesday, January 10, 2017 11:33 - CONCLUSION: 1. It appears patient has had recent abdominal surgery. 2. There is diffuse dilatation of multiple small and large bowel loops down to the rectum. This suggests most likely a postoperative ileus. 3. There is focal nonspecific inflammatory type changes deep in the anterior right lower quadrant most likely related to postsurgical changes. Tyson Sanchez MD Abdomen: Other (distended in LLQ with painful area) Narrative Exam Wound clean and dry without erythema A/P Problem List: (1) Dysuria ICD Codes: R30.0 - Dysuria (2) Intra-abdominal adhesions ICD Codes: K66.0 - Peritoneal adhesions (postprocedural) (postinfection) Status: Chronic (3) Malabsorption syndrome ICD Codes: K90.9 - Intestinal malabsorption, unspecified Status: Chronic (4) Hypomagnesemia ICD Codes: E83.42 - Hypomagnesemia Status: Chronic (5) Hypokalemia ICD Codes: E87.6 - Hypokalemia Status: Chronic (6) Adhesion of intestine ICD Codes: K66.0 - Peritoneal adhesions (postprocedural) (postinfection) Status: Chronic (7) Adhesion of abdominal wall ICD Codes: K66.0 - Peritoneal adhesions (postprocedural) (postinfection) Status: Chronic (8) Adhesion of omentum ICD Codes: K66.0 - Peritoneal adhesions (postprocedural) (postinfection) Status: Chronic (9) Lower abdominal adhesions ICD Codes: K66.0 - Peritoneal adhesions (postprocedural) (postinfection) Status: Chronic (10) Abdominal pain ICD Codes: R10.9 - Abdominal pain Status: Chronic (11) Anemia ICD Codes: D64.9 - Anemia, unspecified Status: Acute (12) Diarrhea in adult patient ICD Codes: K52.9 - Diarrhea in adult patient Status: Chronic (13) Fibromyalgia ICD Codes: M79.7 - Fibromyalgia Status: Chronic (14) Anxiety and depression ICD Codes: F41.8 - Anxiety and depression Status: Chronic Assessment and Plan Plan A/P Problem List: (1) Abdominal pain ICD Codes: R10.9 - Abdominal pain Status: Chronic (2) Anemia ICD Codes: D64.9 - Anemia, unspecified Status: Acute (3) Diarrhea in adult patient ICD Codes: K52.9 - Diarrhea in adult patient Status: Acute (4) Fibromyalgia ICD Codes: M79.7 - Fibromyalgia Status: Chronic (5) Anxiety and depression ICD Codes: F41.8 - Anxiety and depression Status: Chronic (6) Hypokalemia ICD Codes: E87.6 - Hypokalemia Status: Chronic (7) Hypomagnesemia ICD Codes: E83.42 - Hypomagnesemia Status: Chronic (8) Malabsorption syndrome ICD Codes: K90.9 - Intestinal malabsorption, unspecified Status: Chronic Assessment and Plan 51-year-old female who has malabsorption syndrome on TPN POD #27 ex lap/MARCO Wound clean and dry; dressing intact. Continue TPN ok to DC, follow up dr perea in office Inpatient MDM Problem Qualifiers (1) Malabsorption syndrome: Qualified Codes: K90.89 - Other intestinal malabsorption (2) Abdominal pain: Qualified Codes: R10.32 - Left lower quadrant pain (3) Anemia: Attending Statement I attest that I had a [id number] encounter with the patient on the same day, and personally performed and documented my assessment and findings in the medical record. The following services were provided during this hospital visit: Chart data review, vital sign assessments/reviewing monitor data Review of consultations notes if present. Medication orders/review and/or management Ordering and/or reviewing lab tests Ordering and/or interpreting/reviewing x-rays and/or diagnostic studies Care of the patient and discussion of the patient with the care team Documentation time To help prompt me to consider important information that might be impacting today's encounter and assessment, information from prior notes written by myself or my colleagues may have been "brought forward/copy and pasted" into today's note. Problem Qualifiers (1) Malabsorption syndrome: Qualified Codes: K90.89 - Other intestinal malabsorption (2) Abdominal pain: Qualified Codes: R10.32 - Left lower quadrant pain (3) Anemia: Ajay Thompson MD Jan 17, 2017 13:07
[2017-01-17 16:00] VITALS: BP 123/58; PULSE 78; RESP 16; TEMP 98.4; O2SAT 97
[2017-01-17 17:54] VITALS: BP 108/65; PULSE 81; RESP 17; TEMP 97.6; O2SAT 98
[2017-01-17] MEDS: ENOXAPARIN SODIUM 40 MG/0.4 ML SYRINGE SQ SCH (20:00)
[2017-01-17] MEDS: CLINIMIX E 4.25/25 1000 mL- </= 42 mls/hr IV-CENTRAL SCH ×3 (21:00)
[2017-01-17] MEDS: FAT EMULSION 20% INJ 250 ML (Twice weekly over 8 hours) IV-CENTRAL SCH (21:00)
[2017-01-17 23:53] VITALS: BP 100/61; PULSE 76; RESP 17; TEMP 97.1; O2SAT 98
[2017-01-18] MEDS: LORazepam 2 MG/ML VIAL IV PUSH PRN ×2 (00:24→11:48)
[2017-01-18] MEDS: LACTATED RINGER'S 1000 ML INJ 1,000 ML IV SCH (02:36)
[2017-01-18] MEDS: ACETAMINOPHEN/HYDROcodone 325 MG/10 MG TAB PO PRN ×2 (05:04→11:48)
[2017-01-18] MEDS: ONDANSETRON HCL 4 MG/2 ML VIAL IVP PRN (05:04)
[2017-01-18] MEDS: METOCLOPRAMIDE HCL 10 MG/2 ML VIAL IV PUSH SCH (05:08)
[2017-01-18 08:00] VITALS: BP 132/68; PULSE 76; RESP 18; TEMP 97; O2SAT 98
[2017-01-18] MEDS: PROMETHAZINE INJ 25 MG/ML VIAL IV-CENTRAL PRN ×2 (09:35→09:37)
[2017-01-18] MEDS: HYDROmorphone HCL PF 2 MG/ML VIAL IV PUSH PRN ×2 (09:35→09:37)
[2017-01-18] MEDS: FLUoxetine HCL LIQUID 20 MG/5 ML CUP PO SCH (09:38)
[2017-01-18] MEDS: DOCUSATE SODIUM 50 MG/SENNA 8.6 MG TAB PO SCH (09:38)
[2017-01-18] MEDS: DICYCLOMINE HCL 20 MG TAB PO SCH ×2 (09:38→11:48)
[2017-01-18] MEDS: NEOMYCIN SULFATE 500 MG TAB PO SCH (09:38)
[2017-01-18] MEDS: SODIUM CHLORIDE 0.9% FLUSH 10 ML FLUSH IV FLUSH SCH (09:39)
[2017-01-18 12:00] VITALS: BP 123/64; PULSE 93; RESP 18; TEMP 98.1; O2SAT 98
--- NOTE | 2017-01-20 07:07 | PQ ---
Physician Query Response Document PATIENT: KESHAWN GANNON : 1965 ADMIT DATE: 12/10/2016 3:30 PM DISCH DATE: 01/18/2017 12:59 PM RESPONDING PROVIDER #: JBianchi QUERY TEXT: Procedure Clarification Requirements for documentation of procedures now require additional specificity regarding the approac h, specific site (including laterality), all procedures performed, detailed information on associated devices and or implants utilized during the procedure and basic intent of the procedure. Your help is needed in clarifying the following: Are you able to clarify the site of the enterotomie s - large bowel vs small bowel? If you have any additional questions/comments and/or concerns, please do not hesitate to reach out to the [facility]I/Coding Hotline, Ext. [phone]. Query created by: Asha Mendoza on 01/19/2017 1:52 PM RESPONSE TEXT: Small bowel Electronically signed by: Wally Saldana MD 01/20/2017 7:03 AM
== END 2017-01-18 12:59 | disposition home health service (06) | DRG 629 ==
LOC: NEPE 11:29 → NEDA 15:16 → OBSVTOIN 15:30 → N06B 17:32 → HOCA 12-22 13:25 → UNDODISIN 01-07 15:56 → N07B 01-07 16:04
PROVIDERS: ADMIT Hospitalist; ATTEND Hospitalist
PROC: 3E0436Z Introduction of Nutritional Substance into Central Vein, Percutaneous Approach (ICD-10-PCS; 2016-12-14)
PROC: 0DB98ZX Excision of Duodenum, Via Natural or Artificial Opening Endoscopic, Diagnostic (ICD-10-PCS; 2016-12-18)
PROC: 0DBA8ZX Excision of Jejunum, Via Natural or Artificial Opening Endoscopic, Diagnostic (ICD-10-PCS; 2016-12-18)
PROC: 0DB38ZX Excision of Lower Esophagus, Via Natural or Artificial Opening Endoscopic, Diagnostic (ICD-10-PCS; 2016-12-18)
PROC: 0DQ80ZZ Repair Small Intestine, Open Approach (ICD-10-PCS; 2016-12-21)
PROC: 0DN80ZZ Release Small Intestine, Open Approach (ICD-10-PCS; 2016-12-21)
PROC: 0JN80ZZ Release Abdomen Subcutaneous Tissue and Fascia, Open Approach (ICD-10-PCS; 2016-12-21)
PROC: 0DNE0ZZ Release Large Intestine, Open Approach (ICD-10-PCS; principal; 2016-12-21 10:33)
DX: E87.6 Hypokalemia (principal); K91.2 Postsurgical malabsorption, not elsewhere classified; K56.51 Intestinal adhesions [bands], with partial obstruction; K91.71 Accidental puncture and laceration of a digestive system organ or structure during a digestive system procedure; I10 Essential (primary) hypertension; E83.42 Hypomagnesemia; K66.0 Peritoneal adhesions (postprocedural) (postinfection); F32.9 Major depressive disorder, single episode, unspecified; F17.210 Nicotine dependence, cigarettes, uncomplicated; R19.7 Diarrhea, unspecified; D64.9 Anemia, unspecified; M79.7 Fibromyalgia; R30.0 Dysuria
CPT/HCPCS: 74000; 74177; 76937; 80048; 80053; 81001; 82024; 82533; 82710; 82948; 83605; 83690; 83735; 84100; 84132; 84155; 85025; 85027; 85610; 85730; 87493; 88305; 93005; 94150; 96361; 96365; 96366; 96375; C1765; J0330; J0690; J0744; J0834; J1100; J1170; J1642; J1650; J2060; J2250; J2310; J2370; J2405; J2550; J2765; J2997; J3010; J3475; J3480; J7030; J7040; J7050; J7120; Q9963; Q9967